=== PATIENT | male | born 1975 | race Caucasian/White ===

== ENCOUNTER 2024-04-22 16:21 | Emergency (ER) | payer BC, SELFPAY ==
[2024-04-22 16:33] VITALS: BP 130/90; PULSE 93; TEMP 36.6; O2SAT 97; BMI 29.4
--- NOTE | 2024-04-22 17:15 | ED_ITS ---
HPI HPI - Back Pain/Injury General Chief Complaint: Back Pain/Injury Stated Complaint: BACK PAIN Time Seen by Provider: 04/22/24 16:45 Source: patient Mode of arrival: walk-in Limitations: no limitations History of Present Illness HPI Narrative: The patient is coming to the ER with a left-sided back pain that he mentioned that not radiating down his legs or arms. 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 The patient denies any fever chills cough, the patient pain comes mostly when laying on the left side and not associated with any cough fever chills or any other concerns Related Data Home Medications ?Medication ?Instructions ?Recorded ?Confirmed armodafinil 200 mg tablet 200 mg PO DAILY 04/22/24 04/22/24 empagliflozin 25 mg tablet 25 mg PO DAILY 04/22/24 04/22/24 (Jardiance) losartan 50 mg tablet 50 mg PO DAILY 04/22/24 04/22/24 rosuvastatin 10 mg tablet 10 mg PO DAILY 04/22/24 04/22/24 semaglutide 2 mg/dose (8 mg/3 mL) 2 mg subcut QWEEK 04/22/24 04/22/24 subcutaneous pen injector (Ozempic) Previous Rx's ?Medication ?Instructions ?Recorded orphenadrine citrate 100 mg 100 mg PO BID PRN muscle spasm #10 04/22/24 tablet,extended release tabs prednisone 20 mg tablet 40 mg (2 x 20 mg) PO DAILY 5 days 04/22/24 #10 tabs Allergies Allergy/AdvReac Type Severity Reaction Status Date / Time No Known Drug Allergies Allergy Verified 04/22/24 16:37 Opioid HPI Opioid Management Most Recent Opioid Data: Last Pain Scale 6 04/22/24 17:10 Review of Systems ROS Status of ROS 10 or more systems reviewed and unremark able except as noted in h istory and below Exam Narrative Exam Narrative: Nurses notes and vital signs reviewed and patient is not hypoxic. General: Well-appearing and in no apparent distress. Skin: Warm, dry, no pallor noted. No rash. Head: Normocephalic, atraumatic. Neck: Supple, non-tender. Eye: Pupils are equal, round and EOMI. No scleral icterus. Ears, Nose, Mouth, and Throat: TM are clear, no nasal mucosal hypertrophy. Oral mucosa is moist, no posterior oropharynx erythema, uvula is mid-line Cardiovascular: Regular Rate and Rhythm without murmur, gallop or rub. Respiratory: No accessory muscle use or respiratory distress. Lungs are clear to auscultation, no wheezing, rales or rhonchi Chest Wall: no tenderness Back: No midline thoracic or lumbar vertebral tenderness. No CVA tenderness, patient have tenderness upon palpation of the left thoracic area at the paraspinal level mostly at the lower T10-11 and 12. No rash no signs of trauma and the pain is induced with palpation Musculoskeletal: normal ROM, no calf or popliteal tenderness, no lower extremity edema/swelling GI: Abdomen is soft, non-distended. Normal bowel sounds. No masses appreciated. No tenderness to palpation. No rebound, guarding, or rigidity noted. Neurological: A&O x4. No cranial nerve dysfunction observed. No truncal bro primo. Moves all extremities. Sensation intact. Psychiatric: Cooperative and interactive. Normal mood and affect. Constitutional Vital Signs, click to edit/add: Last Vital Signs Temp 97.8 F 04/22/24 16:33 Pulse 93 H 04/22/24 16:33 Resp 18 04/22/24 16:33 BP 130/90 04/22/24 16:33 Pulse Ox 97 04/22/24 16:33 O2 Del Method Room Air 04/22/24 16:33 Course Vital Signs Vital signs: Vital Signs Temperature 97.8 F 04/22/24 16:33 Pulse Rate 93 H 04/22/24 16:33 Respiratory Rate 18 04/22/24 16:33 Blood Pressure 130/90 04/22/24 16:33 Pulse Oximetry 97 04/22/24 16:33 Oxygen Delivery Method Room Air 04/22/24 16:33 Temperature 97.8 F 04/22/24 16:33 Pulse Rate 93 H 04/22/24 16:33 Respiratory Rate 18 04/22/24 16:33 Blood Pressure 130/90 04/22/24 16:33 Pulse Oximetry 97 04/22/24 16:33 Oxygen Delivery Method Room Air 04/22/24 16:33 MDM - Back Pain/Injury MDM Narrative Medical decision making narrative: The patient presentation is mostly secondary to muscular pain The patient pain is induced with palpation Right now the patient is not taking anything [id number] and he was treated with 5 days of prednisone as well as Tylenol and Norflex He also provided with Toradol in the ER The patient to avoid any heavy lifting for at least few days until he gets better The patient is to follow up with primary care physician in next 2-3 days or to return to the emergency department should any of the signs or symptoms worsen or new symptoms develop. The patient agrees with the following Diagnosis and Treatment plan and the patient will be discharged home. Discharge Plan Discharge Stand Alone Forms: Portal Instructions Chief Complaint: Back Pain/Injury Clinical Impression: Thoracic back pain Qualifiers: Chronicity: acute Back pain laterality: left Qualified Code(s): M54.6 - Pain in thoracic spine Patient Disposition: Home, Self-Care Time of Disposition Decision: 17:13 Condition: Good Prescriptions / Home Meds: New prednisone 20 mg tablet 40 mg PO DAILY 5 Days Qty: 10 0RF orphenadrine citrate 100 mg tablet extended release 100 mg PO BID PRN (Reason: muscle spasm) Qty: 10 0RF No Action Ozempic 2 mg/dose (8 mg/3 mL) pen injector 2 mg subcut QWEEK Jardiance 25 mg tablet 25 mg PO DAILY losartan 50 mg tablet 50 mg PO DAILY armodafinil 200 mg tablet 200 mg PO DAILY rosuvastatin 10 mg tablet 10 mg PO DAILY Print Language: Nepali Instructions: Thoracic Pain (ED), Back Pain (ED) Referrals: Erick Costello DO [Primary Care Provider] - 1 week Discharge Date/Time: 04/22/24 17:15
--- NOTE | 2024-04-22 17:48 | PC.NURSE ---
Pt medicated with toradol but unable to sign off in DEC. Pt given DC paperwork and released
== END 2024-04-22 17:15 | disposition home or self-care (01) ==
PROVIDERS: Emergency Provider Emergency Medicine; PCP Family Medicine
DX: M54.6 Pain in thoracic spine (principal)
CPT/HCPCS: 99284

== ENCOUNTER 2024-06-20 10:33 | Emergency (ER) | payer BC, SELFPAY ==
[2024-06-20 10:37] VITALS: BP 140/103; PULSE 92; TEMP 36.5; O2SAT 98; BMI 29.4
--- NOTE | 2024-06-20 10:53 | CT_ITS ---
The [address] [address] Patient Name: LUIS A HI MRN: [id number] date: 1975 Sex: M Assigned Patient Location: ER Current Patient Location: Accession/Order Number: [id number] Exam Date: 06/20/2024 11:00 Report Date: 06/20/2024 11:59 At the request of: BRIGIDA JIANG Procedure: CT abdomen pelvis wo con EXAM: CT abdomen pelvis wo con HISTORY: Right flank pain, rule out stone COMPARISON: CT from 05/07/2020. TECHNIQUE: CT abdomen pelvis wo con FINDINGS: LOWER CHEST: LUNG BASES / PLEURA: Normal. DISTAL ESOPHAGUS: Normal. HEART / VESSELS: No significant abnormality. ABDOMEN and PELVIS: LIVER: Normal given limitations of noncontrast CT. BILIARY TRACT: Normal. GALLBLADDER: No abnormality. PANCREAS: Normal. SPLEEN: Normal. ADRENALS: Normal. KIDNEYS: Bilateral simple renal cysts. There is also a minimally complex left upper pole cyst with a thin calcified septation, similar to the prior exam. Multiple small nonobstructing right renal stones. Additionally, there is a 1.1 cm stone in the right renal pelvis which causes mild hydronephrosis (image 53 of series 3). No hydroureter. LYMPH NODES: None enlarged. STOMACH / SMALL BOWEL: No abnormality. COLON / APPENDIX: No abnormality. PERITONEUM / MESENTERY: Normal. No free fluid or air. RETROPERITONEUM: Normal. VESSELS: No significant abnormality. URINARY BLADDER: Normal. REPRODUCTIVE ORGANS: No abnormality. BODY WALL: Small fat-containing left inguinal hernia. MUSCULOSKELETAL: No acute osseous abnormality. Mild degenerative changes of both SI joints and the lumbar spine. CT/CT abdomen pelvis wo con IMPRESSION: 1. Renal stone in the right renal pelvis measuring 1.1 cm with resulting in mild hydronephrosis. Multiple small nonobstructing left renal stones. 2. Multiple low-attenuation using renal lesions bilaterally, consistent with renal cysts. A left upper pole cyst is minimally complex but is stable from 2019. Electronically authenticated by: MAHI YOUNGER Date: 06/20/2024 11:59
--- NOTE | 2024-06-20 10:54 | ED_ITS ---
HPI HPI - General Adult General Chief complaint: Abdominal Pain Stated complaint: FLANK PAIN Time Seen by Provider: 06/20/24 10:50 Source: patient Mode of arrival: walk-in Limitations: no limitations History of Present Illness HPI narrative: 48-year-old male presents for right flank pain. He is worried about a kidney stone. He has had this intermittently for months and years ago he had to have lithotripsy for kidney stones. He has had no gross hematuria or injury and has no pain on the left side. The pain is intermittent and mild to moderate. Related Data Home Medications ?Medication ?Instructions ?Recorded ?Confirmed armodafinil 200 mg tablet 200 mg PO DAILY 04/22/24 04/22/24 empagliflozin 25 mg tablet 25 mg PO DAILY 04/22/24 04/22/24 (Jardiance) losartan 50 mg tablet 50 mg PO DAILY 04/22/24 04/22/24 rosuvastatin 10 mg tablet 10 mg PO DAILY 04/22/24 04/22/24 semaglutide 2 mg/dose (8 mg/3 mL) 2 mg subcut QWEEK 04/22/24 04/22/24 subcutaneous pen injector (Ozempic) Previous Rx's ?Medication ?Instructions ?Recorded orphenadrine citrate 100 mg 100 mg PO BID PRN muscle spasm #10 04/22/24 tablet,extended release tabs prednisone 20 mg tablet 40 mg (2 x 20 mg) PO DAILY 5 days 04/22/24 #10 tabs hydrocodone 5 mg-acetaminophen 325 1 tab PO Q6H PRN pain 5 days #20 06/20/24 mg tablet tabs Allergies Allergy/AdvReac Type Severity Reaction Status Date / Time No Known Drug Allergies Allergy Verified 04/22/24 16:37 Opioid HPI Opioid Management Most Recent Opioid Data: Last Pain Scale 6 04/22/24 17:10 Review of Systems ROS Narrative A ten point review of systems is negative except as noted above. PFSH PFSH Social History Little interest or pleasure in doing things: not at all Feeling down, depressed, or hopeless: not at all Exam Narrative Exam Narrative: Nurses note and vital signs reviewed and patient is not hypoxic. General: The patient appears well and in no apparent distress. Patient is resting comfortably on cart. Skin: Warm, dry, no pallor noted. There is no rash noted. Head: Normocephalic, atraumatic Eye: Normal conjunctiva, no drainage Ears, Nose, Mouth, and Throat: oral mucosa is moist. Nares patent. Cardiovascular: Regular Rate and Rhythm Respiratory: Patient is in no distress, no accessory muscle use, lungs are clear to auscultation, no wheezing, rales or rhonchi Back: non-tender, no CVA tenderness bilaterally to percussion. GI: Soft and nontender Musculoskeletal: The patient has no evidence of calf tenderness, no pitting edema, symmetrical pulses noted bilaterally Neurological: Awake and alert Psychiatric: Cooperative Constitutional Vital Signs, click to edit/add: Last Vital Signs Temp 97.7 F 06/20/24 10:37 Pulse 92 H 06/20/24 10:37 Resp 18 06/20/24 10:37 BP 134/82 06/20/24 11:31 Pulse Ox 98 06/20/24 10:37 Course Vital Signs Vital signs: Vital Signs Temperature 97.7 F 06/20/24 10:37 Pulse Rate 92 H 06/20/24 10:37 Respiratory Rate 18 06/20/24 10:37 Blood Pressure 140/103 H 06/20/24 10:37 Pulse Oximetry 98 06/20/24 10:37 Temperature 97.7 F 06/20/24 10:37 Pulse Rate 92 H 06/20/24 10:37 Respiratory Rate 18 06/20/24 10:37 Blood Pressure 134/82 06/20/24 11:31 Pulse Oximetry 98 06/20/24 10:37 Medical Decision Making MDM Narrative Medical decision making narrative: 11 mm stone noted at the right renal pelvis. He is referred to urology and was provided pain medication. Treatment diagnosis and follow-up were discussed with the patient. Differential Diagnosis Differential Diagnosis: Kidney stone, UTI Lab Data Lab results reviewed: Yes I reviewed the patient's lab results Labs: Lab Results 06/20/24 Range/Units 10:39 Urine Color Lt. yellow (YELLOW) Urine Clarity Clear (CLEAR) Urine pH 7.0 (5.0-9.0) Ur Specific [place] 1.015 (1.005-1.025) Urine Protein Negative (NEG/TRACE) mg/dL Urine Glucose (UA) 100 A (NEGATIVE) mg/dL Urine Ketones Negative (NEGATIVE) mg/dL Urine Occult Blood Small A (NEGATIVE) Urine Nitrite Negative (NEGATIVE) Urine Bilirubin Negative (NEGATIVE) Urine Urobilinogen 0.2 (0.2-1.0) EU/dL Ur Leukocyte Esterase Negative (NEGATIVE) Urine RBC 2-5 A (0-2) #/HPF Urine WBC None seen (NONE SEEN) #/HPF Ur Squamous Epith Cells Few A (NONE/RARE) #/LPF Urine Bacteria None seen (NONE SEEN) #/HPF Urine Mucus Trace A (NONE SEEN) Imaging Data CT scan - abdomen: Radiologist's impression: ITS Impressions Abdomen/Pelvis CT 06/20/24 10:53 IMPRESSION: 1. Renal stone in the right renal pelvis measuring 1.1 cm with resulting in mild hydronephrosis. Multiple small nonobstructing left renal stones. 2. Multiple low-attenuation using renal lesions bilaterally, consistent with renal cysts. A left upper pole cyst is minimally complex but is stable from 2019. Electronically authenticated by: MAHI YOUNGER Date: 06/20/2024 11:59 Discharge Plan Discharge Chief Complaint: Abdominal Pain Clinical Impression: Kidney stone Patient Disposition: Home, Self-Care Time of Disposition Decision: 12:07 Condition: Good Mode of Transportation: Private Vehicle Prescriptions / Home Meds: New hydrocodone-acetaminophen 5-325 mg tablet 1 tab PO Q6H PRN (Reason: pain) 5 Days Qty: 20 0RF No Action Ozempic 2 mg/dose (8 mg/3 mL) pen injector 2 mg subcut QWEEK Jardiance 25 mg tablet 25 mg PO DAILY losartan 50 mg tablet 50 mg PO DAILY armodafinil 200 mg tablet 200 mg PO DAILY rosuvastatin 10 mg tablet 10 mg PO DAILY prednisone 20 mg tablet 40 mg PO DAILY 5 Days Qty: 10 0RF orphenadrine citrate 100 mg tablet extended release 100 mg PO BID PRN (Reason: muscle spasm) Qty: 10 0RF Print Language: Australian Instructions: Kidney Stones (ED) Referrals: Erick Costello DO [Primary Care Provider] - 1 week Jonathon Diaz MD [Physician] - 1 week
[2024-06-20 11:18] LABS: Bilirubin Urine NEGATIVE (NEGATIVE); Blood Urine SMALL (NEGATIVE); Clarity Urine CLEAR (CLEAR); Color Urine LT. YELLOW (YELLOW); Glucose Urine UA 100 mg/dL (NEGATIVE); Ketones Urine NEGATIVE (NEGATIVE); Leukocyte Esterase Urine NEGATIVE (NEGATIVE); Nitrite Urine NEGATIVE (NEGATIVE); Protein Urine NEGATIVE (NEG/TRACE); Specific Gravity Urine 1.015 (1.005-1.025); Urobilinogen Urine 0.2 EU/dL (0.2-1.0)
[2024-06-20 11:26] LABS: Bacteria Urine NONE SEEN #/HPF (NONE SEEN); Mucus Urine TRACE (NONE SEEN); WBC Urine NONE SEEN #/HPF (NONE SEEN)
[2024-06-20 11:27] LABS: Squamous Epithelial Cell Urine FEW #/LPF (NONE/RARE)
[2024-06-20 11:31] VITALS: BP 134/82
== END 2024-06-20 12:36 | disposition home or self-care (01) ==
PROVIDERS: Emergency Provider Emergency Medicine; PCP Family Medicine
DX: N20.0 Calculus of kidney (principal); Z87.442 Personal history of urinary calculi
CPT/HCPCS: 74176; 81001; 99284

== ENCOUNTER 2024-06-25 07:44 | Outpatient (OUT) | payer BC, SELFPAY ==
--- NOTE | 2024-06-25 | XR_ITS ---
The [address] [address] Patient Name: LUIS A HI MRN: [id number] date: 1975 Sex: M Assigned Patient Location: [facility] Current Patient Location: Accession/Order Number: [id number] Exam Date: 06/25/2024 07:50 Report Date: 06/26/2024 05:39 At the request of: THANH BECERAR Procedure: XR abdomen 1V EXAMINATION: XR abdomen 1V HISTORY: Kidney stones; post stent placement COMPARISON: CT abdomen pelvis 06/20/2024 FINDINGS: KIDNEY/URETER - RIGHT: Right ureteral stents. No visible renal or ureteral calcifications. KIDNEY/URETER - LEFT: No visible renal or ureteral calcifications. PELVIS: Stable pelvic calcifications compatible with phleboliths. BOWEL: No abnormal dilation or deviation. BONES: No acute abnormality. OTHER: Negative. No abnormal gaseous collections. XR/XR abdomen 1V IMPRESSION: 1. Right ureteral stent appearing to be in good position. 2. No appreciable urinary tract calculi. Electronically authenticated by: СЕРГЕЙ CHAVARRIA Date: 06/26/2024 05:39
--- OUTSIDE RECORDS SUMMARY | 2024-06-25 07:50 | XMS_ITS | CCD ---
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 Name Role Phone PAY, DR BURTON Attending Unavailable PAY, DR BURTON Consulting Unavailable PAY, DR BURTON Admitting Unavailable KUNS, DR SUAREZ Primary Care Unavailable JOSÉ ANTONIO HOANG Consulting Unavailable KUNS, DR SUAREZ Admitting Unavailable KUNS, DR SUAREZ Attending Unavailable KUNS, DR SUAREZ Consulting Unavailable KUNS, DR SUAREZ Primary Care Unavailable KUNS, DR SUAREZ Admitting Unavailable KUNS, DR SUAREZ Attending Unavailable KUNS, DR SUAREZ Consulting Unavailable KUNS, DR SUAREZ Primary Care Unavailable Erick Doll Unavailable Trang, DO Suarez Primary Care Provider [phone] Trang, DO Suarez Attending Provider [phone] Trang, DO Suarez Primary Care Provider [phone] Trang, DO Suarez Attending Provider [phone] Gisell Norman Unavailable Trang, DO Suarez Primary Care Provider [phone] Trang, DO Suarez Attending Provider Trang, DO Suarez Primary Care Provider [phone] MD Jonathon Diaz Attending Provider [phone] ERICK DOLL Primary Care Physician Jonathon DIAZ Attending Unavailable Jonathon DIAZ Attending Unavailable Jonathon Diaz Attending Unavailable Erick Doll Primary Care Unavailable Jonathon Diaz Admitting Unavailable Jonathon Diaz Admitting Unavailable Jonathon Diaz Attending Unavailable Erick Doll Primary Care Unavailable Allergies Allergy Classification Reported Allergen(s) Allergy Type Date of Onset Reaction(s) Facility (1 source) No Known Medication Allergies; Translations: [No Known Medication Allergies] Propensity to adverse reactions (disorder) [facility] Repository Medications Current Medications Medication Drug Class(es) Dates Sig (Normalized) Sig (Original) 3 ML semaglutide 2.68 MG/ML Pen Injector [Ozempic] (9 sources) Start: 08-27-2023 Ozempic (2 MG/DOSE) 8 MG/3ML as directed Subcutaneous for 90 days Aug, Active Start: 06-01-2023 inject 2 mg by subcu taneous injection every week Ozempic (2 MG/DOSE) 8 MG/3ML 2 mg Subcutaneous once a week May, Active Start: 06-01-2023 inject 1 mg by subcu taneous injection every week Ozempic (2 MG/DOSE) 8 MG/3ML as directed Subcutaneous once a week May, Active azithromycin 250 mg oral tablet (4 sources) Macrolide Antimicrobial Start: 09-28-2023 Zithromax Z-Gonsalo 250 MG as directed Orally Sep, Active cephalexin 500 mg oral capsule (7 sources) Cephalosporin Antibacterial Start: 06-23-2024 take 500 mg by mouth twice daily Cephalexin Active 500 MG PO Twice daily 14 June 23, 2024 12:00am Start: 09-21-2017 End: 12-10-2023 take 1 capsule by mouth every twelve hours Cephalexin (Keflex) 500 mg capsule Discontinued 500 MG PO Every 12 hours September 21, 2017 1:00am December 10, 2023 9:30am CPAP (2 sources) Start: 12-10-2023 CPAP Active .Route December 10, 2023 1:00am Use at for [facility] CPAP Mask and supplies (20 sources) Start: 05-05-2018 CPAP Mask and supplies as directed Apr, Active empagliflozin 25 mg oral tablet (20 sources) Sodium-Glucose Cotransporter 2 Inhibitor Start: 12-10-2023 End: 04-17-2024 take 1 tablet by mouth once daily in the morning Jardiance 25 mg oral tablet 25 mg = 1 tab(s), Oral, qAM Start Date: 06/22/24 Status: Ordered Start: 07-12-2020 JARDIANCE 25 m g daily orally Once a day Jul, Active Glucometer (2 sources) Start: 12-10-2023 Glucometer Act john .Route December 10, 2023 1:00am Check blood sugar one time per day for E11.9 Glucometer n/a (20 sources) Start: 07-12-2020 Glucometer n/a as directed as directed as directed AND SUPPLIES Jul, Active losartan potassium 50 mg oral tablet (20 sources) Angiotensin 2 Receptor Alicia Start: 12-10-2023 take 1 tablet by mouth once daily Losartan Active 50 MG PO Daily December 10, 2023 1:00am FreeTextSi tablet Orally Once a day; Note: Source Status: Taking; Provider: Trang Lee Start: 05-05-2018 take 1 tablet by crissy th every twenty-four hours Losartan Potassium 50 MG 1 tablet Orally Once a day Apr, Active methylPREDNISolone 4 mg oral tablet (20 sources) Corticosteroid Start: 06-02-2023 methylPREDNISo lone 4 MG as directed Orally for daily dose take half with breakfast, half with dinner May, Active Start: 12-28-2019 SOLU-MEDROL 41 - 125 mg Dec, 125 mg Start: 02-27-2017 SOLU-MEDROL 41 - 125 mg February, 125 mg ozempic (2 mg/dose) 8 mg/3ml solution pen-injector (4 sources) Start: 08-27-2023 Ozempic (2 MG/ DOSE) 8 MG/3ML as directed Subcutaneous for 90 days Aug, Active rosuvastatin calcium 10 mg oral tablet (20 sources) HMG-CoA Reductase Inhibitor Start: 12-10-2023 take 1 tablet by mouth once daily Rosuvastatin Active 10 MG PO Daily December 10, 2023 1:00am FreeTextSi tablet Orally Once a day; Note: Source Status: Taking; Provider: Trang Lee Start: 05-05-2018 take 1 tablet by crissy th every twenty-four hours Crestor 10 MG 1 tablet Orally Once a day Apr, Active Ozempic (6 sources) Start: 06-22-2024 inject 2 mg by subcutaneous injection every week Ozempic 2 mg, SubCutaneous, qWeek Start Date: 06/22/24 Status: Ordered Start: 12-29-2022 Ozempic (0.25 or 0.5 MG/DOSE) 2 MG/1.5ML as directed Subcutaneous Once a week for 28 days Dec, Active Semaglutide (Ozempic) 2 mg/dose (8 mg/3 mL) pen injector (4 sources) Start: 01-11-2024 inject 2 mg by subcutaneous injection every week Semaglutide (Ozempic) 2 mg/dose (8 mg/3 mL) pen injector Active 2 MG SUBCUT every week January 11, 2024 8:23am Start: 01-08-2024 End: 01-11-2024 inject 2 mg by subcutaneous injection every week Semaglutide (Ozempic) 2 mg/dose (8 mg/3 mL) pen injector Discontinued 2 MG SUBCUT every week January 08, 2024 12:00am January 11, 2024 8:23am solifenacin succinate 10 mg oral tablet (1 source) Cholinergic Muscarinic Antagonist Start: 06-23-2024 take 1 tablet by mouth once daily Solifenacin (Vesicare) 10 mg tablet Active 10 MG PO Daily June 23, 2024 12:00am tobramycin 3 mg/ml ophthalmic solution (2 sources) Aminoglycoside Antibacterial Start: 10-07-2023 take 2-3 drop(s) into the eye(s) every six hours Tobramycin 0.3 % 2-3 drops to the affected eye Ophthalmic every 6 hours for 7 days Sep, Active triamcinolone acetonide 1 mg/ml topical cream (20 sources) Corticosteroid Start: 05-28-2023 Triamcinolone Acetonide 0.1 % 1 application to affected area Externally Three times a day May, Active Start: 12-08-2019 KENALOG - 10 m g Nov, 1 cc Start: 02-07-2017 KENALOG - 10 m g Jan, 40 mg vortioxetine 20 mg oral tablet (5 sources) Start: 06-28-2019 take 1 tablet by crissy every twenty-four hours Trintellix 20 MG 1 tablet Orally Once a day for 90 day(s) Jun, Active Completed/Discontinued Medications Medication Drug Class(es) Dates Sig (Normalized) Sig (Original) acetaminophen 325 mg / HYDROcodone bitartrate 5 mg oral tablet (12 sources) Opioid Agonist Start: 09-21-2017 End: 12-10-2023 take 1 tablet by mouth every six hours Hydrocodone-Acetami nophen Discontinued 1 TAB PO Q6H September 21, 2017 December 10, 2023 9:30am Start: 09-21-2017 End: 12-10-2023 take 1 tablet by mouth every four to six hours Hydrocodone-Acetaminophen Discontinued 1 TAB PO EVERY 4-6 HOURS September 21, 2017 1:00am December 10, 2023 9:30am armodafinil 200 mg oral tablet (20 sources) Start: 01-11-2024 End: 04-12-2024 take 1 tablet by mouth once daily in the morning Armodafinil (Nuvigil) 200 mg tablet Discontinued 200 MG PO Every morning March 04, 2024 12:53pm April 12, 2024 9:29am Start: 12-10-2023 End: 01-11-2024 take 1 tablet by mouth once daily Armodafinil Discontinued 150 MG PO Daily December 10, 2023 9:35am January 11, 2024 8:21am FreeTextSi tablet Orally Once a day; Note: Source Status: Refill; Refills: 0; Qty: 30 Tablet; Provider: Trang Lee Start: 08-27-2023 take 1 tablet by crissy th every twenty-four hours Armodafinil 150 MG 1 tablet Orally Once a day for 30 days Sep, Active Start: 06-17-2023 take 1 tablet by crissy th every twenty-four hours Armodafinil 150 MG 1 tablet Orally Once a day for 30 days Jun, Active dicyclomine hydrochloride 10 mg oral capsule (20 sources) Anticholinergic Start: 12-10-2023 End: 01-11-2024 take 1 tablet by mouth twice daily as needed Dicyclomine Discontinued 10 MG PO Twice daily December 10, 2023 1:00am January 11, 2024 7:50am FreeTextSi tablet Orally twice a day as needed; Note: Source Status: Taking; Refills: 1; Provider: Trang Lee Start: 12-29-2022 take 1 tablet by crissy th twice daily as needed Dicyclomine HCl 10 MG 1 tablet Orally twice a day as needed for 30 days Dec, Active 0.5 ml dulaglutide 3 mg/ml auto-injector (9 sources) GLP-1 Receptor Agonist Start: 12-10-2023 End: 01-11-2024 Dulaglutide (Trulicity) 1.5 mg/0.5 mL pen injector Discontinued 1.5 MG SUBCUT every week December 10, 2023 1:00am January 11, 2024 7:51am FreeTextSig: as directed Subcutaneous once a week; Note: Source Status: Taking4 pens; Refills: 2; Provider: Trang Lee Start: 08-31-2023 Trulicity 1.5 MG/0.5ML as directed Subcutaneous once a week 4 pens Aug, Active Start: 08-04-2023 inject 1.5 mg by sub cutaneous injection every week Trulicity 1.5 MG/0.5ML 1.5 mg Subcutaneous weekly for 30 days Jul, Active Ketorolac (20 sources) Nonsteroidal Anti-inflammatory Drug, Cyclooxygenase Inhibitor Start: 07-01-2016 Toradol per 15 mg Jun, 2.0 cc metFORMIN hydrochloride 500 mg oral tablet (20 sources) Biguanide Start: 12-10-2023 End: 01-11-2024 take 1 tablet by mouth twice daily Metformin Discontinued 500 MG PO Twice daily December 10, 2023 1:00am January 11, 2024 8:16am FreeTextSi tablet with a meal Orally twice a day; Note: Source Status: Taking; Provider: Trang Lee Start: 05-04-2019 take 1 tablet by crissy th every twelve hours metFORMIN HCl 500 MG 1 tablet with a meal Orally twice a day Apr, Active Problems Active Problems Problem Classification Problem Date Documented Date Episodic/Chronic Abdominal pain (20 sources) Lower abdominal pain; Translations: [Lower abdominal pain, unspecified] Episodic Administrative/socia l admission (5 sources) Dietary management surveillance; Translations: [Dietary counseling and surveillance] Episodic Allergic reactions (17 sources) Contact dermatitis due to poison nellie; Translations: [Allergic contact dermatitis due to plants, except food] Episodic Anxiety disorders (20 sources) Mixed anxiety and depressive disorder; Translations: [Other specified anxiety disorders] Chronic Calculus of urinary tract (20 sources) Personal history of urinary calculi; Translations: [Kidney stone] Onset: 03-19-2022 Episodic Cardiac dysrhythmias (4 sources) Palpitations; Translations: [PALPITATIONS] Onset: 04-01-2022 Episodic Diabetes mellitus without complication (20 sources) Type 2 diabetes mellitus without complications; Translations: [Diabetes mellitus] Onset: 04-03-2022 Resolved: 06-10-2022 Chronic Diabetes mellitus without complication (5 sources) Hyperglycemia; Translations: [Hyperglycemia, unspecified] Episodic Diseases of white blood cells (20 sources) Leukocytosis; Translations: [Elevated white blood cell count, unspecified] Chronic Disorders of lipid metabolism (20 sources) Hyperlipidemia, unspecified; Translations: [Pure hypercholesterolemia, unspecified] Onset: 03-19-2022 Resolved: 06-10-2022 Chronic E Codes: Natural/environment (13 sources) Injury caused by animal; Translations: [Bitten or stung by nonvenomous insect and other nonvenomous arthropods, initial encounter] Episodic Esophageal disorders (20 sources) Gastroesophageal reflux disease; Translations: [Gastro-esophageal reflux disease without esophagitis] 01-08-2024 Chronic Essential hypertension (20 sources) Essential (primary) hypertension; Translations: [Hypertensive disorder] Onset: 04-03-2022 Chronic Genitourinary symptoms and ill-defined conditions (6 sources) Hematuria, unspecified; Translations: [Blood in urine] Episodic Headache; including migraine (5 sources) Headache; Translations: [Headache] Episodic Malaise and fatigue (20 sources) Fatigue; Translations: [Other fatigue] Episodic Nonspecific chest pain (5 sources) Chest pain, unspecified; Translations: [CHEST PAIN UNSPECIFIED] Onset: 03-17-2022 Episodic Other aftercare (1 source) 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; Translations: [SODA MAKER USE ORAL HYPOGLYCEMIC DX] Onset: 03-19-2022 Episodic Other aftercare (1 source) 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; Translations: [OTH SODA MAKER CURRENT DRUG THERAPY] Onset: 03-19-2022 Episodic Other and unspecified benign neoplasm (20 sources) Tubular adenoma of colon; Translations: [Benign neoplasm of colon, unspecified] Episodic Other connective tissue disease (5 sources) Disorder of musculoskeletal system; Translations: [Other symptoms and signs involving the musculoskeletal system] Episodic Other connective tissue disease (2 sources) Lateral epicondylitis; Translations: [Lateral epicondylitis, unspecified elbow] 05-17-2024 Episodic Other connective tissue disease (2 sources) Lateral epicondylitis, unspecified elbow; Translations: [Lateral epicondylitis] 05-17-2024 Episodic Other lower respiratory disease (1 source) Shortness of breath; Translations: [SHORTNESS OF BREATH] Onset: 04-03-2022 Episodic Other lower respiratory disease (20 sources) Solitary nodule of lung; Translations: [Solitary pulmonary nodule] Episodic Other lower respiratory disease (5 sources) Cough; Translations: [Cough] Episodic Other nervous system disorders (10 sources) Reduced concentration; Translations: [Attention and concentration deficit] Chronic Other nervous system disorders (4 sources) Attention and concentration deficit; Translations: [Attention or concentration deficit] Chronic Other nervous system disorders (2 sources) Circadian rhythm sleep disorder of shift work type; Translations: [Circadian rhythm sleep disorder, shift work type] 05-17-2024 Chronic Other nervous system disorders (2 sources) Disturbance of attention; Translations: [Attention and concentration deficit] 12-10-2023 Chronic Other nervous system disorders (2 sources) Circadian rhythm sleep disorder, shift work type; Translations: [Circadian rhythm sleep disorder, shift work type] 05-17-2024 Chronic Other nervous system disorders (5 sources) Paresthesia of hand ; Translations: [Paresthesia of skin] Episodic Other nervous system disorders (5 sources) Skin sensation disturbance; Translations: [Paresthesia of skin] Episodic Other non-traumatic joint disorders (2 sources) Pain in elbow; Translations: [Pain in right elbow] 01-11-2024 Episodic Other nutritional; endocrine; and metabolic disorders (20 sources) Obese class I; Translations: [Body mass index (BMI) 33.0-33.9, adult] Chronic Other nutritional; endocrine; and metabolic disorders (20 sources) Gilbert's syndrome; Translations: [Gilbert syndrome] 01-08-2024 Chronic Other nutritional; endocrine; and metabolic disorders (1 source) Gilbert syndrome Onset: 06-10-2022 Resolved: 06-10-2022 Chronic Other nutritional; endocrine; and metabolic disorders (20 sources) Body mass index 30+ - obesity; Translations: [Body mass index (BMI) 34.0-34.9, adult] Chronic Other nutritional; endocrine; and metabolic disorders (20 sources) Obesity; Translations: [Obesity, unspecified] Chronic Other nutritional; endocrine; and metabolic disorders (1 source) Obesity, unspecified Chronic Other nutritional; endocrine; and metabolic disorders (1 source) Body mass index (BMI) 34.0-34.9, adult Chronic Other nutritional; endocrine; and metabolic disorders (2 sources) Body mass index (BMI) 31.0-31.9, adult; Translations: [BMI 31.0-31.9,adult] Chronic Other screening for suspected conditions (not mental disorders or infectious disease) (20 sources) Patient encounter status; Translations: [Encounter for screening for malignant neoplasm of prostate] Episodic Other upper respiratory infections (5 sources) Upper respiratory infection; Translations: [Acute upper respiratory infection, unspecified] Episodic Residual codes; unclassified (2 sources) Sleep apnea, unspecified; Translations: [SLEEP APNEA UNSPECIFIED] Onset: 03-19-2022 Resolved: 06-10-2022 Chronic Residual codes; unclassified (20 sources) Sleep apnea; Translations: [Sleep apnea, unspecified] Chronic Residual codes; unclassified (20 sources) Obstructive sleep apnea syndrome; Translations: [Obstructive sleep apnea (adult) (pediatric)] 01-08-2024 Chronic Residual codes; unclassified (1 source) Obstructive sleep apnea (adult) (pediatric) Chronic Residual codes; unclassified (1 source) Personal history of other specified conditions; Translations: [PERSONAL HISTORY OTH SPEC CONDITION] Onset: 03-19-2022 Episodic Residual codes; unclassified (20 sources) Reduced libido; Translations: [Decreased libido] Episodic Residual codes; unclassified (1 source) Decreased libido Episodic Residual codes; unclassified (2 sources) Past history of procedure; Translations: [Other specified postprocedural states] 01-08-2024 Episodic Residual codes; unclassified (2 sources) History of colonoscopy; Translations: [Other specified postprocedural states] 01-08-2024 Episodic Screening and history of mental health and substance abuse codes (3 sources) Personal history of nicotine dependence; Translations: [H/O: Disorder] Onset: 03-19-2022 Episodic Skin and subcutaneous tissue infections (20 sources) Pilonidal cyst without abscess; Translations: [Pilonidal cyst] Episodic Sprains and strains (5 sources) Neck sprain; Translations: [Strain of muscle, fascia and tendon at neck level, initial encounter] Episodic Superficial injury; contusion (13 sources) Tick bite; Translations: [Insect bite (nonvenomous), left foot, initial encounter] Episodic Unclassified (3 sources) CONTACT W/AND (SUSP) EXPOS COVID-19; Translations: [CONTACT W/AND (SUSP) EXPOS COVID-19] Onset: 10-24-2021 Past or Other Problems Problem Classification Problem Date Documented Da te Episodic/Chronic Unclassified (1 source) CONTACT W/AND (SUSP) EXPOS COVID-19; Translations: [CONTACT W/AND (SUSP) EXPOS COVID-19] Onset: 10-22-2021 Results Test Name Value Interpretation Reference Range Facility Capillary blood glucose gonzalo urement by glucometer (mass/volume)Ordered By: Jonathon Diaz on 06-23-2024 Glucose [Mass/Vol] 85 mg/dL Normal [facility] Comment on above: Random Glucose Refer ence Range is dependent on time and content of last meal. Glucose of more than 200 mg/dL in a nonstressed, ambulatory subject supports the diagnosis of Diabetes Mellitus. Result Comment: [place] Glucose Reference Range is dependent on time and content of last meal. Glucose of more than 200 mg/dL in a nonstressed, ambulatory subject supports the diagnosis of Diabetes Mellitus. Performed By: #### G LULS #### Point of Care testing , Glucose Poct Glucometerson 0 06-23-2024 Commemt1 Glu2: Cleaned Meter Normal [facility] Comment on above: Result Comment: PERF ORMED BY: [address] [id number] PATHOLOGIST TOUR OPERATOR DENVER LAYTON M.D. Performed By: #### G LULS #### Point of Care testing , No Panel InformationOrdered By: Jonathon Diaz on 06-23-2024 Bedside Glucose Comment Glu2: cleaned meter [facility] XR KUBon 06-23-2024 XR KUB [facility] [address] [address] XRay Report Signed Patient: Luis A Hi MR#: [id number] : 1975 Acct:[id number] Age/Sex: 48 / M ADM Date: 06/23/24 Loc: [place] Room: Type: [facility] Attending Dr: Jonathon Diaz MD Copies to: Jonathon Diaz MD Ordering Provider: Jonathon Diaz MD Date of Service: 06/23/24 XR/XR KUB: Ureteral Stone, Kidney stone KUB: CLINICAL INFORMATION: Preop right cystoscopy with possible stent. Right-sided abdominal pain and discomfort. COMPARISON: None FINDINGS: Stool overlying the right renal shadow limits evaluation. Right renal calculus measuring 9 mm. No suspicious left renal calculus. No bowel obstruction or free air. Platelets are seen within the pelvis. XR/XR KUB IMPRESSION: RIGHT NEPHROLITHIASIS. Impression dictated by: Hari Sinclair Jr., D.OSarina06/23/2024 12:52 PM Dictation Location: [place] [address] Transcribed By: [facility] 06/23/24 1252 Dictated By: Hari Sinclair Jr, DO 06/23/24 1250 Signed By: 06/23/24 1252 Normal [facility] Activated partial thrombopla stin time (aPTT) in platelet poor plasma by coagulation aOrdered By: Jonathon Diaz on 06-22-2024 aPTT Coag (PPP) [Time] 31.2 s 25.1-36.5 [facility] Comment on above: A hematocrit value g reater than 55% may lead to inaccurate results in coagulation testing. Patients having hematocrit values >55% require a special collection tube for coagulation studies. Please contact the laboratory at [phone] for redraw instructions. Automated basophil %Ordered By: Jonathon Diaz on 06-22-2024 Basophils/100 WBC (Bld) 0.7 % Normal . [facility] Comment on above: Order Comment: NONFA STING. JKW Performed By: #### P TT, PT, CBC, BMP #### [address] Automated basophil countOrde red By: Jonathon Diaz on 06-22-2024 Basophils (Bld) [#/Vol] 0.1 10*3/uL Normal 0.0-0.2 [facility] Comment on above: Order Comment: NONFA STING. JKW Result Comment: PERF ORMED BY: [place] [address] PATHOLOGIST TOUR OPERATOR DENVER LAYTON M.D. Performed By: #### P TT, PT, CBC, BMP #### [address] Automated blood monocyte cou ntOrdered By: Jonathon Diaz on 06-22-2024 Monocytes (Bld) [#/Vol] 0.8 10*3/uL Normal 0.0-0.8 [facility] Comment on above: Order Comment: NONFA STING. JKW Performed By: #### P TT, PT, CBC, BMP #### [address] Automated eosinophil %Ordere d By: Jonathon Diaz on 06-22-2024 Eosinophils/100 WBC (Bld) 2.9 % Normal . [facility] Comment on above: Order Comment: NONFA STING. JKW Performed By: #### P TT, PT, CBC, BMP #### [address] Automated eosinophil countOr dered By: Jonathon Diaz on 06-22-2024 Eosinophils (Bld) [#/Vol] 0.3 10*3/uL Normal 0.0-0.45 [facility] Comment on above: Order Comment: NONFA STING. JKW Performed By: #### P TT, PT, CBC, BMP #### [address] Automated monocyte %Ordered By: Jonathon Diaz on 06-22-2024 Monocytes/100 WBC (Bld) 7.4 % Normal . [facility] Comment on above: Order Comment: NONFA STING. JKW Performed By: #### P TT, PT, CBC, BMP #### [address] Automated neutrophil %Ordere d By: Jonathon Diaz on 06-22-2024 Neutrophils/100 WBC (Bld) 65.6 % Normal . [facility] Comment on above: Order Comment: NONFA STING. JKW Performed By: #### P TT, PT, CBC, BMP #### [facility] [address] Basic Metabolic Panelon 06-12 GFR/1.73 sq M.predicted MDRD (S/P/Bld) [Vol rate/Area] mL/min/{1.73_m2} Normal [facility] Comment on above: Order Comment: NONFA STING. JKW Performed By: #### P TT, PT, CBC, BMP #### [facility] [address] [place] [address] [place] Calcium [Mass/volume] in Ser um or PlasmaOrdered By: Jonathon Diaz on 06-22-2024 Calcium [Mass/Vol] 9.1 mg/dL Normal 8.6-10.[address] [facility] Comment on above: Order Comment: NONFA STING. JKW Result Comment: PERF ORMED BY: [place] [address] PATHOLOGIST TOUR OPERATOR DENVER LAYTON M.D. Performed By: #### P TT, PT, CBC, BMP #### [place] [address] [place] Carbon dioxide, total [Moles /volume] in Serum or PlasmaOrdered By: Jonathon Diaz on 06-22-2024 CO2 [Moles/Vol] 29.7 mmol/L Normal 21.0-31.0 [facility] Comment on above: Order Comment: NONFA STING. JKW Performed By: #### P TT, PT, CBC, BMP #### [facility] [address] [place] [address] [place] Chloride [Moles/volume] in S tete or PlasmaOrdered By: Jonathon Diaz on 06-22-2024 Chloride [Moles/Vol] 104 mmol/L Normal 98-107 [facility] Comment on above: Order Comment: NONFA STING. JKW Performed By: #### P TT, PT, CBC, BMP #### [facility] [address] [place] [address] [place] Complete Blood Count Auto Di ffon 06-22-2024 Mean Corpuscular HGB Conc 34.7 g/dL Normal 32.5-35.6 [facility] Comment on above: Order Comment: NONFA STING. JKW Performed By: #### P TT, PT, CBC, BMP #### [facility] [address] NRBC% 0.1 /100{WBC} Normal 0-0.5 [facility] Comment on above: Order Comment: NONFA STING. JKW Performed By: #### P TT, PT, CBC, BMP #### [facility] [address] Creatinine [Mass/volume] in Serum or PlasmaOrdered By: Jonathon Diaz on 06-22-2024 Creatinine [Mass/Vol] 0.74 mg/dL Normal 0.70-1.30 [facility] Comment on above: Order Comment: NONFA STING. JKW Performed By: #### P TT, PT, CBC, BMP #### [address] ECG 12 lead ECGon 06-22-2024 ECG 12 lead ECG [facility] [place] [address] [place] [address] Electrocardiograph Report Signed Patient: Luis A Hi MR#: [id number] : 1975 Acct:[id number] Age/Sex: 48 / M ADM Date: 06/22/24 Loc: [place] Room: Type: [facility] Attending Dr: Jonathon Diaz MD Ordering Provider: Jonathon Diaz MD Date of Service: 06/22/24/ ECG/ECG 12 lead ECG: see order Copies to: Test Reason : Blood Pressure : */* mmHG Vent. Rate : 100 BPM Atrial Rate : 100 BPM P-R Int : 158 ms QRS Dur : 86 ms QT Int : 350 ms P-R-T Axes : 64 65 40 degrees QTcB Int : 451 ms Normal sinus rhythm Normal ECG Confirmed by Nicol Hughes ([id number]) on 06/23/2024 12:23:38 AM Referred By: Electronically Signed By: Nicol Hughes Transcribed By: MUS Signed By Nicol Hughes MD 4 0023 Normal [facility] Erythrocyte distribution wid th [Ratio] by Automated countOrdered By: Jonathon Diaz on 06-22-2024 Erythrocyte distribution width (RBC) [Ratio] 13.2 % Normal 12.0-14.8 [facility] Comment on above: Order Comment: NONFA STING. JKW Performed By: #### P TT, PT, CBC, BMP #### [facility] [address] Erythrocytes [#/volume] in B lood by Automated countOrdered By: Jonathon Diaz on 06-22-2024 RBC (Bld) [#/Vol] 4.87 10*6/uL Normal 3.90-5.60 [facility] Comment on above: Order Comment: NONFA STING. JKW Performed By: #### P TT, PT, CBC, BMP #### [facility] [address] [place] [address] [place] Glucose [Mass/volume] in Ser um or PlasmaOrdered By: Jonathon Diaz on 06-22-2024 Glucose [Mass/Vol] 81 mg/dL Normal 70-[address] [facility] Comment on above: ADA recommended refe rence rangeRandom Glucose Reference Range is dependent on time and content of last meal. Glucose of more than 200 mg/dL in a nonstressed, ambulatory subject supports the diagnosis of Diabetes Mellitus. Order Comment: NONFA STING. JKW Result Comment: [place] om Glucose Reference Range is dependent on time and content of last meal. Glucose of more than 200 mg/dL in a nonstressed, ambulatory subject supports the diagnosis of Diabetes Mellitus. ADA recommended reference range Performed By: #### P TT, PT, CBC, BMP #### [facility] [address] [place] [id number] [place] Hematocrit [Volume Fraction] of Blood by Automated countOrdered By: Jonathon Diza on 06-22-2024 Hematocrit (Bld) [Volume fraction] 43.5 % Normal 38.8-50.0 [facility] Comment on above: Order Comment: NONFA STING. JKW Performed By: #### P TT, PT, CBC, BMP #### [facility] [address] Hemoglobin [Mass/volume] in BloodOrdered By: Jonathon Diaz on 06-22-2024 Hemoglobin (Bld) [Mass/Vol] 15.1 g/dL Normal 13.0-17.0 [facility] Comment on above: Order Comment: NONFA STING. JKW Performed By: #### P TT, PT, CBC, BMP #### [facility] [address] INR in Platelet poor plasma by Coagulation assayOrdered By: Jonathon Diaz on 06-22-2024 INR Coag (PPP) [Relative time] 1.0 {INR} Normal [facility] Comment on above: INR Therapeutic Rang e A) Pre- and Peroperative OAT started two weeks before surgery. NOT HIP SURGERY: 1.5 - 2.5 HIP SURGERY: 2 - 3B) Primary and secondary prevention of venous THROMBOSIS: 2 - 3C) Active venous thrombosis, pulmonary embolismand prevention of recurrent venous thrombosis: 2 - 3D) Prevention of arterial thromboembolismincluding patients with mechanical heart valves: 3 - 4.5 Order Comment: NONFA STING. JKW Result Comment: INR Therapeutic Range A) Pre- and Peroperative OAT started two weeks before surgery. NOT HIP SURGERY: 1.5 - 2.5 HIP SURGERY: 2 - 3 B) Primary and secondary prevention of venous THROMBOSIS: 2 - 3 C) Active venous thrombosis, pulmonary embolism and prevention of recurrent venous thrombosis: 2 - 3 D) Prevention of arterial thromboembolism including patients with mechanical heart valves: 3 - 4.5 Performed By: #### P TT, PT, CBC, BMP #### [facility] [address] [place] [address] Leukocytes [#/volume] correc junaid for nucleated erythrocytes in Blood by Automated counOrdered By: Jonathon Diaz on 06-22-2024 WBC corrected for nucl RBC Auto (Bld) [#/Vol] 11.4 10*3/uL High 4.1-10.5 [facility] Leukocytes [#/volume] in Blo od by Automated countOrdered By: Jonathon Diaz on 06-22-2024 WBC (Bld) [#/Vol] 11.4 10*3/uL High 4.1-10.5 [facility] Comment on above: Order Comment: NONFA STING. JKW Performed By: #### P TT, PT, CBC, BMP #### [address] Lymphocytes [#/volume] in Bl ood by Automated countOrdered By: Jonathon Diaz on 06-22-2024 Lymphocytes (Bld) [#/Vol] 2.7 10*3/uL Normal 1.00-4.8 [facility] Comment on above: Order Comment: NONFA STING. JKW Performed By: #### P TT, PT, CBC, BMP #### [address] Lymphocytes/100 leukocytes i n Blood by Automated countOrdered By: Jonathon Diaz on 06-22-2024 Lymphocytes/100 WBC (Bld) 23.4 % Normal . [facility] Comment on above: Order Comment: NONFA STING. JKW Performed By: #### P TT, PT, CBC, BMP #### [address] MCH [Entitic mass] by Automa junaid countOrdered By: Jonathon Diaz on 06-22-2024 MCH (RBC) [Entitic mass] 31.0 pg Normal 27.5-35.2 [facility] Comment on above: Order Comment: NONFA STING. JKW Performed By: #### P TT, PT, CBC, BMP #### [facility] [address] [place] [address] MCHC Auto (RBC) [Mass/Vol]Or dered By: Jonathon Diaz on 06-22-2024 MCHC (RBC) [Mass/Vol] 34.7 g/dL 32.5-35.6 [facility] MCV [Entitic volume] by Auto mated countOrdered By: Jonathon Diaz on 06-22-2024 MCV (RBC) [Entitic vol] 89.3 fL Normal 83.5-101 [facility] Comment on above: Order Comment: NONFA STING. JKW Performed By: #### P TT, PT, CBC, BMP #### [address] [place] [address] [place] Neutrophils [#/volume] in Bl ood by Automated countOrdered By: Jonathon Diaz on 06-22-2024 Neutrophils (Bld) [#/Vol] 7.5 10*3/uL Normal 1.8-7.7 [facility] Comment on above: Order Comment: NONFA STING. JKW Performed By: #### P TT, PT, CBC, BMP #### [facility] [address] [place] [address] No Panel InformationOrdered By: Jonathon Diaz on 06-22-2024 Estimated GFR (CKD-EPI) > 60.0 mL/Min [facility] Creatinine Clearance (Chem N/A [facility] Nucleated erythrocytes [Pres ence] in Blood by Automated countOrdered By: Jonathon Diaz on 06-22-2024 Nucleated RBC Auto Ql (Bld) 0.1 /100{WBC} 0-0.5 [facility] Partial Thromboplastin Timeo n 06-22-2024 aPTT Coag (Bld) [Time] 31.2 s Normal 25.1-36.5 [facility] Comment on above: Order Comment: NONFA STING. JKW Result Comment: A he matocrit value greater than 55% may lead to inaccurate results in coagulation testing. Patients having hematocrit values >55% require a special collection tube for coagulation studies. Please contact the laboratory at [phone] for redraw instructions. PERFORMED BY: [place] [address] PATHOLOGIST TOUR OPERATOR DENVER LAYTON M.D. Performed By: #### P TT, PT, CBC, BMP #### [address] Platelet mean volume [Entiti c volume] in Blood by Automated countOrdered By: Jonathon Diaz on 06-22-2024 Platelet mean volume (Bld) [Entitic vol] 7.7 fL Normal 6.6-10.1 [facility] Comment on above: Order Comment: NONFA STING. JKW Performed By: #### P TT, PT, CBC, BMP #### [address] [place] [address] [place] Platelets [#/volume] in Bloo d by Automated countOrdered By: Jonathon Diaz on 06-22-2024 Platelets (Bld) [#/Vol] 224 10*3/uL Normal 150-450 [facility] Comment on above: Order Comment: NONFA STING. JKW Performed By: #### P TT, PT, CBC, BMP #### [facility] [address] Potassium [Moles/volume] in Serum or PlasmaOrdered By: Jonathon Diaz on 06-22-2024 Potassium [Moles/Vol] 3.6 mmol/L Normal 3.5-5.1 [facility] Comment on above: Order Comment: NONFA STING. JKW Performed By: #### P TT, PT, CBC, BMP #### [address] Prothrombin time (PT)Ordered By: Jonathon Diaz on 06-22-2024 PT Coag (PPP) [Time] 11.6 s Normal 9.0-12.9 [facility] Comment on above: A hematocrit value g reater than 55% may lead to inaccurate results in coagulation testing. Patients having hematocrit values >55% require a special collection tube for coagulation studies. Please contact the laboratory at [phone] for redraw instructions. Order Comment: NONFA STING. JKW Result Comment: A he matocrit value greater than 55% may lead to inaccurate results in coagulation testing. Patients having hematocrit values >55% require a special collection tube for coagulation studies. Please contact the laboratory at [phone] for redraw instructions. Performed By: #### P TT, PT, CBC, BMP #### [facility] [address] Serum or plasma anion gap de terminationOrdered By: Jonathon Diaz on 06-22-2024 Anion gap [Moles/Vol] 11.9 mmol/L Normal 6.0-15.0 [facility] Comment on above: Order Comment: NONFA STING. JKW Performed By: #### P TT, PT, CBC, BMP #### [facility] [address] Sodium [Moles/volume] in Ser um or PlasmaOrdered By: Jonathon Diaz on 06-22-2024 Sodium [Moles/Vol] 142 mmol/L Normal 136-[address] [facility] Comment on above: Order Comment: NONFA STING. JKW Performed By: #### P TT, PT, CBC, BMP #### [facility] [address] [place] [id number] [facility] Urea nitrogen [Mass/volume] in Serum or PlasmaOrdered By: Jonathon Diaz on 06-22-2024 Urea nitrogen [Mass/Vol] 14 mg/dL Normal 7-25 [facility] Comment on above: Order Comment: NONFA STING. JKW Performed By: #### P TT, PT, CBC, BMP #### [facility] [address] Urology Office/Clinic Noteon 06-22-2024 Urology Office/Clinic Note Urology Office/Clinic Note Chief Complaint New Pt. Hospital follow up HPI Staff New Pt. Pt was seen [facility] on 06/20/[address] SCAN 06/20/24 Lithotripsy 2017-DLS Dysuria: yes some burning, denies pain Incomplete bladder emptying: denies Hematuria: denies visible blood, UA shows SMALL Frequency: yes due to medication Urgency: sometimes Nocturia: 1x a night Stream: denies hesitancy, denies weak stream Leaking: denies Post void dripping: denies Wearing pads/ Depends: denies Urge incontinence: denies Stress incontinence: denies Incontinence without Sensory Awareness: denies Abdominal pain: yes right sided discomfort Flank pain: yes right sided discomfort Sexual complaints: denies History of Present Illness Tests reviewed: reviewed UA, ER records, CT I have reviewed the previous health record information and history for this patient from [facility]. I have reviewed and verified the staff HPI to be accurate for this encounter. Review of Systems PHQ Score Initial Depression Screen Score: 0 SCORE ROS - Provider Constitutional: denies weight loss, denies hot flashes. Eyes: denies eye problems. Gastrointestinal: denies nausea, denies vomiting. Cardiovascular: denies chest pain or angina. Integumentary: no dryness Musculoskeletal: denies musculoskeletal symptoms. ENMT: denies otolaryngeal symptoms. Respiratory: no shortness of breath. Heme/Lymph: denies easy bleeding tendency, denies easy bruising tendency. Psychiatric: no confusion, no anxiety. Genitourinary: See HPI. Physical Exam Vitals & Measurements HR: 92(Peripheral) RR: 16 BP: 126/84 HT: 70 in HT: 178 cm WT: 96.7 kg WT: 212.74 lb BMI: 30.52 General Appearance: alert, no distress, well nourished, well developed male. Assessment/Plan Luis A is a 48 yo male new pt following up to [facility] ER visit on 06/20/24 due to abdominal pain. Hx of lithotripsy by Dr. Zhang 2017. Type II diabetic. No BTs. 1. Right kidney stone (N20.0: Calculus of kidney) CT AP wo con 06/20/24 [facility] - Renal stone in the R renal pelvis measuring 1.1 cm resulting in mild hydro. Multiple small L renal stones. Multiple renal lesions bilaterally, consistent with renal cysts. LUP cyst is minimally complex but is stable from 2020. UA shows small blood wo signs of infection. Has had discomfort over the past few days. Mild sxs started a few mos ago. Reviewed imaging with pt. Explained risk of sepsis given mildly obstructing stone and hx of diabetes. Could place stent today however this would mean pt would require staged procedures. Given that he is not currently sick from stone, it is reasonable to stent and do lithotripsy tomorrow. Pt thinks stone has been present for years, would have intermittent sxs, that gradually increased in frequency. Based on position of stone, laser litho recommended over ESWL since the fragments would clog the ureter requiring URS regardless. Pt is on Ozempic, will need to be off for 1 wk prior to surgery for anesthesia. -Will schedule R URS, R Laser Litho, stent placement. The procedural risks, benefits, details, and treatment alternatives have been discussed with the patient. These include bleeding, infection, inability to break or retrieve all of the stone, injury to the ureter (the tube which connects the kidney to the bladder), injury to the kidney scarring of the ureter, and need for repeat procedures, among others. Full informed consent has been obtained. Will order General anesthesia. -Address L sided stones after above. 2. Former smoker (Z87.891: Personal history of nicotine dependence) Quit 2006. Cigarettes, 1 PPD. Follow-up With When Contact Information Jonathon DIAZ MD, [facility] [address], [place] [address]- Additional Instructions: schedule R URS, R Laser Litho, stent placement Patient Education ESWL for Kidney Stones, Care After ESWL for Kidney Stones I, Darcy Monet, personally scribed for Dr. Diaz on 06/22/2024 11:55:07. Documentation recorded by the scribe, Darcy Monte, accurately reflects the services(s) I performed and decisions made by me. Authenticated by Dr. Diaz on 06/22/2024 12:07:16. 11:55:07. Problem List/Past Medical History Ongoing Former smoker High cholesterol Hypertension Right kidney stone Type 2 diabetes mellitus Historical No qualifying data Procedure/Surgical History Colonoscopy. Medications Jardiance 25 mg oral tablet, 25 mg= 1 tab(s), Oral, qAM losartan 50 mg Tab, 50 mg= 1 tab(s), Oral, Daily Ozempic, 2 mg, SubCutaneous, qWeek rosuvastatin 10 mg Tab, 10 mg= 1 tab(s), Oral, Daily Allergies No Known Medication Allergies Social History Tobacco Former smoker, quit more than 30 days ago Tobacco Use:. Never Smokeless Tobacco Use:. Cigarettes, 06/22/2024 Family History Diabetes: Grandparent. Heart disease: Grandparent. Hyperlipidemia: Father. Hypertension: Father. Lung canc (more content not included)... Normal [facility] Comment on above: Result Comment: Elec tronically Signed By: Jonathon DIAZ MD\.br\Date and Time Signed: 06/22/24 12:07 EDT\.br\Electronically Co-Signed By: Darcy Monet\.br\Date and Time Co-Signed: 06/22/24 11:55 EDT\.br\Electronically Co-Signed By: Darcy Monet\.br\Date and Time Co-Signed: 06/22/24 12:06 EDT Laboratory - Chemistry and C hemistry - challengeon 06-20-2024 Bilirubin Ql (U) Negative NEGATIVE [facility] Glucose (U) [Mass/Vol] 100 mg/dL [facility] Ketones Ql (U) Negative NEGATIVE [facility] pH (U) 7.0 [pH] 5.0-9.0 [facility] Specific gravity (U) [Rel density] 1.015 1.005-1.02 5 [facility] Urobilinogen Qn (U) 0.2 {Jeannie'U}/dL 0.2-1.0 [facility] Laboratory - Specimen inform ationon 06-20-2024 Appearance (U) CLEAR CLEAR [facility] Color (U) LT. YELLOW YELLOW [facility] Laboratory - Urinalysison Leukocyte esterase Test strip Ql (U) Negative NEGATIVE [facility] Mucus Ql (Urine sed) TRACE Abnormal NONE SEEN [facility] Nitrite Ql (U) Negative NEGATIVE [facility] Protein Ql (U) Negative NEG/TRACE [facility] No Panel Informationon 06-20 Urine Bacteria NONE SEEN #/HPF NONE SEEN [facility] Urine Occult Blood SMALL Abnormal NEGATIVE [facility] Urine RBC 2-5 #/HPF Abnormal 0-2 [facility] Urine Squamous Epithelial Cells FEW #/LPF Abnormal NONE/RARE [facility] Urine WBC NONE SEEN #/HPF NONE SEEN [facility] HbA1c HPLC (Bld) [Mass fract ion]on 05-17-2024 HbA1c (Bld) [Mass fraction] 5.6 % [facility] Laboratory - Chemistry and C hemistry - challengeon 05-17-2024 Bilirubin Ql (U) Negative [facility] Ketones Ql (U) Negative [facility] pH (U) 6 [pH] [facility] Specific gravity (U) [Rel density] 1.020 [facility] Urobilinogen (U) [Mass/Vol] 1.0 mg/dL [facility] - Specimen inform ationon 05-17-2024 Appearance (U) clear [facility] Color (U) yellow [facility] - Urinalysison Leukocyte esterase Test strip Ql (U) Negative [facility] Nitrite Ql (U) Negative [facility] Protein Ql (U) trace [facility] No Panel Informationon 05-17 Urine Glucose (UA) large [facility] Urine Occult Blood moderate [facility] Alanine aminotransferase [En zymatic activity/volume] in Serum or PlasmaOrdered By: Erick Doll on 06-01-2023 ALT [Catalytic activity/Vol] 26 U/L 7-52 [facility] Albumin [Mass/volume] in Ser um or Plasma by Bromocresol green (BCG) dye binding methoOrdered By: Erick Doll on 06-01-2023 Albumin BCG dye [Mass/Vol] 4.6 g/dL 3.5-5.7 [facility] Alkaline phosphatase [Enzyma tic activity/volume] in Serum or PlasmaOrdered By: Erick Doll on 06-01-2023 ALP [Catalytic activity/Vol] 63 U/L 34-104 [facility] Aspartate aminotransferase [ Enzymatic activity/volume] in Serum or PlasmaOrdered By: Erick Doll on 06-01-2023 AST [Catalytic activity/Vol] 23 U/L 13-39 [facility] Basophils Auto (Bld) [#/Vol] Ordered By: Erick Doll on 06-01-2023 Basophils (Bld) [#/Vol] 0.1 10*3/uL 0.0-0.2 [facility] Basophils/100 WBC Auto (Bld) Ordered By: Erick Doll on 06-01-2023 Basophils/100 WBC (Bld) 1.0 % . [facility] Bilirubin.total [Mass/volume ] in Serum or PlasmaOrdered By: Erick Doll on 06-01-2023 Bilirubin [Mass/Vol] 1.0 mg/dL 0.3-1.0 [facility] Calcium [Mass/volume] in Ser um or PlasmaOrdered By: Erick Doll on 06-01-2023 Calcium [Mass/Vol] 9.3 mg/dL 8.6-10.[address] [facility] Carbon dioxide, total [Moles /volume] in Serum or PlasmaOrdered By: Erick Doll on 06-01-2023 CO2 [Moles/Vol] 30.7 mmol/L 21.0-31.0 [facility] Chloride [Moles/volume] in S tete or PlasmaOrdered By: Erick Doll on 06-01-2023 Chloride [Moles/Vol] 103 mmol/L 98-107 [facility] Cholesterol [Mass/volume] in Serum or PlasmaOrdered By: Erick Doll on 06-01-2023 Cholesterol [Mass/Vol] 164 mg/dL 140-200 [facility] Comment on above: Chol less than 200 m g/dl low riskChol 201-239 mg/dl borderline riskChol 240 mg/dl and greater high risk Cholesterol in LDL Calc [Mas s/Vol]Ordered By: Erick Doll on 06-01-2023 Cholesterol in LDL [Mass/Vol] 84 mg/dL 0-100 [facility] Comment on above: LDL ATP III CLASSIFI CATIONLDL less than 100 mg/dL OptimalLDL 100-129 mg/dL Near or above optimalLDL 130-159 mg/dL Borderline highLDL 160-189 mg/dL HighLDL greater than 189 mg/dL Very high Cholesterol in VLDL Calc [Ma ss/Vol]Ordered By: Erick Doll on 06-01-2023 Cholesterol in VLDL [Mass/Vol] 34 mg/dL [facility] Creatinine [Mass/volume] in Serum or PlasmaOrdered By: Erick Doll on 06-01-2023 Creatinine [Mass/Vol] 0.71 mg/dL 0.70-1.30 [facility] Eosinophils Auto (Bld) [#/Vo l]Ordered By: Erick Doll on 06-01-2023 Eosinophils (Bld) [#/Vol] 0.5 10*3/uL 0.0-0.45 [facility] Eosinophils/100 WBC Auto (Bl d)Ordered By: Erick Doll on 06-01-2023 Eosinophils/100 WBC (Bld) 4.1 % . [facility] Erythrocyte distribution wid th Auto (RBC) [Ratio]Ordered By: Erick Doll on 06-01-2023 Erythrocyte distribution width (RBC) [Ratio] 13.9 % 12.0-14.8 [facility] Globulin Calc (S) [Mass/Vol] Ordered By: Erick Doll on 06-01-2023 Globulin (S) [Mass/Vol] 2.8 g/dL [facility] Glucose [Mass/volume] in Ser um or PlasmaOrdered By: Erick Doll on 06-01-2023 Glucose [Mass/Vol] 103 mg/dL 70-[address] [facility] Comment on above: ADA recommended refe rence rangeRandom Glucose Reference Range is dependent on time and content of last meal. Glucose of more than 200 mg/dL in a nonstressed, ambulatory subject supports the diagnosis of Diabetes Mellitus. Glucose mean value [Mass/vol ume] in Blood Estimated from glycated hemoglobinOrdered By: Erick Doll on 06-01-2023 Average glucose Estimated from glycated hemoglobin (Bld) [Mass/Vol] 120 mg/dL [facility] Hematocrit Auto (Bld) [Volum e fraction]Ordered By: Erick Doll on 06-01-2023 Hematocrit (Bld) [Volume fraction] 45.3 % 38.8-50.0 [facility] Hemoglobin A1c percentageOrd ered By: Erick Doll on 06-01-2023 HbA1c (Bld) [Mass fraction] 5.8 % 4.3-5.6 [facility] Comment on above: Increased risk for d iabetes: 5.7 - 6.4diabetes: >6.4glycemic control for adults with diabetes: <7.0 Hemoglobin [Mass/volume] in BloodOrdered By: Erick Doll on 06-01-2023 Hemoglobin (Bld) [Mass/Vol] 15.4 g/dL 13.0-17.0 [facility] Leukocytes [#/volume] correc junaid for nucleated erythrocytes in Blood by Automated counOrdered By: Erick Doll on 06-01-2023 WBC corrected for nucl RBC Auto (Bld) [#/Vol] 11.1 10*3/uL 4.1-10.5 [facility] Lymphocytes Auto (Bld) [#/Vo l]Ordered By: Erick Doll on 06-01-2023 Lymphocytes (Bld) [#/Vol] 2.9 10*3/uL 1.00-4.8 [facility] Lymphocytes/100 WBC Auto (Bl d)Ordered By: Erick Doll on 06-01-2023 Lymphocytes/100 WBC (Bld) 26.4 % . [facility] MCH Auto (RBC) [Entitic mass ]Ordered By: Erick Doll on 06-01-2023 MCH (RBC) [Entitic mass] 30.6 pg 27.5-35.2 [facility] MCHC Auto (RBC) [Mass/Vol]Or dered By: Erick Doll on 06-01-2023 MCHC (RBC) [Mass/Vol] 34.0 g/dL 32.5-35.6 [facility] MCV Auto (RBC) [Entitic vol] Ordered By: Erick Doll on 06-01-2023 MCV (RBC) [Entitic vol] 89.9 fL 83.5-101 [facility] Monocytes Auto (Bld) [#/Vol] Ordered By: Erick Doll on 06-01-2023 Monocytes (Bld) [#/Vol] 0.6 10*3/uL 0.0-0.8 [facility] Monocytes/100 WBC Auto (Bld) Ordered By: Erick Doll on 06-01-2023 Monocytes/100 WBC (Bld) 5.7 % . [facility] Neutrophils Auto (Bld) [#/Vo l]Ordered By: Erick Doll on 06-01-2023 Neutrophils (Bld) [#/Vol] 7.0 10*3/uL 1.8-7.7 [facility] Neutrophils/100 WBC Auto (Bl d)Ordered By: Erick Doll on 06-01-2023 Neutrophils/100 WBC (Bld) 62.8 % . [facility] No Panel InformationOrdered By: Erick Doll on 06-01-2023 Estimated GFR (CKD-EPI) > 60.0 mL/Min [facility] Creatinine Clearance (Chem N/A [facility] Nucleated erythrocytes [Pres ence] in Blood by Automated countOrdered By: Erick Doll on 06-01-2023 Nucleated RBC Auto Ql (Bld) 0.0 /100{WBC} 0-0.5 [facility] Platelet mean volume Auto (B ld) [Entitic vol]Ordered By: Erick Doll on 06-01-2023 Platelet mean volume (Bld) [Entitic vol] 8.3 fL 6.6-10.1 [facility] Platelets Auto (Bld) [#/Vol] Ordered By: Erick Doll on 06-01-2023 Platelets (Bld) [#/Vol] 232 10*3/uL 150-450 [facility] Potassium [Moles/volume] in Serum or PlasmaOrdered By: Erick Doll on 06-01-2023 Potassium [Moles/Vol] 4.0 mmol/L 3.5-5.1 [facility] Protein [Mass/volume] in Ser um or PlasmaOrdered By: Erick Doll on 06-01-2023 Protein [Mass/Vol] 7.4 g/dL 6.4-8.[address] [facility] RBC Auto (Bld) [#/Vol]Ordere d By: Erick Doll on 06-01-2023 RBC (Bld) [#/Vol] 5.04 10*6/uL 3.90-5.60 [facility] Serum or plasma albumin/glob ulin mass ratioOrdered By: Erick Doll on 06-01-2023 Albumin/Globulin [Mass ratio] 1.6 {ratio} [facility] Serum or plasma anion gap de terminationOrdered By: Erick Doll on 06-01-2023 Anion gap [Moles/Vol] 10.3 mmol/L 6.0-15.0 [facility] Serum or plasma high density lipoprotein (HDL) cholesterol measurementOrdered By: Erick Doll on 06-01-2023 Cholesterol in HDL [Mass/Vol] 46 mg/dL 23-92 [facility] Comment on above: HDL CHOL ATP-III CLA SSIFICATION Cardiovascular RiskHDL > or equal to 60 mg/dL LOWHDL < 40 mg/dL HIGH Serum or plasma total choles terol/high density lipoprotein (HDL) cholesterol mass ratOrdered By: Erick Doll on 06-01-2023 Cholesterol.total/Chol esterol in HDL [Mass ratio] 3.6 {ratio} <5.0 [facility] Sodium [Moles/volume] in Ser um or PlasmaOrdered By: Erick Doll on 06-01-2023 Sodium [Moles/Vol] 140 mmol/L 136-[address] [facility] Triglyceride [Mass/volume] i n Serum or PlasmaOrdered By: Erick Doll on 06-01-2023 Triglyceride [Mass/Vol] 170 mg/dL 0-149 [facility] Comment on above: TRIG ATP III CLASSIF ICATIONTRIG less than 150 mg/dL NormalTRIG 150-199 mg/dL Borderline highTRIG 200-500 mg/dL High TRIG greater than 500 mg/dL Very highStandard traceable to the Center for Disease Conrtrol and Prevention (CDC) test method. Urea nitrogen [Mass/volume] in Serum or PlasmaOrdered By: Erick Doll on 06-01-2023 Urea nitrogen [Mass/Vol] 13 mg/dL 7-25 [facility] WBC Auto (Bld) [#/Vol]Ordere d By: Erick Doll on 06-01-2023 WBC (Bld) [#/Vol] 11.1 10*3/uL 4.1-10.5 [facility] Alanine aminotransferase [En zymatic activity/volume] in Serum or PlasmaOrdered By: Erick Doll on 01-01-2023 ALT [Catalytic activity/Vol] 53 U/L High 7-52 U/L [facility] Albumin [Mass/volume] in Ser um or Plasma by Bromocresol green (BCG) dye binding methoOrdered By: Erick Doll on 01-01-2023 Albumin BCG dye [Mass/Vol] 4.7 g/dL 3.5-5.7 [facility] Alkaline phosphatase [Enzyma tic activity/volume] in Serum or PlasmaOrdered By: Erick Doll on 01-01-2023 ALP [Catalytic activity/Vol] 80 U/L Normal 34-104 U/L [facility] Aspartate aminotransferase [ Enzymatic activity/volume] in Serum or PlasmaOrdered By: Erick Doll on 01-01-2023 AST [Catalytic activity/Vol] 47 U/L High 13-39 U/L [facility] Basophils Auto (Bld) [#/Vol] Ordered By: Erick Doll on 01-01-2023 Basophils (Bld) [#/Vol] 0.1 10*3/uL 0.0-0.2 [facility] Basophils/100 WBC Auto (Bld) Ordered By: Erick Doll on 01-01-2023 Basophils/100 WBC (Bld) 0.7 % . [facility] Bilirubin.total [Mass/volume ] in Serum or PlasmaOrdered By: Erick Doll on 01-01-2023 Bilirubin [Mass/Vol] 0.9 mg/dL 0.3-1.0 [facility] Calcium [Mass/volume] in Ser um or PlasmaOrdered By: Erikc Doll on 01-01-2023 Calcium [Mass/Vol] 9.4 mg/dL 8.6-10.[address] [facility] Carbon dioxide, total [Moles /volume] in Serum or PlasmaOrdered By: Erick Doll on 01-01-2023 CO2 [Moles/Vol] 28.5 mmol/L 21.0-31.0 [facility] Chloride [Moles/volume] in S tete or PlasmaOrdered By: Erick Doll on 01-01-2023 Chloride [Moles/Vol] 102 mmol/L Normal 98-107 mmol/L [facility] Cholesterol [Mass/volume] in Serum or PlasmaOrdered By: Erick Doll on 01-01-2023 Cholesterol [Mass/Vol] 217 mg/dL High 140-2 00 mg/dL [facility] Comment on above: Chol less than 200 m g/dl low riskChol 201-239 mg/dl borderline riskChol 240 mg/dl and greater high risk Cholesterol in LDL Calc [Mas s/Vol]Ordered By: Erick Doll on 01-01-2023 Cholesterol in LDL [Mass/Vol] 51 mg/dL 0-100 [facility] Comment on above: LDL ATP III CLASSIFI CATIONLDL less than 100 mg/dL OptimalLDL 100-129 mg/dL Near or above optimalLDL 130-159 mg/dL Borderline highLDL 160-189 mg/dL HighLDL greater than 189 mg/dL Very high Cholesterol in LDL [Mass/vol ume] in Serum or PlasmaOrdered By: Erick Doll on 01-01-2023 Cholesterol in LDL [Mass/Vol] 92 mg/dL 0-100 [facility] Comment on above: LDL ATP III CLASSIFI CATIONLDL less than 100 mg/dL OptimalLDL 100-129 mg/dL Near or above optimalLDL 130-159 mg/dL Borderline highLDL 160-189 mg/dL HighLDL greater than 189 mg/dL Very high Cholesterol in VLDL Calc [Ma ss/Vol]Ordered By: Erick Doll on 01-01-2023 Cholesterol in VLDL [Mass/Vol] 130 mg/dL [facility] Complete Blood Count Auto Di ffon 01-01-2023 Basophils (Bld) [#/Vol] 0.177013097 10*3/uL Normal 0.0-0.2 10*3/uL [facility] Other Basophils/100 WBC (Bld) 0.700 % . % [facility] Other Eosinophils (Bld) [#/Vol] 0.531242350 10*3/uL Normal 0.0-0.45 10*3/uL [facility] Other Eosinophils/100 WBC (Bld) 2.800 % . % [facility] Other Erythrocyte distribution width (RBC) [Ratio] 13.300 % Normal 12.0-14.8 % [facility] Other Hematocrit (Bld) [Volume fraction] 45.200 % Normal 38.8-50.0 % [facility] Other Hemoglobin (Bld) [Mass/Vol] 15.900001 g/dL Normal 13.0-17.0 g/dL [facility] Other Lymphocytes (Bld) [#/Vol] 2.241102018 10*3/uL Normal 1.00-4.8 10*3/uL [facility] Other Lymphocytes/100 WBC (Bld) 25.800 % . % [facility] Other MCH (RBC) [Entitic mass] 30.3000 pg Normal 27.5-35.2 pg [facility] Other MCV (RBC) [Entitic vol] 89.0000 fL Normal 83.5-101 fL [facility] Other Monocytes (Bld) [#/Vol] 0.874308991 10*3/uL Normal 0.0-0.8 10*3/uL [facility] Other Monocytes/100 WBC (Bld) 6.000 % . % [facility] Other Neutrophils (Bld) [#/Vol] 7.162148074 10*3/uL Normal 1.8-7.7 10*3/uL [facility] Other Neutrophils/100 WBC (Bld) 64.700 % . % [facility] Other Platelet mean volume (Bld) [Entitic vol] 8.3000 fL Normal 6.6-10.1 fL [facility] Other WBC (Bld) [#/Vol] 10.612710018 10*3/uL High 4. 1-10.5 10*3/uL [facility] Other Complete Blood Count Auto Diff 10.8 10*3/uL High 4.1-10.5 10*3/uL [facility] Other Complete Blood Count Auto Diff 34.0 g/dL Normal 32.5-35.6 g/dL [facility] Other Complete Blood Count Auto Diff 0.1 /100{WBC} Normal 0-0.5 /100{WBC} [facility] Other Comprehensive Metabolic Pane lorelei 01-01-2023 Albumin [Mass/Vol] 4.928285 g/dL Normal 3.5-5.7 g/dL [facility] Other Bilirubin [Mass/Vol] 0.0302244 mg/dL Normal 0.3- 1.0 mg/dL [facility] Other Calcium [Mass/Vol] 9.7627913 mg/dL Normal 8.6-10 .3 mg/dL [facility] Other CO2 [Moles/Vol] 28.74024558 mmol/L Normal 21.0-3 1.0 mmol/L [facility] Other Creatinine [Mass/Vol] 0.60873124 mg/dL Normal 0. 70-1.30 mg/dL [facility] Other Potassium [Moles/Vol] 3.72609940 mmol/L Normal 3 .5-5.1 mmol/L [facility] Other Protein [Mass/Vol] 7.922153 g/dL Normal 6.4-8.9 g/dL [facility] Other Comprehensive Metabolic Panel 2.9 g/dL [facility] Other Comprehensive Metabolic Pane lOrdered By: Erick Doll on 01-01-2023 GFR/1.73 sq M.predicted MDRD (S/P/Bld) [Vol rate/Area] mL/min/{1.73_m2} [facility] Creatinine [Mass/volume] in Serum or PlasmaOrdered By: Erick Doll on 01-01-2023 Creatinine [Mass/Vol] 0.77 mg/dL 0.70-1.30 [facility] Eosinophils Auto (Bld) [#/Vo l]Ordered By: Erick Dlol on 01-01-2023 Eosinophils (Bld) [#/Vol] 0.3 10*3/uL 0.0-0.45 [facility] Eosinophils/100 WBC Auto (Bl d)Ordered By: Erick Doll on 01-01-2023 Eosinophils/100 WBC (Bld) 2.8 % . [facility] Erythrocyte distribution wid th Auto (RBC) [Ratio]Ordered By: Erick Doll on 01-01-2023 Erythrocyte distribution width (RBC) [Ratio] 13.3 % 12.0-14.8 [facility] Erythrocytes [#/volume] in B lood by Automated countOrdered By: Erick Doll on 01-01-2023 RBC (Bld) [#/Vol] 5.08 10*6/uL Normal 3.90-5.60 [facility] Globulin Calc (S) [Mass/Vol] Ordered By: Erick Doll on 01-01-2023 Globulin (S) [Mass/Vol] 2.9 g/dL [facility] Glucose [Mass/volume] in Ser um or PlasmaOrdered By: Erick Doll on 01-01-2023 Glucose [Mass/Vol] 154 mg/dL High 74-109 mg/dL [facility] Comment on above: ADA recommended refe rence rangeRandom Glucose Reference Range is dependent on time and content of last meal. Glucose of more than 200 mg/dL in a nonstressed, ambulatory subject supports the diagnosis of Diabetes Mellitus. Hematocrit Auto (Bld) [Volum e fraction]Ordered By: Erick Doll on 01-01-2023 Hematocrit (Bld) [Volume fraction] 45.2 % 38.8-50.0 [facility] Hemoglobin [Mass/volume] in BloodOrdered By: Erick Doll on 01-01-2023 Hemoglobin (Bld) [Mass/Vol] 15.4 g/dL 13.0-17.0 [facility] LDL Cholesterol Measuredon 0 01-01-2023 LDL Cholesterol Measured 92 mg/dL Normal 0-100 mg/dL [facility] Other Leukocytes [#/volume] correc junaid for nucleated erythrocytes in Blood by Automated counOrdered By: Erick Doll on 01-01-2023 WBC corrected for nucl RBC Auto (Bld) [#/Vol] 10.8 10*3/uL 4.1-10.5 [facility] Lipid Panelon 01-01-2023 Cholesterol in LDL Elph Qn 51 mg/dL Normal 0-100 mg/dL [facility] Other Lipid Panel 654 mg/dL High 0-149 mg/dL [facility] Other Lipid Panel 130 mg/dL [facility] Other Lymphocytes Auto (Bld) [#/Vo l]Ordered By: Erick Doll on 01-01-2023 Lymphocytes (Bld) [#/Vol] 2.8 10*3/uL 1.00-4.8 [facility] Lymphocytes/100 WBC Auto (Bl d)Ordered By: Erick Doll on 01-01-2023 Lymphocytes/100 WBC (Bld) 25.8 % . [facility] MCH Auto (RBC) [Entitic mass ]Ordered By: Erick Doll on 01-01-2023 MCH (RBC) [Entitic mass] 30.3 pg 27.5-35.2 [facility] MCHC Auto (RBC) [Mass/Vol]Or dered By: Erick Doll on 01-01-2023 MCHC (RBC) [Mass/Vol] 34.0 g/dL 32.5-35.6 [facility] MCV Auto (RBC) [Entitic vol] Ordered By: Erick Doll on 01-01-2023 MCV (RBC) [Entitic vol] 89.0 fL 83.5-101 [facility] Monocytes Auto (Bld) [#/Vol] Ordered By: Erick Doll on 01-01-2023 Monocytes (Bld) [#/Vol] 0.6 10*3/uL 0.0-0.8 [facility] Monocytes/100 WBC Auto (Bld) Ordered By: Erick Doll on 01-01-2023 Monocytes/100 WBC (Bld) 6.0 % . [facility] Neutrophils Auto (Bld) [#/Vo l]Ordered By: Erick Doll on 01-01-2023 Neutrophils (Bld) [#/Vol] 7.0 10*3/uL 1.8-7.7 [facility] Neutrophils/100 WBC Auto (Bl d)Ordered By: Erick Doll on 01-01-2023 Neutrophils/100 WBC (Bld) 64.7 % . [facility] No Panel InformationOrdered By: Erick Doll on 01-01-2023 Pharmacy Creatinine Clearance (Chem N/A [facility] Nucleated erythrocytes [Pres ence] in Blood by Automated countOrdered By: Erick Doll on 01-01-2023 Nucleated RBC Auto Ql (Bld) 0.1 /100{WBC} 0-0.5 [facility] Platelet mean volume Auto (B ld) [Entitic vol]Ordered By: Erick Doll on 01-01-2023 Platelet mean volume (Bld) [Entitic vol] 8.3 fL 6.6-10.1 [facility] Platelets [#/volume] in Bloo d by Automated countOrdered By: Erick Doll on 01-01-2023 Platelets (Bld) [#/Vol] 225 10*3/uL Normal 150-450 10*3/uL [facility] Potassium [Moles/volume] in Serum or PlasmaOrdered By: Erick Doll on 01-01-2023 Potassium [Moles/Vol] 3.8 mmol/L 3.5-5.1 [facility] Protein [Mass/volume] in Ser um or PlasmaOrdered By: Erick Doll on 01-01-2023 Protein [Mass/Vol] 7.6 g/dL 6.4-8.[address] [facility] Serum or plasma albumin/glob ulin mass ratioOrdered By: Erick Doll on 01-01-2023 Albumin/Globulin [Mass ratio] 1.6 {ratio} [facility] Serum or plasma anion gap de terminationOrdered By: Erick Doll on 01-01-2023 Anion gap [Moles/Vol] 11.3 mmol/L 6.0-15.0 [facility] Serum or plasma high density lipoprotein (HDL) cholesterol measurementOrdered By: Erick Doll on 01-01-2023 Cholesterol in HDL [Mass/Vol] 35 mg/dL Normal 29-71 mg/dL [facility] Comment on above: HDL CHOL ATP-III CLA SSIFICATION Cardiovascular RiskHDL > or equal to 60 mg/dL LOWHDL < 40 mg/dL HIGH Serum or plasma total choles terol/high density lipoprotein (HDL) cholesterol mass ratOrdered By: Erick Doll on 01-01-2023 Cholesterol.total/Chol esterol in HDL [Mass ratio] 6.2 {ratio} <5.0 [facility] Sodium [Moles/volume] in Ser um or PlasmaOrdered By: Erick Doll on 01-01-2023 Sodium [Moles/Vol] 138 mmol/L Normal 136-145 mmol/L [facility] Thyroid Stimulating Hormoneo n 01-01-2023 TSH Qn 1.36312405955 m[IU]/L Normal 0.45-5 .33 u[iU]/mL [facility] Other Thyrotropin [Units/volume] i n Serum or PlasmaOrdered By: Erick Doll on 01-01-2023 TSH Qn 1.05 m[IU]/L 0.45-5.33 [facility] Triglyceride [Mass/volume] i n Serum or PlasmaOrdered By: Erick Doll on 01-01-2023 Triglyceride [Mass/Vol] 654 mg/dL 0-149 [facility] Comment on above: If the triglyceride result is greater than 400, LDLC and related calculations cannot be calculated and resulted.TRIG ATP III CLASSIFICATIONTRIG less than 150 mg/dL NormalTRIG 150-199 mg/dL Borderline highTRIG 200-500 mg/dL High TRIG greater than 500 mg/dL Very highStandard traceable to the Center for Disease Conrtrol and Prevention (CDC) test method. Urea nitrogen [Mass/volume] in Serum or PlasmaOrdered By: Erick Doll on 01-01-2023 Urea nitrogen [Mass/Vol] 10 mg/dL Normal 7-25 mg/dL [facility] WBC Auto (Bld) [#/Vol]Ordere d By: Erick Doll on 01-01-2023 WBC (Bld) [#/Vol] 10.8 10*3/uL 4.1-10.5 [facility] A1C HEMOGLOBINon 12-29-2022 HbA1c (Bld) [Mass fraction] 7.3 % [facility] Other HbA1c (Bld) [Mass fraction]o n 12-29-2022 A1C HEMOGLOBIN [employer] Other Microalbumin Analyzeron 12-11 Albumin DL <= 20 mg/L (U) [Mass/Vol] mg/dL [facility] Other Albumin Test strip detection limit <= 20 mg/L (U) [Mass/Vol] 30 [facility] Other Creatinine (U) [Mass/Vol] 100 mg/dL [facility] Other Urine 10 SGon 12-29-2022 Albumin DL <= 20 mg/L (U) [Mass/Vol] Negative [facility] Other pH (U) 7.0 [pH] [facility] Other Urine 10 SG 500 [facility] Other Urine 10 SG Negative [facility] Other Urine 10 SG 1.020 [facility] Other Urine 10 SG trace [facility] Other Urine 10 SG 1.0 [facility] Other Albumin [Mass/volume] in Ser um or PlasmaOrdered By: Erick Doll on 06-06-2022 Albumin [Mass/Vol] 4.1 g/dL 3.2-5.[address] [facility] Basophils Auto (Bld) [#/Vol] Ordered By: Erick Doll on 06-06-2022 Basophils (Bld) [#/Vol] 0.1 10*3/uL 0.0-0.2 [facility] Basophils/100 WBC Auto (Bld) Ordered By: Erick Doll on 06-06-2022 Basophils/100 WBC (Bld) 1.0 % . [facility] Blood hemoglobin measurement (mass/volume)Ordered By: Erick Doll on 06-06-2022 Hemoglobin (Bld) [Mass/Vol] 15.9 g/dL 13.0-17.0 [facility] Blood leukocytes automated c ount (number/volume)Ordered By: Erick Doll on 06-06-2022 WBC (Bld) [#/Vol] 9.8 10*3/uL 4.5-11.[address] [facility] Cholesterol [Mass/volume] in Serum or PlasmaOrdered By: Erick Doll on 06-06-2022 Cholesterol [Mass/Vol] 165 mg/dL 140-200 [facility] Comment on above: Chol less than 200 m g/dl low risk Chol 201-239 mg/dl borderline risk Chol 240 mg/dl and greater high risk Cholesterol in LDL Calc [Mas s/Vol]Ordered By: Erick Doll on 06-06-2022 Cholesterol in LDL [Mass/Vol] 95 mg/dL 0-100 [facility] Comment on above: LDL ATP III CLASSIFI CATION LDL less than 100 mg/dL Optimal LDL 100-129 mg/dL Near or above optimal LDL 130-159 mg/dL Borderline high LDL 160-189 mg/dL High LDL greater than 189 mg/dL Very high Cholesterol in VLDL Calc [Ma ss/Vol]Ordered By: Erick Doll on 06-06-2022 Cholesterol in VLDL [Mass/Vol] 32 mg/dL [facility] Creatinine and Glomerular fi ltration rate.predicted panel (S/P/Bld)Ordered By: Erick Doll on 06-06-2022 Creatinine [Mass/Vol] 0.73 mg/dL 0.64-1.27 [facility] Eosinophils Auto (Bld) [#/Vo l]Ordered By: Erick Doll on 06-06-2022 Eosinophils (Bld) [#/Vol] 0.4 10*3/uL 0.0-0.45 [facility] Eosinophils/100 WBC Auto (Bl d)Ordered By: Erick Doll on 06-06-2022 Eosinophils/100 WBC (Bld) 3.9 % . [facility] Erythrocyte distribution wid th Auto (RBC) [Ratio]Ordered By: Erick Doll on 06-06-2022 Erythrocyte distribution width (RBC) [Ratio] 13.5 % 12.0-14.8 [facility] Estimated glomerular filtrat ion rate (GFR) non- AmericanOrdered By: Erick Doll on 06-06-2022 GFR/1.73 sq M.predicted among non-blacks MDRD (S/P/Bld) [Vol rate/Area] > 60 mL/Min [facility] Globulin Calc (S) [Mass/Vol] Ordered By: Erick Doll on 06-06-2022 Globulin (S) [Mass/Vol] 2.8 g/dL [facility] Glucose mean value [Mass/vol ume] in Blood Estimated from glycated hemoglobinOrdered By: Erick Doll on 06-06-2022 Average glucose Estimated from glycated hemoglobin (Bld) [Mass/Vol] 180 mg/dL [facility] Hematocrit Auto (Bld) [Volum e fraction]Ordered By: Erick Doll on 06-06-2022 Hematocrit (Bld) [Volume fraction] 46.3 % 38.8-50.0 [facility] Hemoglobin A1c percentageOrd ered By: Erick Doll on 06-06-2022 HbA1c (Bld) [Mass fraction] 7.9 % 4.3-5.6 [facility] Comment on above: Increased risk for d iabetes: 5.7 - 6.4 diabetes: >6.4 glycemic control for adults with diabetes: <7.0 Laboratory - Hematology and Cell countsOrdered By: Erick Doll on 06-06-2022 Nucleated RBC/100 WBC (Bld) [Ratio] 0.1 % 0-0.5 [facility] Lymphocytes Auto (Bld) [#/Vo l]Ordered By: Erick Doll on 06-06-2022 Lymphocytes (Bld) [#/Vol] 2.8 10*3/uL 1.00-4.8 [facility] Lymphocytes/100 WBC Auto (Bl d)Ordered By: Erick Doll on 06-06-2022 Lymphocytes/100 WBC (Bld) 28.4 % . [facility] MCH Auto (RBC) [Entitic mass ]Ordered By: Erick Doll on 06-06-2022 MCH (RBC) [Entitic mass] 30.9 pg 27.5-35.2 [facility] MCHC Auto (RBC) [Mass/Vol]Or dered By: Erick Doll on 06-06-2022 MCHC (RBC) [Mass/Vol] 34.4 g/dL 32.5-35.6 [facility] MCV Auto (RBC) [Entitic vol] Ordered By: Erick Doll on 06-06-2022 MCV (RBC) [Entitic vol] 89.9 fL 83.5-101 [facility] Monocytes Auto (Bld) [#/Vol] Ordered By: Erick Doll on 06-06-2022 Monocytes (Bld) [#/Vol] 0.5 10*3/uL 0.0-0.8 [facility] Monocytes/100 WBC Auto (Bld) Ordered By: Erick Doll on 06-06-2022 Monocytes/100 WBC (Bld) 5.4 % . [facility] Neutrophils Auto (Bld) [#/Vo l]Ordered By: Erick Doll on 06-06-2022 Neutrophils (Bld) [#/Vol] 6.0 10*3/uL 1.8-7.7 [facility] Neutrophils/100 WBC Auto (Bl d)Ordered By: Erick Doll on 06-06-2022 Neutrophils/100 WBC (Bld) 61.3 % . [facility] No Panel InformationOrdered By: Erick Doll on 06-06-2022 Estimated GFR () > 60 mL/Min [facility] Comment on above: GFR estimated refere nce range: According to KDOQI guidelines, <60 ml/min/1.73m2 is sufficient to diagnose a patient with chronic kidney disease. Pharmacy Creatinine Clearance (Chem N/A [facility] Prostate Specific Antigen Screen 0.520 ng/mL 0.000-4.00 0 [facility] Platelet mean volume Auto (B ld) [Entitic vol]Ordered By: Erick Doll on 06-06-2022 Platelet mean volume (Bld) [Entitic vol] 8.4 fL 6.6-10.1 [facility] Platelets Auto (Bld) [#/Vol] Ordered By: Erick Doll on 06-06-2022 Platelets (Bld) [#/Vol] 245 10*3/uL 150-450 [facility] Protein [Mass/volume] in Ser um or PlasmaOrdered By: Erick Doll on 06-06-2022 Protein [Mass/Vol] 6.9 g/dL 6.1-7.[address] [facility] RBC Auto (Bld) [#/Vol]Ordere d By: Erick Doll on 06-06-2022 RBC (Bld) [#/Vol] 5.16 10*6/uL 3.90-5.60 [facility] Serum or plasma alanine villanueva otransferase measurement without P-5'-P (enzymatic activiOrdered By: Erick Doll on 06-06-2022 ALT No additional P-5'-P [Catalytic activity/Vol] 60 U/L 10-60 [facility] Serum or plasma albumin/glob ulin mass ratioOrdered By: Erick Doll on 06-06-2022 Albumin/Globulin [Mass ratio] 1.5 {ratio} [facility] Serum or plasma alkaline afsaneh sphatase measurement (enzymatic activity/volume)Ordered By: Erick Doll on 06-06-2022 ALP [Catalytic activity/Vol] 89 U/L 32-92 [facility] Serum or plasma aspartate am inotransferase measurement (enzymatic activity/volume)Ordered By: Erick Doll on 06-06-2022 AST [Catalytic activity/Vol] 43 U/L 10-42 [facility] Serum or plasma calcium gonzalo urement (mass/volume)Ordered By: Erick Doll on 06-06-2022 Calcium [Mass/Vol] 9.3 mg/dL 8.2-10.[address] [facility] Serum or plasma chloride remi surement (moles/volume)Ordered By: Erick Doll on 06-06-2022 Chloride [Moles/Vol] 103 mmol/L 95-114 [facility] Serum or plasma glucose gonzalo urement (mass/volume)Ordered By: Erick Doll on 06-06-2022 Glucose [Mass/Vol] 137 mg/dL 70-[address] [facility] Comment on above: ADA recommended refe rence range Random Glucose Reference Range is dependent on time and content of last meal. Glucose of more than 200 mg/dL in a nonstressed, ambulatory subject supports the diagnosis of Diabetes Mellitus. Serum or plasma high density lipoprotein (HDL) cholesterol measurementOrdered By: Erick Doll on 06-06-2022 Cholesterol in HDL [Mass/Vol] 37 mg/dL 29-71 [facility] Comment on above: HDL CHOL ATP-III CLA SSIFICATION Cardiovascular Risk HDL > or equal to 60 mg/dL LOW HDL < 40 mg/dL HIGH Serum or plasma potassium me asurement (moles/volume)Ordered By: Erick Doll on 06-06-2022 Potassium [Moles/Vol] 3.9 mmol/L 3.5-5.1 [facility] Serum or plasma sodium measu rement (moles/volume)Ordered By: Erick Doll on 06-06-2022 Sodium [Moles/Vol] 138 mmol/L 136-[address] [facility] Serum or plasma total biliru bin measurement (mass/volume)Ordered By: Erick Doll on 06-06-2022 Bilirubin [Mass/Vol] 1.4 mg/dL 0.3-1.2 [facility] Comment on above: Samples from patient s who have taken Naproxen have shown spurious elevation in Total Bilirubin levels. A metabolite of Naproxen, O-desmethylnaproxen, has been shown to interfere with the Dao-Bertha method for measuring Total Bilirubin. Serum or plasma total carbon dioxide measurement (moles/volume)Ordered By: Erick Doll on 06-06-2022 CO2 [Moles/Vol] 27.5 mmol/L 22.0-30.0 [facility] Serum or plasma total choles terol/high density lipoprotein (HDL) cholesterol mass ratOrdered By: Erick Doll on 06-06-2022 Cholesterol.total/Chol esterol in HDL [Mass ratio] 4.5 {ratio} <5.0 [facility] Serum or plasma urea nitroge n measurement (mass/volume)Ordered By: Erick Doll on 06-06-2022 Urea nitrogen [Mass/Vol] 14 mg/dL 9-23 [facility] TSH DL <= 0.005 mIU/L QnOrde red By: Erick Doll on 06-06-2022 TSH Qn 0.93 m[IU]/L 0.45-5.33 [facility] Triglyceride [Mass/volume] i n Serum or PlasmaOrdered By: Erick Doll on 06-06-2022 Triglyceride [Mass/Vol] 164 mg/dL 35-149 [facility] Comment on above: TRIG ATP III CLASSIF ICATION TRIG less than 150 mg/dL Normal TRIG 150-199 mg/dL Borderline high TRIG 200-500 mg/dL High TRIG greater than 500 mg/dL Very high Standard traceable to the Center for Disease Conrtrol and Prevention (CDC) test method. CARDIAC STRESS TESTon 2021 CARDIAC STRESS TEST [facility] [place], [place] NAME: LUIS A HI DATE OF : MEDICAL REC#: [id number] CONCESSIONS MANAGER: 160Maximiliano CUMMINS [facility] ADMIT DATE: 04/01/2022 07:53:00 [employer] TILE [employer]KER DATE: 04/01/2022 23:20 DICTATING PHYSICIAN: JORDAN LUNA DICTATION DATE: 04/01/2022 10:44 CARDIAC STRESS TEST Requesting Physician: Procedure Date:04/01/2022 TREADMILL STRESS TEST INDICATIONS: Palpitations. METHODS: The patient was brought to the Stress Lab in a resting and fasting state. He was connected to the appropriate hemodynamic and electrocardiographic monitoring. He underwent a Morgan protocol for treadmill exercise. The test was completed due to achievement of target heart rate. There were no complications. He was discharged in a stable state. FINDINGS: HEMODYNAMICS: Resting heart rate was 86 beats per minute, increasing to a maximum of 155 beats per minute, which is 88% of maximum predicted heart rate. The patient exercised for 9 minutes and 3 seconds, reaching stage 4 of the Morgan protocol and achieving 10.4 METS. Resting blood pressure was 144/102 with a peak blood pressure of 184/112. ELECTROCARDIOGRAPHY: Rest EKG: Sinus rhythm, premature ventricular contractions. No significant ST- T wave changes. During exercise and recovery, upsloping non-specific ST depressions are seen. No ischemic changes noted. Infrequent premature ventricular contractions. IMPRESSIONS: 1. No ischemic EKG changes seen on treadmill exercise stress test. 2. Appropriate heart rate response to exercise; resting hypertension with an appropriate blood pressure response to exercise. 3. Morgan treadmill score is +9.3. Estimated 1 year mortality is 0.3 to 0.9%. Risk category: Low risk. Angiography is usually not indicated. Electronically Authenticated and Edited by: Jordan Luna MD on 04/29/2022 01:15 PM EDT IFC Signed and Approved by: DR JORDAN LUNA 04/29/2022 13:15:00 Normal [facility] ECHOCARDIO M/2D COMPLETEon 0 04-01-2022 ECHOCARDIO M/2D COMPLETE Patient: LUIS A HI Exam Date: 04/01/2022 : 1975 Gender:M Ordering : DR ERICK DOLL Admission #: [id number] Family : Order #: [id number] CLICK HERE TO VIEW EXAM ECHOCARDIOGRAM REPORT PROCEDURE: CARDIO PULMONARY ECHOCARDIO M/2D COMP INDICATIONS: Palpitations, Shortness of breath COMPARISON: None. DESCRIPTION: COMPLETE ECHOCARDIOGRAM Real-time transthoracic echocardiography with 2D, M-mode, spectral and color flow Doppler performed. QUALITY: Technical quality was good. LEFT VENTRICLE: Normal chamber size. Normal left ventricular wall thickness. Global left ventricular systolic function is normal. LV EF: Visual estimation of left ventricular ejection fraction is 60% DIASTOLIC: Normal diastolic function. ATRIAL SEPTUM: LEFT ATRIUM: Normal chamber size. RIGHT ATRIUM: Normal chamber size. RIGHT VENTRICLE: Normal chamber size. Normal right ventricular systolic function. TRICUSPID VALVE: Normal mobility and thickness. No stenosis with trivial regurgitation. No evidence of pulmonary hypertension. RVSP 26 mmHg. MITRAL VALVE: Normal mobility and thickness. No mitral valve prolapse. No evidence of mitral valve stenosis. Mild mitral annular calcification. Trivial mitral regurgitation. AORTIC VALVE: Normal trileaflet appearance. Normal leaflet mobility. No evidence of aortic valve stenosis. No aortic regurgitation. AORTIC ROOT: Normal diameter and appearance. PULMONIC VALVE: Normal thickness and mobility. No stenosis. Trivial regurgitation. PERICARDIUM: No evidence of pericardial effusion. IVC: Not well visualized. PLEURA: CONCLUSION: 1. Normal ventricular systolic function. LVEF is 60%. 2. Normal diastolic function. 3. No significant valvular dysfunction. 4. Normal right-sided pressures. Adult Echocardiography Procedure Report Left Ventricle LVEDD (3.7 - 5.6 cm): 4.46 cm LVESD (2.2 - 4.0 cm): 2.93 cm LVIVS thickness (0.6 - 1.2 cm): 9.58 mm LVPW thickness (0.5 - 1.0 cm): 9.54 mm e': 14.40 cm/s E - e': 6 LVOT Area (cm2): 3.46 cm2 LVOT Diameter 2.10 cm Left Ventricular Ejection Fraction: 60 % Left Atrium LA Volume Index (2D A2C): 22.10 ml/m2 Left Atrium Systolic Dimension: 3.50 cm Left Atrium Systolic Area(A2C): 17.50 cm2 Left Atrium Systolic Area(A4C): 19.80 cm2 Left Atrium Systolic Volume(A2C): 64238 mm3 Left Atrium Systolic Volume(A4C): 73389 mm3 Mitral Valve MV E to A Ratio: 1.30 Deceleration Mineral: 5030 mm/s2 Mitral Valve A-Wave Peak Velocity: 64.20 cm/s Mitral Valve E-Wave Peak Velocity: 86.40 cm/s Right Ventricle RV Internal Diastolic Dimension: 3.68 cm Aorta AO Root Diam: 3.10 cm Aortic Valve AoV Area (Peak Jose Ramon): 2.49 cm2 Aortic Valve Cusp Separation: 2.10 cm Peak Velocity(Antegrade Flow): 137.00 cm/s Peak Gradient(Antegrade Flow): 8 mm[Hg] Tricuspid Valve Pulmonic Valve Peak Velocity: 129.00 cm/s Peak Gradient: 7 mm[Hg] Right Atrium Dictated by: Gregory Logan M.D. on 04/02/2022 at 19:14 Approved by: Gregory Logan M.D. on 04/02/2022 at 19:16 Normal [facility] CARDIAC CORETTA ADMITon 022 CK [Catalytic activity/Vol] 155 U/L Normal 39-308 [facility] Comment on above: Performed By: #### C MADM, CMP, LIPA #### [facility] [address] [address] [address] Champ Jaramillo CK.MB [Mass/Vol] 1.45 ng/mL Normal <=3.60 [facility] Comment on above: Performed By: #### C MADM, CMP, LIPA #### [facility] [address] [address] [address] Champ Jaramillo HSTROP 3.7 pg/mL Critically low 4.0-76.1 The [facility] Comment on above: Result Comment: CUT- OFF POINTS HAVE BEEN ESTABLISHED BASED ON THE FOURTH UNIVERSAL DEFINITIONS OF MYOCARDIAL INFARCTION. THE UPPER REFERENCE LIMIT (URL) OF TROPONIN, DEFINED THE 99TH PERCENTILE OF cTnI DISTRIBUTION IN A REFERENCE POPULATION, HAS BEEN CONFIRMED THE DECISION THRESHOLD FOR CT DIAGNOSIS. Performed By: #### C MADM, CMP, LIPA #### [facility] [address] [address] [address] Champ Jaramillo ABRAM 38 ng/mL Normal 16-96 [facility] Comment on above: Performed By: #### C MADM, CMP, LIPA #### [facility] [address] [address] [address] Champ Jaramillo CBC AUTO DIFFon 03-17-2022 BASO # 0.1 103/ul Normal 0.0-0.1 [facility] Comment on above: Performed By: #### C BC #### [facility] [address] [address] [address] Champ Jaramillo Basophils/100 WBC (Bld) 0.6 % Normal 0.2-2.0 [facility] Comment on above: Performed By: #### C BC #### [facility] [address] [place] [address] Dr. Champ Jaramillo EO # 0.3 103/ul Normal 0.0-0.7 [facility] Comment on above: Performed By: #### C BC #### [facility] [address] [place] [address] Dr. Champ Jaramillo Eosinophils/100 WBC (Bld) 2.7 % Normal 0.9-7.0 [facility] Comment on above: Performed By: #### C BC #### [facility] [address] [place] [address] Dr. Champ Jaramillo Erythrocyte distribution width (RBC) [Ratio] 13.1 % Normal 11.0-15.0 [facility] Comment on above: Performed By: #### C BC #### [facility] [address] [place] [address] Dr. Champ Jaramillo Hematocrit (Bld) [Volume fraction] 44.1 % Normal 42.0-54.0 [facility] Comment on above: Performed By: #### C BC #### [facility] [address] [place] [address] Dr. Champ Jaramillo Hemoglobin (Bld) [Mass/Vol] 14.9 g/dL Normal 14.0-18.0 [facility] Comment on above: Performed By: #### C BC #### [facility] [address] [place] [address] Dr. Champ Jaramillo IG # 0.04 10e3/ul Critically high 0.00-0.03 [facility] Comment on above: Performed By: #### C BC #### [facility] [address] [place] [address] Dr. Champ Jaramillo IG % 0.4 % Normal 0.0-0.5 [facility] Comment on above: Performed By: #### C BC #### [facility] [address] [place] [address] Dr. Champ Jaramillo LYMPH # 2.6 103/ul Normal 1.2-3.8 [facility] Comment on above: Performed By: #### C BC #### [facility] [address] [place] [address] Dr. Champ Jaramillo Lymphocytes/100 WBC (Bld) 24.6 % Normal 20.5-60.0 [facility] Comment on above: Performed By: #### C BC #### [facility] [address] [place] [address] Dr. Champ Jaramillo MANUAL DIFF REQ NO Normal [facility] Comment on above: Performed By: #### C BC #### [facility] [address] [place] [address] Dr. Champ Jaramillo MCH (RBC) [Entitic mass] 30.2 pg Normal 25.9-34.0 [facility] Comment on above: Performed By: #### C BC #### [facility] [address] [place] [address] Dr. Champ Jaramillo MCHC (RBC) [Mass/Vol] 33.8 g/dL Normal 29.9-35.2 [facility] Comment on above: Performed By: #### C BC #### [facility] [address] [place] [address] Dr. Champ Jaramillo MCV (RBC) [Entitic vol] 89.5 fL Normal 80.0-94.0 [facility] Comment on above: Performed By: #### C BC #### [facility] [address] [place] [address] Dr. Champ Jaramillo MONO # 0.6 103/ul Normal 0.3-0.8 [facility] Comment on above: Performed By: #### C BC #### [facility] [address] [place] [address] Dr. Champ Jaramillo Monocytes/100 WBC (Bld) 5.4 % Normal 1.7-12.0 [facility] Comment on above: Performed By: #### C BC #### [facility] [address] [address] [address] Champ Jaramillo NEUT # 7.1 103/ul Critically high 1.4-6.5 [facility] Comment on above: Performed By: #### C BC #### [facility] [address] [address] [address] Champ Jaramillo Neutrophils/100 WBC (Bld) 66.3 % Normal 43.0-75.0 [facility] Comment on above: Performed By: #### C BC #### [facility] [address] [address] [address] Champ Jaramillo Platelet mean volume (Bld) [Entitic vol] 10.0 fL Normal 9.5-13.5 [facility] Comment on above: Performed By: #### C BC #### [facility] [address] [address] [address] Champ Jaramillo PLT 208 103/ul Normal 150-450 [facility] Comment on above: Performed By: #### C BC #### [facility] [address] [address] [address] Champ Jaramillo RBC 4.93 106/ul Normal 4.70-6.10 [facility] Comment on above: Performed By: #### C BC #### [facility] [address] [address] [address] Champ Jaramillo WBC 10.6 103/ul Normal 4.0-11.0 [facility] Comment on above: Performed By: #### C BC #### [facility] [address] [address] [address] Champ Jaramillo D-DIMERon 03-17-2022 D-DIMER 0.26 mg/L FEU Normal <=0.59 [facility] Comment on above: Performed By: #### D DIM ####[facility] [id number] [address]Dr[address] Champ Jaramillo D-DIMER COMMENTS SEE BELOW Normal [facility] Comment on above: Result Comment: Incr eases in D-Dimer concentration observed with thromboembolic events can be variable due to localization, size, and age of the thrombus. Therefore, a thromboembolic event cannot be diagnosed with certainty on the basis of the reference range. D-Dimers may also be elevated for a variety of disorders including: advanced age, , coronary disease, cancer, liver disease, infection, inflammation, hematoma, DIC, trauma, post-surgery, diabetes, thrombolytic or anticoagulant therapy, stress, and generalized hospitalization. Performed By: #### D DIM ####[facility] [address] [address]Dr. Champ Jaramillo ER URINE PROFILEon 2 Bilirubin Ql (U) Negative Normal NEGATIVE [facility] Comment on above: Performed By: #### U MICRO, ERUR #### [facility] [address] [place] [address] Dr. Champ Jaramillo Clarity (U) CLEAR Normal CLEAR [facility] Comment on above: Performed By: #### U MICRO, ERUR #### [facility] [address] [place] [address] Dr. Champ Jaramillo Color (U) LT. YELLOW Normal YELLOW [facility] Comment on above: Performed By: #### U MICRO, ERUR #### [facility] [address] [place] [address] Dr. Champ Jaramillo ERUAHD A micrscopic examina tion will be performed if indicated. Normal [facility] Comment on above: Performed By: #### U MICRO, ERUR #### [facility] [address] [place] [address] Dr. Champ Jaramillo Glucose Ql (U) Negative Normal NEGATIVE [facility] Comment on above: Performed By: #### U MICRO, ERUR #### [facility] [address] [address] [address] Champ Jaramillo Hemoglobin Ql (U) TRACE-INTACT Abnormal NEGATIVE [facility] Comment on above: Performed By: #### U MICRO, ERUR #### [facility] [address] [place] [address] Dr. Champ Jaramillo Ketones Ql (U) Negative Normal NEGATIVE [facility] Comment on above: Performed By: #### U MICRO, ERUR #### [facility] [address] [place] [address] Dr. Champ Jaramillo LEUKOCYTES Negative Normal NEGATIVE [facility] Comment on above: Performed By: #### U MICRO, ERUR #### [facility] [address] [place] [address] Dr. Champ Jaramillo Nitrite Ql (U) Negative Normal NEGATIVE [facility] Comment on above: Performed By: #### U MICRO, ERUR #### [facility] [address] [place] [address] Dr. Champ Jaramillo pH (U) 7.0 [pH] Normal 5-9 [facility] Comment on above: Performed By: #### U MICRO, ERUR #### [facility] [address] [place] [address] Dr. Champ Jaramillo SPEC GRAVITY 1.010 Normal 1.005-<=1. 025 [facility] Comment on above: Performed By: #### U MICRO, ERUR #### [facility] [address] [place] [address] Dr. Champ Jaramillo UA PROTEIN Negative Normal NEGATIVE/ TRACE [facility] Comment on above: Performed By: #### U MICRO, ERUR #### [facility] [address] [place] [address] Dr. Champ Jaramillo UR MICRO IND INDICATED Normal [facility] Comment on above: Performed By: #### U MICRO, ERUR #### [facility] [address] [place] [address] Dr. Champ Jaramillo Urobilinogen Qn (U) 0.2 {Jeannie'U}/dL Normal 0.2 - 1. 0 [facility] Comment on above: Performed By: #### U MICRO, ERUR #### [facility] [address] [place] [address] Dr. Champ Jaramillo LIPASEon 03-17-2022 Lipase [Catalytic activity/Vol] 62.0 U/L Critically low 73.0-393.0 [facility] Comment on above: Performed By: #### C MADM, CMP, LIPA #### [facility] [address] [address] [address] Champ Jaramillo PROF 14(COMP METB)on 022 Albumin [Mass/Vol] 4.0 g/dL Normal 3.4-5.0 [facility] Comment on above: Performed By: #### C MADM, CMP, LIPA #### [facility] [address] [address] [address] Champ Jaramillo Albumin/Globulin [Mass ratio] 1.1 {ratio} Normal [facility] Comment on above: Performed By: #### C MADM, CMP, LIPA #### [facility] [address] [place] [address] Dr. Champ Jaramillo ALP [Catalytic activity/Vol] 100 U/L Normal 46-116 [facility] Comment on above: Performed By: #### C MADM, CMP, LIPA #### [facility] [address] [place] [address] Dr. Champ Jaramillo ALT [Catalytic activity/Vol] 60 U/L Normal 16-63 [facility] Comment on above: Performed By: #### C MADM, CMP, LIPA #### [facility] [address] [place] [address] Dr. Champ Jaramillo Anion gap [Moles/Vol] 13.0 mmol/L Normal [facility] Comment on above: Performed By: #### C MADM, CMP, LIPA #### [facility] [address] [place] [address] Dr. Champ Jaramillo AST [Catalytic activity/Vol] 26 U/L Normal 15-37 [facility] Comment on above: Performed By: #### C MADM, CMP, LIPA #### [facility] [address] [place] [address] Dr. Champ Jaramillo Bilirubin [Mass/Vol] 0.6 mg/dL Normal 0.2-1.0 [facility] Comment on above: Performed By: #### C MADM, CMP, LIPA #### [facility] [address] [place] [address] Dr. Champ Jaramillo Calcium [Mass/Vol] 9.0 mg/dL Normal 8.5-10.1 [facility] Comment on above: Performed By: #### C MADM, CMP, LIPA #### [facility] [address] [address] [address] Champ Jaramillo Chloride [Moles/Vol] 100 mmol/L Normal 98-107 [facility] Comment on above: Performed By: #### C MADM, CMP, LIPA #### [facility] [address] [address] [address] Champ Jaramillo CO2 [Moles/Vol] 26.7 mmol/L Normal 21.0-32.0 [facility] Comment on above: Performed By: #### C MADM, CMP, LIPA #### [facility] [address] [place] [address] Dr. Champ Jaramillo Creatinine [Mass/Vol] 0.91 mg/dL Normal 0.70-1.30 [facility] Comment on above: Performed By: #### C MADM, CMP, LIPA #### [facility] [address] [address] [address] Champ Jaramillo EGFR-AF TAJIK >60 Normal >=60 [facility] Comment on above: Performed By: #### C MADM, CMP, LIPA #### [facility] [address] [place] [address] Dr. Champ Jaramillo EGFR-NON AF TAJIK >60 Normal >=60 [facility] Comment on above: Performed By: #### C MADM, CMP, LIPA #### [facility] [address] [address] [address] Champ Jaramillo Globulin (S) [Mass/Vol] 3.7 g/dL Normal [facility] Comment on above: Performed By: #### C MADM, CMP, LIPA #### [facility] [address] [address] [address] Champ Jaramillo Glucose [Mass/Vol] 219 mg/dL Critically high 74-106 T [facility] Comment on above: Performed By: #### C MADM, CMP, LIPA #### [facility] [address] [place] [address] Dr. Champ Jaramillo Potassium [Moles/Vol] 3.7 mmol/L Normal 3.5-5.1 [facility] Comment on above: Performed By: #### C MADM, CMP, LIPA #### [facility] [address] [place] [address] Dr. Champ Jaramillo Protein [Mass/Vol] 7.7 g/dL Normal 6.4-8.2 [facility] Comment on above: Performed By: #### C MADM, CMP, LIPA #### [facility] [address] [place] [address] Dr. Champ Jaramillo Sodium [Moles/Vol] 136 mmol/L Normal 136-145 [facility] Comment on above: Performed By: #### C MADM, CMP, LIPA #### [facility] [address] [place] [address] Dr. Champ Jaramillo Urea nitrogen [Mass/Vol] 9.0 mg/dL Normal 7.0-18.0 [facility] Comment on above: Performed By: #### C MADM, CMP, LIPA #### [facility] [address] [place] [address] Dr. Champ Jaramillo Urea nitrogen/Creatinine [Mass ratio] 9.9 mg/mg Normal [facility] Comment on above: Performed By: #### C MADM, CMP, LIPA #### [facility] [address] [place] [address] Dr. Champ Jaramillo URINE MICROSCOPIC ONLYon BACTERIA NONE SEEN Normal NONE SEEN [facility] Comment on above: Performed By: #### U MICRO, ERUR #### [facility] [address] [place] [address] Dr. Champ Jaramillo Bacteria identified Cx Nom (U) NOT INDICATED Normal [facility] Comment on above: Performed By: #### U MICRO, ERUR #### [facility] [address] [place] [address] Dr. Champ Jaramillo CAST NONE SEEN Normal NONE SEEN [facility] Comment on above: Performed By: #### U MICRO, ERUR #### [facility] [address] [address] [address] Champ Jaramillo Crystals LM Nom (Urine sed) NONE SEEN Normal NONE SEEN [facility] Comment on above: Performed By: #### U MICRO, ERUR #### [facility] [address] [place] [address] Dr. Champ Jaramillo Epithelial cells LM Ql (Urine sed) FEW Abnormal NONE SEEN /RARE [facility] Comment on above: Performed By: #### U MICRO, ERUR #### [facility] [address] [place] [address] Dr. Champ Jaramillo MUCOUS NONE SEEN Normal NONE SEEN [facility] Comment on above: Performed By: #### U MICRO, ERUR #### [facility] [address] [place] [address] Dr. Champ Jaramillo RBC 2-5 Abnormal 0-2 [facility] Comment on above: Performed By: #### U MICRO, ERUR #### [facility] [address] [place] [address] Dr. Champ Jaramillo WBC NONE SEEN Normal NONE SEEN [facility] Comment on above: Performed By: #### U MICRO, ERUR #### [facility] [address] [place] [address] Dr. Champ Jaramillo XR CHEST 2 Von 03-17-2022 XR CHEST 2 V EXAM: XR CHEST 2 V EXAM: XR CHEST 2 V INDICATION: 46 years old Male SHORTNESS OF BREATH COMPARISON: None. FINDINGS: The cardiac silhouette is normal. There is no pulmonary edema. The lungs are clear. There is no pneumonia. There is no pneumothorax. There is no abnormal foreign body. IMPRESSION: There is no acute abnormality. Electronically authenticated by: JOSÉ ANTONIO HOANG Date: 2022-03-17 12:31 Normal [facility] Covid-19 PCR (CVDTBH)on 10-12 SARS-CoV-2 (COVID-19) RNA RAMONITA+probe Ql (Unsp spec) Not detected Normal NOT DETECTED [facility] Comment on above: Result Comment: This test is not yet approved or cleared by the [place] FDA. When there are no FDA-approved or cleared tests available, and other criteria are met, FDA can make tests available under an emergency access mechanism called an Emergency Use Authorization (EUA). The EUA for this test is supported by the [employer] of Health and Human Service's (HHS's) declaration that circumstances exist to justify the emergency use of in vitro diagnostics for the detection and/or diagnosis of the virus that causes COVID-19. This EUA will remain in effect (meaning this test can be used) for the duration of the COVID-19 declaration justifying emergency of IVDs, unless it is terminated or revoked by FDA (after which the test may no longer be used). When diagnostic testing is negative, the possibility of a false negative should be considered in the context of a patient's recent exposures and the presence of clinical signs and symptoms consistent with SARS-CoV-2. Performed By: #### C [facility] #### [facility] [address] [place] [address] Dr. Champ Jaramillo Vital Signs Date Time Vital Sign Value Performing Clinician Facility 06-23-2024 16:15-0400 Diastolic blood pressure 107 mm[Hg] DO Erick Doll Work Phone: [facility] 06-23-2024 16:15-0400 Heart rate 92 /min DO Erick [employer] Work Phone: [facility] 06-23-2024 16:15-0400 Respiratory rate 20 /min DO Erick Doll Work Phone: [facility] 06-23-2024 16:15-0400 SaO2% (BldA) [Mass fraction] 99 % DO Erick Doll Work Phone: [facility] 06-23-2024 16:15-0400 Systolic blood pressure 155 mm[Hg] DO Erick [employer] Work Phone: [facility] 06-23-2024 15:19-0400 Body temperature 97.4 [degF] DO Erick [employer] Work Phone: [facility] 06-23-2024 14:54-0400 Inhaled oxygen flow rate 8 L/min DO Erick Doll Work Phone: [facility] 06-23-2024 12:20-0400 Body height 177.8 cm DO Erick [employer] Work Phone: [facility] 06-23-2024 12:20-0400 Body weight 92.98 kg DO Erick Doll Work Phone: [facility] 06-22-2024 11:12-0400 Blood Pressure Location Jonathondashawn DIAZ [facility] 06-22-2024 11:12-0400 Diastolic blood pressure 84 mm[Hg] Jonathon DIAZ [facility] 06-22-2024 11:12-0400 Heart rate 92 /min Jonathon DIAZ [facility] 06-22-2024 11:12-0400 Respiratory rate 16 /min Jonathondashawn DIAZ [facility] 06-22-2024 11:12-0400 Systolic blood pressure 126 mm[Hg] Jonathon DIAZ [facility] 05-17-2024 16:19-0400 Body height 177.8 cm DO Erick Doll Work Phone: [facility] 05-17-2024 16:19-0400 Body mass index (BMI) [Ratio] 30.7 kg/m2 DO Erick Trevizos Work Phone: [facility] 05-17-2024 16:19-0400 Body weight 97.06 kg DO Erickmaris Trevzios Work Phone: [facility] 05-17-2024 16:19-0400 Diastolic blood pressure 70 mm[Hg] DO Erick [employer]vizos Work Phone: [facility] 05-17-2024 16:19-0400 Heart rate 94 /min DO Erick [employer] Work Phone: [facility] 05-17-2024 16:19-0400 Respiratory rate 16 /min DO Erick Santhosh[employer] Work Phone: [facility] 05-17-2024 16:19-0400 SaO2% (BldA) [Mass fraction] 96 % DO Erickmaris Trevizos Work Phone: [facility] 05-17-2024 16:19-0400 Systolic blood pressure 112 mm[Hg] DO Erick Kuns Work Phone: [facility] 04-17-2024 09:15-0400 Body height 177.8 cm DO Erickmaris Trevizos Work Phone: [facility] 04-17-2024 09:15-0400 Body mass index (BMI) [Ratio] 30.3 kg/m2 DO Erick Trevizos Work Phone: [facility] 04-17-2024 09:15-0400 Body temperature 98.3 [degF] DO Erick Trevizos Work Phone: [facility] 04-17-2024 09:15-0400 Body weight 95.82 kg DO Erick Trevizos Work Phone: [facility] 04-17-2024 09:15-0400 Diastolic blood pressure 78 mm[Hg] DO Erick Santhoshs Work Phone: [facility] 04-17-2024 09:15-0400 Heart rate 91 /min DO Erick Kuns Work Phone: [facility] 04-17-2024 09:15-0400 Respiratory rate 16 /min DO Erick Kuns Work Phone: [facility] 04-17-2024 09:15-0400 SaO2% (BldA) [Mass fraction] 98 % DO Erick Santhoshs Work Phone: [facility] 04-17-2024 09:15-0400 Systolic blood pressure 126 mm[Hg] DO Erick Doll Work Phone: [facility] 06-04-2023 12:15-0400 Body height 177.8 cm Erick Santhoshvangie Other [employer] Other 06-04-2023 12:15-0400 Body mass index (BMI) [Ratio] 31.16 kg/m2 Erick Trang Other [employer] Other 06-04-2023 12:15-0400 Body weight 98.52 kg Erick Trang Other [employer] Other 06-04-2023 12:15-0400 Diastolic blood pressure 72 mm[Hg] Erick Doll Other [employer] Other 06-04-2023 12:15-0400 Respiratory rate 16 /min Erick Trang Other [employer] Other 06-04-2023 12:15-0400 SaO2% (BldA) [Mass fraction] 95 % Erickmaris Doll Other [employer] Other 06-04-2023 12:15-0400 Systolic blood pressure 118 mm[Hg] Erick Doll Other [employer] Other 12-29-2022 15:00-0400 Body height 177.8 cm Erick Doll Other [employer] Other 12-29-2022 15:00-0400 Body mass index (BMI) [Ratio] 34.15 kg/m2 Erick Doll Other [employer] Other 12-29-2022 15:00-0400 Body weight 107.96 kg Erick Trang Other [employer] Other 12-29-2022 15:00-0400 Diastolic blood pressure 84 mm[Hg] Erick Doll Other [employer] Other 12-29-2022 15:00-0400 Respiratory rate 16 /min Erick Doll Other [employer] Other 12-29-2022 15:00-0400 SaO2% (BldA) [Mass fraction] 97 % Erick Doll Other [employer] Other 12-29-2022 15:00-0400 Systolic blood pressure 134 mm[Hg] Erick Doll Other [employer] Other 06-10-2022 17:00-0400 Body height 177.8 cm Erick Doll Other [employer] Other 06-10-2022 17:00-0400 Body mass index (BMI) [Ratio] 33.83 kg/m2 Erick Doll Other [employer] Other 06-10-2022 17:00-0400 Body weight 106.96 kg Erick Doll Other [employer] Other 06-10-2022 17:00-0400 Diastolic blood pressure 83 mm[Hg] Erick Doll Other [employer] Other 06-10-2022 17:00-0400 Respiratory rate 16 /min Erick Doll Other [employer] Other 06-10-2022 17:00-0400 SaO2% (BldA) [Mass fraction] 95 % Erick Doll Other [employer] Other 06-10-2022 17:00-0400 Systolic blood pressure 126 mm[Hg] Erick Doll Other [facility] [employer] Other Encounters Encounter Date Encounter Type Care Provider Facility Start: 06-23-2024 End: 06-23-2024 Admission to same day surgery center DO Erick Trang Work Phone: [facility] [place] Start: 06-23-2024 End: 06-23-2024 ambulatory DO Erickmaris Trevizovangie Work Phone: [facility] Work Phone: Start: 06-22-2024 End: 06-22-2024 Patient encounter procedure DO Erick Doll Work Phone: [facility] [place] Work Phone: Start: 06-22-2024 End: 06-23-2024 ambulatory DO Erick Doll Work Phone: [facility] Work Phone: Start: 06-22-2024 End: 06-22-2024 Patient encounter procedure Jonathon DIAZ [facility] Start: 06-22-2024 End: 06-22-2024 ambulatory Jonathon DIAZ Facility: [facility] Start: 06-20-2024 Non-patient / Non-visit DO Jose A Doll Work Phone: [facility] [employer] Work Phone: Start: 05-17-2024 End: 05-17-2024 Patient encounter procedure DO Erick Trang Work Phone: [facility] [place] Work Phone: Start: 04-17-2024 End: 04-17-2024 Patient encounter procedure DO Erick Doll Work Phone: [facility] Work Phone: Start: 10-08-2023 End: 10-08-2023 ambulatory Erick Doll Other [employer] Other Start: 10-08-2023 Telephone encounter Erick Doll [facility] [place] Start: 10-07-2023 End: 10-07-2023 ambulatory Erick Doll Other [employer] Other Start: 10-07-2023 Telephone encounter Erick Doll [facility] [place] Start: 09-30-2023 End: 09-30-2023 ambulatory Erick Doll Other [employer] Other Start: 09-30-2023 Telephone encounter Erick Doll [facility] [place] Start: 09-28-2023 End: 09-28-2023 ambulatory Erick Doll Other [employer] Other Start: 09-28-2023 Telephone encounter Erick Doll [facility] [place] Start: 08-31-2023 End: 08-31-2023 ambulatory Erick Doll Other [employer] Other Start: 08-31-2023 Telephone encounter Erick Doll [facility] [place] Start: 08-19-2023 End: 08-19-2023 ambulatory Erick Doll Other [employer] Other Start: 08-19-2023 Telephone encounter Erick Doll [facility] [place] Start: 08-03-2023 End: 08-03-2023 ambulatory Erick Santhoshvangie Other [employer] Other Start: 08-03-2023 Telephone encounter Erick Trang [facility] [place] Start: 07-29-2023 End: 07-29-2023 ambulatory Erick Santhoshvangie Other [employer] Other Start: 07-29-2023 Telephone encounter Erick Santhoshvangie [facility] [place] Start: 06-26-2023 End: 06-26-2023 ambulatory Erick Santhoshvangie Other [employer] Other Start: 06-26-2023 Telephone encounter Erick Trang [facility] [place] Start: 06-09-2023 End: 06-09-2023 ambulatory Erick Trevizovangie Other [employer] Other Start: 06-09-2023 Telephone encounter Erickmaris Doll [facility] [place] Start: 06-04-2023 Office outpatient vi sit 25 minutes Erick Doll [facility] [place] Start: 06-04-2023 Telephone encounter Erick Doll [facility] [place] Start: 06-04-2023 End: 06-04-2023 ambulatory DO Erick Doll Work Phone: [employer] Other Start: 06-04-2023 End: 06-04-2023 Patient encounter procedure DO Erickmaris Doll Work Phone: [facility] [place] Work Phone: Start: 06-02-2023 End: 06-02-2023 ambulatory Gisell Norman Other [employer] Other Start: 06-02-2023 Telephone encounter Gisell Norman [facility] [address] Start: 06-01-2023 Telephone encounter Erick Doll [facility] [place] Start: 06-01-2023 End: 06-01-2023 ambulatory DO Erick Doll Work Phone: [employer] Other Start: 06-01-2023 End: 06-01-2023 Patient encounter procedure DO Erick Doll Work Phone: [facility] [place] Work Phone: Start: 05-29-2023 End: 05-29-2023 ambulatory Erick Santhoshvangie Other [employer] Other Start: 05-29-2023 Telephone encounter Erick Doll [facility] Start: 01-26-2023 End: 01-26-2023 ambulatory Erick Trevizovangie Other [employer] Other Start: 01-26-2023 Telephone encounter Erick Trang [facility] Start: 01-08-2023 End: 01-08-2023 ambulatory Erick Santhoshvangie Other [employer] Other Start: 01-08-2023 Telephone encounter Erick Santhoshvangie [facility] [place] Start: 01-05-2023 End: 01-05-2023 ambulatory Erick Santhoshvangie Other [employer] Other Start: 01-05-2023 Telephone encounter Erick Santhoshvangie [facility] [place] Start: 01-01-2023 End: 01-01-2023 ambulatory DO Erick Doll Work Phone: [facility] Work Phone: Start: 01-01-2023 End: 01-01-2023 Patient encounter procedure DO Erick Doll Work Phone: [facility] [place] Work Phone: Start: 12-29-2022 End: 12-29-2022 ambulatory Erickmaris Trevizovangie Other [employer] Other Start: 12-29-2022 Office outpatient vi sit 25 minutes Erick Doll [facility] [place] Start: 12-29-2022 Telephone encounter Erick Doll [facility] [place] Start: 2022 End: 2022 ambulatory Erick Doll Other [employer] Other Start: 2022 Telephone encounter Erick Doll [facility] [place] Start: 06-11-2022 End: 06-11-2022 ambulatory Erick Doll Other [employer] Other Start: 06-11-2022 Telephone encounter Erick Doll [facility] [place] Start: 06-10-2022 End: 06-10-2022 ambulatory Erick Doll Other [employer] Other Start: 06-10-2022 Office outpatient vi sit 25 minutes Erick Doll [facility] [place] Start: 06-06-2022 End: 06-06-2022 Patient encounter procedure DO Erick Doll Work Phone: [facility] [place] Start: 05-19-2022 End: 05-19-2022 ambulatory Erick Doll Other [employer] Other Start: 05-19-2022 Telephone encounter Erick Doll [facility] [place] Start: 04-29-2022 End: 04-29-2022 ambulatory Erick Doll Other [employer] Other Start: 04-29-2022 Telephone encounter Erick Doll [facility] [place] Start: 04-01-2022 End: 04-02-[address] ERICK DOLL Facility:[facility] Start: 03-17-2022 End: 03-17-[address] JOSEPHINE PAY Facility:[facility] Start: 10-22-2021 End: 10-22-[address] ERICK DOLL Facility:[facility] Procedures Date Procedure Procedure Detail Performing Clinician Start: 06-23-2024 Cystoscopy DO Erick jackson Work Phone: Start: 06-23-2024 Diagnostic radiograp hy of abdomen DO Erick Doll Work Phone: Colonoscopy Jonathon DIAZ Plan of Treatment Date Care Activity Detail Author Start: 06-23-2024 [facility] Start: 06-23-2024 Diagnostic radiograp hy of abdomen [facility] Patient Education Know your Meds [facility] Work Phone: Patient referral [facility] Work Phone: Testosterone Free [Mass/volume] in Serum or Plasma [facility] Testosterone Free [Mass/volume] in Serum or Plasma [facility] Immunizations Immunization Date Immunization Notes Care Provider Fa cility 06-19-2021 COVID-19 Vaccine Pfizer - Documentation Purposes Only Erick Doll Other [facility] 08-11-2018 influenza, injectable, quadrivalent, preservative free DO Erick Doll Work Phone: [facility] 08-11-2018 influenza, injectable, quadrivalent, contains preservative Erick Doll Other [employer] Other NEGATED: Highlighted row has not occurred!12-28-2019 influenza, seasonal, injectable Patient Objection Erick Doll Other [facility] Payers Date Payer Category Payer Self-pay [id number] 2024 Unknown [id number] 1975 Unknown [id number] 1977 Unknown [id number] 1977 Unknown [id number] 1977 Unknown [id number] [id number] 1959 Unknown [id number] Unknown MMO [id number] Unknown [id number] [id number] Unknown [id number] Social History Date Type Detail Facility Unknown if ever smoked [facility] Work Phone: [facility] Assigned At [facility] Start: 1975 Sex Assigned At Male F [facility] Start: 04-17-2024 [facility] Start: 06-22-2024 Tobacco smoking status Ex-smoker (fi nding) [facility] Tobacco smoking status Never [facility] Start: 06-23-2024 [facility] tobacco smoker [facility] Medical Equipment Procedure Code Equipment Code Equipment Origin al Text Equipment Identifier Dates Start: 07-12-2020 [employer] Start: 12-10-2023 Test strips Start: 12-10-2023 [employer] Start: 12-10-2023 Test strips Start: 12-10-2023 Goals Date Patient Goal Desired Activity /State Functional Status Date Assessment Result Facility 06-22-2024 Functional Status N/A [facility] Clinical Notes 07-12-2014 to 06-22-2024 Note Date & Type Note Facility 06-22-2024 Hospital Discharg e instructions Patient Education 06/22/2024 11:54:51 ESWL for Kidney Stones, Care After ESWL for Kidney Stones, Care After The following information offers guidance on how to care for yourself after your procedure. Your health care provider may also give you more specific instructions. If you have problems or questions, contact your health care provider. What can I expect after the procedure? After the procedure, it is common to have: Some blood in your urine. This should only last for a few days. Soreness in your back, sides, or upper abdomen for a few days. Blotches or bruises on the area where the shock wave entered the skin. Pain, discomfort, or nausea when pieces (fragments) of the kidney stone move through the tube that carries urine from the kidney to the bladder (ureter). Fragments may pass soon after the procedure. They may also take up to 4 8 weeks to pass. ?If you have severe pain or nausea, contact your health care provider. This may be caused by a large stone that was not broken up enough. This may mean that you need more treatment. Some pain or discomfort during urination. Some pain or discomfort in the lower abdomen or at the base of the penis. Follow these instructions at home: Medicines Take luxs-dmu-tpnhjiu and prescription medicines only as told by your health care provider. If you were prescribed antibiotics, take them as told by your health care provider. Do not stop using the antibiotic even if you start to feel better. Ask your health care provider if the medicine prescribed to you: ?Requires you to avoid driving or using machinery. ?Can cause constipation. You may need to take these actions to prevent or treat constipation: ?Take hbwq-bbs-bflvmgj or prescription medicines. ?Eat foods that are high in fiber, such as beans, whole grains, and fresh fruits and vegetables. ?Limit foods that are high in fat and processed sugars, such as fried or sweet foods. Eating and drinking Follow instructions from your health care provider about what you may eat and drink. You may be told to: ?Reduce how much salt (sodium) you eat or drink. Check ingredients and nutrition facts on packaged foods and drinks to see how much sodium they contain. ?Reduce how much meat you eat. Drink enough fluid to keep your urine pale yellow. This can help you pass any pieces of the stone that are left. It can also prevent new stones from forming. Eat plenty of fresh fruits and vegetables. Eat the recommended amount of calcium for your age and gender. Ask your health care provider how much calcium you should have. Activity Get plenty of rest as told by your health care provider. Avoid sitting for a long time without moving. Get up to take short walks every 1 2 hours. This is important to improve blood flow and breathing. Ask for help if you feel weak or unsteady. Your health care provider may tell you to lie in a certain position (postural drainage) and tap firmly (percuss) over your kidney area to help stone fragments pass. Follow instructions as told by your health care provider. Return to your normal activities as told by your health care provider. Ask your health care provider what activities are safe for you. Most people can resume normal activities 1 2 days after the procedure. General instructions If told, strain all urine through the strainer that was provided by your health care provider. ?Keep all fragments for your health care provider to see. Any stones that are found may be sent to a medical lab for examination. The stone may be as small as a grain of salt. Keep all follow-up visits. This is important if you had a stent placed because it may need to stay in place for a few weeks. Ask your health care provider when the stent will be removed. Contact a health care provider if: You have a fever or chills. You have severe nausea that leads to persistent vomiting. You have any of these urinary symptoms: ?Increased blood or blood clots in the urine. ?Urine that smells bad or unusual. ?A strong urge to urinate after emptying your bladder. ?Pain or burning with urination that does not go away. ?A continued need to urinate more often than usual. You have a stent, and it comes out. Get help right away if: You have severe pain in your back, sides, or upper abdomen. You faint. You have any of these urinary symptoms: ?Severe pain while urinating. ?More blood in your urine, or blood in your urine when you did not have any before. ?Blood clots in your urine larger than 1 inch (2.5 cm) in size. ?You pass only a small amount of urine when you urinate or are unable to pass any urine. This information is not intended to replace advice given to you by your health care provider. Make sure you discuss any questions you have with your health care provider. Document Revised: 01/29/2023 Document Reviewed: 01/29/2023 20:20 Mobile Patient Education 2023 [employer]. 06/22/2024 11:54:50 ESWL for Kidney Stones ESWL for Kidney Stones Extracorporeal shock wave lithotripsy (ESWL) is a treatment that can help break up kidney stones that are too large to pass on their own. This is a nonsurgical procedure that breaks up a kidney stone with shock waves. These shock waves pass through your body and focus on the kidney stone. They cause the kidney stone to break into smaller pieces (fragments) while it is still in the urinary tract. The fragments of stone can pass more easily out of your body in the urine. Tell a health care provider about: Any allergies you have. All medicines you are taking, including vitamins, herbs, eye drops, creams, and pdqi-xbl-bnajzlu medicines. Any problems you or family members have had with anesthetic medicines. Any bleeding problems you have. Any surgeries you have had. Any medical conditions you have. Whether you are or may be . What are the risks? Your health care provider will talk with you about risks. These may include: Infection. Bleeding from the kidney. Bruising of the kidney or skin. Scarring of the kidney. This can lead to: ?Increased blood pressure. ?Poor kidney function. ?Return (recurrence) of kidney stones. Damage to other structures or organs. This may include the liver, colon, spleen, or pancreas. Blockage (obstruction) of the tube that carries urine from the kidney to the bladder (ureter). Failure of the kidney stone to break into fragments. What happens before the procedure? When to stop eating and drinking Follow instructions from your health care provider about what you may eat and drink. These may include: 8 hours before your procedure ?Stop eating most foods. Do not eat meat, fried foods, or fatty foods. ?Eat only light foods, such as toast or crackers. ?All liquids are okay except energy drinks and alcohol. 6 hours before your procedure ?Stop eating. ?Drink only clear liquids, such as water, clear fruit juice, black coffee, plain tea, and sports drinks. ?Do not drink energy drinks or alcohol. 2 hours before your procedure ?Stop drinking all liquids. ?You may be allowed to take medicines with small sips of water. If you do not follow your health care provider's instructions, your procedure may be delayed or canceled. Medicines Ask your health care provider about: Changing or stopping your regular medicines. These include any diabetes medicines or blood thinners you take. Taking medicines such as aspirin and ibuprofen. These medicines can thin your blood. Do not take them unless your health care provider tells you to. Taking wcrh-zjk-gdqbkkm medicines, vitamins, herbs, and supplements. Tests You may have tests, such as: Blood tests. Urine tests. Imaging tests. This may include a CT scan. Surgery safety Ask your health care provider: How your surgery site will be marked. What steps will be taken to help prevent infection. These steps may include: ?Washing skin with a soap that kills germs. ?Receiving antibiotics. General instructions If you will be going home right after the procedure, plan to have a responsible adult: ?Take you home from the hospital or clinic. You will not be allowed to drive. ?Care for you for the time you are told. What happens during the procedure? An IV will be inserted into one of your veins. You may be given: ?A sedative. This helps you relax. ?Anesthesia. This will: ?Numb certain areas of your body. ?Make you fall asleep for surgery. A water-filled cushion may be placed behind your kidney or on your abdomen. In some cases, you may be placed in a tub of lukewarm water. Your body will be positioned in a way that makes it easier to target the kidney stone. An X-ray or ultrasound exam will be done to locate your stone. Shock waves will be aimed at the stone. If you are awake, you may feel a tapping sensation as the shock waves pass through your body. A small mesh tube (stent) may be placed in your ureter. This will help keep urine flowing from the kidney if the fragments of the stone have been blocking the ureter. The stent will be removed at a later time by your health care provider. The procedure may vary among health care providers and hospitals. What happens after the procedure? Your blood pressure, heart rate, breathing rate, and blood oxygen level will be monitored until you leave the hospital or clinic. You may have an X-ray after the procedure to see how many of the kidney stones were broken up. This will also show how much of the stone has passed. If there are still large fragments after treatment, you may need to have a second procedure at a later time. This information is not intended to replace advice given to you by your health care provider. Make sure you discuss any questions you have with your health care provider. Document Revised: 01/29/2023 Document Reviewed: 01/29/2023 20:20 Mobile Patient Education 2023 [employer]. Follow Up Care 06/22/2024 09:07:45 With:HERNAN FARR, Jonathon Loza, URL Address: [facility] [address] , [place] [address]- When: Unknown [facility] 06-22-2024 Note Patient Education Nephrology ESWL for Kidney Stones, Care After The following information offers guidance on how to care for yourself after your procedure. Your health care provider may also give you more specific instructions. If you have problems or questions, contact your health care provider. What can I expect after the procedure? After the procedure, it is common to have: ? Some blood in your urine. This should only last for a few days. ? Soreness in your back, sides, or upper abdomen for a few days. ? Blotches or bruises on the area where the shock wave entered the skin. ? Pain, discomfort, or nausea when pieces (fragments) of the kidney stone move through the tube that carries urine from the kidney to the bladder (ureter). Fragments may pass soon after the procedure. They may also take up to 4?8 weeks to pass. ? If you have severe pain or nausea, contact your health care provider. This may be caused by a large stone that was not broken up enough. This may mean that you need more treatment. ? Some pain or discomfort during urination. ? Some pain or discomfort in the lower abdomen or at the base of the penis. Follow these instructions at home: Medicines ? Take izlj-zgj-ibvmmpi and prescription medicines only as told by your health care provider. ? If you were prescribed antibiotics, take them as told by your health care provider. Do not stop using the antibiotic even if you start to feel better. ? Ask your health care provider if the medicine prescribed to you: ? Requires you to avoid driving or using machinery. ? Can cause constipation. You may need to take these actions to prevent or treat constipation: ? Take [id number] or prescription medicines. ? Eat foods that are high in fiber, such as beans, whole grains, and fresh fruits and vegetables. ? Limit foods that are high in fat and processed sugars, such as fried or sweet foods. Eating and drinking ? Follow instructions from your health care provider about what you may eat and drink. You may be told to: ? Reduce how much salt (sodium) you eat or drink. Check ingredients and nutrition facts on packaged foods and drinks to see how much sodium they contain. ? Reduce how much meat you eat. ? Drink enough fluid to keep your urine pale yellow. This can help you pass any pieces of the stone that are left. It can also prevent new stones from forming. ? Eat plenty of fresh fruits and vegetables. ? Eat the recommended amount of calcium for your age and gender. Ask your health care provider how much calcium you should have. Activity ? Get plenty of rest as told by your health care provider. ? Avoid sitting for a long time without moving. Get up to take short walks every 1?2 hours. This is important to improve blood flow and breathing. Ask for help if you feel weak or unsteady. ? Your health care provider may tell you to lie in a certain position (postural drainage) and tap firmly (percuss) over your kidney area to help stone fragments pass. Follow instructions as told by your health care provider. ? Return to your normal activities as told by your health care provider. Ask your health care provider what activities are safe for you. Most people can resume normal activities 1?2 days after the procedure. General instructions ? If told, strain all urine through the strainer that was provided by your health care provider. ? Keep all fragments for your health care provider to see. Any stones that are found may be sent to a medical lab for examination. The stone may be as small as a grain of salt. ? Keep all follow-up visits. This is important if you had a stent placed because it may need to stay in place for a few weeks. Ask your health care provider when the stent will be removed. Contact a health care provider if: ? You have a fever or chills. ? You have severe nausea that leads to persistent vomiting. ? You have any of these urinary symptoms: ? Increased blood or blood clots in the urine. ? Urine that smells bad or unusual. ? A strong urge to urinate after emptying your bladder. ? Pain or burning with urination that does not go away. ? A continued need to urinate more often than usual. ? You have a stent, and it comes out. Get help right away if: ? You have severe pain in your back, sides, or upper abdomen. ? You faint. ? You have any of these urinary symptoms: ? Severe pain while urinating. ? More blood in your urine, or blood in your urine when you did not have any before. ? Blood clots in your urine larger than 1 inch (2.5 cm) in size. ? You pass only a small amount of urine when you urinate or are unable to pass any urine. This information is not intended to replace advice given to you by your health care provider. Make sure you discuss any questions you have with your health care provider. Document Revised: 01/29/2023 Document Reviewed: 01/29/2023 Aditya Crook (more content not included)... [facility] 10-08-2023 Evaluation note Encounter Date Diagnosis Assessment Notes Sep, Lack of concentration (ICD-10 - R41.840) [employer] Other 11-08-2023 Evaluation note* Encounter Date Diagnosis Assessment Notes Treatment Notes Treatment Clinical Notes Aug, Diabetes mellitus (ICD-10 - E11.9) Aug, Hypertension (ICD-10 - I10) Aug, Hyperlipidemia (ICD-10 - E78.5) [employer] Other 10-23-2023 Evaluation note* Encounter Date Diagnosis Assessment Notes Treatment Notes Treatment Clinical Notes Jul, Diabetes mellitus (ICD-10 - E11.9) [employer] Other 10-18-2023 Evaluation note* Encounter Date Diagnosis Assessment Notes Treatment Notes Treatment Clinical Notes Jul, Diabetes mellitus (ICD-10 - E11.9) [employer] Other 09-15-2023 Evaluation note* Encounter Date Diagnosis Assessment Notes Treatment Notes Treatment Clinical Notes Jun, Diabetes mellitus (ICD-10 - E11.9) [employer] Other 08-29-2023 Evaluation note* Encounter Date Diagnosis Assessment Notes Treatment Notes Treatment Clinical Notes May, Lack of concentratio n (ICD-10 - R41.840) [employer] Other 08-24-2023 Evaluation note* Encounter Date Diagnosis Assessment Notes Treatment Notes Treatment Clinical Notes May, Insect bite (nonvenomous), left foot, initial encounter (ICD-10 - S90.862A) The above lab ordered to rule out lyme disease. I advised if this is positive, the lyme disease can be treated. He is to continue using the triamcinilone cream for this. May, Bitten or stung by nonvenomous insect and other nonvenomous arthropods, initial encounter (ICD-10 - W57.XXXA) May, Poison nellie dermatitis (ICD-10 - L23.7) Pt is to continue with the above medications and monitor for s/s of infection. May, Diabetes mellitus (ICD-10 - E11.9) Review of pt's labs reveal improved A1C. I advised he does appear to be doing well, and he should continue with the above medications. Encouraged to watch diet and increase exercise regimen; we will continue to monitor. May, Hyperlipidemia (ICD-10 - E78.5) Review of blood work which revealed no signs of anemia, leukemia, or infection. Liver, kidney, and thyroid function is normal, as well as electrolytes and blood sugar. His lipids have improved, and his triglycerides are doing significantly better. Pt is to continue with the above medication and continue watching their diet and increase their exercise regimen. May, Leukocytosis, unspecified type (ICD-10 - D72.829) Review of laboratory results and I advised this is very likely due to his active rashes. We will continue to monitor. May, Fatigue, unspecified type (ICD-10 - R53.83) May, BMI 31.0-31.9,adult (ICD-10 - Z68.31) Pt's BMI has improved from before he was on the Ozempic, when it was over 34. Encouraged to watch diet and increase exercise regimen; we will continue to monitor. [employer] Other 08-21-2023 Evaluation note* Encounter Date Diagnosis Assessment Notes Treatment Notes Treatment Clinical Notes May, Diabetes mellitus (ICD-10 - E11.9) [employer] Other 03-27-2023 Evaluation note* Encounter Date Diagnosis Assessment Notes Treatment Notes Treatment Clinical Notes Dec, History of kidney stones (ICD-10 - Z87.442) Dec, Lower abdominal pain (ICD-10 - R10.30) Dec, Right flank pain (ICD-10 - R10.9) Dec, Hematuria (ICD-10 - R31.9) [employer] Other 03-20-2023 Evaluation note* Encounter Date Diagnosis Assessment Notes Treatment Notes Treatment Clinical Notes Dec, Diabetes mellitus (ICD-10 - E11.9) Pt's A1C was collected in house and this improved result was reviwed with the pt. I also reviewed his microalbumin collected today. I am in agreement that pt would benefit from treatment with Ozempic. We did have a lengthy discussion regarding the risks, benefits, and instructions for this medication. This was provided today, as well as refills of this existing medications. Encouraged to watch diet and increase exercise regimen; we will continue to monitor. Dec, Lower abdominal pain (ICD-10 - R10.30) The above lab performed in house and the result was reviewed with him. CT ordered today to further investigate this. I did also provide the above medication. We will continue to monitor. Dec, Right flank pain (ICD-10 - R10.9) CT ordered today to further investigate this. We will continue to monitor. Dec, History of kidney stones (ICD-10 - Z87.442) Pt has had two lithrotripsies with Dr. Diaz and Dr. Zhang. He expresses his displeasure with [facility], therefore I did recommend a referral to Dr. Ashton instead, or ordering an abdominal CT. CT was ordered, and we will discuss a referral at a later date. Dec, Hyperlipidemia (ICD-10 - E78.5) The above blood work ordered today. Encouraged to watch diet and increase exercise regimen; we will continue to monitor. Dec, Hypertension (ICD-10 - I10) Dec, Fatigue, unspecified type (ICD-10 - R53.83) Dec, Low libido (ICD-10 - R68.82) The above labs ordered today, and we will continue to monitor. Dec, Obesity, unspecified (ICD-10 - E66.9) I did advise Ozempic will likely help him lose weight. Encouraged to watch diet and increase exercise regimen; we will continue to monitor. Dec, Body mass index [BMI] 34.0-34.9, adult (ICD-10 - Z68.34) Dec, Hematuria (ICD-10 - R31.9) This was noted on pt's UA today. I advised this is likely due to a kidney stone. CT ordered today to further investigate this. We will continue to monitor. Dec, CURTIS (obstructive sleep apnea) (ICD-10 - G47.33) Patient uses Cpap nightly and benefits from the use of this. [employer] Other 12-16-2022 Evaluation note* Encounter Date Diagnosis Assessment Notes Treatment Notes Treatment Clinical Notes Sep, Anxiety with depression (ICD-10 - F41.8) Sep, Diabetes mellitus (ICD-10 - E11.9) [employer] Other 08-30-2022 Evaluation note* Encounter Date Diagnosis Assessment Notes Treatment Notes Treatment Clinical Notes May, Diabetes mellitus (ICD-10 - E11.9) Reviewed blood work results with the patient. Fasting glucose was 219 and the A1C was 7.9. An increase from last check at 7.3. The patient does admit he does not take the metformin twice a day. Strongly encouraged the patient to start taking metformin twice a day and monitor diet. We will recheck in 6 months. May, Hyperlipidemia (ICD-10 - E78.5) Cholesterol levels have increased from last check. Advised the patient to monitor diet and increase exercise. May, Sleep apnea (ICD-10 - G47.30) The patient continues to benefit from using the cpap at bedtime. I did sign an order for the patient to get a new cpap machine as his did stop working recently. 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 [employer] Other 08-08-2022 Evaluation note* Encounter Date Diagnosis Assessment Notes Treatment Notes Treatment Clinical Notes May, Diabetes mellitus (ICD-10 - E11.9) May, Hyperlipidemia (ICD-10 - E78.5) May, Hypertension (ICD-10 - I10) [employer] Other 07-19-2022 Evaluation note* Encounter Date Diagnosis Assessment Notes Treatment Notes Treatment Clinical Notes Apr, Anxiety with depression (ICD-10 - F41.8) Apr, Hyperlipidemia (ICD-10 - E78.5) Apr, Diabetes mellitus (ICD-10 - E11.9) Apr, Screening for prostate cancer (ICD-10 - Z12.5) [facility] Other 10-01-2014 History general Narrative - Reported* Type Description Date Medical History sleep apnea Medical History CT abdomen 07/2014 Medical History EGD, Colonoscopy 01/[address] Avila Medical History kidney stones Medical History 04/28/18 PSA (0.8) Medical History DM Medical History [place] [facility] [place] 05/03/19 PSA ( 0.6) Medical History Anxiety and Depression Medical History 06/06/2022 PSA (0.520) Surgical History cystoscopy 09/2014 Surgical History cyst on left kidney 08/2014 Surgical History colonoscopy/EGD 01/2015 Surgical History pilonidal cyst Surgical History lithotripsy Hospitalization History See Above Hospitalization History Heart Issues/Luis e Effects of [facility] 03/2019 [employer] Other Evaluation + Plan note No data available for this section [facility] Evaluation noteNo [employer] Other Evaluation noteNo assessment information available [facility] Work Phone: Evaluation note* Diagnosis Onset Date Resolution Status Poison nellie dermatitis acute Concentration deficit acute Diabetes mellitus acute Hematuria acute Lateral epicondylitis of elbow acute Shift work sleep disorder [facility] Work Phone: Hospital Discharge instructions Additional Instructions DISCHARGE INSTRUCTIONS FOR CYSTOSCOPY WHAT YOU SHOULD KNOW AFTER YOUR CYSTO The following instructions must be followed very closely: -If you need pain pills, start before pain becomes intense. Antibiotics and pain pills are frequently less upsetting to your stomach if you take them with food such as crackers or bread. -If you are having excessive or persistent pain, swelling, bleeding, nausea, vomiting, or any other problems, you should first call your surgeon for advice. If you are unable to contact your surgeon, seek help from a hospital emergency room. If you were given drugs to make you drowsy and/or pain medication, follow these instructions: -You should spend the remainder of the day and evening resting. -You should not attempt to walk, including going to the bathroom, without assistance. You maybe lightheaded from the medications that you received. -Eat light today to avoid nausea. You should be able to return to your normal diet 24-36 hours after surgery. -For the next 24 hours you should not consume alcohol, attempt to drive, use any power tools, sign important documents or make important personal or business decisions. After that, do so if you feel perfectly normal and alert. -Follow carefully any verbal or written instructions your surgeon may have given you. ADDITIONAL INSTRUCTIONS -Drink a lot of water. -Take medication as prescribed. FOLLOW UP -Please call the office to arrange a follow up appointment.[facility] Work Phone: Progress note No data available for this section [facility] Summary Purpose Family History No Family History Records Found Relationship Condition Age at Onset Recorded Date/T [place] brother Diabetes mellitus Unknown father Hypertension Unknown Advance Directives No Advanced Directives Records Found Advance Directive Response Recorded Date/ Time Advance Directives No August 20, 2017 9:58am Advance Directive Response Recorded Date/ Time Advance Directives No November 02, 2023 12:21pm Chief Complaint and Reason for Visit Chief Complaint e78.5 Chief Complaint e78.5 r68.82 Chief Complaint R68.82 E78.5 D72.829 E11.9 E80.4 Chief Complaint Rash on wrist 3 month follow up A1c N20.0 Reason for Visit Poison nellie dermatiti s Concentration deficit Diabetes mellitus Hematuria Lateral epicondylitis of elbow Shift work sleep disorder Chief Complaint Rash on wrist 3 month follow up A1c N20.0 Right Kidney Stone Reason for Visit Poison nellie dermatiti s Concentration deficit Diabetes mellitus Hematuria Lateral epicondylitis of elbow Shift work sleep disorder Additional Source Comments (unrecognized sect ion and content) No Status Records FoundNo Status Records FoundNo Status Records Found INFORMATION SOURCE (unrecogn ized section and content) DATE CREATED AUTHOR 05/02/2022 [facility] DATE CREATED AUTHOR AUTHOR'S ORGANIZ ATION 06/24/2024 [facility] DATE CREATED AUTHOR AUTHOR'S ORGANIZ ATION 06/24/2024 [facility] REASON FOR VISIT (unrecogniz ed section and content) Clinicalmed check-document s leep apnea - rx in upcoming folderRefillsClinicalrefills6 month follow up DMOzempic PACT deniedClinicalClinicalNo InformationRefillsNo Informationclinicaltick biteClinicalRefillsrefillRefillsRefillClinical Acute MedicineclinicalRefillsClinicalrefill Care Teams (unrecognized sec tion and content) Team Status: Active Member Role Status Dates Erick Doll DO Primary Care Provider Active Team Status: Inactive Member Role Status Kleber Doll DO Primary Care Provider, Attending Provi shira Active Team Status: Inactive Member Role Status Dates Erick Doll DO Primary Care Provider Active Sta rt: April 17, 2024 End: April 17, 2024 Stacia DELACRUZ APRN Attending Provider Active Start: April 17, 2024 End: April 17, 2024 Team Status: Inactive Member Role Status Kleber Doll DO Primary Care Provide r, Attending Provider Active Start: May 17, 2024 End: May 17, 2024 Team Status: Active Member Role Status Kleber Doll DO Primary Care Provider Active Sta rt: June 20, 2024 Josephine Freitas DO Attending Provider Active S tart: June 20, 2024 Team Status: Inactive Member Role Status Dates Erick Dlol DO Primary Care Provider Active Sta rt: June 22, 2024 End: June 22, 2024 Jonathon Diaz MD Attending Provider Active St art: June 22, 2024 End: June 22, 2024 Team Status: Inactive Member Role Status Dates Erick Doll DO Primary Care Provider Active Sta rt: April 17, 2024 End: April 17, 2024 Stacia Campbell APRN Attending Provider Active S tart: April 17, 2024 End: April 17, 2024 Team Status: Inactive Member Role Status Dates Erick Doll DO Primary Care Provider Active Sta rt: June 23, 2024 End: June 23, 2024 Jonathon Diaz MD Attending Provider Active St art: June 23, 2024 End: June 23, 2024 Goals (unrecognized section and content) Goals may be documented in a n alternate section FOR RECORDS PERTAINING TO PATIENTS WHO ARE OR HAVE BEEN ENROLLED IN A CHEMICAL DEPENDENCY/SUBSTANCEABUSE PROGRAM, SOME INFORMATION MAY BE OMITTED. This clinical summary was aggregated from multiple sources. Caution should be exercised in using it in the provision of clinical care. This summary normalizes information from multiple sources, and as a consequence, information in this document may materially change the coding, format and clinical context of patient data. In addition, data may be omitted in some cases. CLINICAL DECISIONS SHOULD BE BASED ON THE PRIMARY CLINICAL RECORDS. [facility] provides no warranty or guarantee of the accuracy or completeness of information in this document.
== END 2024-06-25 07:45 | disposition home or self-care (01) ==
LOC: RAD 07:45
PROVIDERS: PCP Family Medicine; Visit Provider Urology
DX: N20.0 Calculus of kidney (principal)
CPT/HCPCS: 74018

== ENCOUNTER 2025-09-07 01:15 | Emergency (ER) | payer BC, SELFPAY ==
--- OUTSIDE RECORDS SUMMARY | 2025-08-24 00:05 | XMS_ITS | Continuity of Care Document ---
Author Organization [facility] Address [address] [place] [address] Phone Care Team Providers Care [employer] Name Role Phone Erick Costello DO Primary Care Provider Miguel Bose MD Attending Provider [phone] Care Teams Patient Care Team Team Status: Active Member Role/Relationship Status Dates Erick Costello DO Primary Care Provider Active Visit Care Team Team Status: Inactive Member Role/Relationship Status Dates Erick Costello DO Primary Care Provider Active Sta rt: August 23, 2025 End: August 23, 2025Dasheldon Bose MDAttending ProviderActiveStart: August 23, 2025 End: August 23, 2025 Chief Complaint and Reason for Visit Chief Complaint Admit Date G47.30 E66.9 G47.33 August 23, 2025 8:24am Reason for Visit Admit Date BMI 31.0-31.9,adult August 23, 2025 8:24am Intolerance to BiPAP/CPAP August 23, 2025 8:24am CURTIS (obstructive sleep apnea) August 122024 8:24am Shift work sleep disorder August 23, 2025 8:24am Allergies, Adverse Reactions, Alerts Allergen Type Severity Reaction Last Updated Verified Status No Known Allergies Allergy Unknown November 11, 2024 10:33amYesActive Social History Smoking Status Status Start Date End Date Date of Observa tion Never smoked tobacco (finding) November 11, 2024 10:35am Observation Status Observation Response Date of Response Legal Sex Male (finding) Sex Assigned At BirthMaleDecember 1974 Family History Relationship Condition Age at Onset Recorded Date/T aparna brother Diabetes mellitus Unknown fatherHypertensionUnknown Problems Active Problems Problem Diagnosis/Recorded Date Onset Date Stat us [place] syndrome January 08, 2024 12:27pm Unknown Active CURTIS (obstructive sleep apnea) January 08, 2024 12:27pm Unknown Active Screening for prostate cancer January 08, 2024 12:27pm Unknown Active Lateral epicondylitis of elbow May 17, 2024 3:55pm Unknown Active Muscle strain June 28, 2025 10:31am Unknown Active Hematuria May 17, 2024 3:56pm Unknown Acti ve Diabetes mellitus January 08, 2024 12:27pm Unknown Active Shift work sleep disorder May 17, 2024 3:56pm Unkn own Active Poison nellie dermatitis April 17, 2024 9:59am Unknown Active Diarrhea September 12, 2024 12:24pm Unknown A ctive Intolerance to BiPAP/CPAP June 28, 2025 11:09am Unknown Active Hyperlipidemia January 08, 2024 12:27pm Unknown A ctive Kidney stones January 08, 2024 12:27pm Unknown Ac tive Change in bowel movement September 19, 2024 10:51am Un known Active BMI 31.0-31.9,adult August 23, 2025 9:34am Unknown Active H/O esophagogastroduodenoscopy January 08, 2024 12:28p m Unknown Active History of colonoscopy with polypectomy January 08, 2024 12:27pm Unknown Active Anxiety and depression January 08, 2024 12:27pm Unknow n Active Right elbow pain January 11, 2024 7:24am Unknown A ctive Blood in stool September 12, 2024 12:24pm Unknown Active Pain with bowel movements September 19, 2024 10:51am U nknown Active History of colon polyps October 13, 2024 11:22am Unkn own Active GERD (gastroesophageal reflux disease) January 07 12:27pm Unknown Active Abdominal pain September 12, 2024 12:24pm Unknown Active Hypertension January 08, 2024 12:27pm Unknown Act john Rectal pain October 13, 2024 11:17am Unknown Ac tive Abdominal muscle strain June 28, 2025 10:31am U nknown Active Concentration deficit December 10, 2023 8:36am Unkno wn Active Medications Medication Status Dose Units Route Directions Qty Days Refills S tart Date Stop Date End Date Reason(s) Instructions Adherence Armodafinil (Nuvigil) 200 mg tablet Discontinued 200 MG PO Every morning 30 30 0 March 04, 2024 11:53am April 12, 2024 8:29amAttention or concentration deficit Attention and concentration deficitArmodafinil (Nuvigil) 200 mg tablet Nvviqfvifzwx607ZEAOOuepo ubyyrfg04180Csxp 2023 8:29amSeptember 2023 3:52pmAttention or concentration deficit Attention and concentration deficitLosartan 50 mg ayjmaiIpinfcujqndz52OGZKVkpvl 900September 05, 2024 3:16pmJanuary 2024 10:01amRosuvastatin 10 mg tablet Bqglxcimatbs11QHZAFfrth933Nuvodiyh 25th, 2024 3:16pmJanuary 2024 10:01am Empagliflozin (Jardiance) 25 mg ystznaAiecuk89KLNMGmkqy445Zggkxnsh 2023 10:03amDiabetes mellitus Type 2 diabetes mellitus without complicationsComplies with drug therapy Rosuvastatin 10 mg rqhahdWawncnqiydfx43HKMOUakbe682Iapqofu 2024 10:00am August 03, 2025 2:59pmLosartan 50 mg qmabfaVtiduxkpclcj35EJKLQajaj388Pmmfpyp 2024 10:00amOctober 2024 2:59pmTadalafil (Cialis) 5 mg tablet Bopkzdzjvtjz4WRCVXheri239Lrlenyl 2024 10:01amJanuary 2024 2:32pm Semaglutide (Ozempic) 2 mg/dose (8 mg/3 mL) pen bydqybvpIoumdmehgwud2PFKHTFQI every ulta61Maino 2024 2:39pmSeptember 2024 11:43amTadalafil (Cialis) 5 mg dbxvufCccqer2MQBEUrmzn as needed for sexual dogdkuon985Ivbay 3rd, 2025 2:39pmComplies with drug therapySemaglutide (Ozempic) 2 mg/dose (8 mg/3 mL) pen pmxsremlRwoapu2ECPVKXPMgpamj dwqq68Zooeizqzc2024 11:43amComplies with drug therapyLosartan 50 mg echozrWcfthk98GPSCFttbv344Tclzehv 2024 2:59pm Complies with drug therapyRosuvastatin 10 mg diwoquLosvjg75JIWUUewug376Ucrgwiq 2024 2:59pmComplies with drug therapyTadalafil (Cialis) 5 mg tablet Gcewoqrrxmpf3HBLDDzsyv as needed for sexual activityJan2024 12:00am January 12, 2025 2:40pmHydrocodone-Acetaminophen 5-325 mg LhqlxsDgjkwlwjmocq9VFM POEVERY 4-6 HOURS as needed for PainDecember 2016 12:00amFebruary 2023 8:30amHydrocodone-Acetaminophen 5-325 mg ezjjlcZruqoadsapcp7KVSDTC5V as needed for egxh667Zmxieaqa 2016February 2023 8:30amCephalexin (Keflex) 500 mg txwkakdYdvdnuyghcba221MXVCAywll 12 glrxr451Udhhboki 2016 12:00amFebruary 2023 8:30amCephalexin 500 mg xhtwdzyYtqlcqyompbf017RPJM Twice jpoeb6974NurzfhksrJune 22, 2024 11:00pmDecember 2023 10:10amSolifenacin (Vesicare) 10 mg vbxtkaIpgvxskuftcj19FFBXSrtve107Hqviqnnus 11th, 2024 11:00pm September 19, 2024 10:11amArmodafinil 150 mg mikhibBpjhhewevkal839PIUOQvlje December 10, 2023 12:00amFebruary 2023 8:37amFreeTextSi tablet Orally Once a day; Note: Source Status: Refill; Refills: 0; Qty: 30 Tablet; Pr ovider: Trang Suarez PDulaglutide (Trulicity) 1.5 mg/0.5 mL pen injector Discontinued1.5MGSUBCUTevery weekFebruary 2023 12:00amApril 2023 6:51amFreeTextSig: as directed Subcutaneous once a week; Note: Source Status: Taking4 pens; Refills: 2; Provider: Trang Suarez PDicyclomine 10 mg capsule Ydlrlwsuhixs30DZUWAfadd dailyFebruary 2023 12:00amApril 2023 6:50am FreeTextSi tablet Orally twice a day as needed; Note: Source Status: Taking; Refills: 1; Provider: Trang Suarez PEmpagliflozin (Jardiance) 25 mg tablet Hkwnrhmhtvzb19JNQOUelrfjyf 2023 12:00amJuly 2023 8:18amFreeTextSig: daily orally Once a day; Note: Source Status: Taking; Provider: Trang Lee GlucometerActive.RouteFebruary 2023 12:00amCheck blood sugar one time per day for E11.9Complies with drug therapyTest stripsActive.RouteFebruary 2023 12:00amCheck blood sugar one time per day for DM E11.9Complies with drug therapyLancetsActive.RouteFebruary 2023 12:00amCheck blood sugar one time per day for E11.9Complies with drug therapyMetformin 500 mg tabletDiscontinued 500MGPOTwice dailyFebruary 2023 12:00amApril 2023 7:16amFreeTextSi tablet with a meal Orally twice a day; Note: Source Status: Taking; Provider: Trang Suarez PRosuvastatin 10 mg ycqxakMmsjgrastmea01ZQXKOokduXfgghysq 2023 12:00amNovember 2023 3:16pmFreeTextSi tablet Orally Once a day; Note: Source Status: Taking; Provider: Trang Suarez PLosartan 50 mg djvuabGkwqzcvpnoag72 MGPODailyFebruary 2023 12:00amNovember 2023 3:16pmFreeTextSi tablet Orally Once a day; Note: Source Status: Taking; Provider: Trang Lee CPAPActive.RouteFebruary 2023 12:00amUse at for OSAComplies with drug therapyArmodafinil 150 mg blmwheIxjcuhbiupib465TDSTMemsu28366Xtsjxqih 2023 8:35amApril 2023 7:21amAttention or concentration deficit Attention and concentration deficitFreeTextSi tablet Orally Once a day; Note: Source Status: Refill; Refills: 0; Qty: 30 Tablet; Provider: Trang Lee Empagliflozin (Jardiance) 25 mg ihveoiNnhonpyszsyb90UQQKRmwagDnjd 2023 8:17amDecember 2023 10:03amArmodafinil (Nuvigil) 200 mg tabletDiscontinued 200MGPOEvery kdaucsk35254Uezivlfly 17th, 2024 3:52pmDecember 2023 10:10am Attention or concentration deficit Attention and concentration deficitHydrocortisone (Proctosol Hc) 2.5 % cream with perineal ybueauelqwUetuyvohkpbe3IWRVDWGG9 to 2 times per day as needed for loej800Byuaxawx 9th, 2024 12:00amJanuary 2024 11:03amDoxycycline Hyclate 100 mg oqjcuomLfvunhoppbyq184MAMRFqpjx gxssm56352Kthzobzn 9th, 2024 12:00am October 13, 2024 11:03amDiclofenac Potassium 50 mg odoeyyJciddvmvbwoe54OUJF Twice fuabc43117Uxrcboiba 16th, 2025 11:00pmOctober 2024 8:15amTizanidine 2 mg hkcyuzvClghhvmfcwjt5RKUNYllid 8 hours as needed for muscle spasm, ljhp07437 June 27, 2025 11:00pmOctober 2024 8:16amTake 1 tablet as needed up to 3 times daily.Semaglutide (Ozempic) 2 mg/dose (8 mg/3 mL) pen injector Jjavbbnalati7GMUHDHSKcwvjp weekMarch 2023 11:00pmApril 2023 7:23am Armodafinil (Nuvigil) 200 mg ptqsaoAkrfuubrpchw069SIOOOznpq lajozxl89811Zgtew 2023 11:00pmMay 2023 11:54amAttention or concentration deficit Attention and concentration deficitSemaglutide (Ozempic) 2 mg/dose (8 mg/3 mL) pen jbuzbnldNbhahlscfkil4NLBBTFQZnmuwc logu10Sfxjx2023 7:23amOctober 2023 12:23pmTadalafil (Cialis) 5 mg kysjmvPhwiqsfwfisv2WTHJXmxmw660Ioffeac 2023 11:00pmJanuary 2024 10:01amSemaglutide (Ozempic) 2 mg/dose (8 mg/3 mL) pen qhvjtcclNreanxlpptnn2TTPJIDYSojagm aanv90Rbrjdqt2023 12:23pmApril 2024 2:39pmAzithromycin (Zithromax Z-Gonsalo) 250 mg piezmvUxailxuqismw8FJ .GGEGPBL35Epegnfw 2024 11:00pmNovember 2024 8:30amFor 250 mg dose pack: take 500 mg today (day 1), then 250 mg for 4 days (days 2-5) POPrednisone 20 mg zqfryrGumnrvjwsecd61PDNTTisse217Acqathl 2024 11:00pmNovember 2024 8:31am Immunizations Immunization Event Date Not Given Reason Dose Number Carton Catcher Lot Number Reason(s) Given Vaccine Information Statement (VIS) Detail Administration Location COVID-19 mRNA, Comirnaty ([employer]) June 19, 2021 COVID-19 mRNA, Comirnaty ([employer])July 10, [id number] Influenza (mdv)August 11, [id number] [facility] 2017 Trivalent Influenza VaccineMar 2019Patient Refused Medical Equipment Device Date Implanted Device Details Polymeric ureteral stent June 23, 2024 UD I: [id number] Issuing Agency: [facility] Device Id: [id number] Expiration Date: 2028-05-22 Lot Number: [id number] Vital Signs Vital Reading Result Reference Range Collection Date/Time Height 70 [in_i] August 23, 2025 8:61tvPizalp920.69 kgAugust 23, 2025 8:31amHeart Rate92 /jii28-598TkqmzijzAugust 23, 2025 8:31amOxygen saturation by Pulse % 95-100August 23, 2025 8:31amBP Gulumigt255 mm[Hg]100-140August 23, 2025 8:31amBP Wcebfeiqj48 mm[Hg]60-100August 23, 2025 8:31amBMI (Body Mass Index) 31.8 kg/w9XqntjccaAugust 23, 2025 8:31am Advance Directives Advance Directive Response Recorded Date/ Time Advance Directives No November 02, 2023 11:21am Insurance Providers Guarantor Donnie Smith Address [address] [facility] [address] Info.Home Phone: Payer Group Member ID Coverage Type Subscriber Relationship to Subscriber Effective Date Expiration Date [facility] Id: [id number] L Hinojosa Id: [id number] [address] [place] [address] Home Phone: Email: [email or web address] Encounters Encounter Location(s) Arrival/Admit Date Discharge/Departure Date Discharge/Departure Disposition Provider(s) Departed Physician/ Provider Office Visit -[facility] August 23, 2025 8:24am August 23, 2025 9:16am Discharged to home care or self care (routine discharge) Miguel Bose MD Recent Diagnosis Onset Date Admit Date BMI 31.0-31.9,adult Unknown August 8:24am Intolerance to BiPAP/CPAP Unknown er 2024 8:24am CURTIS (obstructive sleep apnea) Unknown No vember 2024 8:24am Shift work sleep disorder Unknown 2024 8:24am Assessments Diagnosis Onset Date Resolution Status Admit Date BMI 31.0-31.9,adult acuteAugust 23, 2025 8:24amIntolerance to BiPAP/CPAPacuteAugust 23, 2025 8:24amOSA (obstructive sleep apnea)acuteAugust 23, 2025 8:24amShift work sleep disorderacuteNovember 2024 8:24am Plan of Treatment Author Miguel Bose [facility] HospitalAuthoredNovember 2024 1:31pmHkeagan has previously documented obstructive sleep apnea, but was unfortunately unable to tolerate treatment consistently since that initial diagnosis. His first sleep study in 2006 showed an apnea hypopnea index of 24, and he was later evaluated in 2010 and started on fixed pressure BiPAP. Repeat testing in 2013 switched him to fixed pressure CPAP. Since then he has had substantial leak and mask intolerance, with suboptimal CPAP usage. We extensively discussed how his ongoing tolerance symptoms (very dry mouth, frequent leak, dental issues from dry mouth, overall dislike of mask and headgear) can be addressed successfully enough that PAP toleration may be possible. He does want to try this approach first. We will switch him to auto adapting CPAP (not sure why he was left on fixed pressure, his machine is auto capable) which should both improve toleration and likely end up and reduced average pressures). I extensively discussed mask selection, and since he often has mouth leak is pretty clearly need to switch to some form of fullface mask. I advised modified fullface mask to minimize leakage and maximize toleration (F40 or Sanjiv for example). He will keep working on improved usage, and I anticipate return in 6 to 8 weeks I am hopeful that his CPAP toleration may improve with the adjustments outlined above. Should this be unsuccessful he could be a candidate for Inspire Therapy and he did have questions about this treatment. I discussed Inspire Therapy in detail. We reviewed the criteria used for determining Inspire Therapy eligibility, and we explored the advantages and disadvantages of the approach. I extensively explained the roadmap for implementation, and discussed the possibility of suboptimal treatment response including possibly needing to return to CPAP He has suboptimal sleep hygiene practices, a common issue with shiftwork sleep disorder. We reviewed strategies for reducing the impact of this problem and explained why it is much harder to sleep in the daytime even if darkening shades are used. I suggested trying to shift his nonwork day pattern so it overlaps better with his normal workday sleep cycle; for example instead of going to bed with the rest of the family he could try staying up until 2 AM with a plan of sleeping until 10 AM. This would not reduce the circadian rhythm stress that he is now having to deal with. The patient is encouraged to continue efforts at progressive weight loss. Reduced body weight is broadly beneficial for general health, but has particularly important effects on obstructive sleep apnea severity. In some patients, weight loss can potentially resolve sleep apnea completely. Weight reduction strategies emphasizing balancing caloric intake and activity were discussed. Future Tests Future scheduled test information is unavailable Pending Tests Test Name Ordered Date Scheduled Date Hemoglobin A1c August 23, 2025 7:30am Estimated Average GlucoseAugust 23, 2025 7:30amTestosterone (ng/dl)August 23, 2025 7:30amFree TestosteroneAugust 23, 2025 7:30am Future Visits Future appointment information is unavailable Future Procedures Procedure Name Ordered Date Scheduled Date A1C with Estimated Average Glu August 07 8:53am August 23, 2025 7:30am Testosterone Free and Total August 07, 2025 8 :53am August 23, 2025 7:30am Future Medications Future medication information is unavailable Patient Instructions Patient instructions are unavailable
--- OUTSIDE RECORDS SUMMARY | 2025-09-01 03:25 | XMS_ITS | Continuity of Care Document ---
Author Organization [facility] Address [address] [place] [address] Phone Care Team Providers Care [employer] Name Role Phone Erick Costello DO Primary Care Provider Guy Smith DO Attending Provider Erick Costello DO Attending Provider [phone] Erick Costello DO Other Provider Gregory Cano MD Attending Provider Miguel Bose MD Attending Provider Care Teams Patient Care Team Team Status: Active Member Role/Relationship Status Dates Erick Costello DO Primary Care Provider Active Visit Care Team Team Status: Inactive Member Role/Relationship Status Dates Erick Costello DO Primary Care Provider Active Sta rt: June 28, 2025 End: June 28, 2025Paul Baker ProviderActiveStart: June 28, 2025 End: June 28, 2025 Visit Care Team Team Status: Inactive Member Role/Relationship Status Dates Erick Costello DO Primary Care Provider Active Sta rt: August 03, 2025 End: August 03, 2025Kyle G Denihan , DOAttending ProviderActiveStart: August 03, 2025 End: August 03, 2025 Visit Care Team Team Status: Inactive Member Role/Relationship Status Dates Erick Costello DO Primary Care Provider Active Sta rt: August 07, 2025 End: August 07carol Costello DOAttending ProviderActiveStart: August 07, 2025 End: August 07, 2025 Visit Care Team Team Status: Active Member Role/Relationship Status Dates Erick Costello DO Primary Care Provider Active Sta rt: August 07, 2025 Erick Costello DOOther ProviderActiveStart: August 07, 2025 Gregory Cano MDAttending ProviderActiveStart: August 07, 2025 Visit Care Team Team Status: Inactive Member Role/Relationship Status Dates Erick Costello DO Primary Care Provider Active Sta rt: August 23, 2025 End: August 23carol Costello DOAttending ProviderActiveStart: August 23, 2025 End: August 23, 2025 Visit Care Team Team Status: Inactive Member Role/Relationship Status Dates Erick Costello DO Primary Care Provider Active Sta rt: August 23, 2025 End: August 23, 2025Miguel Bose MDAttending ProviderActiveStart: August 23, 2025 End: August 23, 2025 Patient Care Team Team Status: Inactive Member Role/Relationship Status Dates Erick Costello DO Primary Care Provider Active Sta rt: September 01, 2025 End: September 01carol Costello DOAttending ProviderActiveStart: September 01, 2025 End: September 01, 2025 Chief Complaint and Reason for Visit Chief Complaint Admit Date Muscle pain June 28, 2025 10:48am E78.5 August 03, 2025 7 :33am Wellness August 07, 2025 8 :17am Z00.00 E11.9 Z12.5 R68.82 R53.83 Novembe r 2024 7:29am G47.30 E66.9 G47.33 August 23, 2025 8:24am 3-4 week f/u September 01, 2025 7:25am Reason for Visit Admit Date Abdominal muscle strain June 28, 2025 10:48am Intolerance to BiPAP/CPAP June 10:48am CURTIS (obstructive sleep apnea) June 28, 2025 10:48am Hyperlipidemia August 07, 2025 8 :17am Sinus congestion August 07, 2025 8 :17am Wellness examination August 07, 2025 8:17am Low libido August 07, 2025 8 :17am BMI 31.0-31.9,adult August 23, 2025 8:24am Intolerance to BiPAP/CPAP August 23, 2025 8:24am CURTIS (obstructive sleep apnea) August 122024 8:24am Shift work sleep disorder August 23, 2025 8:24am Diabetes mellitus September 01, 2025 7:25am Hyperlipidemia September 01, 2025 7:25am Hypertension September 01, 2025 7:25am Hypotestosteronism September 01, 2025 7:25am Nasal obstruction September 01, 2025 7:25am Screening for prostate cancer August 132024 7:25am Reason for Referral Type Reason(s) Provider Provider Contact Information P rovider Address Start Date Nasal obstruction Obstructive sleep apnea syndrome Recurrent sphqzdfciY33.89 - Other specified disorders of nose and nasal sinuses,G47.33 - Obstructive sleep apnea (adult) (pediatric),J32.9 - Chronic sinusitis, unspecifiedHILARY H SEVERINO SAMANO ORDER- MULTIPLE OFFICES [facility] 2024 Allergies, Adverse Reactions, Alerts Allergen Type Severity Reaction Last Updated Verified Status No Known Allergies Allergy Unknown September 01, 2025 7:46amYesActive Social History Smoking Status Status Start Date End Date Date of Observa tion Never smoked tobacco (finding) November 11, 2024 10:35am Observation Status Observation Response Date of Response Legal Sex Male (finding) Sex Assigned At BirthMaleDecember 1974 Family History Relationship Condition Age at Onset Recorded Date/T aparna brother Diabetes mellitus Unknown fatherHypertensionUnknown Problems Active Problems Problem Diagnosis/Recorded Date Onset Date Stat us [place] syndrome January 08, 2024 12:27pm Unknown Active [...] May 17, 2024 3:56pm Unkn own Active Hypotestosteronism September 01, 2025 7:57am Unknown Active Poison nellie dermatitis April 17, 2024 9:59am Unknown Active Diarrhea September 12, 2024 12:24pm Unknown A ctive Intolerance to BiPAP/CPAP June 28, 2025 11:09am Unknown Active Hyperlipidemia January 08, 2024 12:27pm Unknown A ctive Kidney stones January 08, 2024 12:27pm Unknown Ac tive Nasal obstruction September 01, 2025 7:57am Unknown Active Change in bowel movement September 19, 2024 [...] and concentration deficitArmodafinil (Nuvigil) 200 mg tablet Lyeatunfznqg778NGWETajav hzyowyd00252Bgfw 2023 8:29amSeptember 2023 3:52pmAttention or concentration deficit Attention and concentration deficitLosartan 50 mg gwftklAbprvmidqwwx11TPKUAgxkh 900November 2023 3:16pmJanuary 2024 10:01amRosuvastatin 10 mg tablet Euhtwggqmpdn70AHZLPgmyr291Szwsdnqv 2023 3:16pmJanuary 2024 10:01am Empagliflozin (Jardiance) 25 mg ynjjczSnsowc63QVBQBbcrz978Xdalkpri 2023 10:03amDiabetes mellitus Type 2 diabetes mellitus without complicationsComplies with drug therapy Rosuvastatin 10 mg fdqmynPiwnzjjvfzpf97OWUFFnkpf334Qhivhdj 2024 10:00am August 03, 2025 2:59pmLosartan 50 mg uilxapVikdtswidnrf14HLDFRoggw255Xjgaici 2024 10:00amOctober 2024 2:59pmTadalafil (Cialis) 5 mg tablet Ebdpibteqbnf1IGSDNfqnk785Zrukskx 2024 10:01amJanuary 2024 2:32pm Semaglutide (Ozempic) 2 mg/dose (8 mg/3 mL) pen xngtegvxSxvahheptcag7RKURSKPT every zhjk42SizznJanuary 12, 2025 2:39pmSeptember 2024 11:43amTadalafil (Cialis) 5 mg yamoedMhplvutrpdof9JNFDNdypy as needed for sexual zroucjhn403Gsrne 3rd, 2025 2:39pmNovember 2024 8:21amSemaglutide (Ozempic) 2 mg/dose (8 mg/3 mL) pen rqgfeykzSssmml0KROJYKTDutwlr omka58Xglleaqwc2024 11:43amComplies with drug therapyLosartan 50 mg riismgRezfqb34YHFTEynxa062Lwlmkhd 2024 2:59pm Complies with drug therapyRosuvastatin 10 mg qftydvFlmcat11DTJZQzksi036Pxmpcfz 2024 2:59pmComplies with drug therapyTadalafil (Cialis) 5 mg tablet Jolrlnyeizqx6HADAWqlob as needed for sexual activityJanuary 2024 12:00am January 12, 2025 2:40pmHydrocodone-Acetaminophen 5-325 mg BnuzreLhgijmwqbkcl4LZS POEVERY 4-6 HOURS as needed for PainDecember 2016 12:00amFebruary 2023 8:30amHydrocodone-Acetaminophen 5-325 mg uwcyuyPtupmegvoxki6FDBNYH5K as needed for gawk350Yofbpuxt 2016February 2023 8:30amCephalexin (Keflex) 500 mg cecoonjNctkdccoddjp499CSEAZzvif 12 nuwem030Dhijzgbq 2016 12:00amFebruary 2023 8:30amCephalexin 500 mg wkqpgweOvezoylrrkuy256KIZL Twice qfanp8561Adsugrvwi 11th, 2024 11:00pmDecember 2023 10:10amSolifenacin (Vesicare) 10 mg ttfpysIcikagopobvr08RSLZCktun004Rgnjowtxy 11th, 2024 11:00pm September 19, 2024 10:11amArmodafinil 150 mg jbnryvXudkucifvspl953BODMPwwkh December 10, 2023 12:00amFebruary 2023 8:37amFreeTextSi tablet Orally Once a day; Note: Source Status: Refill; Refills: 0; Qty: 30 Tablet; Pr ovider: Trang Suarez PDulaglutide (Trulicity) 1.5 mg/0.5 mL pen injector Discontinued1.5MGSUBCUTevery weekFebruary 2023 12:00amApril 2023 6:51amFreeTextSig: as directed Subcutaneous once a week; Note: Source Status: Taking4 pens; Refills: 2; Provider: Trang Suarez PDicyclomine 10 mg capsule Nfjsqfjcfpue64YEWOEeghz dailyFebruary 2023 12:00amApril 2023 6:50am FreeTextSi tablet Orally twice a day as needed; Note: Source Status: Taking; Refills: 1; Provider: Trang Suarez PEmpagliflozin (Jardiance) 25 mg tablet Mhmofsczjuuq26GPDIRdussqbr 2023 12:00amJuly 2023 8:18amFreeTextSig: daily orally Once a day; Note: Source Status: Taking; Provider: Trang Lee GlucometerActive.Routebruary 2023 12:00amCheck blood sugar one time per day for E11.9Complies with drug therapyTest stripsActive.Routebruary 2023 12:00amCheck blood sugar one time per day for DM E11.9Complies with drug therapyLancetsActive.Routebruary 2023 12:00amCheck blood sugar one time per day for E11.9Complies with drug therapyMetformin 500 mg tabletDiscontinued 500MGPOTwice dailybruary 2023 12:00amApril 2023 7:16amFreeTextSi tablet with a meal Orally twice a day; Note: Source Status: Taking; Provider: Trang Suarez PRosuvastatin 10 mg vwatzaYhsusalrpomv73KHLQZrjytKuurbppn 2023 12:00amNovember 2023 3:16pmFreeTextSi tablet Orally Once a day; Note: Source Status: Taking; Provider: Trang Suarez PLosartan 50 mg foujysBwqgsvbjcllp72 MGPODailybruary 2023 12:00amNovember 2023 3:16pmFreeTextSi tablet Orally Once a day; Note: Source Status: Taking; Provider: Trang Lee CPAPActive.[facility] Mexicobruary 2023 12:00amUse at for OSAComplies with drug therapyArmodafinil 150 mg rhvtqiBljyjavdfcww368GLFBDbifm54658Uotisfmh 2023 8:35amApril 2023 7:21amAttention or concentration deficit Attention and concentration deficitFreeTextSi tablet Orally Once a day; Note: Source Status: Refill; Refills: 0; Qty: 30 Tablet; Provider: Trang Lee Empagliflozin (Jardiance) 25 mg mmfffkQenqvcgavuto75CVFUGedgaHynq 2023 8:17amDecember 2023 10:03amArmodafinil (Nuvigil) 200 mg tabletDiscontinued 200MGPOEvery sxtjmyn80709Zuiglcehn 17th, 2024 3:52pmDecember 2023 10:10am Attention or concentration deficit Attention and concentration deficitHydrocortisone (Proctosol Hc) 2.5 % cream with perineal voehewsxhuFtwraiayhfom2PDAKVOIA4 to 2 times per day as needed for saoc317Olqfvzit 9th, 2024 12:00amJan2024 11:03amDoxycycline Hyclate 100 mg liojvohIbclkjgbumgu550BGCCFcvum byage01898Gfsttaqn2023 12:00am October 13, 2024 11:03amDiclofenac Potassium 50 mg dkjlmwJsodabuuphpi57OCXH Twice uuvgt88493Hwzbadliu 16th, 2025 11:00pmOctober 2024 8:15amTizanidine 2 mg zqntcfaBwxhxczgmhiz6SDTOYngvi 8 hours as needed for muscle spasm, xsbb31112 June 27, 2025 11:00pmOctober 2024 8:16amTake 1 tablet as needed up to 3 times daily.Semaglutide (Ozempic) 2 mg/dose (8 mg/3 mL) pen injector Fdzelybbfgrv4HDCTRZNIqmhzw weekDecch 2023 11:00pmApril 2023 7:23am Armodafinil (Nuvigil) 200 mg cfmcelWdrmazcldjfi989ZVJBRcbet diwfxlz04440Asxis 2023 11:00pmMay 2023 11:54amAttention or concentration deficit Attention and concentration deficitSemaglutide (Ozempic) 2 mg/dose (8 mg/3 mL) pen gmbdgqxuGwyavapznltr9UQCJNZZGigpmt hgku83Qqmmm2023 7:23amOctober 2023 12:23pmTadalafil (Cialis) 5 mg cqnsbtJccsbvptkaxx3VUOXBxwqb393Ciacsql 13th, 2024 11:00pmJanuary 2024 10:01amSemaglutide (Ozempic) 2 mg/dose (8 mg/3 mL) pen lqoisuijRdztirgtkapp6HIXMEZYJipjdr 2023 12:23pmApril 2024 2:39pmAzithromycin (Zithromax Z-Gonsalo) 250 mg lmwmkaGrwvhhnjopko1KM .RFPPQCJ06Ngfcjlh 26th, 2025 11:00pmNov2024 8:30amFor 250 mg dose pack: take 500 mg today (day 1), then 250 mg for 4 days (days 2-5) POPrednisone 20 mg zkiznlRemcyvwjnkxg69ACCJWukso442Klileqz 26th, 2025 11:00pmAugust 23, 2025 8:31amTestosterone Cypionate 200 mg/mL ddkDprhip956ELTOAjxo a atsv7244 September 01, 2025 12:00amTestosterone deficiency Endocrine disorder, unspecifiedComplies with drug therapyNeedle (Disp) 22 G (Monoject Hypodermic Mena) 22 gauge x 1 1/2 needleActive0.Vxlqq899Ezftqkcy2024 12:00amAs directedSyringe (Disposable) (Bd Syringe) 1 mL syringe Active0.Denit226Xuansqiv2024 12:00amAs directedTadalafil (Cialis) 5 mg uivbpyGbdqtf9UKRVUjbxf as needed for sexual xxgxpsis975Pytdsnou2024 8:21amComplies with drug therapy Immunizations Immunization Event Date Not Given Reason Dose Number Research Administrator Lot Number Reason(s) Given Vaccine Information Statement (VIS) Detail Administration Location COVID-19 mRNA, Comirnaty ([employer]) June 19, 2021 COVID-19 mRNA, Comirnaty ([employer])July 10, [id number] Influenza (mdv)August 11, [id number] InfluenzaOcte[facility] 2017 Trivalent Influenza VaccineMarch 2019Patient Refused Medical Equipment Device Date Implanted Device Details Polymeric ureteral stent June 23, 2024 UD I: [id number] Relevant Diagnostic Tests and/or Laboratory Data Laboratory Results Test Collection Date/Time Result Date/Time Result Interpretation Reference Range Result Comment Performing Site Urine Glucose (UA) August 07, 2025 8:28am August 07, 2025 8:30am 500mg Urine BilirubinOctober 2024 8:28amOctober 2024 8:30amnegativeUrine KetonesOct2024 8:28amOctober 2024 8:30amnegativeUrine Specific GravityOctober 2024 8:28amOctober 2024 8:30am1.015Urine Occult Blood August 07, 2025 8:28amOct2024 8:30amsmallUrine pHOct2024 8:28amOctober 2024 8:30am6.0Urine ProteinOctober 2024 8:28am August 07, 2025 8:90iu62yxVewlp UrobilinogenOctober 2024 8:28amOctober 2024 8:30am0.2Urine NitriteOctober 2024 8:28amOctober 2024 8:30amNegativeUrine Leukocyte EsteraseOctober 2024 8:28amOctober 2024 8:30amnegativeCorrected White Blood CountNovember 2024 7:30amNovember 2024 2:29pm13.4 10*3/uLAbove high normal4.1-10.5[facility] [id number] [address] [facility] [address]Yibtlpeobay WBC CountNovember 2024 7:30amNovember 2024 2:29pm13.4 10*3/uLAbove high normal4.1-10.5F[facility] [id number] [address] [facility] [address]Lzh Blood CountNovember 2024 7:30amNovember 2024 2:29pm5.17 10*6/uL3.90-5.60[facility] [id number] [address] [facility] 79228HheferluwqOmzmhrtw 2024 7:30amNovember 2024 2:29pm 15.6 g/dL13.0-17.0[facility] [id number] [address] [facility] [address]MwqcertsycEiwzkckv 2024 7:30amNove2024 2:29pm 45.9 %38.8-50.0[facility] [id number] [address] [facility] 50245Muzc Corpuscular VolumeNovember 2024 7:302024 2:29pm88.7 fL83.5-101[facility] [id number] [address] [facility] 50395Kqbx Corpuscular HemoglobinNovember 2024 7:30ove2024 2:29pm30.2 pg27.5-35.2FDo[facility] [id number] [address] [facility] 18105Orus Corpuscular Hemoglobin ConcentNovember 2024 7:30am August 23, 2025 2:29pm34.1 g/dL32.5-35.6F[facility] [id number] [address] [facility] [address]707Lmm Cell Distribution WidthNov2024 7:2024 2:29pm13.3 %12.0-14.8[facility] [id number] [address] [facility] 29[address]Ovwomkzr CountNovember 2024 7:302024 2:92um734 10*3/oP940-807CypxrosmtMarietta Memorial Hospital [facility]tr [id number] [address] [facility] 07494Lued Platelet VolumeNovember 2024 7:2024 2:29pm8.4 fL6.6-10.1F[facility] [id number] [address] [facility] [address]484Xlmagesapee (%) (Auto)August 23, 2025 7:ove2024 2:29pm62.6 %.[facility] [id number] [address] [facility] 50796Yvjponprkpn (%) (Auto)August 23, 2025 7:ove2024 2:29pm26.1 %.[facility] [id number] [address] [facility] [address]15[address]Dydhhhpnf (%) (Auto)August 23, 2025 7:30amNove2024 2:29pm6.5 %.[facility] [id number] [address] [facility] 27471Suunhiaitvo (%) (Auto)August 23, 2025 7:30amNove2024 2:29pm4.1 %.[facility] [id number] [address] [facility] [address]150Dziekapfy (%) (Auto)August 23, 2025 7:30amNove2024 2:29pm0.7 %.[facility] [id number] [address] [facility] 07885Gigybrkvl RBC Relative Count (auto)August 23, 2025 7:30am August 23, 2025 2:29pm0.3 /100{WBC}0-0.5F[facility] [id number] [address] [place] [id number] # (Auto)August 23, 2025 7:30amNove2024 2:29pm8.4 10*3/uLAbove high normal1.8-7.7F[facility] [id number] [address] [facility] 13642Rgornlbycev # (Auto)August 23, 2025 7:30amNove2024 2:29pm3.5 10*3/uL1.00-4.8[facility] [id number] [address] [facility] 87862Tmdntexjk # (Auto)August 23, 2025 7:30amNove2024 2:29pm0.9 10*3/uLAbove high normal0.0-0.8[facility] [id number] [address] [place] [id number] # (Auto)August 23, 2025 7:30amNovemb2024 2:29pm0.6 10*3/uLAbove high normal0.0-0.45[facility] [id number] [address] [place] [id number] # (Auto)August 23, 2025 7:30amN2024 2:29pm0.1 10*3/uL0.0-0.2F[facility] [id number] [address] [place] [id number] LevelNov2024 7:30amNove2024 2:40pm83 mg/zT32-992UGL recommended reference rangeRandom Glucose Reference Range is dependent on time and content of last meal. Glucose of more than 200 mg/dL in a nonstressed, ambulatory subject supports the diagnosisof Diabetes Mellitus.[facility] [id number] [address] [facility] [address]Etzku Urea NitrogenAugust 23, 2025 7:30amN2024 2:40pm15 mg/dL7-25[facility] [id number] [address] [facility] [address]TljxkpidstSjxuohjw 12th, 2025 7:302024 2:40pm 0.74 mg/dL0.70-1.30[facility] [id number] [address] [facility] 17070Ljzvfhkmu GFR (CKD-EPI)August 23, 2025 7:302024 2:40pm> 60.0 mL/MinMarietta Memorial Hospital Ctr [id number] [address] [place] [id number] LevelNov2024 7:302024 2:99ab987 mmol/V535-123VhiteqhgrMarietta Memorial Hospital Ctr [id number] [address] [place] [address]Potassium LevelNov2024 7:30amN2024 2:40pm3.8 mmol/L3.5-5.1F[facility] [id number] [address] [place] [address]Chloride LevelNov2024 7:30amNove2024 2:10mp464 mmol/M35-970AjoerqnbsMarietta Memorial Hospital Ctr [id number] [address] [place] [address]Carbon Dioxide LevelNov2024 7:302024 2:40pm29.2 mmol/L21.0-31.0[facility] [id number] [address] [facility] [address]Swhom GapNovember 2024 7:30amNove2024 2:40pm 10.6 mEq/L6.0-15.0[facility] [id number] [address] [facility] [address]Cyvgwcq LevelNov2024 7:30amNove2024 2:40pm9.4 mg/dL8.6-10.3[facility] [id number] [address] [facility] 12279Ekvpt ProteinNovember 2024 7:30amNove2024 2:40pm7.0 g/dL6.4-8.9[facility] [id number] [address] [facility] [address]TinyinpMhxzmhqg 12th, 2025 7:30amNove2024 2:40pm4.9 g/dL3.5-5.7F[facility] [id number] [address] [facility] [address]OzpqjamgRdqrodpy 12th, 2025 7:30amNove2024 2:40pm2.1 g/dLMarietta Memorial Hospital [facility]tr [id number] [address] [facility] 54655Gnyzivo/Globulin RatioN2024 7:30amNove2024 2:40pm2.3F[facility] [id number] [address] [facility] [address]Bjzhc BilirubinNovember 2024 7:30amNove2024 2:40pm1.7 mg/dLAbove high normal0.3-1.0Samples from patients who have taken Naproxen have shown spurious elevation in Total Bilirubin levels. A metabolite of Naproxen, O-desmethylnaproxen, has been shown to interfere with the Dao-Bertha method for measuring Total Bilirubin.[facility] [id number] [address] [facility] [address]164Klvtdjkaw Amino Transf (AST/SGOT)August 23, 2025 7:30am August 23, 2025 2:40pm28 U/S16-37QjuvnmbytMarietta Memorial Hospital Ctr [id number] [address] [facility] [address]Rygheid Aminotransferase (ALT/SGPT)August 23, 2025 7:30am August 23, 2025 2:40pm38 U/L7-52[facility] [id number] [address] [facility] [address]157Jvwjainf PhosphataseNovember 2024 7:30amNovember 2024 2:40pm56 U/T67-635FjzbtlztcMarietta Memorial Hospital Ctr [id number] [address] [facility] [address]Ecdslqipcwj LevelOctober 2024 6:55amOctober 2024 2:48vw776 mg/eF959-756Xkzy less than 200 mg/dl low riskChol 201-239 mg/dl borderline riskChol 240 mg/dl and greater high riskMarietta Memorial Hospital Ctr [id number] [address] [facility] [address]LMG CholesterolOctober 2024 6:55amOctober 2024 2:01pm42 mg/iR64-57KGO CHOL ATP-III CLASSIFICATION Cardiovascular RiskHDL > or equal to 60 mg/dL LOWHDL < 40 mg/dL HIGHMarietta Memorial Hospital Ctr [id number] [address] [facility] [address]Xemytshktrfup LevelOctober 2024 6:55amOctober 2024 2:14yx181 mg/dLAbove high normal0-149TRIG ATP III CLASSIFICATIONTRIG less than 150 mg/dL NormalTRIG 150-199 mg/dL Borderline highTRIG 200-500 mg/dL High TRIG greater than 500 mg/dL Very highStandard traceable to the Center for Disease Co nrtrol and Prevention (CDC) test method.[facility] [id number] [address] [facility] 58489WFQ Cholesterol, CalculatedOctober 2024 6:55amOctober 2024 2:01pm77 mg/dL0-100LDL ATP III CLASSIFICATIONLDL less than 100 mg/dL OptimalLDL 100-129 mg/dL Near or above qhjffhjDCL293-414 mg/dL Borderline highLDL 160-189 mg/dL HighLDL greater than 189 mg/dL Very highMarietta Memorial Hospital Ctr [id number] [address] [facility] 10296OTZO CholesterolOctober 2024 6:55amOctober 2024 2:01pm30 mg/dLMarietta Memorial Hospital [facility]tr [id number] [address] [facility] 37067Lmyolnittsh/HDL RatioOctober 2024 6:55amOctober 2024 2:01pm3.6<5.0[facility] [id number] [address] [facility] 15293Voixrelg Specific Antigen ScreenNov2024 7:30am August 23, 2025 2:42pm1.190 ng/mL0.000-4.000Serial tumor marker results determined by assays using different manufacturers or methods may not be comparable.[facility] teacher advisor and method:[employer] DXI, CHEMILUMINESCENT IMMUNOASSAY.[facility] [id number] [address] [facility] [address]Fumijhy Stimulating Hormone 3rd GenNov2024 7:30am August 23, 2025 2:57pm1.96 u[iU]/mL0.45-5.33[facility] [id number] [address] [facility] [address]Ddchedxp Creatinine Clearance (ChemNovember 2024 7:30am August 23, 2025 2:40pmN/AFDoctors Hospital [facility] [id number] [address] [facility] [address]Zectdpaemx Y4oXuuedznx2024 7:30amNove2024 9:23am5.9 %Above high normal4.3-5.6Increased risk for diabetes: 5.7 - 6.4diabetes: >6.4glycemic control for adults with diabetes: <7.0[facility] [id number] [address] [facility] [address]Vawdaludm Average GlucoseNov2024 7:30amNove2024 9:16pd483 mg/dLMarietta Memorial Hospital Ctr [id number] [address] [facility] [address]Hyacprnhrkhj (ng/dl)August 23, 2025 7:30amNovember 2024 4:56ja464 ng/dLBelow low cysfxh697-676Ncmxw male reference interval is based on a population ofhealthy nonobese males (BMI <30) between 19 and 39 yearsold. marck Martinez.al. JCEM 2017,102;4052-5807. PMID:07198402.[facility] TestosteroneNov2024 7:30amNovember 2024 4:07am4.5 pg/mLBelow low normal6.8-21.5Performed at: - [facility] [address] [id number] Director: Marlon Hardin PhD, Phone: [phone] at: - [facility] [address] [id number] Director: Luis Covarrubias MD, Phone: [phone] Vital Signs Vital Reading Result Reference Range Collection Date/Time Height 70 [in_i] June 28, 2025 10:98weYwbbfw74.42 kgSeptember 2024 10:04amHeart Rate 89 /vaz44-750Axwwyedtt 17th, 2025 10:04amRespiratory rate18 /pgw84-59Knjjqxfyx 2024 10:04amOxygen saturation by Pulse iapkurqn55 %95-100September 2024 10:04amBP Swhgamwd602 mm[Hg]100-140Sept2024 10:04amBP Diastolic 70 mm[Hg]60-100September 2024 10:04amBMI (Body Mass Index)31.1 kg/m2 June 28, 2025 10:01edYbtspe45 [in_i]August 07, 2025 8:79gjYxuifu966.96 kgOctober 2024 8:05amHeart Rate96 /koy20-919Ookussf 2024 8:05am Respiratory rate18 /zkh34-37Vvjfgni 2024 8:05amOxygen saturation by Pulse nsqapivo71 %95-100October 2024 8:05amBP Jjhlixzt053 mm[Hg]100-140October 2024 8:05amBP Aadbwbioz81 mm[Hg]60-100October 2024 8:05amBMI (Body Mass Index)32.5 kg/t8Rmopgee 2024 8:70wyTokjlh98 [in_i]August 23, 2025 8:20tqFprqjb356.69 kgNov2024 8:31amHeart Rate92 /cqf94-650GyepwqmpAugust 23, 2025 8:31amOxygen saturation by Pulse ngbvyscf60 %95-100August 23, 2025 8:31amBP Pkteqote081 mm[Hg]100-140August 23, 2025 8:31amBP Nxzceisuc43 mm[Hg]60-100Nov2024 8:31amBMI (Body Mass Index)31.8 kg/b7EaxxgvpcAugust 23, 2025 8:76ykQxzftu63 [in_i]September 01, 2025 7:64vzKsbbfp845.60 kg September 01, 2025 7:46amHeart Rate94 /hsa39-131TzbcwhsySeptember 01, 2025 7:46am Respiratory rate16 /gtf55-15JjramffcSeptember 01, 2025 7:46amOxygen saturation by Pulse %95-100September 01, 2025 7:46amBP Hestxefs956 mm[Hg]100-140 September 01, 2025 7:46amBP Uepbevlwj42 mm[Hg]60-100Nov2024 7:46am BMI (Body Mass Index)32.1 kg/o8Kdbiznjy2024 7:46am Advance Directives Advance Directive Response Recorded Date/ Time Advance Directives No November 02, 2023 11:21am Insurance Providers Guarantor Donnie Smith [address] [facility] [address]Htsrris Info.Home Phone: Payer Group Member ID Coverage Type Subscriber Relationship to Subscriber Effective Date Expiration Date [facility] [place] Id: [id number] L Hinojosa Id: [id number] [address] [place] [address] Home Phone: Email: [email or web address] Encounter Location(s) Arrival/Admit Date Discharge/Departure Date Discharge/Departure Disposition Provider(s) Departed Physician/ Provider Office Visit -[facility] June 28, 2025 10:48am June 28, 2025 11:54am Discharged to home care or self care (routine discharge) Guy Smith DO Departed Clinical -[facility] August 03, 2025 7:33am August 03, 2025 7:34am Discharged to home care or self care (routine discharge) Guy Smith DO Departed Physician/ Provider Office Visit -[facility] August 07, 2025 8:17am August 07, 2025 10:06am Discharged to home care or self care (routine discharge) Rosa Rose DO Non-patient / Non-visit -[facility] O ctober 2024 9:08am [facility] Can[facility] , [facility] 2024 7:29amNoveer 2024 7:30amDischarged to home care or self care (routine discharge)Rosa Rose DODeparted Physician/Provider [facility] 8:24amNovember 2024 9:16amDischarged to home care or self care (routine discharge)Miguel Bose , [facility] 8:24amDischarged to home care or self care (routine discharge)Rosa Rose DO Recent Diagnosis Onset Date Admit Date Abdominal muscle strain Unknown e r 2024 10:48am Intolerance to BiPAP/CPAP Unknown 2024 10:48am CURTIS (obstructive sleep apnea) Unknown ptember 2024 10:48am Hyperlipidemia Unknown August 07 8:17am Sinus congestion Unknown August 07, 2 025 8:17am Wellness examination Unknown July 8:17am Low libido Unknown August 07 8:17am BMI 31.0-31.9,adult Unknown August 8:24am Intolerance to BiPAP/CPAP Unknown Novemb er 2024 8:24am CURTIS (obstructive sleep apnea) Unknown No vember 2024 8:24am Shift work sleep disorder Unknown Novemb er 2024 8:24am Diabetes mellitus Unknown September 01, 2025 7:25am Hyperlipidemia Unknown September 01, 025 7:25am Hypertension Unknown September 01, 025 7:25am Hypotestosteronism Unknown August 7:25am Nasal obstruction Unknown September 01, 2025 7:25am Screening for prostate cancer Unknown No 2024 7:25am Assessments Author Griselda Figueredo [facility] HospitalAuthoredOctober 2024 8:08amThe above note written by Griselda HENAO acting as human recorder, note dictated by Dr. Erick Costello. Plan of Treatment Author Guy Smith [facility] HospitalAutredSeptember 2024 12:30pmPatient's history and physical exam are consistent with a left abdominal muscle strain. He is not showing any signs of an acute surgical abdomen or bleeding. Given the lack of direct trauma to the area, imaging was deferred at this time. He has been using IcyHot patches which provide him relief and he can continue with this. Also recommended anti-inflammatory and we will utilize diclofenac for this. He was instructed not to take any other NSAID along with this, but may take Tylenol. We also discussed potentially using a muscle relaxer on an as needed basis and patient would like to pursue this. We discussed the risks, benefits, alternatives and common side effects of the medication and patient is agreeable to proceed with it. Will utilize low-dose tizanidine as needed in conjunction with diclofenac, Tylenol, IcyHot patches and rest. He has a physical job, but took off work today and plans to take off tomorrow and will not work again until Thursday which I feel is reasonable. He is to call with any questions or concerns. Patient states an understanding and is agreeable with this plan of care. Patient with previously diagnosed CURTIS many years ago and has been using CPAP for it. However, he has become intolerant to his CPAP machine for multiple reasons and is inquiring about other options. He no longer follows with a sleep medicine doctor. I recommended a referral to our sleep medicine team to discuss other options and consideration of the Inspire device. Patient is agreeable with this plan of care and referral has been placed. He is to call with any questions or concerns. See above plan. Author Griselda Figueredo [facility] HospitalAuthoredOctober 2024 9:01amPersonalized health advice was given to the beneficiary to health education of preventative counseling services or programs aimed at reducing identified risk factors and improving self-management or community-based lifestyle interventions to reduce health risks and promote self-management and wellness, including physical activity and nutrition. A written plan for screenings was discussed, flu vaccination, routine lab studies, eye exams, as well as risk factors for other medical problems. Blood work results reviewed with the patient. Total cholesterol is WNL at 150. LDL is also WNL at 77. HDL is good at 42. I advised the patient to continue with his medication regimen as prescribed. We will add a testosterone level on to the patients blood work. I did provide the patient with samples of a neti pot to flush out his sinuses. Demonstrated how to use the neti pot. I also provided him with a prescription for a zpak #1/1 along with a 5 days course of prednisone 20mg to start taking once daily. I would like to see the patient back in 2-3 weeks to follow up and review all his blood work results. If this doesn't resolve, we will discuss a possible referral to ENT or a sinus CT. EKG noted normal sinus rhythm rate 94. Normal EKG. Author Miguel Bose [facility] HospitalAuthoredNovember 2024 1:31pmHe has previously documented obstructive sleep apnea, but [...] balancing caloric intake and activity were discussed. Author Brissa Nunez [facility] HospitalAuthoredNov2024 8:03amBlood pressure is good in office today. He is tolerating the medication well without any adverse side effects. Denies any chest pain or palpitations. I do recommend he continue with the current medication plan of care. Practice heart healthy dietary modification. Montor BP at home when able to do so and report abnormal findings. Current lab results do reveal stable lipid panel. He is taking Future Tests Future scheduled test information is unavailable Pending Tests Pending diagnostic test information is unavailable Future Visits Future appointment information is unavailable Future Procedures Procedure Name Ordered Date Scheduled Date Testosterone Free and Total September 01, 2025 8:17am 3 Months Future Medications Future medication information is unavailable Patient Instructions Patient instructions are unavailable Hospital Discharge Instructions Ambulatory Orders* Referral to ENT Time Frame: 09/01/25, Location: None Selected
[2025-09-07 01:18] VITALS: BP 154/74; PULSE 87; TEMP 36.6; O2SAT 97; BMI 30.1
--- NOTE | 2025-09-07 01:35 | ED.GENADUL1 ---
HPI HPI - General Adult General Chief complaint: Urogenital-Male Stated complaint: POSS KIDNEY STONE Time Seen by Provider: 09/07/25 01:16 Source: patient Mode of arrival: walk-in Limitations: no limitations History of Present Illness HPI narrative: Patient is a 49-year-old male, history significant for ehe-rlhaicc-jgrxgmwca type 2 diabetes, hypertension, and recurrent nephrolithiasis, presenting to the emergency department with a 1 hour history of left-sided flank pain. Patient states he woke up out of his sleep with acute onset of left-sided flank pain. He states this pain is similar to his past episodes of kidney stones. He states his last kidney stone was 1 year ago which he spontaneously passed. He denies any nausea or vomiting. No chest pain or shortness breath. No fevers or chills. No dysuria or gross hematuria. Related Data Home Medications ?Medication ?Instructions ?Recorded ?Confirmed armodafinil 200 mg tablet 200 mg PO DAILY 04/22/24 04/22/24 empagliflozin 25 mg tablet 25 mg PO DAILY 04/22/24 04/22/24 (Jardiance) losartan 50 mg tablet 50 mg PO DAILY 04/22/24 04/22/24 rosuvastatin 10 mg tablet 10 mg PO DAILY 04/22/24 04/22/24 semaglutide 2 mg/dose (8 mg/3 mL) 2 mg subcut QWEEK 04/22/24 04/22/24 subcutaneous pen injector (Ozempic) Previous Rx's ?Medication ?Instructions ?Recorded orphenadrine citrate 100 mg 100 mg PO BID PRN muscle spasm #10 04/22/24 tablet,extended release tabs prednisone 20 mg tablet 40 mg (2 x 20 mg) PO DAILY 5 days 04/22/24 #10 tabs acetaminophen 300 mg-codeine 30 mg 1 tab PO Q6H PRN pain 5 days #20 06/20/24 tablet tabs tamsulosin 0.4 mg capsule (Flomax) 0.4 mg PO DAILY #7 caps 06/20/24 cephalexin 500 mg capsule 500 mg PO BID 7 days #14 caps 09/07/25 oxycodone-acetaminophen 5 mg-325 1 tab PO Q8H PRN pain 4 days #10 09/07/25 mg tablet tabs tamsulosin 0.4 mg capsule 0.4 mg PO .qhs #14 caps 09/07/25 Allergies Allergy/AdvReac Type Severity Reaction Status Date / Time No Known Drug Allergies Allergy Verified 09/07/25 01:22 Opioid HPI Opioid Management Most Recent Opioid Data: Last Pain Scale 10 Today, 01:46 Review of Systems ROS Status of ROS 10 or more systems reviewed and unremarkable except as noted in history and below PFSH PFSH Social History Little interest or pleasure in doing things: not at all Feeling down, depressed, or hopeless: not at all Exam Narrative Exam Narrative: CONSTITUTIONAL: No acute distress, answering questions and following commands appropriately SKIN: Was warm and dry. EYES: Sclerae white. EARS, NOSE, THROAT: Moist oral mucosa. RESPIRATORY: Clear to auscultation bilaterally, no wheezes, crackles, or stridor, no use of accessory muscles CARDIOVASCULAR: Normal rate and regular rhythm. There is no S3, S4, murmur, rub. GASTROINTESTINAL: Abdomen is soft, nontender, nondistended. MUSCULOSKELETAL: No peripheral edema. NEUROLOGIC: Patient is awake and alert. Facies were symmetrical. Constitutional Vital Signs, click to edit/add: Last Vital Signs Temp 97.9 F 09/07/25 01:18 Pulse 87 09/07/25 01:18 Resp 18 09/07/25 01:18 BP 154/74 H 09/07/25 01:18 Pulse Ox 97 09/07/25 01:18 O2 Del Method Room Air 09/07/25 01:18 Course Vital Signs Vital signs: Vital Signs Temperature 97.9 F 09/07/25 01:18 Pulse Rate 87 09/07/25 01:18 Respiratory Rate 18 09/07/25 01:18 Blood Pressure 154/74 H 09/07/25 01:18 Pulse Oximetry 97 09/07/25 01:18 Oxygen Delivery Method Room Air 09/07/25 01:18 Temperature 97.9 F 09/07/25 01:18 Pulse Rate 87 09/07/25 01:18 Respiratory Rate 18 09/07/25 01:18 Blood Pressure 154/74 H 09/07/25 01:18 Pulse Oximetry 97 09/07/25 01:18 Oxygen Delivery Method Room Air 09/07/25 01:18 Medical Decision Making [facility] Narrative Medical decision making narrative: Patient is a 49-year-old male, history significant for recurrent nephrolithiasis, hypertension, and ori-ofbbyvr-woqfrgxlu type 2 diabetes, presenting to the emergency department for evaluation of left-sided flank pain beginning 1 hour ago. Vital signs arrival are significant for mild hypertension, otherwise within normal limits. He is afebrile and hemodynamically stable. Examination as noted above. Differential diagnosis includes nephrolithiasis, UTI, or other intra-abdominal pathologies. IV was established and laboratory studies were obtained. CT abdomen/pelvis was ordered. He was given IV Zofran, 1L bolus NS, and IV ketorolac for pain. Laboratory studies were significant for mild leukocytosis, likely reactive secondary to acute pain. No evidence of acute renal injury. No electrolyte or metabolic derangement. No anemia or thrombocytopenia. Urinalysis was suggestive of a mild urinary tract infection with trace bacteria, 5-10 WBCs, and positive nitrites. CT abdomen/pelvis independently reviewed and interpreted by myself and radiology demonstrated left-sided 4 mm stone in the proximal ureter with mild hydronephrosis. On reevaluation, the patient states he feels significantly improved, rates his pain a 0/10. He states he feels comfortable being discharged home. Given that his pain is under control and he is tolerating p.o., I do believe he stable for discharge. He was given a dose of Keflex and Flomax while here in the ED. He was given a prescription for Flomax, Keflex 500 mg twice daily x 7 days, and [place] for pain. He was instructed to follow-up with his urologist for further care. Return precautions were given including any new or concerning symptoms. Patient understands and agrees with the plan. FINAL IMPRESSION: #Acute left-sided ureterolithiasis DISPOSITION: Discharged home CONDITION: Good Medical Records Medical records reviewed: Yes I reviewed the patient's medical records Lab Data Lab results reviewed: Yes I reviewed the patient's lab results Labs: Lab Results 09/07/25 09/07/25 Range/Units 01:25 01:40 WBC 12.0 H (4.0-11.0) 10^3/uL RBC 5.23 (4.70-6.10) 10^6/uL Hgb 16.3 (14.0-18.0) g/dL Hct 45.6 (42.0-54.0) % MCV 87.2 (80.0-94.0) fL MCH 31.2 (25.9-34.0) pg MCHC 35.7 H (29.9-35.2) g/dL RDW 12.4 (11.0-15.0) % Plt Count 232 (150-450) 10^3/uL MPV 9.2 L (9.5-13.5) fL Neut % (Auto) 58.5 (43.0-75.0) % Lymph % (Auto) 27.7 (20.5-60.0) % [place] % (Auto) 7.9 (1.7-12.0) % Eos % (Auto) 4.6 (0.9-7.0) % Baso % (Auto) 0.8 (0.2-2.0) % Neut # (Auto) 7.0 H (1.4-6.5) 10^3/uL Lymph # (Auto) 3.3 (1.2-3.8) 10^3/uL [place] # (Auto) 1.0 H (0.3-0.8) 10^3/uL Eos # (Auto) 0.6 (0.0-0.7) 10^3/uL Baso # (Auto) 0.1 (0.0-0.1) 10^3/uL Abs Immat Gran (auto) 0.06 H (0.00-0.03) 10^3/uL Imm/Tot Granulo (auto) 0.5 (0.0-0.5) % Sodium 136 (136-145) mmol/L Potassium 3.5 (3.5-5.1) mmol/L Chloride 99 (98-107) mmol/L Carbon Dioxide 31.6 (21.0-32.0) mmol/L Anion Gap 8.9 BUN 13.0 (7.0-18.0) mg/dL Creatinine 0.85 (0.70-1.30) mg/dL Est GFR ( Amer) >60 (>=60 mL/min/1.73m^2) Est GFR (Non-Af Amer) >60 (>=60 mL/min/1.73m^2) BUN/Creatinine Ratio 15.3 Glucose 111 H (74-106) mg/dL Calcium 9.4 (8.5-10.1) mg/dL Urine Color Yellow (YELLOW) Urine Clarity Clear (CLEAR) Urine pH 6.0 (5.0-9.0) Ur Specific [place] 1.025 (1.005-1.025) Urine Protein Trace (NEG/TRACE) mg/dL Urine Glucose (UA) 500 A (NEGATIVE) mg/dL Urine Ketones Trace A (NEGATIVE) mg/dL Urine Occult Blood Large A (NEGATIVE) Urine Nitrite Positive A (NEGATIVE) Urine Bilirubin Negative (NEGATIVE) Urine Urobilinogen 0.2 (0.2-1.0) EU/dL Ur Leukocyte Esterase Negative (NEGATIVE) Urine RBC 10-20 A (0-2) #/HPF Urine WBC 5-10 A (NONE SEEN) #/HPF Ur Squamous Epith Cells Rare (NONE/RARE) #/LPF Urine Crystals None seen (None Seen) #/HPF Urine Bacteria Trace A (NONE SEEN) #/HPF Urine Casts None seen (NONE SEEN) #/LPF Urine Mucus Large A (NONE SEEN) Ur Culture Indicated? Yes-[facility] Imaging Data CT scan - abdomen: Attestation: I personally reviewed and interpreted this imaging study as follows: Discharge Plan Discharge Chief Complaint: Urogenital-Male Clinical Impression: Kidney stone Patient Disposition: Home, Self-Care Time of Disposition Decision: 02:26 Condition: Good Mode of Transportation: Private Vehicle Prescriptions / Home Meds: New oxycodone-acetaminophen 5-325 mg tablet 1 tab PO Q8H PRN (Reason: pain) 4 Days Qty: 10 0RF tamsulosin 0.4 mg capsule 0.4 mg PO .qhs Qty: 14 0RF Rx Instructions: take until stone passes. cephalexin 500 mg capsule 500 mg PO BID 7 Days Qty: 14 0RF No Action Ozempic 2 mg/dose (8 mg/3 mL) pen injector 2 mg subcut QWEEK Jardiance 25 mg tablet 25 mg PO DAILY losartan 50 mg tablet 50 mg PO DAILY armodafinil 200 mg tablet 200 mg PO DAILY rosuvastatin 10 mg tablet 10 mg PO DAILY prednisone 20 mg tablet 40 mg PO DAILY 5 Days Qty: 10 0RF orphenadrine citrate 100 mg tablet extended release 100 mg PO BID PRN (Reason: muscle spasm) Qty: 10 0RF acetaminophen-codeine 300-30 mg tablet 1 tab PO Q6H PRN (Reason: pain) 5 Days Qty: 20 0RF tamsulosin [Flomax] 0.4 mg capsule 0.4 mg PO DAILY Qty: 7 0RF Print Language: Kiswahili Instructions: Kidney Stones (ED) Referrals: Erick Costello DO [Primary Care Provider] - 1 week
[2025-09-07 01:40] LABS: Hematocrit 45.6 % (42.0-54.0); Hemoglobin 16.3 g/dL (14.0-18.0); Immature Granulocytes Abs Auto 0.06 10^3/uL (0.00-0.03); Immature Granulocytes Pct Auto 0.5 % (0.0-0.5); Lymphocytes Absolute Auto 3.3 10^3/uL (1.2-3.8); Mean Corpuscular HGB Conc 35.7 g/dL (29.9-35.2); Mean Corpuscular Hemoglobin 31.2 pg (25.9-34.0); Mean Corpuscular Volume 87.2 fL (80.0-94.0); Platelet Count 232 10^3/uL (150-450); Red Blood Count 5.23 10^6/uL (4.70-6.10); White Blood Count 12.0 10^3/uL (4.0-11.0)
--- NOTE | 2025-09-07 01:48 | PC.NURSE ---
Left flank pain with history of kidney stones multiple times in the past with the most recent being just over one year ago. He states he has had to have lithotripsy and stents placed in the past due to having large stones. He denies any urinary symptoms prior to the pain starting or at this time The pain came on suddenly He mentions that Toradol does help his pain
[2025-09-07 01:50] LABS: Glucose Urine UA 500 mg/dL (NEGATIVE)
[2025-09-07] MEDS: KETOROLAC TROMETHAMINE 30 MG/ML VIAL IVP (01:55)
[2025-09-07] MEDS: 0.9 % SODIUM CHLORIDE 1,000 ML 1000 ML IV (01:55)
[2025-09-07 01:56] LABS: Anion Gap 8.9; Blood Urea Nitrogen 13.0 mg/dL (7.0-18.0); Calcium 9.4 mg/dL (8.5-10.1); Carbon Dioxide 31.6 mmol/L (21.0-32.0); Chloride 99 mmol/L (98-107); Estimated GFR (African America >60 (>=60 mL/min/1.73m^2); Estimated GFR (Non-African Ame >60 (>=60 mL/min/1.73m^2); Glucose 111 mg/dL (74-106); Potassium 3.5 mmol/L (3.5-5.1); Sodium 136 mmol/L (136-145)
[2025-09-07 01:57] LABS: Cast Seen? NONE SEEN #/LPF (NONE SEEN); Crystals Seen? None Seen #/HPF (None Seen); Urine Culture Indicated YES-FRMC
--- OUTSIDE RECORDS SUMMARY | 2025-09-07 02:09 | XMS_ITS | Clinical Summary ---
Author Organization [facility] Address [address] [place] [address] Care Team Providers Care Licensed Surveyor Name Role Phone Unavailable Primary Care Provider Unavailabl e Social History Tobacco UseTypesPacks/DayYears UsedDateSmoking Tobacco: Never AssessedUT Safety & EnvironmentAnswerDate RecordedFear of Current or Ex-PartnerNot on file 12/03/2023Emotionally AbusedNot on file12/03/2023hysically AbusedNot on file 12/03/2023Sexually AbusedNot on file12/03/2023hysically or Sexually AbusedNot on file12/03/2023Sex and Gender InformationValueDate RecordedSex Assigned at BirthNot on fileLegal PgcVbgo9205/01/2022 9:01 AM EDTGender IdentityNot on file Sexual OrientationNot on file Plan of Treatment Not on file
--- OUTSIDE RECORDS SUMMARY | 2025-09-07 02:10 | XMS_ITS | CCD ---
Author Organization [facility] Care Team Providers Care Window Glazier Name Role Phone PAY, DR BURTON Attending Unavailable PAY, DR BURTON Consulting Unavailable PAY, DR BURTON Admitting Unavailable KUNS, DR SUAREZ Primary Care Unavailable HOANG, JOSÉ ANTONIO Consulting Unavailable KUNS, DR SUAREZ Admitting Unavailable KUNS, DR SUAREZ Attending Unavailable KUNS, DR SUAREZ Consulting Unavailable KUNS, DR SUAREZ Primary Care Unavailable KUNS, DR SUAREZ Admitting Unavailable KUNS, DR SUAREZ Attending Unavailable KUNS, DR SUAREZ Consulting Unavailable KUNS, DR SUAREZ Primary Care Unavailable Erick Doll Unavailable Lavon, DO Erick Primary Care Provider [phone] Darryns, DO Erick Attending Provider Lavon, DO Suarez Primary Care Provider [phone] Lavon, DO Erick Attending Provider Gisell Norman Unavailable Darryns, DO Erick Primary Care Provider Darryns, DO Erick Attending Provider Lavon, DO Suarez Primary Care Provider MD Jonathon Becerra Attending Provider [phone] ERICK DOLL Primary Care Physician Jonathon BECERRA Attending Unavailable Jonathon BECERRA Attending Unavailable Jonathon BECERRA Referring Unavailable Jonathon BECERRA Attending Unavailable Jonathon BECERRA Attending Unavailable Erick Doll DO Primary Care Provider Eliana Vides DO Attending Provider Erick Doll DO Primary Care Provider Guy Smith DO Attending Provider Erick Doll DO Attending Provider Erick Doll Attending Unavailable Erick Doll Admitting Unavailable Lavon, Erick Primary Care Unavailable Darryns, Erick Primary Care Unavailable Guy Smith Admitting Unavailable Guy Smith Attending Unavailable Erick Doll Attending Unavailable Kuns, Erick Admitting Unavailable Kuns, Erick Primary Care Unavailable Kuns, Erick Primary Care Unavailable Ly, Eliana L Admitting Unavailable Ly, Eliana L Attending Unavailable Erick Doll DO Primary Care Provider [phone] Guy Smith DO Attending Provider Erick Doll DO Attending Provider Erick Doll DO Other Provider Jerome FARR, Gregory Jett Attending Provider Miguel Bose MD Attending Provider [phone] Allergies Allergy ClassificationReported Allergen(s)Allergy TypeDate of OnsetReaction(s) Facility (1 source)No Known Medication Allergies; Translations: [No Known Medication Allergies]Propensity to adverse reactions (disorder)[facility] Medications Current Medications MedicationDrug Class(es)DatesSig (Normalized)Sig (Original)3 ML semaglutide 2.68 MG/ML Pen Injector [Ozempic] (9 sources)Start: 50-58-2250Qedcswe (2 MG/DOSE) 8 MG/3ML as directed Subcutaneous for 90 days Aug, ActiveStart: 39-56-4132sbmyca 2 mg by subcutaneous injection every weekOzempic (2 MG/DOSE) 8 MG/3ML 2 mg Subcutaneous once a week May, ActiveStart: 42-02-6428gfucvu 1 mg by subcutaneous injection every weekOzempic (2 MG/DOSE) 8 MG/3ML as directed Subcutaneous once a week May, ActiveCPAP (8 sources)Start: 23-66-6048CIMC Active .Route December 10, 2023 12:00am Use at for CURTIS Complies with drug therapyStart: 77-36-9178Xnlyw: 97-23-3168HQKH Active .Route December 10, 2023 1:00am Use at HS for CURTIS Complies with drug therapyStart: 16-91-0963HIIJ Active .Route December 10, 2023 12:00am Use at HS for OSAStart: 20-52-3060HAMX Active .Route December 10, 2023 1:00am Use at HS for OSACPAP Mask and supplies (20 sources)Start: 91-39-6941OCYG Mask and supplies as directed Apr, ActiveGlucometer (8 sources)Start: 74-42-9769Aslkxkbifo Active .Route December 10, 2023 12:00am Check blood sugar one time per day for E11.9 Complies with drug therapyStart: 29-88-1400Kklcy: 70-25-5852Wbqmhpkksx Active .Route December 10, 2023 1:00am Check blood sugar one time per day for E11.9 Complies with drug therapyStart: 73-43-4792Fzyjrypjaa Active .Route December 10, 2023 12:00am Check blood sugar one time per day for E11.9Start: 21-74-6019Dtugvcgrht Active .Route December 10, 2023 1:00am Check blood sugar one time per day for E11.9Glucometer n/a (20 sources)Start: 00-44-2055Eeootmyytj n/a as directed as directed as directed AND SUPPLIES Jul, ActivemethylPREDNISolone 4 mg oral tablet (20 sources)CorticosteroidStart: 93-07-3167glyqdyHWEDXGGhsexr 4 MG as directed Orally for daily dose take half with breakfast, half with dinner May, ActiveStart: 61-84-6033UASE-MEDROL 41 - 125 mg Dec, 125 mgStart: 36-39-9295EPVM-MEDROL 41 - 125 mg February, 125 mgozempic (2 mg/dose) 8 mg/3ml solution pen-injector (4 sources)Start: 83-58-3715Uamajhq (2 MG/DOSE) 8 MG/3ML as directed Subcutaneous for 90 days Aug, ActiveOzempic (9 sources)Start: 30-09-3505jzsufn 2 mg by subcutaneous injection every week Ozempic 2 mg, SubCutaneous, qWeek Start Date: 06/22/24 Status: OrderedStart: 84-65-5146Hhcsjjq (0.25 or 0.5 MG/DOSE) 2 MG/1.5ML as directed Subcutaneous Once a week for 28 days Dec, ActiveSemaglutide (20 sources)Start: 29-76-7435qhsvon 2 mg by subcutaneous injection every week Semaglutide (Ozempic) 2 mg/dose (8 mg/3 mL) pen injector Active 2 MG SUBCUT every week 9 July 10, 2025 11:43am Complies with drug therapyStart: 45-41-9654rupkov 2 mg by subcutaneous injection every weekStart: 01-12-2025 End: 16-28-4909rwawhw 2 mg by subcutaneous injection every weekSemaglutide (Ozempic) 2 mg/dose (8 mg/3 mL) pen injector Discontinued 2 MG SUBCUT every week 9 January 12, 2025 2:39pm July 10, 2025 11:43amStart: 01-12-2025 End: 39-25-3391ypoieo 2 mg by subcutaneous injection every weekSemaglutide (Ozempic) 2 mg/dose (8 mg/3 mL) pen injector Discontinued 2 MG SUBCUT every week 9 January 12, 2025 3:39pm July 10, 2025 12:43pmStart: 50-76-6924xhixti 2 mg by subcutaneous injection every weekSemaglutide (Ozempic) 2 mg/dose (8 mg/3 mL) pen injector Active 2 MG SUBCUT every week January 3:39pm Complies with drug therapyStart: 07-25-2024 End: 03-14-3230fduraa 2 mg by subcutaneous injection every weekSemaglutide (Ozempic) 2 mg/dose (8 mg/3 mL) pen injector Discontinued 2 MG SUBCUT every week 9 July 25, 2024 12:23pm January 12, 2025 2:39pmStart: 07-25-2024 End: 94-40-7025mzdgpt 2 mg by subcutaneous injection every weekSemaglutide (Ozempic) 2 mg/dose (8 mg/3 mL) pen injector Discontinued 2 MG SUBCUT every week 9 July 25, 2024 1:23pm January 12, 2025 3:39pmStart: 07-25-2024 End: 13-53-8921wjzuoy 2 mg by subcutaneous injection every weekSemaglutide (Ozempic) 2 mg/dose (8 mg/3 mL) pen injector Discontinued 2 MG SUBCUT every week July 25, 2024 1:23pm January 12, 2025 3:39pmStart: 01-11-2024 End: 73-18-2571idmxha 2 mg by subcutaneous injection every weekSemaglutide (Ozempic) 2 mg/dose (8 mg/3 mL) pen injector Discontinued 2 MG SUBCUT every week 9 January 11, 2024 7:23am July 25, 2024 12:23pmStart: 01-11-2024 End: 32-03-5980snzgni 2 mg by subcutaneous injection every weekSemaglutide (Ozempic) 2 mg/dose (8 mg/3 mL) pen injector Discontinued 2 MG SUBCUT every week 9 January 11, 2024 8:23am July 25, 2024 1:23pmStart: 01-11-2024 End: 64-93-4483cwchtj 2 mg by subcutaneous injection every weekSemaglutide (Ozempic) 2 mg/dose (8 mg/3 mL) pen injector Discontinued 2 MG SUBCUT every week January 11, 2024 8:23am July 25, 2024 1:23pmStart: 01-08-2024 End: 58-10-3975wxkfvp 2 mg by subcutaneous injection every weekSemaglutide (Ozempic) 2 mg/dose (8 mg/3 mL) pen injector Discontinued 2 MG SUBCUT every week January 07, 2024 11:00pm January 11, 2024 7:23amStart: 01-08-2024 End: 62-45-2950kzrsno 2 mg by subcutaneous injection every weekSemaglutide (Ozempic) 2 mg/dose (8 mg/3 mL) pen injector Discontinued 2 MG SUBCUT every week January 08, 2024 12:00am January 11, 2024 8:23amSemaglutide (Ozempic) 2 mg/dose (8 mg/3 mL) pen injector (7 sources)Start: 69-99-5885cndbyq 2 mg by subcutaneous injection every week Semaglutide (Ozempic) 2 mg/dose (8 mg/3 mL) pen injector Active 2 MG SUBCUT every week July 25, 2024 12:23pmStart: 01-11-2024 End: 83-94-9236iffumi 2 mg by subcutaneous injection every weekSemaglutide (Ozempic) 2 mg/dose (8 mg/3 mL) pen injector Discontinued 2 MG SUBCUT every week January 11, 2024 7:23am July 25, 2024 12:23pmStart: 75-10-2087qnfskz 2 mg by subcutaneous injection every weekSemaglutide (Ozempic) 2 mg/dose (8 mg/3 mL) pen injector Active 2 MG SUBCUT every week January 8:23amStart: 01-08-2024 End: 33-95-8545euvvhu 2 mg by subcutaneous injection every weekSemaglutide (Ozempic) 2 mg/dose (8 mg/3 mL) pen injector Discontinued 2 MG SUBCUT every week January 07, 2024 11:00pm January 11, 2024 7:23amStart: 01-08-2024 End: 98-13-1576vlfjwp 2 mg by subcutaneous injection every weekSemaglutide (Ozempic) 2 mg/dose (8 mg/3 mL) pen injector Discontinued 2 MG SUBCUT every week January 08, 2024 12:00am January 11, 2024 8:23amtobramycin 3 mg/ml ophthalmic solution (2 sources)Aminoglycoside AntibacterialStart: 07-15-8895uoeb 2-3 drop(s) into the eye(s) every six hoursTobramycin 0.3 % 2-3 drops to the affected eye Ophthalmic every 6 hours for 7 days Sep, Activetriamcinolone acetonide 1 mg/ml topical cream (20 sources)CorticosteroidStart: 58-77-2325Xedrtvqejkqns Acetonide 0.1 % 1 application to affected area Externally Three times a day May, Active Start: 81-65-5199EOCORFL - 10 mg Nov, 1 ccStart: 82-20-1672XWWGIZM - 10 mg Jan, 40 mgvortioxetine 20 mg oral tablet (5 sources)Start: 50-22-2063nhtd 1 tablet by mouth every twenty-four hours Trintellix 20 MG 1 tablet Orally Once a day for 90 day(s) Jun, Active Completed/Discontinued Medications MedicationDrug Class(es)DatesSig (Normalized)Sig (Original)acetaminophen 325 mg / HYDROcodone bitartrate 5 mg oral tablet (20 sources)Opioid AgonistStart: 09-21-2017 End: 95-00-3446jony 1 tablet by mouth every six hours as needed for pain Hydrocodone-Acetaminophen 5-325 mg tablet Discontinued 1 TAB PO Q6H as needed for pain 20 0 September 21, 2017 December 10, 2023 8:30amStart: 09-21-2017 End: 06-19-7422nxpy 1 tablet by mouth every four to six hours as needed for pain Hydrocodone-Acetaminophen 5-325 mg Tablet Discontinued 1 TAB PO EVERY 4-6 HOURS as needed for Pain September 21, 2017 12:00am December 10, 2023 8:30am armodafinil 200 mg oral tablet (20 sources)Start: 01-11-2024 End: 00-24-8751piat 1 tablet by mouth once daily in the morningArmodafinil (Nuvigil) 200 mg tablet Discontinued 200 MG PO Every morning 30 30 0 June 28, 2024 3:52pm September 19, 2024 10:10am Attention or concentration deficit Attention and concentration deficitStart: 12-10-2023 End: 74-81-8197cbay 1 tablet by mouth once dailyArmodafinil 150 mg tablet Discontinued 150 MG PO Daily 30 30 December 10, 2023 8:35am January 11, 2024 7:21am Attention or concentration deficit Attention and concentration deficit FreeTextSi tablet Orally Once a day; Note: Source Status: Refill; Refills: 0; Qty: 30 Tablet; Provider: Lavon Suarez PStart: 79-57-4214kplt 1 tablet by mouth every twenty-four hoursArmodafinil 150 MG 1 tablet Orally Once a day for 30 days Sep, ActiveStart: 07-16-8171upvq 1 tablet by mouth every twenty- four hoursArmodafinil 150 MG 1 tablet Orally Once a day for 30 days Jun, Activeazithromycin 250 mg oral tablet (7 sources)Macrolide AntimicrobialStart: 08-07-2025 End: 63-53-3724Xgppoqfbivvv (Zithromax Z-Gonsalo) 250 mg tablet Discontinued 0 PO .COMPLEX 6 1 August 06, 2025 11:00pm August 23, 2025 8:30am For 250 mg dose pack: take 500 mg today (day 1), then 250 mg for 4 days (days 2-5) POStart: 60-42-4046Fzuqjzwyg Z-Gonsalo 250 MG as directed Orally Sep, Active cephalexin 500 mg oral capsule (19 sources)Cephalosporin AntibacterialStart: 06-23-2024 End: 77-05-6675xfku 1 capsule by mouth twice dailyCephalexin 500 mg capsule Discontinued 500 MG PO Twice daily 14 7 0 June 22, 2024 11:00pm September 19, 2024 10:10amStart: 09-21-2017 End: 15-84-9021zwbb 1 capsule by mouth every twelve hoursCephalexin (Keflex) 500 mg capsule Discontinued 500 MG PO Every 12 hours 10 0 September 21, 2017 12 :00am December 10, 2023 8:30amdiclofenac potassium 50 mg oral tablet (4 sources)Nonsteroidal Anti-inflammatory DrugStart: 06-28-2025 End: 69-14-0726mwmp 1 tablet by mouth twice dailyDiclofenac Potassium 50 mg tablet Discontinued 50 MG PO Twice daily 30 15 1 June 27, 2025 11:00pm August 07, 2025 8:15amdicyclomine hydrochloride 10 mg oral capsule (20 sources)AnticholinergicStart: 12-10-2023 End: 01-22-3409rwuq 1 tablet by mouth twice daily as neededDicyclomine 10 mg capsule Discontinued 10 MG PO Twice daily December 10, 2023 12:00am January 11, 2024 6:50am FreeTextSi tablet Orally twice a day as needed; Note: Source Status: Taking; Refills: 1; Provider: Lavon Suarez PStart: 97-65-3142tkac 1 tablet by mouth twice daily as neededDicyclomine HCl 10 MG 1 tablet Orally twice a day as needed for 30 days Dec, Activedoxycycline hyclate 100 mg oral capsule (6 sources)Tetracycline-class DrugStart: 09-19-2024 End: 56-76-1871uzkm 1 capsule by mouth twice dailyDoxycycline Hyclate 100 mg capsule Discontinued 100 MG PO Twice daily September 19, 2024 12:00am October 13, 2024 11:03am0.5 ml dulaglutide 3 mg/ml auto-injector (15 sources)GLP-1 Receptor AgonistStart: 12-10-2023 End: 76-29-5895Hbrhkqutnpr (Trulicity) 1.5 mg/0.5 mL pen injector Discontinued 1.5 MG SUBCUT every week December 10, 2023 12:00am January 11, 2024 6:51am FreeTextSig: as directed Subcutaneous once a week; Note: Source Status: Taking4 pens; Refills: 2; Provider: Lavon Suarez PStart: 89-65-2373Cszdfoxeo 1.5 MG/0.5ML as directed Subcutaneous once a week 4 pens Aug, ActiveStart: 08-04-2023 inject 1.5 mg by subcutaneous injection every weekTrulicity 1.5 MG/0.5ML 1.5 mg Subcutaneous weekly for 30 days Jul, Activeempagliflozin 25 mg oral tablet (20 sources)Sodium-Glucose Cotransporter 2 InhibitorStart: 12-10-2023 End: 03-77-4519hvdi 1 tablet by mouth once dailyEmpagliflozin (Jardiance) 25 mg tablet Discontinued 25 MG PO Daily April 17, 2024 8:17am October 06, 2024 10:03amStart: 71-52-2697UBAGFFLNR 25 mg daily orally Once a day Jul, Activehydrocortisone 25 mg/ml topical cream (6 sources)CorticosteroidStart: 09-19-2024 End: 10-15-4757Iwfhqobbnxhbzf (Proctosol Hc) 2.5 % cream with perineal applicator Discontinued 1 APPLIC NC 1 to 2 times per day as needed for pain 10 11September 19, 2024 12:00am October 13, 2024 11:03amKetorolac (20 sources)Nonsteroidal Anti-inflammatory Drug, Cyclooxygenase InhibitorStart: 89-59-1238Ebdvuwn per 15 mg 20 Jun, 2016 2.0 cclosartan potassium 50 mg oral tablet (20 sources)Angiotensin 2 Receptor BlockerStart: 12-10-2023 End: 47-29-4687kwwm 1 tablet by mouth once dailyLosartan 50 mg tablet Discontinued 50 MG PO Daily 90 0 October 25, 2024 10:00am August 03, 2025 2:59pmStart: 46-94-4784pbxx 1 tablet by mouth every twenty-four hoursLosartan Potassium 50 MG 1 tablet Orally Once a day Apr, ActivemetFORMIN hydrochloride 500 mg oral tablet (20 sources)BiguanideStart: 12-10-2023 End: 83-51-6206fict 1 tablet by mouth twice dailyMetformin 500 mg tablet Discontinued 500 MG PO Twice daily December 10, 2023 12:00am January 11, 2024 7:16am FreeTextSi tablet with a meal Orally twice a day; Note: Source Status: Taking; Provider: Lavon Suarez PStart: 91-32-3729riqz 1 tablet by mouth every twelve hoursmetFORMIN HCl 500 MG 1 tablet with a meal Orally twice a day Apr, ActivepredniSONE 20 mg oral tablet (3 sources)Start: 08-07-2025 End: 25-06-1539yqhq 1 tablet by mouth once dailyPrednisone 20 mg tablet Discontinued 20 MG PO Daily 5 5 0 August 06, 2025 11:00pm August 8:31amrosuvastatin calcium 10 mg oral tablet (20 sources)HMG-CoA Reductase InhibitorStart: 12-10-2023 End: 27-24-3090vqno 1 tablet by mouth once dailyRosuvastatin 10 mg tablet Discontinued 10 MG PO Daily 90 0 October 25, 2024 10:00am July 2:59pmStart: 70-97-4650oxjq 1 tablet by mouth every twenty-four hoursCrestor 10 MG 1 tablet Orally Once a day Apr, Activesolifenacin succinate 10 mg oral tablet (7 sources)Cholinergic Muscarinic AntagonistStart: 06-23-2024 End: 55-29-5778ikxw 1 tablet by mouth once dailySolifenacin (Vesicare) 10 mg tablet Discontinued 10 MG PO Daily 14 0 June 22, 2024 11:00pm September 19, 2024 10:11amtadalafil 5 mg oral tablet (20 sources)Phosphodiesterase 5 InhibitorStart: 07-25-2024 End: 74-13-7159hncq 1 tablet by mouth once daily as neededTadalafil (Cialis) 5 mg tablet Discontinued 5 MG PO Daily as needed for sexual activity November 07, 2024 12:00am January 12, 2025 2:40pmtiZANidine 2 mg oral capsule (4 sources)Central alpha-2 Adrenergic AgonistStart: 06-28-2025 End: 89-54-2037njet 1 tablet by mouth three times daily as neededTizanidine 2 mg capsule Discontinued 2 MG PO Every 8 hours as needed for muscle spasm, pain 30 10 0Sept2024 11:00pm August 07, 2025 8:16am Take 1 tablet as needed up to 3 times daily. Problems Active Problems Problem ClassificationProblemDateDocumented DateEpisodic/ChronicAbdominal pain (20 sources)Lower abdominal pain; Translations: [Lower abdominal pain, unspecified]EpisodicAdministrative/social admission (5 sources)Dietary management surveillance; Translations: [Dietary counseling and surveillance]EpisodicAllergic reactions (20 sources)Contact dermatitis due to poison nellie; Translations: [Allergic contact dermatitis due to plants, except food]EpisodicAnal and rectal conditions (7 sources)Rectal pain; Translations: [Other specified diseases of anus and rectum]31-32-5379DknvohmzLqxfjzg disorders (20 sources)Mixed anxiety and depressive disorder; Translations: [Other specified anxiety disorders]ChronicCalculus of urinary tract (20 sources)Personal history of urinary calculi; Translations: [Kidney stone] Onset: 52-67-5456DiuqqkzmHhjkpjk dysrhythmias (4 sources)Palpitations; Translations: [PALPITATIONS]Onset: 37-38-8194Akxghxnh Complications of surgical procedures or medical care (8 sources)Complication of ventilation ravzify40-91-9752RmzzxrwnTtxwhjuc mellitus without complication (20 sources)Type 2 diabetes mellitus without complications; Translations: [Diabetes mellitus]Onset: 04-03-2022 Resolved: 20-43-1936YknwunyWbliodyw mellitus without complication (5 sources)Hyperglycemia; Translations: [Hyperglycemia, unspecified]Episodic Diseases of white blood cells (20 sources)Leukocytosis; Translations: [Elevated white blood cell count, unspecified]ChronicDisorders of lipid metabolism (20 sources)Hyperlipidemia, unspecified; Translations: [Pure hypercholesterolemia, unspecified]Onset: 03-19-2022 Resolved: 72-33-2317RapbkjqR Codes: Natural/environment (13 sources)Injury caused by animal; Translations: [Bitten or stung by nonvenomous insect and other nonvenomousarthropods, initial encounter]Episodic Esophageal disorders (20 sources)Gastroesophageal reflux disease; Translations: [Gastro-esophageal reflux disease without esophagitis]10-46-2585AshdylaFdhqeftwp hypertension (20 sources)Essential (primary) hypertension; Translations: [Hypertensive disorder]Onset: 20-48-8396CnckzxlDqimpomxtqvzv symptoms and ill-defined conditions (12 sources)Hematuria, unspecified; Translations: [Blood in urine]Episodic Headache; including migraine (5 sources)Headache; Translations: [Headache]EpisodicMalaise and fatigue (20 sources)Fatigue; Translations: [Other fatigue]Onset: 26-21-2784Owjaaxgs Nonspecific chest pain (5 sources)Chest pain, unspecified; Translations: [CHEST PAIN UNSPECIFIED]Onset: 98-43-8930TkrhebgbWxjop aftercare (1 source)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; Translations: [[facility]PC USE ORAL HYPOGLYCEMIC DX]Onset: 10-55-4636XhobusixTxcsp aftercare (1 source)Other halfway (current) drug therapy; Translations: [OTH FPC CURRENT DRUG THERAPY]Onset: 03-85-9631JosszmhvOmxbo and unspecified benign neoplasm (20 sources)Tubular adenoma of colon; Translations: [Benign neoplasm of colon, unspecified]EpisodicOther and unspecified benign neoplasm (7 sources)History of polyp of colon; Translations: [History of colonic polyps] 85-22-9063LzaegymoPhgam connective tissue disease (5 sources)Disorder of musculoskeletal system; Translations: [Other symptoms and signs involving the musculoskeletal system]EpisodicOther connective tissue disease (8 sources)Lateral epicondylitis; Translations: [Lateral epicondylitis, unspecified elbow]82-78-6418RmyniswuDbawz connective tissue disease (2 sources)Lateral epicondylitis, unspecified elbow; Translations: [Lateral epicondylitis]53-21-6481PosrresxFunlg diseases of kidney and ureters (1 source)Acquired renal cyst without neoplastic change; Translations: [Cyst of kidney, acquired]Onset: 01-54-1404AfiknqpmAnxhf diseases of kidney and ureters (2 sources)Cyst of fjueep53-24-2631VrbpvcguNuklc gastrointestinal disorders (6 sources)Diarrhea; Translations: [Diarrhea, unspecified]30-56-1993Lbcafrvs Other gastrointestinal disorders (6 sources)Altered bowel function; Translations: [Other specified symptoms and signs involving the digestive system and abdomen]32-36-2949NciqjveoUhbxw gastrointestinal disorders (6 sources)Pain associated with defecation; Translations: [Other specified symptoms and signs involving the digestive system and abdomen]27-94-8146Uzhveojc Other gastrointestinal disorders (2 sources)Other specified symptoms and signs involving the digestive system and abdomen; Translations: [Othersymptoms involving digestive system]09-19-2024 EpisodicOther injuries and conditions due to external causes (1 source)Foreign body in bladder; Translations: [Foreign body in bladder, initial encounter]Onset: 59-40-5588PamdckrgYokfo injuries and conditions due to external causes (5 sources)Muscle strain; Translations: [Other injury of unspecified body region, initial encounter]15-09-3455WahlocbdVlbqe lower respiratory disease (1 source)Shortness of breath; Translations: [SHORTNESS OF BREATH]Onset: 06-19-3843WkcewgjjSbamj lower respiratory disease (20 sources)Solitary nodule of lung; Translations: [Solitary pulmonary nodule] EpisodicOther lower respiratory disease (5 sources)Cough; Translations: [Cough]EpisodicOther nervous system disorders (10 sources)Reduced concentration; Translations: [Attention and concentration deficit]ChronicOther nervous system disorders (4 sources)Attention and concentration deficit; Translations: [Attention or concentration deficit]ChronicOther nervous system disorders (8 sources)Circadian rhythm sleep disorder of shift work type; Translations: [Circadian rhythm sleep disorder,shift work type]53-13-4330AbqkdmcHrywu nervous system disorders (8 sources)Disturbance of attention; Translations: [Attention and concentration deficit]30-57-2965LrttypfCklym nervous system disorders (2 sources)Circadian rhythm sleep disorder, shift work type; Translations: [Circadian rhythm sleep disorder, shift work type]34-19-7367FroewebVrgds nervous system disorders (5 sources)Paresthesia of hand ; Translations: [Paresthesia of skin]Episodic Other nervous system disorders (5 sources)Skin sensation disturbance; Translations: [Paresthesia of skin] EpisodicOther non-traumatic joint disorders (8 sources)Pain in elbow; Translations: [Pain in right elbow]88-74-0389Zowmvsut Other nutritional; endocrine; and metabolic disorders (20 sources)Obese class I; Translations: [Body mass index (BMI) 33.0-33.9, adult]ChronicOther nutritional; endocrine; and metabolic disorders (20 sources)Gilbert's syndrome; Translations: [Gilbert syndrome]01-08-2024 ChronicOther nutritional; endocrine; and metabolic disorders (1 source)Gilbert syndromeOnset: 06-10-2022 Resolved: 01-73-6531HsuugjzYxtpy nutritional; endocrine; and metabolic disorders (20 sources)Body mass index 30+ - obesity; Translations: [Body mass index (BMI) 34.0-34.9, adult]ChronicOther nutritional; endocrine; and metabolic disorders (20 sources)Obesity; Translations: [Obesity, unspecified]ChronicOther nutritional; endocrine; and metabolic disorders (1 source)Obesity, unspecifiedChronicOther nutritional; endocrine; and metabolic disorders (1 source)Body mass index (BMI) 34.0-34.9, adultChronicOther nutritional; endocrine; and metabolic disorders (2 sources)Body mass index (BMI) 31.0-31.9, adult; Translations: [BMI 31.0-31.9,adult]ChronicOther screening for suspected conditions (not mental disorders or infectious disease) (20 sources)Patient encounter status; Translations: [Encounter for screening for malignant neoplasm of prostate]Onset: 24-22-2468GunypstvUgwed upper respiratory disease (3 sources)Congestion of nasal sinus; Translations: [Nasal congestion]08-07-2025 EpisodicOther upper respiratory infections (5 sources)Upper respiratory infection; Translations: [Acute upper respiratory infection, unspecified]EpisodicResidual codes; unclassified (2 sources)Sleep apnea, unspecified; Translations: [SLEEP APNEA UNSPECIFIED] Onset: 03-19-2022 Resolved: 17-38-1947OxdswtdEgrpzbxg codes; unclassified (20 sources)Sleep apnea; Translations: [Sleep apnea, unspecified]ChronicResidual codes; unclassified (20 sources)Obstructive sleep apnea syndrome; Translations: [Obstructive sleep apnea (adult) (pediatric)]46-88-8470FurwgfwLqhyfojv codes; unclassified (1 source)Obstructive sleep apnea (adult) (pediatric)ChronicResidual codes; unclassified (1 source)Personal history of other specified conditions; Translations: [PERSONAL HISTORY OTH SPEC CONDITION]Onset: 00-02-9792ZmqqgtzvJdjrtxtg codes; unclassified (20 sources)Reduced libido; Translations: [Decreased libido]53-26-1415Yrgadhgb Residual codes; unclassified (2 sources)Decreased libido; Translations: [Decreased libido]Onset: 08-23-2025 EpisodicResidual codes; unclassified (8 sources)Past history of procedure; Translations: [Other specified postprocedural states]47-73-4251QtdtrkgnPnlnafab codes; unclassified (8 sources)History of colonoscopy; Translations: [Other specified postprocedural states]18-28-3937OldhwhitCgryichuc and history of mental health and substance abuse codes (6 sources)Personal history of nicotine dependence; Translations: [H/O: Disorder]Onset: 58-23-8515IrkcalpjCyce and subcutaneous tissue infections (20 sources)Pilonidal cyst without abscess; Translations: [Pilonidal cyst] EpisodicSprains and strains (15 sources)Neck sprain; Translations: [Strain of muscle, fascia and tendon at neck level, initial encounter]29-50-7316KcmvyjfxQnylwigvjhp injury; contusion (13 sources)Tick bite; Translations: [Insect bite (nonvenomous), left foot, initial encounter]EpisodicUnclassified (3 sources)CONTACT W/AND (SUSP) EXPOS COVID-19; Translations: [CONTACT W/AND (SUSP) EXPOS COVID-19]Onset: 10-24-2021 Past or Other Problems Problem ClassificationProblemDateDocumented DateEpisodic/ChronicGastrointestinal hemorrhage (9 sources)Hematochezia; Translations: [Melena]Onset: EpisodicUnclassified (1 source)CONTACT W/AND (SUSP) EXPOS COVID-19; Translations: [CONTACT W/AND (SUSP) EXPOS COVID-19]Onset: 10-22-2021 Results Test NameValueInterpretationReference XwovoFaedzhhbE4Y with Estimated Average Gluon 11-89-3423Tkuqzjk [Mass/Vol]123 mg/dLNormalThe [facility] Comment on above:Result Comment: PERFORMED BY: [place] [address] PATHOLOGIST INTEGRATED CIRCUIT DESIGN ENGINEER HOLLY BOWENS M.D.Performed By: #### CMP, PSAS, CBC, TSH3, A1C WTH eA #### [place] [address] ZHZEfM0a (Bld) [Mass fraction]5.9 %High4.3-5.6The [facility] Physician GroupComment on above:Result Comment: Increased risk for diabetes: 5.7 - 6.4 diabetes: >6.4 glycemic control for adults with diabetes: <7.0Performed By: #### CMP, PSAS, CBC, TSH3, A1C WTH eA #### [facility] [address] [place] [address] USAComplete Blood Count Auto Diffon 81-78-8362Wblfgpjpv (Bld) [#/Vol]0.1 10*3/uLNormal0.0-0.2The [facility] Physician GroupComment on above: Result Comment: PERFORMED BY: [address] [address] PATHOLOGIST INTEGRATED CIRCUIT DESIGN ENGINEER HOLLY BOWENS M.D.Performed By: #### CMP, PSAS, CBC, TSH3, A1C WTH eA #### [place] [address] USABasophils/100 WBC (Bld)0.7 %Normal.The [facility] Physician GroupComment on above:Performed By: #### CMP, PSAS, CBC, TSH3, A1C WTH eA #### [address] [address] USAEosinophils (Bld) [#/Vol]0.6 10*3/uLHigh0.0-0.45The [facility] Physician GroupComment on above:Performed By: #### CMP, PSAS, CBC, TSH3, A1C WTH eA #### [place] [address] USAEosinophils/100 WBC (Bld)4.1 %Normal.The [facility] Physician GroupComment on above:Performed By: #### CMP, PSAS, CBC, TSH3, A1C WTH eA #### [place] [address] USAErythrocyte distribution width (RBC) [Ratio]13.3 %Normal 12.0-14.8The [facility] Physician GroupComment on above:Performed By: #### CMP, PSAS, CBC, TSH3, A1C WTH eA #### [place] [address] USAHematocrit (Bld) [Volume fraction]45.9 %Eqyvpq47.8-50.0The [facility] Physician GroupComment on above:Performed By: #### CMP, PSAS, CBC, TSH3, A1C WTH eA #### [place] [address] USAHemoglobin (Bld) [Mass/Vol]15.6 g/nIGcvbpp28.0-17.0The [facility] Physician GroupComment on above:Performed By: #### CMP, PSAS, CBC, TSH3, A1C WTH eA #### [place] [address] USALymphocytes (Bld) [#/Vol]3.5 10*3/uLNormal1.00-4.8The [facility] Physician GroupComment on above:Performed By: #### CMP, PSAS, CBC, TSH3, A1C WTH eA #### [place] [address] USALymphocytes/100 WBC (Bld)26.1 %Normal.The [facility] Physician GroupComment on above:Performed By: #### CMP, PSAS, CBC, TSH3, A1C WTH eA #### [facility] [address]H (RBC) [Entitic mass]30.2 bpLxnrqs50.5-35.2The [facility] Physician GroupComment on above:Performed By: #### CMP, PSAS, CBC, TSH3, A1C WTH eA #### [address]V (RBC) [Entitic vol]88.7 nHOslpki36.5-101The [facility] Physician GroupComment on above:Performed By: #### CMP, PSAS, CBC, TSH3, A1C WTH eA #### [place] [address] USAMean Corpuscular HGB Conc34.1 g/iFSepzvs56.5-35.6The [facility] Physician GroupComment on above:Performed By: #### CMP, PSAS, CBC, TSH3, A1C WTH eA #### [place] [address] USAMonocytes (Bld) [#/Vol]0.9 10*3/uLHigh0.0-0.8The [facility] Physician GroupComment on above:Performed By: #### CMP, PSAS, CBC, TSH3, A1C WTH eA #### [place] [address] USAMonocytes/100 WBC (Bld)6.5 %Normal.The [facility] Physician GroupComment on above:Performed By: #### CMP, PSAS, CBC, TSH3, A1C WTH eA #### [place] [address] USANeutrophils (Bld) [#/Vol]8.4 10*3/uLHigh1.8-7.7The [facility] Physician GroupComment on above:Performed By: #### CMP, PSAS, CBC, TSH3, A1C WTH eA #### [place] [address] USANeutrophils/100 WBC (Bld)62.6 %Normal.The [facility] Physician GroupComment on above:Performed By: #### CMP, PSAS, CBC, TSH3, A1C WTH eA #### [place] [address] USANRBC%0.3 /100{WBC}Normal0-0.5The [facility] Comment on above:Performed By: #### CMP, PSAS, CBC, TSH3, A1C WTH eA #### [place] [address] USAPlatelet mean volume (Bld) [Entitic vol]8.4 fLNormal 6.6-10.1The [facility] Physician GroupComment on above:Performed By: #### CMP, PSAS, CBC, TSH3, A1C WTH eA #### [place] [address] USAPlatelets (Bld) [#/Vol]208 10*3/yNHqrfcz460-407Qoh [facility] Physician GroupComment on above:Performed By: #### CMP, PSAS, CBC, TSH3, A1C WTH eA #### [place] [address] USARBC (Bld) [#/Vol]5.17 10*6/uLNormal3.90-5.60The [facility] Physician GroupComment on above:Performed By: #### CMP, PSAS, CBC, TSH3, A1C WTH eA #### [place] [address] USAWBC (Bld) [#/Vol]13.4 10*3/uLHigh4.1-10.5The [facility] Physician GroupComment on above:Performed By: #### CMP, PSAS, CBC, TSH3, A1C WTH eA #### [place] [address] USAWhite Blood Count13.4 [CFU]/mLHigh4.1-10.5The [facility] Physician GroupComment on above:Performed By: #### CMP, PSAS, CBC, TSH3, A1C WTH eA #### [place] [address] USAComprehensive Metabolic Panelon 11-84-3507Grhwjzo [Mass/Vol]4.9 g/dLNormal3.5-5.7The [facility] Physician GroupComment on above: Performed By: #### CMP, PSAS, CBC, TSH3, A1C WTH eA #### [facility] [address] [place] [address] USAAlbumin/Globulin [Mass ratio]2.3 {ratio}NormalThe [facility] Physician GroupComment on above:Performed By: #### CMP, PSAS, CBC, TSH3, A1C WTH eA #### [facility] [address] [place] [address] USAALP [Catalytic activity/Vol]56 U/JJzbnsm63-660Gfn [facility] Physician GroupComment on above:Performed By: #### CMP, PSAS, CBC, TSH3, A1C WTH eA #### [place] [address] USAALT [Catalytic activity/Vol]38 U/LNormal7-52The [facility] Physician GroupComment on above:Performed By: #### CMP, PSAS, CBC, TSH3, A1C WTH eA #### [place] [id number] USAAnion gap [Moles/Vol]10.6 mmol/LNormal6.0-15.0The [facility] Physician GroupComment on above:Performed By: #### CMP, PSAS, CBC, TSH3, A1C WTH eA #### [place] [address] USAAST [Catalytic activity/Vol]28 U/CLcysso68-30Fwl [facility] Physician GroupComment on above:Performed By: #### CMP, PSAS, CBC, TSH3, A1C WTH eA #### [place] [id number] USABilirubin [Mass/Vol]1.7 mg/dLHigh0.3-1.0The [facility] Physician GroupComment on above:Result Comment: Samples from patients who have taken Naproxen have shown spurious elevation in Total Bilirubin levels. A metabolite of Naproxen, O-desmethylnaproxen, has been shown to interfere with the Jendrassik-Grof method for measuring Total Bilirubin.Performed By: #### CMP, PSAS, CBC, TSH3, A1C WTH eA #### [place] [address] USACalcium [Mass/Vol]9.4 mg/dLNormal8.6-10.3The [facility] Physician GroupComment on above:Performed By: #### CMP, PSAS, CBC, TSH3, A1C WTH eA #### [place] [address] USAChloride [Moles/Vol]104 mmol/UUkxsku18-076Qtr [facility] Physician GroupComment on above:Performed By: #### CMP, PSAS, CBC, TSH3, A1C WTH eA #### [place] [address] USACO2 [Moles/Vol]29.2 mmol/MFxgdgg13.0-31.0The [facility] Physician GroupComment on above:Performed By: #### CMP, PSAS, CBC, TSH3, A1C WTH eA #### [place] [address] USACreatinine [Mass/Vol]0.74 mg/dLNormal0.70-1.30The [facility] Physician GroupComment on above:Performed By: #### CMP, PSAS, CBC, TSH3, A1C WTH eA #### [place] [address] USAGFR/1.73 sq M.predicted MDRD (S/P/Bld) [Vol rate/Area] mL/min/{1.73_m2}NormalThe [facility] Physician GroupComment on above:Performed By: #### CMP, PSAS, CBC, TSH3, A1C WTH eA #### [place] [address] USAGlobulin (S) [Mass/Vol]2.1 g/dLNormalThe [facility] Physician GroupComment on above:Performed By: #### CMP, PSAS, CBC, TSH3, A1C WTH eA #### [address] [place] [address] USAGlucose [Mass/Vol]83 mg/lZJaaujh21-667Lqu [facility] Physician GroupComment on above:Result Comment: Random Glucose Reference Range is dependent on time and content of last meal. Glucose of more than 200 mg/dL in a nonstressed, ambulatory subject supports the diagnosis of Diabetes Mellitus. ADA recommended reference rangePerformed By: #### CMP, PSAS, CBC, TSH3, A1C WTH eA #### [place] [address] USAPotassium [Moles/Vol]3.8 mmol/LNormal3.5-5.1The [facility] Physician GroupComment on above:Performed By: #### CMP, PSAS, CBC, TSH3, A1C WTH eA #### [place] [address] USAProtein [Mass/Vol]7.0 g/dLNormal6.4-8.9The [facility] Physician GroupComment on above:Performed By: #### CMP, PSAS, CBC, TSH3, A1C WTH eA #### [place] [address] USASodium [Moles/Vol]140 mmol/DVtdikq350-870Toq [facility] Physician GroupComment on above:Performed By: #### CMP, PSAS, CBC, TSH3, A1C WTH eA #### [place] [address] USAUrea nitrogen [Mass/Vol]15 mg/dLNormal7-25The [facility] Physician GroupComment on above:Performed By: #### CMP, PSAS, CBC, TSH3, A1C WTH eA #### [place] [address] USAPSA Screen (Yearly Only)on 74-77-6326HRC Screen (Yearly Only)1.190 ng/mLNormal0.000-4.000The [facility] Physician GroupComment on above: Order Comment: Is patient <50 yrs? Medicare does not pay <50.: Y What is the date of the last PSA Screen?: [id number] Is Medicare the insurance?: N Did you verify eligibility (Dx Time) check TestViewGp: YES TO ALLResult Comment: Serial tumor marker results determined by assays using different manufacturers or methods may not be comparable. [facility] operational intelligence analyst and method: [employer] DXI, CHEMILUMINESCENT IMMUNOASSAY. PERFORMED BY: [place] [id number] PATHOLOGIST INTEGRATED CIRCUIT DESIGN ENGINEER HOLLY BOWENS M.D.Performed By: #### CMP, PSAS, CBC, TSH3, A1C WTH eA #### [address] [address] USAThyroid Stimulating Hormoneon 81-24-2245OEO Qn1.96 m[IU]/L Normal0.45-5.33The [facility] Physician GroupComment on above:Result Comment: PERFORMED BY: [place] [id number] PATHOLOGIST INTEGRATED CIRCUIT DESIGN ENGINEER HOLLY BOWENS M.D.Performed By: #### CMP, PSAS, CBC, TSH3, A1C WT eA #### [address] [address] USAFPG ECG *PCP OFFICE ONLY*on 35-77-9830WGE ECG *PCP OFFICE ONLY*[facility] [place] [address] [place], [place] [id number] Electrocardiograph Report Signed Patient: Luis A Hi MR#: [id number] : 1975 Acct:[id number] Age/Sex: 49 / M ADM Date: 08/07/25 Loc: EKGCAST Room: Type: [facility] Attending Dr: Erick Doll DO Ordering Provider: Erick Doll DO Date of Service: 08/07/25 ECG/FPG ECG *PCP OFFICE ONLY*: Z00.00 - Encounter for general adult medical examination ... Copies to: Test Reason : Blood Pressure : */* mmHG Vent. Rate : 94 BPM Atrial Rate : 94 BPM P-R Int : 162 ms QRS Dur : 74 ms QT Int : 348 ms P-R-T Axes : 60 55 54 degrees QTcB Int : 435 ms Normal sinus rhythm Normal ECG When compared with ECG of 22-Jun-2024 13:33, No significant change was found Confirmed by Gregory Cano ([id number]) on 08/09/2025 3:47:24 PM Referred By: Electronically Signed By: Gregory Cano Transcribed By: MUS Signed By Gregory Cano MD 08/09/25 1547[facility] GroupLaboratory - Chemistry and Chemistry - challengeOrdered By: Erick Doll on 76-90-1123Fuznjkvjo Ql (U) NegativeSelect Medical Trihealth Rehabilitation HospitalKetones Ql (U)NegativeSelect Medical Trihealth Rehabilitation HospitalpH (U)6.0 [pH][facility] Hospitals Health Systempecific gravity (U) [Rel density]1.015[facility] Rehabilitation HospitalUrobilinogen (U) [Mass/Vol]0.2 mg/dLSelect Medical Trihealth Rehabilitation HospitalLaboratory - Urinalysis Ordered By: Erick Doll on 12-67-3536Sflwiogvd esterase Test strip Ql (U)Negative [facility] HospitalNitrite Ql (U)NegativeSelect Medical Trihealth Rehabilitation HospitalProtein Ql (U)30mgSelect Medical Trihealth Rehabilitation HospitalNo Panel InformationOrdered By: Erick Doll on 42-37-2263Shsho Glucose (UA)500mgSelect Medical Trihealth Rehabilitation HospitalUrine Occult BloodsmallSelect Medical [facility] Hospital Cholesterol [Mass/volume] in Serum or PlasmaOrdered By: Guy Smith on 45-83-0397Ehvfocqsjzu [Mass/Vol]150 mg/tCUameor835-239MizmxbfgrSelect Medical Trihealth Rehabilitation HospitalComment on above:Chol less than 200 mg/dl low riskChol 201-239 mg/dl borderline riskChol 240 mg/dl and greater high riskResult Comment: Chol less than 200 mg/dl low risk Chol 201-239 mg/dl borderline risk Chol 240 mg/dl and greater high riskPerformed By: #### LIPID #### [place] [address] USACholesterol in HDL [Mass/volume] in Serum or PlasmaOrdered By: Guy Smith on 87-63-7570Eoyrazhogqs in HDL [Mass/Vol]42 mg/sDUjllqy72-75 [facility] Rehabilitation HospitalComment on above:HDL CHOL ATP-III CLASSIFICATION Cardiovascular RiskHDL > or equal to 60 mg/dL LOWHDL < 40 mg/dL HIGHResult Comment: HDL CHOL ATP-III CLASSIFICATION Cardiovascular Risk HDL > or equal to 60 mg/dL LOW HDL < 40 mg/dL HIGHPerformed By: #### LIPID #### [facility] [address] [place] [address] USACholesterol in LDL Calc [Mass/Vol]Ordered By: Guy Smith on 48-74-1204Bflgfkmscle in LDL [Mass/Vol]77 mg/dL0-100[facility] Rehabilitation HospitalComment on above:LDL ATP III CLASSIFICATIONLDL less than 100 mg/dL OptimalLDL 100-129 mg/dL Near or above xeiztmvZZZ985-016 mg/dL Borderline highLDL 160-189 mg/dL HighLDL greater than 189 mg/dL Very highCholesterol in VLDL Calc [Mass/Vol]Ordered By: Guy Smith on 19-36-8842Ozhdaiqyrqf in VLDL [Mass/Vol]30 mg/dLSelect Medical Trihealth Rehabilitation HospitalLipid Panelon 73-89-5984TWU Cholesterol,Lqjgpslech52 mg/dLNormal0-100The [facility] Physician GroupComment on above:Result Comment: LDL ATP III CLASSIFICATION LDL less than 100 mg/dL Optimal LDL 100-129 mg/dL Near or above optimal LDL 130-159 mg/dL Borderline high LDL 160-189 mg/dL High LDL greater than 189 mg/dL Very highPerformed By: #### LIPID #### [facility] [address] [place] [address] USATriglyceride w/Gezvpo974 mg/dLHigh0-149The [facility] Physician GroupComment on above:Result Comment: TRIG ATP III CLASSIFICATION TRIG less than 150 mg/dL Normal TRIG 150-199 mg/dL Borderline high TRIG 200-500 mg/dL High TRIG greater than 500 mg/dL Very high Standard traceable to the Center for Disease Conrtrol and Prevention (CDC) test method.Performed By: #### LIPID #### [facility] [address] [place] [address] USAVLDL PHMQMJAGYLL85 mg/dLNormalThe [facility] Physician GroupComment on above:Performed By: #### LIPID #### [facility] [address] [place] [id number] USASerum or plasma total cholesterol/high density lipoprotein (HDL) cholesterol mass ratOrdered By: Guy Smith on 08-03-2025 Cholesterol.total/Cholesterol in HDL [Mass ratio]3.6 {ratio}Normal<5.0Select [facility] Tri[facility] Rehabilitation HospitalComment on above:Result Comment: PERFORMED BY: [facility] [address] [place] [address] PATHOLOGIST INTEGRATED CIRCUIT DESIGN ENGINEER HOLLY BOWENS M.D.Performed By: #### LIPID #### [facility] [address] [place] [address] USATriglyceride [Mass/volume] in Serum or PlasmaOrdered By: Guy Smith on 83-10-7385Fejwikzpfcli [Mass/Vol]154 mg/dLHigh0-149[facility] Rehabilitation HospitalComment on above:TRIG ATP III CLASSIFICATIONTRIG less than 150 mg/dL NormalTRIG 150-199 mg/dL Borderline highTRIG 200-500 mg/dL High TRIG greater than 500 mg/dL Very highStandard traceable to the Center for Disease Conrtrol and Prevention (CDC) test method.Glucose Glucometer ([facility]) [Mass/Vol]Ordered By: Eliana Vides on 45-98-6672Xypbeuz [Mass/Vol]Capillary blood glucose measurement by glucometer (mass/volume)[facility] Rehabilitation HospitalComment on above:Random Glucose Reference Range is dependent on time and content of last meal. Glucose of more than 200 mg/dL in a nonstressed, ambulatory subject supports the diagnosis of Diabetes Mellitus.Glucose Poct Glucometerson 13-34-1130Pppbflw [Mass/Vol]94 mg/dLNoFormerly [facility] Physician GroupComment on above:Result Comment: Random Glucose Reference Range is dependent on time and content of last meal. Glucose of more than 200 mg/dL in a nonstressed, ambulatory subject supports the diagnosis of Diabetes Mellitus. PERFORMED BY: [facility] [address] [place] [address] PATHOLOGIST INTEGRATED CIRCUIT DESIGN ENGINEER MNÓICA HORNER M.D.Performed By: #### GLULS #### Point of Care testing ,[facility] 11-11-2024L Specimen: [id number] Received: 11/11/24 Status: SANJUANITA Carreon Num: [id number] Spec Type: Surgical Subm Dr: Eliana Vides DO Tissues: A Colon Biopsy (SIGMOID COLON POLYP) Procedures: HE/2, Gross/Micro L4 Age/ Patient Sex Location Account Attending Physician Luis A Hi/Teo [id number] Eliana Vides DO SPEC NUM: [id number] RECD: 11/11/24 STATUS: SANJUANITA CARREON NUM: [id number] BEBE: 11/11/[address]: Eliana Vides DO ENTERED: 11/11/24-13[address] [facility] DR: SPEC TYPE: Surgical DEPT: S ORDERED: HE/2, Gross/Micro L4 ORDERED: HE2, Gross/Micro L4 Pathological Diagnosis Colon, sigmoid, polypectomy: - Hyperplastic polyp with lymphoid aggregates. Clinical Information History of polyps Gross Description Received in formalin labeled with the patient's name, date of and sigmoid colon is a 0.3 x 0.2 x 0.2 cm chappell mucosal polypoid tissue fragment. The specimen is submitted entirely in A1. TW Microscopic Description Microscopic examination is performed. CPT Codes 30603 Specimen: [id number] Received: 11/11/24 Status: SANJUANITA Carreon Num: [id number] Spec Type: Surgical Subm Dr: Eliana Vides DO Tissues: A Colon Biopsy (SIGMOID COLON POLYP) Procedures: WENDY/2, Gross/Micro L4 Patient: SarahLuis A Kailey [id number] (Continued) Signed (signature on file) Berto Marmolejo MD 11/14/24 1115Normal [facility] Physician GroupAmbulatory Visit Summaryon 19-65-6759Tqjhbanwam Visit SummaryAmbulatory Visit Summary LUIS A HI :1975 Visit Date:06/28/2024 Ambulatory Visit Instructions Your Diagnosis Foreign body in bladder Right kidney stone Renal cyst Your Care Team Attending Physician - HERNAN FARR, Jonathon Loza Primary Care Physician - ERICK DOLL DO This Is Your Medications List Contact prescribing physician if questions or concerns empagliflozin (Jardiance 25 mg oral tablet) losartan (losartan 50 mg Tab) rosuvastatin (rosuvastatin 10 mg Tab) semaglutide (Ozempic) Procedures Performed Cystoscopic removal of ureteric stent (06/28/2024), Lithotripsy using laser (06/23/2024), Lithotripsy (09/21/2017), Lithotripsy (09/28/2014), Therapeutic aspiration of renal cyst (08/17/2014), Colonoscopy. Discharge Vitals Heart Rate (Peripheral) 94 Respiratory Rate 18 Blood Pressure 129/91 Height 178 cm Height 70 in Weight 96.7 kg Weight 212.74 lb BMI 30.52 What to do next Scheduled Follow-Up Appointments Thursday 2:30 PM EST With: Jonathon BECERRA MD Where: [facility] [address] [facility] [place] [address]- You Need to Schedule the Following Appointments Follow Up with Jonathon BECERRA MD, URL When: Where: [facility] [address], [place] [address]- Medications What How Much When Instructions Unchanged empagliflozin (Jardiance 25 mg oral tablet) 1 Tablets By Mouth Once a day (in the morning) Contact prescribing physician if questions or concerns Unchanged losartan (losartan 50 mg Tab) 1 Tablets By Mouth Every day Contact prescribing physician if questions or concerns Unchanged rosuvastatin (rosuvastatin 10 mg Tab) 1 Tablets By Mouth Every day Contact prescribing physician if questions or concerns Unchanged semaglutide (Ozempic) 2 Milligram Subcutaneous Every week Contact prescribing physician if questions or concerns Medications and Immunizations Administered Given lidocaine Top 2% Gel w/Appl 11 mL, 11 mL, Topical. For: Foreign body in bladder, Right kidney stone, Renal cyst Allergies No Known Medication Allergies Problems Ongoing - Any problem that you are currently receiving treatment for. Former smoker High cholesterol Hypertension Renal cyst Right kidney stone Type 2 diabetes mellitus Patient Survey You may receive a survey via text or e-mail asking about your office visit. Please share your experience with us by completing your survey. We appreciate your feedback and thank you for choosing us for your care. Education Materials 24-Hour Urine Collection Why am I having this test? A 24-hour urine specimen is a lab test that requires you to collect all of your urine for an entireday. This is sometimes called a timed urine test. It can provide more information than a single urine sample. There are many reasons to have this test. Your health care provider may order the test to check foror monitor the following conditions: ? High blood pressure. ? Kidney disease. ? Kidney stones. ? Urinary tract infections. ? . ? Diabetes. How do I prepare for this test? ? You may be asked to follow a special diet during or before the collection period. Follow any instructions from your health care provider. If no special instructions are given, you may eat and drink normally. ? Take gmhl-tqw-ghdqojk and prescription medicines only as told by your health care provider. ? Let your health care provider know about any medicines that you are taking, including jgds-iya-zfvmmac medicines, vitamins, herbs, and supplements. ? Choose a collection day when you can be at home or when you have a place to store the urine. All urine must be collected during the testing period. How do I do a 24-hour urine collection? ? When you get up in the morning, urinate in the toilet and flush. Write down the time. This will be your start time on the day of collection and your end time on the next morning. ? From the start time on, all of your urine should be kept in the collection jug that you received from the lab. ? If the jug that is given to you already has liquid in it, that is okay. Do not throw out the liquidor rinse out the jug. ? Urinate into a specimen container, such as a urinal or segura that sits over the toilet. Pour the urine from the container into the collection jug. Be careful not to spill any of the urine. Use the equipment provided by the lab. ? Do not let any toilet paper or stool (feces) get into the jug. This will contaminate the sample. ? Stop collecting your urine 24 hours after you started. Collect the last specimen as close as possible to the end of the 24-hour period. ? Keep the jug cool in an ice chest or keep it in the refrigerator during collection. ? When the 24-hour collection is complete, take the jug to the lab as soon as possible. K (more content not included)...[facility] Urology Office/Clinic Noteon 13-18-1333Lzpxpaz Office/Clinic NoteUrology Office/Clinic Note Chief Complaint Patient is here for Cysto, right stent removal HPI Staff Patient is here for Cysto, right stent removal. ABX taken. History of Present Illness Tests reviewed: reviewed op note, KUB I have reviewed the previous health record information and history for this patient from Dr. Becerra. I have reviewed and verified the staff [...] HPI. Physical Exam Vitals & Measurements HR: 94(Peripheral) RR: 18 BP: 129/91 HT: 70 in HT: 178 cm WT: 96.7 kg WT: 212.74 lb BMI: 30.52 General Appearance: alert, no distress, well nourished, well developed male. Genitourinary: normal scrotum, normal testes, normal urethra, normal epididymis, normal vas deferens/spermatic cord. Flank Pain: none. Bladder: nonpalpable. Procedure Operative Information Anesthesia Type: Local Procedure: Local Cystoscopy with Stent Removal Complications: None Surgical risks, benefits, details of the procedure have been explained to the patient. Full informed consent has been obtained. Intraoperative Information Prepped: Patient is placed in supine position. The patient was prepped with the Betadine solution. Anesthesia: 2% Xylocaine Jelly per urethra. Procedure: Cystoscopy and right stent removal. The flexible Cystoscope was passed in retrograde fashion into the bladder without difficulty. The bladder was viewed in entirety and found to be withouttumors or stones. Mild inflammation was seen surrounding the orifice with the stent seen protrudingfrom it. The stent was then grasped and removed in its entirety. Specimens Removed: None Postoperative Information The patient tolerated the procedure well and was subsequently discharged home. Assessment/Plan 1. Foreign body in bladder (T19.1XXA: Foreign body in bladder, initial encounter) S/p cysto, R urs, R pyelo, laser litho of large R renal stone, basket extraction, R stent yzwwjyhxf50/12/24. Pt had IO cysto, R stent removal today wo complications. 2. Right kidney stone (N20.0: Calculus of kidney) CT AP wo con 06/20/24 [facility] - Renal stone in the R renal pelvis measuring 1.1 cm resulting in mild hydro. Multiple small L renal stones. KUB 06/23/24 [facility] - Stool overlying R renal shadow limits eval. R renal stone 9 mm. No L renal calculi. S/p cysto, R urs, R pyelo, laser litho of large R renal stone, basket extraction, R stent jlpifprvd25/12/24. KUB 06/25/24 [facility] - R ureteral stent. No urinary tract calculi. Discussed metabolic workup including 24 hour urine and blood work for stone prevention. Follow up 3 mos with met workup or sooner if needed. Pt understands and agrees with plan. 3. Renal cyst (N28.1: Cyst of kidney, acquired) CT AP wo con 06/20/24 [facility] -Multiple renal lesions bilaterally, consistent with renal cysts. LUP cyst is minimally complex but is stable from 2020. Follow-up With When Contact Information Jonathon BECERRA MD, [facility] [address], [place] [address]- Additional Instructions: 3 mos with met workup Patient Education 24-Hour Urine Collection I, Darcy Monet, personally scribed for Dr. Becerra on 06/28/2024 14:48:14. . Documentation recorded by the scribe, Darcy Monet, accurately reflects the services(s) I performed and decisions made by me. Authenticated by Dr. Becerra on 06/28/2024 14:49:18. Problem List/Past Medical History Ongoing Former smoker High cholesterol Hypertension Renal cyst Right kidney stone Type 2 diabetes mellitus Historical No qualifying data Procedure/Surgical History Cystoscopic removal of ureteric stent (06/28/2024), Lithotripsy using laser (06/23/2024), Colonoscopy. Medications Jardiance 25 mg oral tablet, 25 mg= 1 tab(s), Oral, qAM losartan 50 mg Tab, 50 mg= 1 tab(s), Oral, Daily Ozempic, 2 mg, SubCutaneous, qWeek rosuvastatin 10 mg Tab, 10 mg= 1 tab(s), Oral, Daily Allergies No Known Medication Allergies Social History Substance Abuse - Denies Substance Abuse, 06/28/2024 Tobacco - Denies Tobacco Use, 06/28/2024 Former smoker, quit more than 30 days ago Tobacco Use:. Never Smokeless Tobacco Use:. Cigarettes, 06/28/2024 Family History Diabetes: Grandparent. Heart disease: Grandparent. Hyperlipidemia: Father. Hypertension: Father. Lung cancer: Grandparent. Stroke: Grandparent.[facility] CenterComment on above:Result Comment: Electronically Signed By: Jonathon BECERRA MD\.br\Date and Time Signed: 06/28/24 14:49 EDT\.br\Electronically Co-Signed By: Darcy Monet\.br\Date and Time Co-Signed: 06/28/24 14:48 EDTGlucose Glucometer (BldC) [Mass/Vol]Ordered By: Jonathon Becerra on 12-37-9611Wvgsrpe [Mass/Vol]85 mg/dL [facility] HospitalComment on above:Random Glucose Reference Range is dependent on time and content of last meal. Glucose of more than 200 mg/dL in a nonstressed, ambulatory subject supports the diagnosis of Diabetes Mellitus.No Panel InformationOrdered By: Jonathon Becerra on 43-79-9407Pshjibz Glucose CommentGlu2: cleaned meterSelect Medical Trihealth Rehabilitation HospitalActivated partial thromboplastin time (aPTT) in platelet poor plasma by coagulation a Ordered By: Jonathon Becerra on 95-27-0782gUXG Coag (PPP) [Time]31.2 s25.1-36.5 [facility] HospitalComment on above:A hematocrit value greater than 55% may lead to inaccurate results in coagulation testing. Patientshaving hematocrit values >55% require a special collection tube for coagulation studies. Please contact the laboratory at [phone] for redraw instructions. Basophils Auto (Bld) [#/Vol]Ordered By: Jonathon Becerra on 14-25-4824Hndywqtwa (Bld) [#/Vol]0.1 10*3/uL0.0-0.2FMagruder Memorial HospitalBasophils/100 WBC Auto (Bld)Ordered By: Jonathon Becerra on 42-27-9363Uvspkuzsb/100 WBC (Bld)0.7 %.[facility] HospitalCalcium [Mass/volume] in Serum or Plasma Ordered By: Jonathon Becerra on 18-45-6035Quwxjtk [Mass/Vol]9.1 mg/dL8.6-10.3 [facility] HospitalCarbon dioxide, total [Moles/volume] in Serum or PlasmaOrdered By: Jonatohn Becerra on 25-86-8581RG6 [Moles/Vol]29.7 mmol/L 21.0-31.0[facility] HospitalChloride [Moles/volume] in Serum or PlasmaOrdered By: Jonathon Becerra on 12-29-3500Sparlprb [Moles/Vol]104 mmol/L 98-107[facility] HospitalCreatinine [Mass/volume] in Serum or PlasmaOrdered By: Jonathon Becerra on 94-43-4681Arzspcbsfk [Mass/Vol]0.74 mg/dL 0.70-1.30[facility] HospitalEosinophils Auto (Bld) [#/Vol]Ordered By: Jonathon Becerra on 06-41-2016Rzgymsscjzl (Bld) [#/Vol]0.3 10*3/uL0.0-0.45 [facility] HospitalEosinophils/100 WBC Auto (Bld)Ordered By: Jonathon Becerra on 73-94-3715Gtbtaijntld/100 WBC (Bld)2.9 %.[facility] HospitalErythrocyte distribution width Auto (RBC) [Ratio]Ordered By: Jonathon Becerra on 52-58-9048Rurqfohyhev distribution width (RBC) [Ratio]13.2 % 12.0-14.8[facility] HospitalGlucose [Mass/volume] in Serum or PlasmaOrdered By: Jonathon Becerra on 56-21-0662Glvivlp [Mass/Vol]81 mg/iG40-217 [facility] HospitalComment on above:ADA recommended reference rangeRandom Glucose Reference Range is dependent on time and content of last meal. Glucose of more than 200 mg/dL in a nonstressed, ambulatory subject supports the diagnosisof Diabetes Mellitus.Hematocrit Auto (Bld) [Volume fraction]Ordered By: Jonathon Becerra on 79-32-4834Uckyukvchx (Bld) [Volume fraction]43.5 %38.8-50.0[facility] HospitalHemoglobin [Mass/volume] in BloodOrdered By: Jonathon Becerra on 64-54-5487Zbsamzzyuq (Bld) [Mass/Vol]15.1 g/dL13.0-17.0[facility] HospitalINR in Platelet poor plasma by Coagulation assayOrdered By: Jonathon Becerra on 55-01-4484SDW Coag (PPP) [Relative time]1.0 {INR}[facility] HospitalComment on above:INR Therapeutic Range A) Pre- and Peroperative OAT started two weeks before surgery. NOT HIP SURGERY: 1.5 - 2.5 HIP SURGERY: 2 - 3B) Primary and secondary prevention of venous THROMBOSIS: 2 - 3C) Active venous thrombosis, pulmonary embolismand prevention of recurrent venous thrombosis: 2 - 3D) Preve ntion of arterial thromboembolismincluding patients with mechanical heart valves: 3 - 4.5Leukocytes [#/volume] corrected for nucleated erythrocytes in Blood by Automated counOrdered By: Jonathon Becerra on 75-82-1536JIP corrected for nucl RBC Auto (Bld) [#/Vol]11.4 10*3/uLHigh4.1-10.5FMagruder Memorial HospitalLymphocytes Auto (Bld) [#/Vol]Ordered By: Jonathon Becerra on 06-22-2024 Lymphocytes (Bld) [#/Vol]2.7 10*3/uL1.00-4.8[facility] Lymphocytes/100 WBC Auto (Bld)Ordered By: Jonathon Becerra on 06-22-2024 Lymphocytes/100 WBC (Bld)23.4 %.[facility]H Auto (RBC) [Entitic mass]Ordered By: Jonathon Becerra on 31-01-4018RAM (RBC) [Entitic mass] 31.0 pg27.5-35.2FMagruder Memorial HospitalMCHC Auto (RBC) [Mass/Vol] Ordered By: Jonathon Becerra on 58-27-3387NGUW (RBC) [Mass/Vol]34.7 g/dL32.5-35.6 [facility] HospitalMCV Auto (RBC) [Entitic vol]Ordered By: Jonathon Becerra on 28-89-9037OFV (RBC) [Entitic vol]89.3 fL83.5-101[facility] HospitalMonocytes Auto (Bld) [#/Vol]Ordered By: Jonathon Becerra on 61-80-2299Bzmglvgeq (Bld) [#/Vol]0.8 10*3/uL0.0-0.8[facility] HospitalMonocytes/100 WBC Auto (Bld)Ordered By: Jonathon Becerra on 06-22-2024 Monocytes/100 WBC (Bld)7.4 %.[facility] HospitalNeutrophils Auto (Bld) [#/Vol]Ordered By: Jnoathon Becerra on 49-45-1927Zsikqvuelld (Bld) [#/Vol] 7.5 10*3/uL1.8-7.7FMagruder Memorial HospitalNeutrophils/100 WBC Auto (Bld)Ordered By: Jonathon Becerra on 22-06-8766Olufsbqlmhv/100 WBC (Bld)65.6 %. [facility] HospitalNo Panel InformationOrdered By: Jonathon Becerra on 46-97-2062Aucsgaygt GFR (CKD-EPI)> 60.0 mL/MinSelect Medical Trihealth Rehabilitation HospitalPharmacy Creatinine Clearance (ChemN/AFMagruder Memorial Hospital Nucleated erythrocytes [Presence] in Blood by Automated countOrdered By: Jonathon Becerra on 92-10-5881Ldwewdlei RBC Auto Ql (Bld)0.1 /100{WBC}0-0.5FMagruder Memorial HospitalPlatelet mean volume Auto (Bld) [Entitic vol]Ordered By: Jonathon Becerra on 05-31-2136Zphdpmik mean volume (Bld) [Entitic vol]7.7 fL 6.6-10.1FMagruder Memorial HospitalPlatelets Auto (Bld) [#/Vol]Ordered By: Jonathon Becerra on 51-10-2480Xydazhsqy (Bld) [#/Vol]224 10*3/kM612-233DuqfgzfruSelect Medical Trihealth Rehabilitation HospitalPotassium [Moles/volume] in Serum or PlasmaOrdered By: Jonathon Becerra on 83-08-4939Zojttlhgo [Moles/Vol]3.6 mmol/L3.5-5.1FMagruder Memorial HospitalProthrombin time (PT)Ordered By: Jonathon Becerra on 54-74-6362MU Coag (PPP) [Time]11.6 s9.0-12.9[facility] Comment on above:A hematocrit value greater than 55% may lead to inaccurate results in coagulation testing. Patientshaving hematocrit values >55% require a special collection tube for coagulation studies. Please contact the laboratory at [phone] for redraw instructions.RBC Auto (Bld) [#/Vol]Ordered By: Jonathon Becerra on 72-00-8329DMF (Bld) [#/Vol]4.87 10*6/uL3.90-5.60[facility] Health Systemerum or plasma anion gap determinationOrdered By: Jonathon Becerra on 12-38-1666Hsyma gap [Moles/Vol]11.9 mmol/L6.0-15.0[facility] Health Systemodium [Moles/volume] in Serum or PlasmaOrdered By: Jonathon Becerra on 90-85-6385Spgryv [Moles/Vol]142 mmol/B808-995UnfxfjtuuSelect Medical Trihealth Rehabilitation HospitalUrea nitrogen [Mass/volume] in Serum or PlasmaOrdered By: Jonathon Becerra on 40-24-5013Ftwz nitrogen [Mass/Vol]14 mg/dL7-25[facility] HospitalUrology Office/Clinic Noteon 33-13-9716Wkweftg Office/Clinic NoteUrology Office/Clinic Note Chief Complaint New Pt. Hospital follow up HPI Staff New Pt. Pt was seen [facility] on 06/20/[address] due to abdominal pain CT SCAN 06/20/24 Lithotripsy 2017- Dysuria: yes some burning, denies pain Incomplete [...] information and history for this patient from [facility]. I have reviewed and verified the [...] Multiple renal lesions bilaterally, consistent with renal cysts.LUP cyst is minimally complex but is stable [...] 1 PPD. Follow-up With When Contact Information HERNAN FARR, Jonathon Loza, [facility] [address], [place] [address]- Additional Instructions: schedule R URS, R Laser Litho, stent placement Patient Education ESWL for Kidney Stones, Care After ESWL for Kidney Stones IDarcy, personally scribed for Dr. Becerra on 06/22/2024 11:55:07. Documentation recorded by the scribe, Darcy Monet, accurately reflects the services(s) I performed and decisions made by me. Authenticated by Dr. Becerra on 06/22/2024 12:07:16. 11:55:07. Problem List/Past Medical [...] Hypertension: Father. Lung canc (more content not included)...[facility] CenterComment on above:Result Comment: Electronically Signed By: Jonathon BECERRA MD\.br\Date and Time Signed: 06/22/24 12:07 EDT\.br\Electronically Co-Signed By: Darcy Monet\.br\Date and Time Co-Signed: 06/22/24 11:55 EDT\.br\Electronically Co-Signed By: Darcy Monet\.br\Date and Time Co- Signed: 06/22/24 12:06 EDTWBC Auto (Bld) [#/Vol]Ordered By: Jonathon Becerra on 80-03-6708HDF (Bld) [#/Vol]11.4 10*3/uLHigh4.1-10.5FMagruder Memorial HospitalLaboratory - Chemistry and Chemistry - challengeon 95-42-9545Fbbdbrebq Ql (U)NegativeNEGATIVESelect Medical Trihealth Rehabilitation HospitalGlucose (U) [Mass/Vol]100 mg/dLAbnormalNEGATIVESelect Medical Trihealth Rehabilitation HospitalKetones Ql (U)Negative NEGATIVESelect Medical Trihealth Rehabilitation HospitalpH (U)7.0 [pH]5.0-9.0[facility] Health Systempecific gravity (U) [Rel density]1.0151.005-1.025[facility] HospitalUrobilinogen Qn (U)0.2 {Jeannie'U}/dL0.2-1.0[facility] HospitalLaboratory - Specimen informationon 29-58-8515Mxvvytrkhn (U)CLEARCLEARFMagruder Memorial HospitalColor (U)LT. YELLOWYELLOWSelect Medical Trihealth Rehabilitation HospitalLaboratory - Urinalysison 79-65-2882Xwzjucfsy esterase Test strip Ql (U)NegativeNEGSelect Medical TriHealth Rehabilitation HospitalMucus Ql (Urine sed)TRACEAbnormalNONE [facility] HospitalNitrite Ql (U) NegativeNEGSelect Medical TriHealth Rehabilitation HospitalProtein Ql (U)NegativeNEG/TRACE [facility] HospitalNo Panel Informationon 18-07-5822Vclkd Bacteria NONE SEEN #/HPFNONE [facility] HospitalUrine Occult BloodSMALL AbnormalNEGSelect Medical TriHealth Rehabilitation HospitalUrine RBC2-5 #/HPFAbnormal0-2 [facility] HospitalUrine Squamous Epithelial CellsFEW #/LPF AbnormalNONE/RARESelect Medical Trihealth Rehabilitation HospitalUrine WBCNONE SEEN #/HPFNONE [facility] HospitalHbA1c HPLC (Bld) [Mass fraction]on 57-22-2297NvO8x (Bld) [Mass fraction]5.6 %[facility] Laboratory - Chemistry and Chemistry - challengeon 17-94-4524Agwielpor Ql (U) [facility] HospitalKetones Ql (U)[facility] HospitalpH (U)6 [pH][facility] Health Systempecific gravity (U) [Rel density]1.020[facility] HospitalUrobilinogen (U) [Mass/Vol]1.0 mg/dLSelect Medical Trihealth Rehabilitation HospitalLaboratory - Specimen informationon 93-29-7523Hxvtqejwmf (U)[facility] Color (U)yellowSelect Medical Trihealth Rehabilitation HospitalLaboratory - Urinalysison 54-15-4877Kpxsandtj esterase Test strip Ql (U)NegativeSelect Medical Trihealth Rehabilitation HospitalNitrite Ql (U)NegativeSelect Medical Trihealth Rehabilitation HospitalProtein Ql (U) traceSelect Medical Trihealth Rehabilitation HospitalNo Panel Informationon 54-57-1307Gpxkh Glucose (UA)largeSelect Medical Trihealth Rehabilitation HospitalUrine Occult Bloodmoderate [facility] HospitalAlanine aminotransferase [Enzymatic activity/volume] in Serum or PlasmaOrdered By: Erick Doll on 82-68-9656YRK [Catalytic activity/Vol]26 U/L7-52[facility] HospitalAlbumin [Mass/volume] in Serum or Plasma by Bromocresol green (BCG) dye binding metho Ordered By: Erick Doll on 42-61-3712Pzbtqnr BCG dye [Mass/Vol]4.6 g/dL3.5-5.7 [facility] HospitalAlkaline phosphatase [Enzymatic activity/volume] in Serum or PlasmaOrdered By: Erick Doll on 82-40-8273YLN [Catalytic activity/Vol]63 U/U05-022NpziymbgxSelect Medical Trihealth Rehabilitation HospitalAspartate aminotransferase [Enzymatic activity/volume] in Serum or PlasmaOrdered By: Erick Doll on 98-42-6943VOV [Catalytic activity/Vol]23 U/G16-03ClstuwyxnSelect Medical Trihealth Rehabilitation HospitalBasophils Auto (Bld) [#/Vol]Ordered By: Erick Doll on 06-01-2023 Basophils (Bld) [#/Vol]0.1 10*3/uL0.0-0.2FMagruder Memorial Hospital Basophils/100 WBC Auto (Bld)Ordered By: Erick Doll on 68-20-4670Rfltjjnjo/100 WBC (Bld)1.0 %.[facility] HospitalBilirubin.total [Mass/volume] in Serum or PlasmaOrdered By: Erick Doll on 58-77-4354Irbyvgtai [Mass/Vol]1.0 mg/dL0.3-1.0[facility] HospitalCalcium [Mass/volume] in Serum or PlasmaOrdered By: Erick Doll on 11-66-9153Iuarfyg [Mass/Vol]9.3 mg/dL8.6-10.3 [facility] HospitalCarbon dioxide, total [Moles/volume] in Serum or PlasmaOrdered By: Erick Doll on 55-62-5811KA7 [Moles/Vol]30.7 mmol/L21.0-31.0 [facility] HospitalChloride [Moles/volume] in Serum or Plasma Ordered By: Erick Doll on 49-61-8717Uprlwshg [Moles/Vol]103 mmol/L98-107 [facility] HospitalCholesterol [Mass/volume] in Serum or Plasma Ordered By: Erick Doll on 77-82-3393Jdembrxfgnu [Mass/Vol]164 mg/lY167-933 [facility] HospitalComment on above:Chol less than 200 mg/dl low riskChol 201-239 mg/dl borderline riskChol 240 mg/dl and greater high risk Cholesterol in LDL Calc [Mass/Vol]Ordered By: Erick Doll on 06-01-2023 Cholesterol in LDL [Mass/Vol]84 mg/dL0-100[facility] Comment on above:LDL ATP III CLASSIFICATIONLDL less than 100 mg/dL OptimalLDL 100-129 mg/dL Near or above zawoyriRPC877-954 mg/dL Borderline highLDL 160-189 mg/dL HighLDL greater than 189 mg/dL Very highCholesterol in VLDL Calc [Mass/Vol]Ordered By: Erick Doll on 16-12-6311Uuxkioxyvid in VLDL [Mass/Vol]34 mg/dLSelect Medical Trihealth Rehabilitation HospitalCreatinine [Mass/volume] in Serum or PlasmaOrdered By: Erick Doll on 98-61-1404Jfexphtcvt [Mass/Vol]0.71 mg/dL 0.70-1.30[facility] HospitalEosinophils Auto (Bld) [#/Vol]Ordered By: Erick Doll on 25-07-7048Ojhtfrazeye (Bld) [#/Vol]0.5 10*3/uL0.0-0.45 [facility] HospitalEosinophils/100 WBC Auto (Bld)Ordered By: Erick Doll on 10-05-0818Acffdiufnol/100 WBC (Bld)4.1 %.[facility] HospitalErythrocyte distribution width Auto (RBC) [Ratio]Ordered By: Erick Doll on 32-10-9803Lmfvxpinssi distribution width (RBC) [Ratio]13.9 %12.0-14.8[facility] HospitalGlobulin Calc (S) [Mass/Vol]Ordered By: Erick Doll on 77-73-6849Uuujyjcc (S) [Mass/Vol]2.8 g/dLSelect Medical Trihealth Rehabilitation Hospital Glucose [Mass/volume] in Serum or PlasmaOrdered By: Erick Doll on 06-01-2023 Glucose [Mass/Vol]103 mg/xC45-692PifgniemqSelect Medical Trihealth Rehabilitation HospitalComment on above:ADA recommended reference rangeRandom Glucose Reference Range is dependent on time and content of last meal. Glucose of more than 200 mg/dL in a nonstressed, ambulatory subject supports the diagnosisof Diabetes Mellitus. Glucose mean value [Mass/volume] in Blood Estimated from glycated hemoglobin Ordered By: Erick Doll on 46-53-1985Exsokmz glucose Estimated from glycated hemoglobin (Bld) [Mass/Vol]120 mg/dLSelect Medical Trihealth Rehabilitation HospitalHematocrit Auto (Bld) [Volume fraction]Ordered By: Erick Doll on 34-60-8949Tiecplnmsl (Bld) [Volume fraction]45.3 %38.8-50.0[facility] HospitalHemoglobin A1c percentageOrdered By: Erick Doll on 54-67-0305QqA4n (Bld) [Mass fraction]5.8 % 4.3-5.6FMagruder Memorial HospitalComment on above:Increased risk for diabetes: 5.7 - 6.4diabetes: >6.4glycemic control for adults with diabetes: &l t;7.0Hemoglobin [Mass/volume] in BloodOrdered By: Erick Doll on 06-01-2023 Hemoglobin (Bld) [Mass/Vol]15.4 g/dL13.0-17.0[facility] Leukocytes [#/volume] corrected for nucleated erythrocytes in Blood by Automated counOrdered By: Erick Doll on 29-32-7165GVZ corrected for nucl RBC Auto (Bld) [#/Vol]11.1 10*3/uL4.1-10.5FMagruder Memorial HospitalLymphocytes Auto (Bld) [#/Vol]Ordered By: Erick Doll on 81-21-8677Mgbesfnogff (Bld) [#/Vol]2.9 10*3/uL1.00-4.8[facility] HospitalLymphocytes/100 WBC Auto (Bld) Ordered By: Erick Doll on 50-89-1951Ombambvzjyc/100 WBC (Bld)26.4 %.[facility] HospitalMCH Auto (RBC) [Entitic mass]Ordered By: Erick Doll on 05-67-5056ROC (RBC) [Entitic mass]30.6 pg27.5-35.2FMagruder Memorial HospitalMCHC Auto (RBC) [Mass/Vol]Ordered By: Erick Doll on 40-07-8271RSWQ (RBC) [Mass/Vol]34.0 g/dL32.5-35.6FMagruder Memorial HospitalMCV Auto (RBC) [Entitic vol]Ordered By: Erick Doll on 44-00-5979MGR (RBC) [Entitic vol]89.9 fL 83.5-101[facility] HospitalMonocytes Auto (Bld) [#/Vol]Ordered By: Erick Doll on 86-77-2936Zdiwzmyet (Bld) [#/Vol]0.6 10*3/uL0.0-0.8[facility] HospitalMonocytes/100 WBC Auto (Bld)Ordered By: Erick Doll on 46-54-6943Zntjudgqu/100 WBC (Bld)5.7 %.[facility] Neutrophils Auto (Bld) [#/Vol]Ordered By: Erick Doll on 79-55-1517Khywequiyta (Bld) [#/Vol]7.0 10*3/uL1.8-7.7FMagruder Memorial HospitalNeutrophils/100 WBC Auto (Bld)Ordered By: Erick Doll on 24-83-1163Djcjyhpsfhz/100 WBC (Bld)62.8 %.[facility] HospitalNo Panel InformationOrdered By: Erick Doll on 49-01-0890Psgxakoik GFR (CKD-EPI)> 60.0 mL/MinSelect Medical Trihealth Rehabilitation Hospital Pharmacy Creatinine Clearance (ChemN/[facility] So[facility] Medical CenterNucleated erythrocytes [Presence] in Blood by Automated countOrdered By: Erick Doll on 79-96-5164Eyonjrzmw RBC Auto Ql (Bld)0.0 /100{WBC}0-0.5FMagruder Memorial HospitalPlatelet mean volume Auto (Bld) [Entitic vol]Ordered By: Erick Doll on 85-48-6915Rpyerocl mean volume (Bld) [Entitic vol]8.3 fL6.6-10.1 [facility] HospitalPlatelets Auto (Bld) [#/Vol]Ordered By: Erick Doll on 98-61-0681Ulhzcvucg (Bld) [#/Vol]232 10*3/cW374-991JdtuftbtzSelect Medical Trihealth Rehabilitation HospitalPotassium [Moles/volume] in Serum or PlasmaOrdered By: Erick Doll on 17-24-8568Ilcofxbni [Moles/Vol]4.0 mmol/L3.5-5.1FMagruder Memorial HospitalProtein [Mass/volume] in Serum or PlasmaOrdered By: Erick Doll on 08-02-2395Ueffntd [Mass/Vol]7.4 g/dL6.4-8.9[facility] HospitalRBC Auto (Bld) [#/Vol]Ordered By: Erick Doll on 19-85-3513MHU (Bld) [#/Vol]5.04 10*6/uL3.90-5.60[facility] Systemerum or plasma albumin/globulin mass ratioOrdered By: Erick Doll on 23-60-4626Aubmrid/Globulin [Mass ratio]1.6 {ratio}[facility] Systemerum or plasma anion gap determinationOrdered By: Erick Doll on 48-21-0951Nqfvd gap [Moles/Vol]10.3 mmol/L6.0-15.0[facility] Systemerum or plasma high density lipoprotein (HDL) cholesterol measurementOrdered By: Erick Doll on 06-01-2023 Cholesterol in HDL [Mass/Vol]46 mg/aJ30-26MshrqcmopSelect Medical Trihealth Rehabilitation Hospital Comment on above:HDL CHOL ATP-III CLASSIFICATION Cardiovascular RiskHDL > or equal to 60 mg/dL LOWHDL < 40 mg/dL HIGHSerum or plasma total cholesterol/high density lipoprotein (HDL) cholesterol mass ratOrdered By: Erick Doll on 31-18-4696Ypfudwabrkk.total/Cholesterol in HDL [Mass ratio]3.6 {ratio}<5.0 [facility] Systemodium [Moles/volume] in Serum or PlasmaOrdered By: Erick Doll on 60-85-3129Wfgtge [Moles/Vol]140 mmol/P913-812HhikepszhSelect Medical Trihealth Rehabilitation HospitalTriglyceride [Mass/volume] in Serum or PlasmaOrdered By: Erick Doll on 13-93-1399Sulqcbyheikg [Mass/Vol]170 mg/dL0-149[facility] HospitalComment on above:TRIG ATP III CLASSIFICATIONTRIG less than 150 mg/dL NormalTRIG 150-199 mg/dL Borderline highTRIG 200-500 mg/dL High TRIG greater than 500 mg/dL Very highStandard traceable to the Center for Disease Co nrtrol and Prevention (CDC) test method.Urea nitrogen [Mass/volume] in Serum or PlasmaOrdered By: Erick Doll on 38-76-3214Geje nitrogen [Mass/Vol]13 mg/dL7-25 [facility] HospitalWBC Auto (Bld) [#/Vol]Ordered By: Erick Doll on 51-01-5439CGG (Bld) [#/Vol]11.1 10*3/uL4.1-10.5FMagruder Memorial HospitalAlanine aminotransferase [Enzymatic activity/volume] in Serum or Plasma Ordered By: Erick Doll on 66-61-0612GBB [Catalytic activity/Vol]53 U/LHigh7-52 U/[facility] HospitalAlbumin [Mass/volume] in Serum or Plasma by Bromocresol green (BCG) dye binding methoOrdered By: Erick Doll on 01-01-2023 Albumin BCG dye [Mass/Vol]4.7 g/dL3.5-5.7FMagruder Memorial Hospital Alkaline phosphatase [Enzymatic activity/volume] in Serum or PlasmaOrdered By: Erick Doll on 41-76-7724AMD [Catalytic activity/Vol]80 U/KGjvbar20-465 U/L [facility] HospitalAspartate aminotransferase [Enzymatic activity/volume] in Serum or PlasmaOrdered By: Erick Doll on 41-99-5911HIJ [Catalytic activity/Vol]47 U/CGojn26-51 U/[facility] Basophils Auto (Bld) [#/Vol]Ordered By: Erick Doll on 25-00-6120Jvhdlvxgt (Bld) [#/Vol]0.1 10*3/uL0.0-0.2FMagruder Memorial HospitalBasophils/100 WBC Auto (Bld)Ordered By: Erick Doll on 16-21-0540Dkfwlfyyq/100 WBC (Bld)0.7 %.[facility] HospitalBilirubin.total [Mass/volume] in Serum or PlasmaOrdered By: Erick Doll on 30-50-8003Wuyidxlyx [Mass/Vol]0.9 mg/dL0.3-1.0[facility] HospitalCalcium [Mass/volume] in Serum or PlasmaOrdered By: Erick Doll on 60-29-7104Oddgyhk [Mass/Vol]9.4 mg/dL8.6-10.3FMagruder Memorial HospitalCarbon dioxide, total [Moles/volume] in Serum or PlasmaOrdered By: Erick Doll on 50-52-9434HW9 [Moles/Vol]28.5 mmol/L21.0-31.0[facility] HospitalChloride [Moles/volume] in Serum or PlasmaOrdered By: Erick Doll on 57-99-5472Grxmrqly [Moles/Vol]102 mmol/UQqhlab81-392 mmol/LFMagruder Memorial HospitalCholesterol [Mass/volume] in Serum or PlasmaOrdered By: Erick Doll on 53-15-4234Pgfszqhregh [Mass/Vol]217 mg/vPMmgl115-647 mg/dLSelect Medical Trihealth Rehabilitation HospitalComment on above:Chol less than 200 mg/dl low riskChol 201-239 mg/dl borderline riskChol 240 mg/dl and greater high riskCholesterol in LDL Calc [Mass/Vol]Ordered By: Erick Doll on 59-50-9220Vjmfwicrsxc in LDL [Mass/Vol]51 mg/dL0-100[facility] HospitalComment on above:LDL ATP III CLASSIFICATIONLDL less than 100 mg/dL OptimalLDL 100-129 mg/dL Near or above trgiqbaLRM965-084 mg/dL Borderline highLDL 160-189 mg/dL HighLDL greater than 189 mg/dL Very highCholesterol in LDL [Mass/volume] in Serum or PlasmaOrdered By: Erick Doll on 97-57-0915Ywzgukmwzfa in LDL [Mass/Vol]92 mg/dL0-100[facility] HospitalComment on above:LDL ATP III CLASSIFICATIONLDL less than 100 mg/dL OptimalLDL 100-129 mg/dL Near or above ueqwvjjDJI930-087 mg/dL Borderline highLDL 160-189 mg/dL HighLDL greater than 189 mg/dL Very high Cholesterol in VLDL Calc [Mass/Vol]Ordered By: Erick Doll on 01-01-2023 Cholesterol in VLDL [Mass/Vol]130 mg/dLSelect Medical Trihealth Rehabilitation HospitalComplete Blood Count Auto Diffon 43-47-8734Kaogqpolq (Bld) [#/Vol]0.121733693 10*3/uL Normal0.0-0.2 10*3/Dr. Scribbles Other Basophils/100 WBC (Bld)0.700 %. %[email or web address] Other Eosinophils (Bld) [#/Vol]0.461453341 10*3/uLNormal0.0- 0.45 10*3/Dr. Scribbles Other Eosinophils/100 WBC (Bld)2.800 %. %[email or web address] Other Erythrocyte distribution width (RBC) [Ratio]13.300 % Rkazad45.0-14.8 %[email or web address] Other Hematocrit (Bld) [Volume fraction]45.200 %Kiwrdi15.8- 50.0 %[email or web address] Other Hemoglobin (Bld) [Mass/Vol]15.010283 g/oANpuoxs36.0- 17.0 g/[email or web address] Other Lymphocytes (Bld) [#/Vol]2.431322502 10*3/uLNormal 1.00-4.8 10*3/Dr. Scribbles Other Lymphocytes/100 WBC (Bld)25.800 %. %[email or web address] Other MCH (RBC) [Entitic mass]30.3000 bcCsgusr53.5-35.2 pg [email or web address] Other MCV (RBC) [Entitic vol]89.0000 fOQggxsk66.5-101 fL [email or web address] Other Monocytes (Bld) [#/Vol]0.735157219 10*3/uLNormal0.0- 0.8 10*3/Dr. Scribbles Other Monocytes/100 WBC (Bld)6.000 %. %[email or web address] Other Neutrophils (Bld) [#/Vol]7.248288725 10*3/uLNormal1.8- 7.7 10*3/Dr. Scribbles Other Neutrophils/100 WBC (Bld)64.700 %. %[email or web address] Other Platelet mean volume (Bld) [Entitic vol]8.3000 fL Normal6.6-10.1 [facility] CenterEffdon Other WBC (Bld) [#/Vol]10.878233133 10*3/uLHigh4.1-10.5 10*3/Dr. Scribbles Other Complete Blood Count Auto Diff10.8 10*3/uLHigh4.1-10.5 10*3/Dr. Scribbles Other Complete Blood Count Auto Diff34.0 g/xCGgocvg12.5-35.6 g/[email or web address] Other Complete Blood Count Auto Diff0.1 /100{WBC}Normal0-0.5 /100{WBC}[email or web address] Other Comprehensive Metabolic Panelon 80-33-1070Mmblnyd [Mass/Vol]4.088092 g/dLNormal3.5-5.7 g/dLHouston QFPay Other Bilirubin [Mass/Vol]0.8112411 mg/dLNormal0.3-1.0 mg/dL [email or web address] Other Calcium [Mass/Vol]9.7074218 mg/dLNormal8.6-10.3 mg/dL [email or web address] Other CO2 [Moles/Vol]28.58697720 mmol/NGgking31.0-31.0 mmol/LNTMMI ([employer] Other Creatinine [Mass/Vol]0.95595880 mg/dLNormal0.70-1.30 mg/dLPodPoster QFPay Other Potassium [Moles/Vol]3.52582800 mmol/LNormal3.5-5.1 mmol/LNTMMI ([employer] Other Protein [Mass/Vol]7.841253 g/dLNormal6.4-8.9 g/dLPodPoster QFPay Other Comprehensive Metabolic Panel2.9 g/dLEffdon Other Comprehensive Metabolic PanelOrdered By: Erick Doll on 86-31-8448PAX/1.73 sq M.predicted MDRD (S/P/Bld) [Vol rate/Area] mL/min/{1.73_m2}[facility] HospitalCreatinine [Mass/volume] in Serum or PlasmaOrdered By: Erick Doll on 14-90-6678Qzyzrrpril [Mass/Vol]0.77 mg/dL0.70-1.30[facility] HospitalEosinophils Auto (Bld) [#/Vol] Ordered By: Erick Doll on 44-21-2542Yayybjfsyru (Bld) [#/Vol]0.3 10*3/uL0.0-0.45 [facility] HospitalEosinophils/100 WBC Auto (Bld)Ordered By: Erick Doll on 14-91-6424Ebtxvmqmlyc/100 WBC (Bld)2.8 %.[facility] HospitalErythrocyte distribution width Auto (RBC) [Ratio]Ordered By: Erick Doll on 02-97-3169Oihgojscaac distribution width (RBC) [Ratio]13.3 %12.0-14.8[facility] HospitalErythrocytes [#/volume] in Blood by Automated count Ordered By: Erick Doll on 62-08-4091OOX (Bld) [#/Vol]5.08 10*6/uLNormal3.90-5.60 [facility] HospitalGlobulin Calc (S) [Mass/Vol]Ordered By: Erick Doll on 91-78-1576Wehvuopv (S) [Mass/Vol]2.9 g/dLSelect Medical Trihealth Rehabilitation HospitalGlucose [Mass/volume] in Serum or PlasmaOrdered By: Erick Doll on 30-20-7995Vkpfnzs [Mass/Vol]154 mg/jRXzts14-872 mg/dLSelect Medical Trihealth Rehabilitation HospitalComment on above:ADA recommended reference rangeRandom Glucose Reference Range is dependent on time and content of last meal. Glucose of more than 200 mg/dL in a nonstressed, ambulatory subject supports the diagnosisof Diabetes Mellitus.Hematocrit Auto (Bld) [Volume fraction]Ordered By: Erick Doll on 94-47-8244Fzzpugwgfx (Bld) [Volume fraction]45.2 %38.8-50.0[facility] HospitalHemoglobin [Mass/volume] in BloodOrdered By: Erick Doll on 83-34-8690Gyynhaioxf (Bld) [Mass/Vol]15.4 g/dL13.0-17.0[facility] HospitalLDL Cholesterol Measuredon 90-90-9005AHL Cholesterol Uqdelkeo68 mg/dLNormal0-100 mg/[email or web address] Other Leukocytes [#/volume] corrected for nucleated erythrocytes in Blood by Automated counOrdered By: Erick Doll on 27-91-3244PXY corrected for nucl RBC Auto (Bld) [#/Vol]10.8 10*3/uL4.1-10.5FMagruder Memorial HospitalLipid Panelon 77-59-7957Kvpwvbmpjzc in LDL Elph Qn51 mg/dLNormal0- 100 mg/dLNosaint alexius hospital QFPay Other Lipid Obpwx059 mg/dLHigh0-149 mg/dLNosaint alexius hospital QFPay Other Lipid Dvkck109 mg/dLNosaint alexius hospital QFPay Other Lymphocytes Auto (Bld) [#/Vol]Ordered By: Erick Doll on 98-09-2674Hlrxxhmijkg (Bld) [#/Vol]2.8 10*3/uL1.00-4.8[facility] HospitalLymphocytes/100 WBC Auto (Bld)Ordered By: Erick Doll on 01-01-2023 Lymphocytes/100 WBC (Bld)25.8 %.[facility] Auto (RBC) [Entitic mass]Ordered By: Erick Doll on 00-20-8083LFP (RBC) [Entitic mass]30.3 pg27.5-35.2FMagruder Memorial HospitalMCHC Auto (RBC) [Mass/Vol]Ordered By: Erick Doll on 11-43-7235BDWA (RBC) [Mass/Vol]34.0 g/dL32.5-35.6FMagruder Memorial HospitalMCV Auto (RBC) [Entitic vol]Ordered By: Erick Doll on 48-30-5706RHF (RBC) [Entitic vol]89.0 fL83.5-101[facility] HospitalMonocytes Auto (Bld) [#/Vol]Ordered By: Erick Doll on 99-02-2887Udokkcusz (Bld) [#/Vol]0.6 10*3/uL0.0-0.8[facility] HospitalMonocytes/100 WBC Auto (Bld)Ordered By: Erick Doll on 95-55-1185Ygtmuurku/100 WBC (Bld)6.0 %. [facility] HospitalNeutrophils Auto (Bld) [#/Vol]Ordered By: Erick Doll on 88-33-9924Ntkqnvzzmdg (Bld) [#/Vol]7.0 10*3/uL1.8-7.7FMagruder Memorial HospitalNeutrophils/100 WBC Auto (Bld)Ordered By: Erick Doll on 75-93-1664Zheibnzfrqi/100 WBC (Bld)64.7 %.[facility] HospitalNo Panel InformationOrdered By: Erick Doll on 09-14-0242Hjrgbuzp Creatinine Clearance (ChemN/[facility] CenterNucleated erythrocytes [Presence] in Blood by Automated countOrdered By: Erick Doll on 01-01-2023 Nucleated RBC Auto Ql (Bld)0.1 /100{WBC}0-0.5FMagruder Memorial Hospital Platelet mean volume Auto (Bld) [Entitic vol]Ordered By: Erick Doll on 54-92-2246Cjhxrbbo mean volume (Bld) [Entitic vol]8.3 fL6.6-10.1FMagruder Memorial HospitalPlatelets [#/volume] in Blood by Automated countOrdered By: Erick Doll on 61-50-5268Ayezmbaiu (Bld) [#/Vol]225 10*3/dMWptvjr310-343 10*3/uLSelect Medical Trihealth Rehabilitation HospitalPotassium [Moles/volume] in Serum or PlasmaOrdered By: Erick Doll on 47-00-2938Ogtlccrvs [Moles/Vol]3.8 mmol/L3.5-5.1 [facility] HospitalProtein [Mass/volume] in Serum or PlasmaOrdered By: Erick Doll on 99-35-9622Gllfsms [Mass/Vol]7.6 g/dL6.4-8.9[facility] Systemerum or plasma albumin/globulin mass ratioOrdered By: Erick Doll on 92-56-1434Kchvkew/Globulin [Mass ratio]1.6 {ratio}[facility] Systemerum or plasma anion gap determinationOrdered By: Erick Doll on 05-91-4792Thrwi gap [Moles/Vol]11.3 mmol/L6.0-15.0[facility] Systemerum or plasma high density lipoprotein (HDL) cholesterol measurement Ordered By: Erick Doll on 46-25-3544Xmxhzrajtks in HDL [Mass/Vol]35 mg/dLNormal 29-71 mg/dLSelect Medical Trihealth Rehabilitation HospitalComment on above:HDL CHOL ATP-III CLASSIFICATION Cardiovascular RiskHDL > or equal to 60 mg/dL LOWHDL < 40 mg/dL HIGHSerum or plasma total cholesterol/high density lipoprotein (HDL) cholesterol mass ratOrdered By: Erick Doll on 06-77-4330Fntkfsjwiqg.total/Cholesterol in HDL [Mass ratio]6.2 {ratio}<5.0[facility] Systemodium [Moles/volume] in Serum or PlasmaOrdered By: Erick Doll on 27-76-9644Rvumck [Moles/Vol]138 mmol/UVvuvxp299-957 mmol/LFMagruder Memorial Hospital Thyroid Stimulating Hormoneon 98-33-1850NLV Qn1.01566542289 m[IU]/LNormal0.45- 5.33 u[iU]/[facility] QFPay Other Thyrotropin [Units/volume] in Serum or PlasmaOrdered By: Erick Doll on 12-89-9142HIX Qn1.05 m[IU]/L0.45-5.33[facility] HospitalTriglyceride [Mass/volume] in Serum or PlasmaOrdered By: Erick Doll on 66-19-8516Etldyifitzhf [Mass/Vol]654 mg/dL0-149[facility] HospitalComment on above:If the triglyceride result is greater than 400, LDLC and related calculations cannot be calculated and resulted.TRIG ATP III CLASSIFICATIONTRIG less than 150 mg/dL NormalTRIG 150-199 mg/dL Borderline highTRIG 200-500 mg/dL High TRIG greater than 500 mg/dL Very highStandard traceable to the Center for Disease Conrtrol and Prevention (CDC) test method. Urea nitrogen [Mass/volume] in Serum or PlasmaOrdered By: Erick Doll on 73-06-8566Gdoh nitrogen [Mass/Vol]10 mg/dLNormal7-25 mg/dLSelect Medical Trihealth Rehabilitation HospitalWBC Auto (Bld) [#/Vol]Ordered By: Erick Doll on 60-79-2325GZM (Bld) [#/Vol]10.8 10*3/uL4.1-10.5FMagruder Memorial HospitalA1C HEMOGLOBIN on 40-41-6005GmG0l (Bld) [Mass fraction]7.3 %[email or web address] Other HbA1c (Bld) [Mass fraction]on 62-68-7990Q2Q HEMOGLOBIN [email or web address] Other Microalbumin Analyzeron 48-83-1475Qxvqgkv DL <= 20 mg/L (U) [Mass/Vol]mg/dLNosaint alexius hospital QFPay Other Albumin Test strip detection limit <= 20 mg/L (U) [Mass/Vol]30Nosaint [facility] QFPay Other Creatinine (U) [Mass/Vol]100 mg/dLNosaint alexius hospital QFPay Other urine 10 SGon 80-84-5212Cvkglaw DL <= 20 mg/L (U) [Mass/Vol]NegativeNosaint alexius hospital QFPay Other pH (U)7.0 [pH][email or web address] Other urine 10 YD869GrrgsEffdon Other urine 10 SGNegativeEffdon Other urine 10 SG1.020[employer] Other urine 10 SGtraceEffdon Other urine 10 SG1.0Effdon Other Albumin [Mass/volume] in Serum or PlasmaOrdered By: Erick Doll on 90-21-0149Jxrvrry [Mass/Vol]4.1 g/dL3.2-5.5FMagruder Memorial HospitalBasophils Auto (Bld) [#/Vol]Ordered By: Erick Doll on 06-06-2022 Basophils (Bld) [#/Vol]0.1 10*3/uL0.0-0.2FMagruder Memorial Hospital Basophils/100 WBC Auto (Bld)Ordered By: Erick Doll on 71-27-6883Xjltqmejy/100 WBC (Bld)1.0 %.[facility] HospitalBlood hemoglobin measurement (mass/volume)Ordered By: Erick Doll on 05-44-8889Utxnqiplfs (Bld) [Mass/Vol]15.9 g/dL13.0-17.0[facility] HospitalBlfederal medical center, [place] leukocytes automated count (number/volume)Ordered By: Erick Doll on 75-74-9586ONE (Bld) [#/Vol]9.8 10*3/uL 4.5-11.0[facility] HospitalCholesterol [Mass/volume] in Serum or PlasmaOrdered By: Erick Doll on 22-08-4929Yrphlwxftno [Mass/Vol]165 mg/dS753-052 [facility] HospitalComment on above:Chol less than 200 mg/dl low risk Chol 201-239 mg/dl borderline risk Chol 240 mg/dl and greater high riskCholesterol in LDL Calc [Mass/Vol]Ordered By: Erick Doll on 06-71-6007Aywathiyoaz in LDL [Mass/Vol]95 mg/dL0-100[facility] HospitalComment on above:LDL ATP III CLASSIFICATION LDL less than 100 mg/dL Optimal LDL 100-129 mg/dL Near or above optimal LDL 130-159 mg/dL Borderline high LDL 160-189 mg/dL High LDL greater than 189 mg/dL Very highCholesterol in VLDL Calc [Mass/Vol]Ordered By: Erick Doll on 76-05-6268Apdskxydilu in VLDL [Mass/Vol]32 mg/dLSelect Medical Trihealth Rehabilitation HospitalCreatinine and Glomerular filtration rate.predicted panel (S/P/Bld)Ordered By: Erick Doll on 15-24-8347Xtqvorlahm [Mass/Vol]0.73 mg/dL 0.64-1.27[facility] HospitalEosinophils Auto (Bld) [#/Vol]Ordered By: Erick Doll on 91-53-6993Ehplposwfgv (Bld) [#/Vol]0.4 10*3/uL0.0-0.45 [facility] HospitalEosinophils/100 WBC Auto (Bld)Ordered By: Erick Doll on 44-03-2883Radaugprrib/100 WBC (Bld)3.9 %.[facility] HospitalErythrocyte distribution width Auto (RBC) [Ratio]Ordered By: Erick Doll on 59-13-2921Khuqhuddczj distribution width (RBC) [Ratio]13.5 %12.0-14.8[facility] HospitalEstimated glomerular filtration rate (GFR) non- AmericanOrdered By: Erick Doll on 90-56-5216SRR/1.73 sq M.predicted among non- blacks MDRD (S/P/Bld) [Vol rate/Area]> 60 mL/MinSelect Medical Trihealth Rehabilitation HospitalGlobulin Calc (S) [Mass/Vol]Ordered By: Erick Doll on 50-06-6731Cnftcncw (S) [Mass/Vol]2.8 g/dLSelect Medical Trihealth Rehabilitation HospitalGlucose mean value [Mass/volume] in Blood Estimated from glycated hemoglobinOrdered By: Erick Doll on 68-20-9463Vrwtevq glucose Estimated from glycated hemoglobin (Bld) [Mass/Vol] 180 mg/dLSelect Medical Trihealth Rehabilitation HospitalHematocrit Auto (Bld) [Volume fraction]Ordered By: Erick Doll on 17-83-0384Tvhppbjvqb (Bld) [Volume fraction] 46.3 %38.8-50.0[facility] HospitalHemoglobin A1c percentageOrdered By: Erick Doll on 38-21-0592RwK5e (Bld) [Mass fraction]7.9 %4.3-5.6FMagruder Memorial HospitalComment on above:Increased risk for diabetes: 5.7 - 6.4 diabetes: >6.4 glycemic control for adults with diabetes: <7.0Laboratory - Hematology and Cell countsOrdered By: Erick Doll on 12-05-1910Umbgfqmjn RBC/100 WBC (Bld) [Ratio]0.1 %0-0.5FMagruder Memorial HospitalLymphocytes Auto (Bld) [#/Vol]Ordered By: Erick Doll on 34-09-6216Ulvebixgfii (Bld) [#/Vol]2.8 10*3/uL1.00-4.8 [facility] HospitalLymphocytes/100 WBC Auto (Bld)Ordered By: Erick Doll on 74-41-7297Hhrbrkngjov/100 WBC (Bld)28.4 %.[facility]H Auto (RBC) [Entitic mass]Ordered By: Erick Doll on 08-69-1393DBJ (RBC) [Entitic mass]30.9 pg27.5-35.2FMagruder Memorial HospitalMCHC Auto (RBC) [Mass/Vol]Ordered By: Erick Doll on 08-95-4747PPFT (RBC) [Mass/Vol]34.4 g/dL 32.5-35.6FMagruder Memorial HospitalMCV Auto (RBC) [Entitic vol]Ordered By: Erick Doll on 47-87-6666TES (RBC) [Entitic vol]89.9 fL83.5-101[facility] HospitalMonocytes Auto (Bld) [#/Vol]Ordered By: Erick Doll on 51-43-7769Khkhftqqi (Bld) [#/Vol]0.5 10*3/uL0.0-0.8[facility] HospitalMonocytes/100 WBC Auto (Bld)Ordered By: Erick Doll on 06-06-2022 Monocytes/100 WBC (Bld)5.4 %.[facility] HospitalNeutrophils Auto (Bld) [#/Vol]Ordered By: Erick Doll on 48-35-0697Ueibltwnwvf (Bld) [#/Vol]6.0 10*3/uL1.8-7.7FMagruder Memorial HospitalNeutrophils/100 WBC Auto (Bld) Ordered By: Erick Doll on 38-18-4784Qtuhfpfgobd/100 WBC (Bld)61.3 %.[facility] HospitalNo Panel InformationOrdered By: Erick Doll on 06-06-2022 Estimated GFR ()> 60 mL/MinSelect Medical Trihealth Rehabilitation Hospital Comment on above:GFR estimated reference range: According to KDOQI guidelines, <60 ml/min/1.73m2 is sufficient todiagnose a patient with chronic kidney disease.Pharmacy Creatinine Clearance (ChemN/[facility] Prostate Specific Antigen Screen0.520 ng/mL0.000-4.000[facility] HospitalPlatelet mean volume Auto (Bld) [Entitic vol]Ordered By: Erick Doll on 86-82-0691Kutmoqeg mean volume (Bld) [Entitic vol]8.4 fL6.6-10.1FMagruder Memorial HospitalPlatelets Auto (Bld) [#/Vol]Ordered By: Erick Doll on 07-36-6492Rvykjbvcu (Bld) [#/Vol]245 10*3/eZ162-190PzebnjfoiSelect Medical Trihealth Rehabilitation HospitalProtein [Mass/volume] in Serum or PlasmaOrdered By: Erick Doll on 61-29-3595Scdhugp [Mass/Vol]6.9 g/dL6.1-7.9[facility] HospitalRBC Auto (Bld) [#/Vol]Ordered By: Erick Doll on 20-41-0319YNR (Bld) [#/Vol]5.16 10*6/uL3.90-5.60[facility] Systemerum or plasma alanine aminotransferase measurement without P-5'-P (enzymatic activiOrdered By: Erick Doll on 25-40-7335VRD No additional P-5'-P [Catalytic activity/Vol]60 U/L10-60 [facility] Systemerum or plasma albumin/globulin mass ratio Ordered By: Erick Doll on 35-35-7100Kwqemgy/Globulin [Mass ratio]1.5 {ratio} [facility] Systemerum or plasma alkaline phosphatase measurement (enzymatic activity/volume)Ordered By: Erick Doll on 79-26-1138IGV [Catalytic activity/Vol]89 U/N93-63GshdklwqrUniversity Hospitals Health Systemerum or plasma aspartate aminotransferase measurement (enzymatic activity/volume)Ordered By: Erick Doll on 11-75-6800GQL [Catalytic activity/Vol]43 U/E33-35SyxbrgtpeUniversity Hospitals Health Systemerum or plasma calcium measurement (mass/volume)Ordered By: Erick Doll on 95-06-8319Ldtwefh [Mass/Vol]9.3 mg/dL8.2-10.2FOhioHealth Southeastern Medical Centererum or plasma chloride measurement (moles/volume) Ordered By: Erick Doll on 43-61-5204Jhacnufv [Moles/Vol]103 mmol/L95-114 [facility] Systemerum or plasma glucose measurement (mass/volume)Ordered By: Erick Doll on 87-65-7394Vsvcypx [Mass/Vol]137 mg/dL 70-100[facility] HospitalComment on above:ADA recommended reference range Random Glucose Reference Range is dependent on time and content of last meal. Glucose of more than 200 mg/dL in a nonstressed, ambulatory subject supports the diagnosis of Diabetes Mellitus.Serum or plasma high density lipoprotein (HDL) cholesterol measurementOrdered By: Erick Doll on 44-57-7675Xhtzgtdpwgi in HDL [Mass/Vol]37 mg/rD87-63QmuapkpijSelect Medical Trihealth Rehabilitation HospitalComment on above:HDL CHOL ATP-III CLASSIFICATION Cardiovascular Risk HDL > or equal to 60 mg/dL LOW HDL < 40 mg/dL HIGHSerum or plasma potassium measurement (moles/volume)Ordered By: Erick Doll on 98-56-2262Efxfqbqye [Moles/Vol]3.9 mmol/L3.5-5.1FOhioHealth Southeastern Medical Centererum or plasma sodium measurement (moles/volume)Ordered By: Erick Doll on 94-74-2898Fqsnzo [Moles/Vol]138 mmol/H071-178NawmdlfpjUniversity Hospitals Health Systemerum or plasma total bilirubin measurement (mass/volume) Ordered By: Erick Doll on 22-68-7338Vczqslkwz [Mass/Vol]1.4 mg/dL0.3-1.2 [facility] HospitalComment on above:Samples from patients who have taken Naproxen have shown spurious elevation in Total Bilirubin levels. A metabolite of Naproxen, O-desmethylnaproxen, has been shown to interfere with the Harpreet method for measuring Total Bilirubin.Serum or plasma total carbon dioxide measurement (moles/volume)Ordered By: Erick Doll on 92-16-0066RB3 [Moles/Vol]27.5 mmol/L22.0-30.0[facility] Systemerum or plasma total cholesterol/high density lipoprotein (HDL) cholesterol mass ratOrdered By: Erick Doll on 91-66-8733Jmjwqzgiolu.total/Cholesterol in HDL [Mass ratio]4.5 {ratio}<5.0[facility] Systemerum or plasma urea nitrogen measurement (mass/volume)Ordered By: Erick Doll on 17-38-2862Hsbi nitrogen [Mass/Vol]14 mg/dL9-23[facility] HospitalTS DL <= 0.005 mIU/L Qn Ordered By: Erick Doll on 73-33-2251PCN Qn0.93 m[IU]/L0.45-5.33[facility] HospitalTriglyceride [Mass/volume] in Serum or PlasmaOrdered By: Erick Doll on 51-50-3406Uurfmtralugl [Mass/Vol]164 mg/gL40-042WusisieheSelect Medical Trihealth Rehabilitation HospitalComment on above:TRIG ATP III CLASSIFICATION TRIG less than 150 mg/dL Normal TRIG 150-199 mg/dL Borderline high TRIG 200-500 mg/dL High TRIG greater than 500 mg/dL Very high Standard traceable to the Center for Disease Conrtrol and Prevention (CDC) test method.CARDIAC STRESS TESTon [id number] STRESS TESTThe [place], [place] NAME: LUIS A HI DATE OF : MEDICAL REC#: [id number] CREDIT COLLECTIONS CLERK: [id number] JALIL CUMMINS ADMIT DATE: 04/01/2022 07:53:00 ONCOLOGY COORDINATOR DATE: 04/01/2022 23:20 DICTATING PHYSICIAN: JORDAN LUNA [...] and Approved by: DR JORDAN LUNA 04/29/2022 13:15:00[facility] HospitalECHOCARDIO M/2D COMPLETEon [id number] M/2D COMPLETEPatient: LUIS A HI Exam Date: 04/01/2022 : 1975 Gender:M Ordering : DR ERICK DOLL Admission #: [id number] Family : Order #: [id number] CLICK HERE TO VIEW EXAM ECHOCARDIOGRAM REPORT [...] Area(A4C): 19.80 cm2 Left Atrium Systolic Volume(A2C): 22220 mm3 Left Atrium Systolic Volume(A4C): 02926 mm3 Mitral Valve MV E to A Ratio: 1.30 Deceleration Roberts: 5030 mm/s2 Mitral Valve A-Wave Peak Velocity: [...] by: Gregory Logan M.D. on 04/02/2022 at 19:16[facility] HospitalCARDIAC CORETTA ADMITon [id number] [Catalytic activity/Vol]155 U/LNormal 39-308The [facility] - WestComment on above:Performed By: #### CMADM, CMP, LIPA #### [facility] [address] [address] [address] Champ Mendez.MB [Mass/Vol]1.45 ng/mLNormal<=3.60The [facility] Comment on above:Performed By: #### CMADM, CMP, LIPA #### [facility] [address] [address] [address] Champ MayorgaTROP3.7 pg/mLCritically low4.0-76.1[facility] on above:Result Comment: CUT-OFF POINTS HAVE BEEN ESTABLISHED BASED ON THE FOURTH UNIVERSAL DEFINITIONS OF MYOCARDIAL INFARCTION. THE UPPER REFERENCE LIMIT (URL) OF TROPONIN, DEFINED THE 99TH PERCENTILE OF cTnI DISTRIBUTION IN A REFERENCE POPULATION, HAS BEEN CONFIRMED THE DECISION THRESHOLD FOR PA DIAGNOSIS.Performed By: #### CMADM, CMP, LIPA #### [facility] [address] [address] [address] Champ GoffO38 ng/yPZiruso19-63Xag [facility] WestComment on above: Performed By: #### CMADM, CMP, LIPA #### [facility] [address] [address] [address] Champ Santana AUTO DIFFon 02-79-2524PODM #0.1 103/ulNormal0.0-0.1The [facility] - WestComment on above:Performed By: #### CBC #### [facility] [address] [address] [address] Champ Verasophils/100 WBC (Bld)0.6 %Normal0.2-2.0[facility] [place] Comment on above:Performed By: #### CBC #### [facility] [address] [place] [address] Dr. Champ Jones #0.3 103/ulNormal0.0-0.7The [facility] - WestComment on above: Performed By: #### CBC #### [facility] [address] [place] [address] Dr. Champ Coffeyosinophils/100 WBC (Bld)2.7 %Normal0.9-7.0The [facility] Comment on above:Performed By: #### CBC #### [facility] [address] [place] [address] Dr. Champ Coffeyrythrocyte distribution width (RBC) [Ratio]13.1 %Fsgmjw94.0-15.0 The [facility] - WestComment on above:Performed By: #### CBC #### [facility] [address] [place] [address] Dr. Cahmp JaramilloHematocrit (Bld) [Volume fraction]44.1 %Ahqvqf95.0-54.0The [facility] - WestComment on above:Performed By: #### CBC #### [facility] [address] [place] [address] Dr. Champ JaramilloHemoglobin (Bld) [Mass/Vol]14.9 g/nEVgctni60.0-18.0The [facility] - WestComment on above:Performed By: #### CBC #### [facility] [address] [place] [address] Dr. Champ Hawthorne #0.04 10e3/ulCritically high0.00-0.03The [facility] Comment on above:Performed By: #### CBC #### [facility] [address] [place] [address] Dr. Champ Hawthorne %0.4 %Normal0.0-0.5The [facility] - WestComment on above: Performed By: #### CBC #### [facility] [address] [place] [address] Dr. Champ Carson #2.6 103/ulNormal1.2-3.8The [facility] - WestComment on above:Performed By: #### CBC #### [facility] [address] [place] [address] Dr. Yilan ChangLymphocytes/100 WBC (Bld)24.6 %Prqxfv90.5-60.0The [facility] - WestComment on above:Performed By: #### CBC #### [facility] [address] [place] [address] Dr. Champ Shabazz DIFF REQNONormalThe [facility] - WestComment on above: Performed By: #### CBC #### [facility] [address] [place] [address] Dr. Champ Lyles (RBC) [Entitic mass]30.2 rwPjvabj89.9-34.0The [facility] - WestComment on above:Performed By: #### CBC #### [facility] [address] [place] [address] Dr. Champ Lyles (RBC) [Mass/Vol]33.8 g/yCHxkekr86.9-35.2The [facility] - WestComment on above:Performed By: #### CBC #### [facility] [address] [place] [address] Dr. Champ Mccarthy (RBC) [Entitic vol]89.5 lSGabgbc38.0-94.0The [facility] - WestComment on above:Performed By: #### CBC #### [facility] [address] [place] [address] Dr. Champ Castellanos #0.6 103/ulNormal0.3-0.8The [facility] - WestComment on above:Performed By: #### CBC #### [facility] [address] [place] [address] Dr. Champ Michaelocytes/100 WBC (Bld)5.4 %Normal1.7-12.0[facility] [place] Comment on above:Performed By: #### CBC #### [facility] [address] [place] [address] Dr. Champ Fortune #7.1 103/ulCritically high1.4-6.5The [facility] Comment on above:Performed By: #### CBC #### [facility] [address] [place] [address] Dr. Champ Jimutrophils/100 WBC (Bld)66.3 %Agyjjt00.0-75.0The [facility] - WestComment on above:Performed By: #### CBC #### [facility] [address] [address] [address] Champ Carreralet mean volume (Bld) [Entitic vol]10.0 fLNormal9.5-13.5The [facility] - WestComment on above:Performed By: #### CBC #### [facility] [address] [address] [address] Champ JaramilolPLT208 103/zoGbujad610-193Csz [facility] WestCombeaumont hospital on above: Performed By: #### CBC #### [facility] [address] [address] [address] Champ JaramilloRBC4.93 106/ulNormal4.70-6.10The [facility] - WestComment on above:Performed By: #### CBC #### [facility] [address] [address] [address] Champ JaramilloWBC10.6 103/ulNormal4.0-11.0The [facility] - WestComment on above:Performed By: #### CBC #### [facility] [address] [address] [address] Champ StroudDIMERon 89-60-6471O-DIMER0.26 mg/L FEUNormal<=0.59[facility] on above:Performed By: #### DDIM ####[facility] [address] [address]. Champ StroudDIMER COMMENTSSEE BELOWNormalThMary Rutan HospitalCombeaumont hospital on above:Result Comment: Increases in D-Dimer concentration observed with thromboembolic events [...] stress, and generalized hospitalization. Performed By: #### DDIM ####[facility] [address] [address]. Champ Morejon URINE PROFILEon 61-92-1197Upjirlbjt Ql (U)NegativeNormalNEGATIVESelect Medical Specialty Hospital - Southeast OhioComment on above:Performed By: #### KEVIN, ERUR #### [facility] [address] [address] [address] Champ JaramilloClarity (U)CLEARNormalCLEARSelect Medical Specialty Hospital - Southeast OhioComment on above: Performed By: #### KEVIN, ERUR #### [facility] [address] [address] [address] Champ Costa (U)LT. YELLOWNormalYELLOWSelect Medical Specialty Hospital [facility] OhioCombeaumont hospital on above:Performed By: #### KEVIN, ERUR #### [facility] [address] [place] [address] Dr. Champ Marroquin micrscopic examination will be performed if indicated. NormalSelect Medical Specialty Hospital - Southeast OhioComment on above:Performed By: #### KEVIN, ERUR #### [facility] [address] [address] [address] Champ JaramilloGlucose Ql (U)NegativeNormalNEGATIVESelect Medical [facility] OhioCombeaumont hospital on above:Performed By: #### KEVIN, ERUR #### [facility] [address] [address] [address] Champ JaramilloHemoglobin Ql (U)TRACE-INTACTAbnormalNEGATIVESelect Medical Specialty Hospital - Southeast OhioComment on above:Performed By: #### KEVIN, ERUR #### [facility] [address] [address] [address] Champ JaramilloKetones Ql (U)NegativeNormalNEGATIVESelect Medical Specialty Hospital - Southeast [place]Comment on above:Performed By: #### UMCAMDENRO, ERUR #### [facility] [address] [address] [address] Champ JaramilloLEUKOCYTESNegativeNormalNEGATIVESelect Medical Specialty Hospital - Southeast OhioComment on above:Performed By: #### KEVIN, ERUR #### [facility] [address] [address] [address] Champ Flores Ql (U)NegativeNormalNEGATIVEThe [facility] - WestComment on above:Performed By: #### KEVIN, ERUR #### [facility] [address] [address] [address] Champ JaramillopH (U)7.0 [pH]Normal5-9The [facility] - WestComment on above: Performed By: #### KEVIN, ERUR #### [facility] [address] [address] [address] Champ JaramilloSPEC GRAVITY1.907Nxkoqc4.005-<=1.025The [facility] - WestComment on above:Performed By: #### KEVIN, ERUR #### [facility] [address] [place] [address] Dr. Champ JaramilloUA PROTEINNegativeNormalNEGATIVE/ TRACEThe [facility] Comment on above:Performed By: #### KEVIN ERUR #### [facility] [address] [address] [address] Champ LUX INDINDICATEDNormalThe [facility] Hospital - WestComment on above: Performed By: #### KEVIN, ERUR #### [facility] [address] [address] [address] Champ JaramilloUrobilinogen Qn (U)0.2 {Jeannie'U}/dLNormal0.2 - 1.0The [facility] - WestComment on above:Performed By: #### KEVIN, ERUR #### [facility] [address] [address] [address] Champ JaramilloLIPASEon 89-45-9804Nnmixm [Catalytic activity/Vol]62.0 U/L Critically low73.0-393.0The [facility] - WestComment on above:Performed By: #### CMADM, CMP, LIPA #### [facility] [address] [place] [address] Dr. Yilan ChangPROF 14(COMP METB)on 60-92-0561Ylapjpt [Mass/Vol]4.0 g/dLNormal 3.4-5.0The [facility] - WestComment on above:Performed By: #### CMADM, CMP, LIPA #### [facility] [address] [address] [address] Champ JaramilloAlbumin/Globulin [Mass ratio]1.1 {ratio}NormalThe [facility] Hospital - WestComment on above:Performed By: #### CMADM, CMP, LIPA #### [facility] [address] [place] [address] Dr. Champ ReyesP [Catalytic activity/Vol]100 U/THiurcc22-413Cwy [facility] - WestComment on above:Performed By: #### CMADM, CMP, LIPA #### [facility] [address] [place] [address] Dr. Champ ReyesT [Catalytic activity/Vol]60 U/DRopvzc52-68Kdb [facility] WestComment on above:Performed By: #### CMADM, CMP, LIPA #### [facility] [address] [address] [address] Champ Castle gap [Moles/Vol]13.0 mmol/LNormalThe [facility] Comment on above:Performed By: #### CMADM, CMP, LIPA #### [facility] [address] [place] [address] Dr. Champ JaramilloAST [Catalytic activity/Vol]26 U/YCpfncl08-69Psb [facility] WestComment on above:Performed By: #### CMADM, CMP, LIPA #### [facility] [address] [address] [address] Champ JaramilloBilirubin [Mass/Vol]0.6 mg/dLNormal0.2-1.0The [facility] Comment on above:Performed By: #### CMADM, CMP, LIPA #### [facility] [address] [place] [address] Dr. Champ JaramilloCalcium [Mass/Vol]9.0 mg/dLNormal8.5-10.1The [facility] Comment on above:Performed By: #### CMADM, CMP, LIPA #### [facility] [address] [address] [address] Champ JaramilloChloride [Moles/Vol]100 mmol/MEquqkp16-390PmrSelect Medical Specialty [facility] [place] Comment on above:Performed By: #### CMADM, CMP, LIPA #### [facility] [address] [address] [address] Champ JaramilloCO2 [Moles/Vol]26.7 mmol/GEwjlpv33.0-32.0The [facility] Comment on above:Performed By: #### CMADM, CMP, LIPA #### [facility] [address] [place] [address] Dr. Champ JaramilloCreatinine [Mass/Vol]0.91 mg/dLNormal0.70-1.30[facility] Southeast OhioComment on above:Performed By: #### CMADM, CMP, LIPA #### [facility] [address] [address] [address] Champ CoffeyGFR-AF EMIRATI>60Normal>=60The [facility] - WestComment on above:Performed By: #### CMADM, CMP, LIPA #### [facility] [address] [address] [address] Champ Queen-NON AF EMIRATI>60Normal>=60[facility] Southeast OhioComment on above:Performed By: #### CMADM, CMP, LIPA #### [facility] [address] [address] [address] Champ JaramilloGlobulin (S) [Mass/Vol]3.7 g/dLNormalThe [facility] WestComment on above:Performed By: #### CMADM, CMP, LIPA #### [facility] [address] [address] [address] Champ JaramilloGlucose [Mass/Vol]219 mg/dLCritically wlrk15-969Tcp [facility] WestComment on above:Performed By: #### CMADM, CMP, LIPA #### [facility] [address] [place] [address] Dr. Champ JaramilloPotassium [Moles/Vol]3.7 mmol/LNormal3.5-5.1The [facility] Comment on above:Performed By: #### CMADM, CMP, LIPA #### [facility] [address] [address] [address] Champ JaramilloProtein [Mass/Vol]7.7 g/dLNormal6.4-8.2The [facility] Comment on above:Performed By: #### CMADM, CMP, LIPA #### [facility] [address] [address] [address] Champ JaramilloSodium [Moles/Vol]136 mmol/RXdfgly256-558Muo [facility] Comment on above:Performed By: #### CMADM, CMP, LIPA #### [facility] [address] [address] [address] Champ JaramilloUrea nitrogen [Mass/Vol]9.0 mg/dLNormal7.0-18.0The [facility] - WestComment on above:Performed By: #### CMADM, CMP, LIPA #### [facility] [address] [place] [address] Dr. Champ Baum nitrogen/Creatinine [Mass ratio]9.9 mg/mgNoWright-Patterson Medical CenterComment on above:Performed By: #### CMADM, CMP, LIPA #### [facility] [address] [place] [address] Dr. Champ Faustin MICROSCOPIC ONLYon 49-04-2319CIHBONYRKERD SEENNormalNONE SEENSelect Medical Specialty Hospital - Southeast OhioComment on above:Performed By: #### GINNA BROWNR #### [facility] [address] [address] [address] Champ Rosen identified Cx Nom (U)NOT INDICATEDNoWright-Patterson Medical CenterComment on above:Performed By: #### KEVIN, ERUR #### [facility] [address] [place] [address] Dr. Champ Maxwell SEENNormalNONE SEENThe Vero HospitalComment on above:Performed By: #### SHELLIERO, ERUR #### [facility] [address] [address] [address] Champ JaramilloCrystals LM Nom (Urine sed)NONE SEENNormalNONE SEENThe [facility] - WestComment on above:Performed By: #### UMICRO, ERUR #### [facility] [address] [address] [address] Oakes ChangEpithelial cells LM Ql (Urine sed)FEWAbnormalNONE SEEN /RAREThe [facility] - WestComment on above:Performed By: #### SHELLIERO, ERUR #### [facility] [address] [address] [address] Champ MaddenUSNONE SEENNormalNONE SEENSelect Medical Specialty Hospital - [facility] OhioComment on above:Performed By: #### KEVIN, ERUR #### [facility] [address] [address] [address] Champ JaramilloWehxmHHW0-5Vrwegukm8-4Rfy [facility] - WestComment on above:Performed By: #### KEVIN, ERUR #### [facility] [address] [address] [address] Champ JaramilloWBCNONE SEENNormalNONE SEENSelect Medical Specialty [facility] OhioCombeaumont hospital on above: Performed By: #### KEVIN, ERUR #### [facility] [address] [address] [address] Champ JaramilloXR CHEST 2 Von 25-90-9583QX CHEST 2 VEXAM: XR CHEST 2 V EXAM: XR CHEST 2 V INDICATION: 46 years old Male SHORTNESS OF BREATH COMPARISON: None. FINDINGS: The cardiac silhouette is normal. There is no pulmonary edema. The lungs are clear. There is no pneumonia. There is no pneumothorax. There is no abnormal foreign body. IMPRESSION: There is no acute abnormality. Electronically authenticated by: JOSÉ ANTONIO HOANG Date: 2022-03-17 12:31NoWright-Patterson Medical CenterCovid-19 PCR (CVDTBH)on 45-66-7011IIEB-CoV-2 (COVID-19) RNA RAMONITA+probe Ql (Unsp spec)Not detectedNormalNOT DETECTEDThe [facility] Comment on above:Result Comment: This test is not yet approved or cleared by the [place] FDA. When there are no FDA-approved or cleared tests available, and other criteria are met, FDA can make tests available under an emergency access mechanism called an Emergency Use Authorization (EUA). The EUA for this test is supported by the [employer] Operator of Health and Human Service's (HHS's) declaration that circumstances exist to justify the emergency use of in vitro diagnostics for the detection and/or diagnosis of the virus that causes COVID- 19. This EUA will remain in effect (meaning [...] of clinical signs and symptoms consistent with SARS-CoV-2.Performed By: #### CVDTB #### [facility] [address] [place] [address] Dr. Champ Jaramillo Vital Signs Date TimeVital SignValuePerforming EskzgsjenAmphgynb84-88-0246 08:31-0500Body rojtan529.8 cmErick Doll DO Work Phone: [facility]11-12-2025 08:31-0500 Body mass index (BMI) [Ratio]31.8 kg/h2VarleErick Trevizovangie DO Work Phone: [facility]11-12-2025 08:31-0500 Body .69 kgErick Doll DO Work Phone: [facility]11-12-2025 08:31-0500 Diastolic blood jthxugab04 mm[Hg]Erick Doll DO Work Phone: [facility]11-12-2025 08:31-0500 Heart rate92 /minErick Trevizovangie DO Work Phone: [facility]11-12-2025 08:31-0500 SaO2% (BldA) [Mass fraction]96 %Erick Doll DO Work Phone: [phone] [place], [place] 6784911-12-2025 08:31-0500 Systolic blood lduljzho936 mm[Hg]Erick Trevizos DO Work Phone: [phone] [place], [place] 6784910-27-2025 09:05-0400 Body ytqztn497.8 cmErick Trevizos DO Work Phone: [phone] [place], [place] 6784910-27-2025 09:05-0400 Body mass index (BMI) [Ratio]32.5 kg/j7JknqxErick Trevizos DO Work Phone: [phone] [place], [place] 6784910-27-2025 09:05-0400 Body uzikxl741.96 kgErick Trevizos DO Work Phone: [phone] [place], [place] 6784910-27-2025 09:05-0400 Diastolic blood nmrwjuff71 mm[Hg]Erick Trevizos DO Work Phone: [phone])[address] [place], [place] 6784910-27-2025 09:05-0400 Heart rate96 /minErick Doll DO Work Phone: [phone])[address] [place], [place] 6784910-27-2025 09:05-0400 Respiratory rate18 /minErick Trevizos DO Work Phone: [phone] [place], [place] 6784910-27-2025 09:05-0400 SaO2% (BldA) [Mass fraction]99 %Erick Trevizos DO Work Phone: [phone] [place], [place] 6784910-27-2025 09:05-0400 Systolic blood vfyrwgiy419 mm[Hg]Erick Trevizos DO Work Phone: 1(067)[address] [place], [place] 6784909-17-2025 11:04-0400 Body .8 cmErick Trevizos DO Work Phone: [phone])[address] [place], [place] 6784909-17-2025 11:04-0400 Body mass index (BMI) [Ratio]31.1 kg/i5Qptrq Kuns DO Work Phone: [facility]09-17-2025 11:04-0400 Body .42 kgBrymaris Trevizos DO Work Phone: [phone])[address]09-17-2025 11:04-0400 Diastolic blood koobdbbr99 mm[Hg]Erick Kuns DO Work Phone: [phone]09-17-2025 11:04-0400 Heart rate89 /minBryan Kuns DO Work Phone: [phone])[address]09-17-2025 11:04-0400 Respiratory rate18 /minBryan Kuns DO Work Phone: [phone])[address]09-17-2025 11:04-0400 SaO2% (BldA) [Mass fraction]96 %Erick Darryns DO Work Phone: [phone] [place], [place] 1481909-17-2025 11:04-0400 Systolic blood anovhzya909 mm[Hg]Erick Kuns DO Work Phone: [phone] [place], [place] 5658801-31-2025 12:30-0500 Diastolic blood qqsumlad63 mm[Hg]Erick Kuns DO Work Phone: 1([phone] [place], [place] 5658801-31-2025 12:30-0500 Heart rate91 /minBryan Kuns DO Work Phone: [facility]01-31-2025 12:30-0500 Respiratory rate16 /minBryan Kuns DO Work Phone: [phone]01-31-2025 12:30-0500 SaO2% (BldA) [Mass fraction]95 %Erick Kuns DO Work Phone: [phone] [place], [place] 5658801-31-2025 12:30-0500 Systolic blood gtalhlyg926 mm[Hg]Erick Kuns DO Work Phone: [phone] [place], [place] 5658801-31-2025 10:42-0500 Body hvzlxu915.8 cmBryan Kuns DO Work Phone: [facility]01-31-2025 10:42-0500 Body .98 kgErick Trevizos DO Work Phone: [facility]01-02-2025 11:01-0500 Body atwawo392.8 cmErick Trevizos DO Work Phone: [facility]01-02-2025 11:01-0500 Body mass index (BMI) [Ratio]29.9 kg/e7RxedjErick Trevizos DO Work Phone: [address] [place], [place] 1481901-02-2025 11:01-0500 Body amuvoc36.6 kgErick Trevizos DO Work Phone: [phone]12-09-2024 10:14-0500 Body hxddla37.89 kgErick Trevizos DO Work Phone: [facility]12-09-2024 10:14-0500 Diastolic blood wuggbzbx73 mm[Hg]Erick Trevizos DO Work Phone: [facility]12-09-2024 10:14-0500 Heart rate92 /minErick Trevizos DO Work Phone: [facility]12-09-2024 10:14-0500 Respiratory rate18 /minErick Trevizos DO Work Phone: [facility]12-09-2024 10:14-0500 SaO2% (BldA) [Mass fraction]98 %Erick Trevizos DO Work Phone: [facility]12-09-2024 10:14-0500 Systolic blood icxkfhyr437 mm[Hg]Erick Darryns DO Work Phone: [facility]09-17-2024 14:40-0400 Blood Pressure LocationPatrick BECERRA [facility]09-17-2024 14:40-0400Diastolic blood mm[Hg]Jonathon BECERRA [facility]09-17-2024 14:40-0400Heart rate94 /minPatrick BECERRA [facility]09-17-2024 14:40-0400Respiratory rate18 /minPatrick BECERRA [facility]09-17-2024 14:40-0400Systolic blood iqmenqyr045 mm[Hg]Jonathon BECERRA [facility]09-12-2024 16:15-0400Diastolic blood mm[Hg]DO Erick Doll Work Phone: [facility]09-12-2024 16:15-0400 Heart rate92 /Jose Doll Work Phone: [facility]09-12-2024 16:15-0400 Respiratory rate20 /Jose Doll Work Phone: [facility]09-12-2024 16:15-0400 SaO2% (BldA) [Mass fraction]99 %DO Erick Doll Work Phone: [facility]09-12-2024 16:15-0400 Systolic blood mlapfzog283 mm[Hg]DO Erick Doll Work Phone: [facility]09-12-2024 15:19-0400 Body vyyxzaniycd00.4 [degF]DO Erick Doll Work Phone: [facility]09-12-2024 14:54-0400 Inhaled oxygen flow rate8 L/Jose Doll Work Phone: [facility]09-12-2024 12:20-0400 Body vfevpm842.8 cmDO Erick Doll Work Phone: [facility]09-12-2024 12:20-0400 Body emhzam25.98 kgDO Erick Doll Work Phone: [facility]09-11-2024 11:12-0400 Blood Pressure LocationPatrick BECERRA [facility]09-11-2024 11:12-0400Diastolic blood pmhhofry52 mm[Hg]Jonathon BECERRA [facility]09-11-2024 11:12-0400Heart rate92 /minPatrick BECERRA [facility]09-11-2024 11:12-0400Respiratory rate16 /minPatrick BECERRA [facility]09-11-2024 11:12-0400Systolic blood tadvbqrg894 mm[Hg]Jonathon BECERRA [facility]08-06-2024 16:19-0400Body hvitth333.8 cmDO Erick Doll Work Phone: [facility]08-06-2024 16:19-0400 Body mass index (BMI) [Ratio]30.7 kg/m2DO Erick Trevizovangie Work Phone: [facility]08-06-2024 16:19-0400 Body ufdyxi57.06 kgDO Erick Doll Work Phone: [facility]08-06-2024 16:19-0400 Diastolic blood toxluwch04 mm[Hg]DO Erick Doll Work Phone: [facility]08-06-2024 16:19-0400 Heart rate94 /Jose Doll Work Phone: [facility]08-06-2024 16:19-0400 Respiratory rate16 /Jose Doll Work Phone: [facility]08-06-2024 16:19-0400 SaO2% (BldA) [Mass fraction]96 %DO Erick Doll Work Phone: [facility]08-06-2024 16:19-0400 Systolic blood rcviwhuz452 mm[Hg]DO Eirck Doll Work Phone: [facility]07-07-2024 09:15-0400 Body ryicjj015.8 cmDO Erick Doll Work Phone: [facility]07-07-2024 09:15-0400 Body mass index (BMI) [Ratio]30.3 kg/m2DO Erick Doll Work Phone: [facility]07-07-2024 09:15-0400 Body zeqniywudlx50.3 [degF]DO Erick Doll Work Phone: [facility]07-07-2024 09:15-0400 Body fzaqlt36.82 kgDO Erick Doll Work Phone: [facility]07-07-2024 09:15-0400 Diastolic blood hyjrkxij11 mm[Hg]DO Erick Doll Work Phone: [facility]07-07-2024 09:15-0400 Heart rate91 /Jose Doll Work Phone: [facility]07-07-2024 09:15-0400 Respiratory rate16 /Jose Doll Work Phone: [facility]07-07-2024 09:15-0400 SaO2% (BldA) [Mass fraction]98 %DO Erick Doll Work Phone: [facility]07-07-2024 09:15-0400 Systolic blood nparbxnj224 mm[Hg]DO Erick Doll Work Phone: [facility]08-24-2023 12:15-0400 Body linkks146.8 cmErick Trevizovangie Other [employer] Other 08-24-2023 12:15-0400Body mass index (BMI) [Ratio] 31.16 kg/y8EekrzErick Doll Other [employer] Other 08-24-2023 12:15-0400Body upmggo59.52 kgErick Trevizovangie Other [employer] Other 08-24-2023 12:15-0400Diastolic blood xgypflfm16 mm[Hg] Erick Doll Other [employer] Other 08-24-2023 12:15-0400Respiratory rate16 /minErick Doll Other [employer] Other 08-24-2023 12:15-8101EpW4% (BldA) [Mass fraction]95 % Erick Doll Other [employer] Other 08-24-2023 12:15-0400Systolic blood xzsuiodb356 mm[Hg] Erick Doll Other [employer] Other 03-20-2023 15:00-0400Body anzlfw056.8 cmErick Doll Other [employer] Other 03-20-2023 15:00-0400Body mass index (BMI) [Ratio] 34.15 kg/y5Fqtbs Kuns Other [employer] Other 03-20-2023 15:00-0400Body upeuje462.96 kgErick Doll Other [employer] Other 03-20-2023 15:00-0400Diastolic blood quuowsnc62 mm[Hg] Erickmaris Trevizovangie Other [employer] Other 03-20-2023 15:00-0400Respiratory rate16 /minBrymaris Darrynvangie Other [employer] Other 03-20-2023 15:00-2759ScD1% (BldA) [Mass fraction]97 % Erick Darrynvangie Other [employer] Other 03-20-2023 15:00-0400Systolic blood gqchxaqw646 mm[Hg] Erick Doll Other [employer] Other 08-30-2022 17:00-0400Body oujdyb285.8 cmErick Doll Other [employer] Other 08-30-2022 17:00-0400Body mass index (BMI) [Ratio] 33.83 kg/n4Xcdyk Kuns Other [employer] Other 08-30-2022 17:00-0400Body fzxfpo688.96 kgJose Amaris Doll Other [employer] Other 08-30-2022 17:00-0400Diastolic blood tvusujtx35 mm[Hg] Erick Doll Other [employer] Other 08-30-2022 17:00-0400Respiratory rate16 /minErick Doll Other [employer] Other 08-30-2022 17:00-6811KjJ7% (BldA) [Mass fraction]95 % Erick Doll Other [employer] Other 08-30-2022 17:00-0400Systolic blood mm[Hg] Erick Doll Other [employer] Other Encounters Encounter DateEncounter TypeCare ProviderFacilityStart: 08-23-2025 End: 28-85-5012Nvvnmwr encounter procedureDasheldon Bose MD-[facility] Work Phone: Start: 08-23-2025 End: 50-10-1687tatmghxbthKotsu KunsFacility:[facility] Start: 96-01-3519Nhqkjgkbt for general adult medical examination without abnormal findingsErick Oliveira [facility] Physician GroupStart: 94-13-8523Pin- patient / Non-visitGeorge Johnie Cano MD-[facility] Work Phone: Start: 08-07-2025 End: 75-19-3427lxcwbcpldmMrimg Kuns DO Work Phone: -[facility] [place]Start: 08-07-2025 End: 77-37-6184Bpuzeqp encounter procedureErick Lee DO-[facility] Medicine [place] Work Phone: Start: 08-07-2025 End: 81-02-0839Scayuwf encounter statusErick Lee [facility]: 08-03-2025 End: 21-89-7605Fsocqqq encounter procedureGuy Smith DO-[facility] [place] Work Phone: Start: 08-03-2025 End: 18-82-8451cwsniaxbtwIjduh Lavon DO Work Phone: -Lab [place]Start: 06-28-2025 End: 87-05-5596vqekybpvnxJoizq Darryns DO Work Phone: [facility] Work Phone: Start: 06-28-2025 End: 14-51-7805Ikbmsbi encounter procedureGuy Smith DO-[facility] Work Phone: Start: 47-75-4020Cke-patient / Non-visitErick Doll DO Work Phone: [facility] Work Phone: Start: 11-11-2024 End: 72-10-2854Figuxjmni to same day surgery algerErick Doll DO Work Phone: [facility] Work Phone: Start: 11-11-2024 End: 24-97-2081indkmozyrpRtnjn Lavon DO Work Phone: [facility] Work Phone: Start: 11-07-2024 End: 51-07-9504dqssrcgqjrNsdrlzs R WATERSFacility:EU [place]vueStart: 11-07-2024 End: 58-54-9585Bivjhrh encounter procedurePalyndon BECERRA [facility] [place] start: 10-13-2024 End: 60-86-2721Ymbczqi encounter procedureErick Doll DO Work Phone: [facility] Work Phone: Start: 09-19-2024 End: 02-30-8482Txrxuxn encounter procedureErick Doll DO Work Phone: [facility] Work Phone: Start: 06-28-2024 End: 38-16-9140dyemxijkkyCdjpide R WATERSFacility:EU [place]Start: 06-28-2024 End: 58-10-8611Fmatjkh encounter procedureJonathon BECERRA [facility] Start: 06-23-2024 End: 33-61-0051Dngwbafgh to same day surgery centerDO Erick Doll Work Phone: [facility]: 06-23-2024 End: 58-54-0345rmzryalvjuQF Ercik Doll Work Phone: [facility] Work Phone: Start: 06-23-2024 End: 23-21-1385Xhq-SiteJonathon BECERRA [facility] Start: 06-22-2024 End: 51-67-8426xboikztpenIY Erick Doll Work Phone: [facility] Work Phone: Start: 06-22-2024 End: 84-26-8455Ftrhejz encounter procedureDO Erick Doll Work Phone: [facility] [place] Work Phone: Start: 06-22-2024 End: 70-41-5521Gebgfug encounter procedureJonathon BECERRA [facility] Start: 06-22-2024 End: 98-53-2989kllkiihcurQcnvefb R WATERSFacility:EU [place]Start: 06-20-2024 Non-patient / Non-visitDO Erick Doll Work Phone: [facility] Work Phone: Start: 05-17-2024 End: 52-92-3846Uicwqpw encounter procedureDO Erick Doll Work Phone: [facility] Family [facility] [place] Work Phone: Start: 04-17-2024 End: 46-73-9072Zkrusid encounter procedureDO Erick Doll Work Phone: [facility] Work Phone: Start: 10-08-2023 End: 24-38-1380gshfpidugnTfbwy Kuns Other [employer] Other Start: 02-59-0033Ehwuspywj encounterBryan LavonFPG [facility] [place]Start: 10-07-2023 End: 43-14-2055ggilfthbssHhbjl Darryns Other [employer] Other Start: 57-59-2831Fvngjxvyx encounterBrymaris DollFPG [facility] [place]Start: 09-30-2023 End: 21-13-1327qdhpzqyuldZalgg Kuns Other [employer] Other Start: 66-06-7050Yvrcgqojn encounterBryan LavonFP[facility] [place]Start: 09-28-2023 End: 06-12-0535ixdinvcvsoEjrzz Kuns Other [employer] Other Start: 64-02-4395Juddlyvwm encounterBryan DarrynsFPG [facility] [place]Start: 08-31-2023 End: 31-76-3272utdmegplacLsbma Kuns Other [employer] Other Start: 64-74-5178Bheqhncwb encounterBryan KunsFPG [facility] [place]Start: 08-19-2023 End: 27-17-0098hcdkvcmbkdDjnqf Kuns Other [facility] Other Start: 81-00-8958Efzjjyhhz encounterBryan KunsFPG [facility] [place]Start: 08-03-2023 End: 31-55-5440toiefqibumCdcjp Kuns Other [place] [employer] Other Start: 55-68-9909Ltacquynm encounterBryan KunsFPG [facility] [place]Start: 07-29-2023 End: 87-64-6117qzdmfdgowqOeozm Kuns Other [place] [employer] Other Start: 31-45-4025Iequmutaw encounterBryan DarrynsFPG [facility] [place]Start: 06-26-2023 End: 58-27-8464nedfseoacaVbqmo Kuns Other [employer] Other Start: 03-57-9632Eotjgdcup encounterBryan KunsFPG [facility] [place]Start: 06-09-2023 End: 56-13-7187omqpxiucnwCbdrj Kuns Other [employer] Other Start: 22-31-0557Sywvgotpl encounterBryan KunsFPG Family Medicine [place]Start: 52-16-7114Aucwqw outpatient visit 25 minutesBryan KunsFPG Family [facility] [place]Start: 53-34-1420Zawnnhbyl encounterBryan Kuns [facility] [place]Start: 06-04-2023 End: 57-25-0903qztxvspdcjVM Erickmaris Trevizos Work Phone: [employer] Other Start: 06-04-2023 End: 81-45-7109Lxyitmc encounter procedureDO Erick Doll Work Phone: [facility] [place] Work Phone: Start: 06-02-2023 End: 61-52-5870yscdoqtbriMpryv Keller Other no[employer] Other Start: 34-69-1100Kmxkhkcln encounterAmblaurie Pacheco [facility] Silviano RoadStart: 38-46-1906Gxczqgknf encounterBrymaris TrevizosWANDAG Family [facility] [place]Start: 06-01-2023 End: 33-57-2486tkdmymlwiwNM Erick Doll Work Phone: [employer] Other Start: 06-01-2023 End: 66-98-4318Tndzclf encounter procedureDO Erick Doll Work Phone: [facility] [place] Work Phone: Start: 05-29-2023 End: 49-09-3525jdgpcotklhGsais Kuns Other [employer] Softwaresaint [facility] [employer] Other Start: 24-55-1198Vjppucnso encounterBrymaris CurtisG Urgent Care ClydeStart: 01-26-2023 End: 00-25-2302gijnldowvpTpxfl Kuns Other [employer] Other Start: 80-29-2613Jgnvwried encounterBrymaris TrevizosFPG [facility] [place]Start: 01-08-2023 End: 22-27-8617agybltxdmqSczlw Kuns Other [employer] Other Start: 47-16-6991Quamwkafi encounterBryan DarrynsFPG [facility] [place]Start: 01-05-2023 End: 60-94-5246hjnnsinzisMfhyf Darryns Other [employer] Other Start: 33-03-1466Cigethfrb encounterBrymaris TrevizosFPG [facility] [place]Start: 01-01-2023 End: 49-85-1666khmzpjvyrpRF Erick Doll Work Phone: [facility] Work Phone: Start: 01-01-2023 End: 76-75-5147Kwcepsh encounter procedureDO Erick Doll Work Phone: [facility] [place] Work Phone: Start: 12-29-2022 End: 60-23-9617ywukfjdxkbCmfln Kuns Other [employer] Other Start: 71-45-1715Odbrjw outpatient visit 25 minutes Erick TrevizovangieFPG [facility] [place]Start: 58-53-6435Quiktaucy encounterBrymaris DollFPG [facility] [place]Start: 2022 End: 15-86-4871ifxqxxvqopWukvr Kuns Other [employer] Other Start: 94-15-7706Rgouhjnxx encounterBrymaris DollFPG [facility] [place]Start: 06-11-2022 End: 00-44-0179wwaniyxdhoLhpoa Kuns Other [employer] Other Start: 30-33-2809Pgqghnfub encounterBrymaris TrevizosFPG [facility] [place]Start: 06-10-2022 End: 35-70-3486eeyvbkkynzRfaed Kuns Other [employer] Other Start: 44-81-7132Fxaclb outpatient visit 25 minutes Erick DollWANDAAlicia Family Medicine [place]Start: 06-06-2022 End: 00-28-2967Hyythoq encounter procedureDO Erick Doll Work Phone: [facility]-Lab [place]Start: 05-19-2022 End: 14-88-6683xdrwnxdvouUoesh Kuns Other [place] [employer] Other Start: 38-98-8394Iudunfblm encounterErick Choudhary [facility] [place]Start: 04-29-2022 End: 33-81-8470jlxrsdsakmEkjjd Kunvangie Other [place] [employer] Other Start: 19-06-5395Tentwzikt encounterBrymaris CurtisG Family Medicine [place]Start: 04-01-2022 End: 18-93-3579nvrkjguzlhFH ERICK DARRYNVangieFacility:V1Nmgke: 03-17-2022 End: 60-19-7165dboacnjvzwUJ JOSEPHINE LANCASTERFacility:T7Zwnha: 10-22-2021 End: 43-01-0817aobmxrolhdBS ERICK LAVONFacility:H1 Procedures DateProcedureProcedure DetailPerforming ClinicianStart: 80-53-2203Ejjjjeywybs Erick Doll DO Work Phone: Start: 96-27-9425Vjiqucbztgh removal of ureteric stent Jonathon BECERRA Start: 67-15-2420ObrrtotmkfSJ Erick Doll Work Phone: Start: 55-52-6805Xehzrhhgjy radiography of abdomenDO Erick Doll Work Phone: Start: 98-90-8556Hpsgnjzqmvd using laserPatrick HERNAN Start: 48-86-2227TqeofeovjhkGiikgbe BECERRA Start: 36-29-2849QqfctaauagcZibxntq HERNAN Start: 00-49-2254Suqvkjxbchi aspiration of renal cyst Jonathon BECERRA ColonoscopyJonathon BECERRA Plan of Treatment DateCare ActivityDetailAuthorStart: 13-27-9550Wuaxrkznbnxzl metabolic 1999 panel - Serum or PlasmaUniversity Hospitals Health Systemtart: 28-52-9404McvmnbrtnUniversity Hospitals Health Systemtart: 85-02-0272LeabcluexUniversity Hospitals Health Systemtart: 54-81-4534KpdfxqmjrUniversity Hospitals Health Systemtart: 96-64-6601HlaikowbiUniversity Hospitals Health Systemtart: 12-67-8127Izpnnvtiic radiography of abdomenSelect Medical [facility] Rehabilitation HospitalAlbumin/Globulin ratioSelect Medical Trihealth Rehabilitation Hospital Anion gap measurementSelect Medical Trihealth Rehabilitation HospitalBasophils [#/volume] in Blood by Automated [facility] HospitalBasophils/100 leukocytes in Blood by Automated [facility] Comprehensive metabolic 1999 panel - Serum or PlasmaSelect Medical Trihealth Rehabilitation HospitalEosinophils/100 leukocytes in Blood by Automated [facility] HospitalErythrocyte distribution width [Ratio] by Automated [facility] HospitalErythrocytes [#/volume] in BloodSelect Medical Trihealth Rehabilitation HospitalGlobulin [Mass/volume] in SerumSelect Medical Trihealth Rehabilitation Hospital Glomerular filtration rate [Volume Rate/Area] in Serum, Plasma or Blood by CreatinineSelect Medical Trihealth Rehabilitation HospitalGlucose measurement estimated from glycated hemoglobinSelect Medical Trihealth Rehabilitation HospitalHematocrit [Volume Fraction] of BloodSelect Medical Trihealth Rehabilitation HospitalHemoglobin [Mass/volume] in Blood [facility] HospitalHemoglobin A1c/Hemoglobin.total in Blood [facility] HospitalLeukocytes [#/volume] corrected for nucleated erythrocytes in Blood by Automated counSelect Medical Trihealth Rehabilitation Hospital Leukocytes [#/volume] in [facility] HospitalLymphocytes [#/volume] in Blood by Automated countSelect Medical Trihealth Rehabilitation Hospital Lymphocytes/100 leukocytes in Blood by Automated [facility] HospitalMCH [Entitic mass] by Automated [facility] MCHC [Mass/volume] by Automated countSelect Medical Trihealth Rehabilitation HospitalMCV [Entitic volume] by Automated [facility] HospitalMonocytes [#/volume] in Blood by Automated [facility] Monocytes/100 leukocytes in Blood by Automated [facility] HospitalNeutrophils [#/volume] in Blood by Automated [facility] HospitalNeutrophils/100 leukocytes in Blood by Automated [facility] HospitalNucleated erythrocytes [Presence] in Blood by Automated [facility] HospitalPatient EducationAvita Health System Ctr Work Phone: Patient referralAvita Health System Ctr Work Phone: Platelet mean volume [Entitic volume] in Blood by Automated [facility] HospitalPlatelets [#/volume] in Blood [facility] HospitalTestosterone Free [Mass/volume] in Serum or PlasmaSelect Medical Trihealth Rehabilitation HospitalTestosterone Free [Mass/volume] in Serum or PlasmaSelect Medical Trihealth Rehabilitation HospitalTestosterone Free [Mass/volume] in Serum or PlasmaCentury City Hospital Immunizations Immunization DateImmunizationNotesCare ZdszaxzsYouacdmb65-66-6557XVOBY-31 mRNA, Comirnaty (Pfizer)Erick Doll DO Work Phone: [facility]09-08-2021COVID-19 Vaccine Pfizer - Documentation Purposes OnlyErick Doll Other [facility]10-31-2018influenza, injectable, quadrivalent, preservative freeDO Erick Doll Work Phone: [facility]10-31-2018influenza, injectable, quadrivalent, contains preservativeErick Doll Other [facility] HospitalNEGATED: Highlighted row has not occurred!54-43-3184ptntkqwdb, seasonal, injectablePatient Objection Erick Doll Other [facility] Payers DatePayer CategoryPayerPolicy [id number] 2.840.1.172577.3.57[id number] 2..1.366834.3.579.[id number] 2..1.194815.3.579.[id number] 2..1.791128.3.579.[id number] 2..1.932493.3.57[id number] 2..1.081227.3.579.[id number] 2..1.153454.3.579.[id number] xaqq150i-7h72-66m9-361d-[id number] 2..1.7835[id number] 2..1.392484.3.579.2.531 [id number] 2..1.401[id number] 2..1.044763.3.579.2.531 Social History DateTypeDetailFacilityUnknown if ever smokedThe [facility] Work Phone: [facility] Start: 09-37-5909Vkt Assigned At [facility] Start: 04-17-2024 End: 40-33-6134Jrgxhdd smoking status NHISNever smoked tobacco (finding) [facility] Systemtart: 06-22-2024 End: 68-70-7008Nkaekic smoking statusEx-smoker (finding)[facility] SandlindenyTobacco smoking statusNeverExec[facility] SanduskyStart: 39-67-3269Leatbys smoking status NHISCurrent Light tobacco smokerUniversity Hospitals Health Systemtart: 24-28-0355MymBsijkyq sex unknown (finding)[facility] Systemex Male (finding)[facility] Medical Equipment Procedure CodeEquipment CodeEquipment Original TextEquipment IdentifierDates Cystoscopy, with ureteral calculus manipulation and stent placementPolymeric ureteral [id number] FDAStart: 06-23-2024 Start: 49-31-7753NkrnqleXgohu: 24-48-5530Vgyg stripsStart: 10-26-1031Yihhasa Start: 65-13-7726Nxqd stripsStart: 02-24-8342BadwrmkCjjen: 59-36-5588Gahi strips Start: 82-81-7530XxsfysuJuief: 36-09-4745Mzxa stripsStart: 62-77-8045Lnwodso Start: 97-11-7019Vnwr stripsStart: 63-01-9530DsbvbusYohwk: 01-95-4318Opff strips Start: 46-89-6018BmataghFdfdo: 37-61-4314Msor stripsStart: 69-30-0485Jwusoeu Start: 69-88-0373Ddbf stripsStart: 12-10-2023 Goals DatePatient GoalDesired Activity/State Functional Status SmylJqhzulwnkdNshxctKjvsiwdv63-14-0129Dwlgvhdupj StatusN/AExec[facility]09-11-2024Functional StatusN/AExec[facility] Clinical Notes 07-12-2014 to 08-07-2025 Note Date & AkmqYwnvApmaqbgx08-08-9113 Evaluation note* Author Griselda [facility] 2024 9:08amThe above note written by Griselda HENAO acting as human recorder, note dictated by Dr. Erick Doll. [facility] Work Phone: 1(195) 707-774810-27-2025 Evaluation note* Author Griselda [facility]ough[facility] 2024 8:08amThe above note written by Griselda HENAO acting as human recorder, note dictated by Dr. Erick Doll. [facility] Work Phone: 1(135) 184-245809-17-2025 Evaluation note* Diagnosis Onset Date Resolution Status Admit Date Abdominal muscle strain acuteSeptember 2024 10:48amIntolerance to BiPAP/CPAPacuteSeptember 2024 10:48amOSA (obstructive sleep apnea)acuteSeptember 2024 10:48am [facility] Work Phone: 1(450) 141-428001-31-2025 [place] [address] Colonoscopy Procedure Report Signed Patient: Luis A Hi MR#: [id number] : 1975 Acct:[id number] Age/Sex: 49 / M Adm Date: 5 Loc: Room: Type: [facility] Attending Dr: Eliana Vides DO Copies to: DO Eliana oRdas DO~ Colonoscopy Date/Provider 11/11/2024 Eliana Vides DO Narrative Procedure: Colonoscopy with jumbo forceps polypectomy Indication: Personal hx of colon polyps, rectal pain and bleeding. Last colonscopy 7 yrs ago. Pre-operative diagnosis: Personal hx of colon polyps, rectal pain and bleeding Post-operative diagnosis: one polyp removed, scattered diverticulosis, internal hemorrhoids, otherwise normal colon and TI. Sedation: propofol per anesthesia dept O2 oximetry, hemodynamic monitoring was performed pre, during, and post procedure. Patient was identified, H&P completed, patient was given full explanation of the procedure as well as associatedrisks and written consent wasobtained prior to procedure. Patient expressed complete understanding of the procedure as well as alternatives to the procedure and to anesthesia and agreed to proceed with the procedure as indicated. Patient was immediately reassessed prior to IV sedation. Under IV sedation, patient was placed in the left lateral decubitus position. Digital rectal exam was performed and normal. Colonoscope was inserted and passed proximally to the cecum, which was identified by the ileocecal valve, appendiceal orifice and cecal floor. The terminal ileum was intubatedand examined. Colonoscope was slowly withdrawn with the findings as below. [place] bowel prep score was adequate. Findings: Terminal ileum: normal Cecum: Normal. Ascending colon: Normal. Hepatic flexure: Normal. Transverse colon: Normal. Splenic flexure: Normal. Descending colon: scattered diverticulosis Sigmoid colon: 3 mm sessile polyp removed with jumbo forceps and sent to pathology. scattered diverticulosis. Rectum: Normal. Retroflexed views: Rectum did show small internal hemorrhoids. Biopsy taken: Yes Complications: None EBL: Minimal Recommendations: -Repeat colonoscopy in 5 yrs -Follow up pathology -Fiber rich diet -Follow up in the office as needed -Follow up with PCP Following a period of recovery, patient was seen and given full explanation of the procedure. Patient tolerated the procedure well and will be discharged in satisfactory, stable condition. Eliana Vides DO Documented By: Eliana Vides DO 11/11/24 1103 Signed By: 11/11/24 [facility]9 [facility]01-31-2025 [place] [address] Gastroenterology H&P Signed Patient: Luis A Hi MR#: [id number] : 1975 Acct:[id number] Age/Sex: 49 / M Adm Date: 5 Loc: Room: Type: [facility] Attending Dr: Eliana Vides DO Copies to: DO Eliana Rodas DO~ Date of Service: 11/11/2024 HISTORY & PHYSICAL: Patient's history with special attention to the cardiovascular, pulmonary systems and the current problem was reviewed with the patient immediately prior to the procedure. Present medications and doses reviewed in the EMR. Allergies and pertinent laboratory tests were also re viewedat this time in the EMR. The physical examination, as below, was then performed. Indication, assessment and HPI: 49-year-old male who presents for colonoscopy for personal history of colon polyps, rectal pain, rectal bleeding. Last colonoscopy 7 years ago. Family history of Crohn's disease but no family history of GI malignancy. Family history of GI malignancy? No PHYSICAL EXAMINATION General appearance: cooperative, NAD Skin: No jaundice, no rash or lesions Head: NCAT Eyes: Anicteric Neck: Supple Lungs: Normal respiratory effort, no use of accessory muscles Abdomen: Soft, nondistended Neuro: No focal deficits, Ox3. REVIEW OF SYSTEMS Constitutional: Denies malaise, fevers Cardiovascular: Denies chest pain, palpitations Respiratory: Denies shortness of breath, wheezing Gastrointestinal: As per HPI Genitourinary: Denies dysuria, polyuria Musculoskeletal: Denies joint swelling, joint stiffness Neurological: Denies confusion, numbness, tingling Endocrine: Denies fatigue Written informed consent obtained from the patient. Risks (including but not limited to perforation, infection, bloating, bleeding, need for emergent surgeryand loss of life), benefits and alternatives explained and questions answered. The patient verbalized understanding. Based on history patient is an appropriate candidate for the procedure. Eliana Vides DO Present medication and doses reviewed in the EMR Documented By: Eliana Vides DO 11/11/24 1102 Signed By: 11/11/24 1134 [facility]12-09-2024 Evaluation note* Diagnosis Onset Date Resolution Status Admit Date Blood in stool acuteDece2023 9:24amChange in bowel movementacutece2023 9:24amPain with bowel movementsacuteceph[facility] 2023 9:24amBlood in stoolacute October 13, 2024 10:58amHistory of colon polypsacuteOctober 13, 2024 10:58am Rectal painacuteOctober 13, 2024 10:58am [facility] Work Phone: 1(551) 904-513209-17-2024 Hospital Discharge instructions Follow Up Care 06/28/2024 14:53:30 With:HERNAN FARR, Jonathon Loza, URL Address: [facility] [address], [place] [address]- [phone] When: Unknown [facility] 09-17-2024 Hospital Discharge instructions Patient Education 06/28/2024 14:47:57 24-Hour Urine Collection 24-Hour Urine Collection Why am I having this test? A 24-hour urine specimen is a lab test that requires you to collect all of your urine for an entireday. This is sometimes called a timed urine test. It can provide more information than a single urine sample. There are many reasons to have this test. Your health care provider may order the test to check foror monitor the following conditions: High blood pressure. Kidney disease. Kidney stones. Urinary tract infections. . Diabetes. How do I prepare for this test? You may be asked to follow a special diet during or before the collection period. Follow any instructions from your health care provider. If no special instructions are given, you may eat and drink normally. Take hpuo-usm-sdcqczk and prescription medicines only as told by your health care provider. Let your health care provider know about any medicines that you are taking, including jloj-tvb-kaamelq medicines, vitamins, herbs, and supplements. Choose a collection day when you can be at home or when you have a place to store the urine. All urine must be collected during the testing period. How do I do a 24-hour urine collection? When you get up in the morning, urinate in the toilet and flush. Write down the time. This will be your start time on the day of collection and your end time on the next morning. From the start time on, all of your urine should be kept in the collection jug that you received from the lab. If the jug that is given to you already has liquid in it, that is okay. Do not throw out the liquidor rinse out the jug. Urinate into a specimen container, such as a urinal or segura that sits over the toilet. Pour the urine from the container into the collection jug. Be careful not to spill any of the urine. Use the equipment provided by the lab. Do not let any toilet paper or stool (feces) get into the jug. This will contaminate the sample. Stop collecting your urine 24 hours after you started. Collect the last specimen as close as possible to the end of the 24-hour period. Keep the jug cool in an ice chest or keep it in the refrigerator during collection. When the 24-hour collection is complete, take the jug to the lab as soon as possible. Keep the jug cool in an ice chest while you are bringing it to the lab. What do the results mean? Talk with your health care provider about what your results mean. Questions to ask your health care provider Ask your health care provider, or the department that is doing the test: When will my results be ready? How will I get my results? What are my treatment options? What other tests do I need? What are my next steps? Summary A 24-hour urine specimen is a lab test that requires you to collect all of your urine for an entireday. When you get up in the morning, urinate in the toilet and flush. Write down the time. For the next 24 hours, collect all of your urine in the collection jug that you received from the lab. Keep the jug cool while collecting the urine and while bringing it back to the lab. Take the jug of urine back to the lab as soon as possible after the collection period has ended. This information is not intended to replace advice given to you by your health care provider. Make sure you discuss any questions you have with your health care provider. Document Revised: 04/04/2022 Document Reviewed: 04/04/2022 [employer] Patient Education 2023 [employer]. Follow Up Care 06/24/2024 12:34:43 With:HERNAN FARR, Jonathon Loza, URL Address: [facility] [address] , [place] [address]- When: Unknown [facility] 09-17-2024 NotePatient Education Urology 24-Hour Urine Collection Why am I having this test? A 24-hour urine specimen is a lab test that requires you to collect all of your urine for an entireday. This is sometimes called a timed urine test. It can provide more information than a single urine sample. There are many reasons to have this test. Your health care provider may order the test to check foror monitor the following conditions: ? High blood pressure. ? Kidney disease. ? Kidney stones. ? Urinary tract infections. ? . ? Diabetes. How do I prepare for this test? ? You may be asked to follow a special diet during or before the collection period. Follow any instructions from your health care provider. If no special instructions are given, you may eat and drinknormally. ? Take brkx-qdz-uwofqja and prescription medicines only as told by your health care provider. ? Let your health care provider know about any medicines that you are taking, including otrm-qut-bokykit medicines, vitamins, herbs, and supplements. ? Choose a collection day when you can be at home or when you have a place to store the urine. All urine must be collected during the testing period. How do I do a 24-hour urine collection? ? When you get up in the morning, urinate in the toilet and flush. Write down the time. This will be your start time on the day of collection and your end time on the next morning. ? From the start time on, all of your urine should be kept in the collection jug that you received from the lab. ? If the jug that is given to you already has liquid in it, that is okay. Do not throw out the liquid or rinse out the jug. ? Urinate into a specimen container, such as a urinal or segura that sits over the toilet. Pour the urine from the container into the collection jug. Be careful not to spill any of the urine. Use the equipment provided by the lab. ? Do not let any toilet paper or stool (feces) get into the jug. This will contaminate the sample. ? Stop collecting your urine 24 hours after you started. Collect the last specimen as close as possible to the end of the 24-hour period. ? Keep the jug cool in an ice chest or keep it in the refrigerator during collection. ? When the 24-hour collection is complete, take the jug to the lab as soon as possible. Keep the jug cool in an ice chest while you are bringing it to the lab. What do the results mean? Talk with your health care provider about what your results mean. Questions to ask your health care provider Ask your health care provider, or the department that is doing the test: ? When will my results be ready? ? How will I get my results? ? What are my treatment options? ? What other tests do I need? ? What are my next steps? Summary ? A 24-hour urine specimen is a lab test that requires you to collect all of your urine for an entire day. ? When you get up in the morning, urinate in the toilet and flush. Write down the time. For the next 24 hours, collect all of your urine in the collection jug that you received from the lab. ? Keep the jug cool while collecting the urine and while bringing it back to the lab. ? Take the jug of urine back to the lab as soon as possible after the collection period has ended. This information is not intended to replace advice given to you by your health care provider. Make sure you discuss any questions you have with your health care provider. Document Revised: 04/04/2022 Document Reviewed: 04/04/2022 [employer] Patient Education ? 2023 [employer].[facility] 06-22-2024 Hospital Discharge instructions Patient Education 06/22/2024 11:54:51 ESWL for [...] Follow these instructions at home: Medicines Take kqzj-odr-lmydekk and prescription medicines only as told by [...] actions to prevent or treat constipation: ?Take vgmj-jox-ojuzqbe or prescription medicines. ?Eat foods that are [...] provider. Document Revised: 01/29/2023 Document Reviewed: 01/29/2023 [employer] Patient Education 2023 [employer]. 06/22/2024 11:54:50 ESWL for Kidney Stones ESWL [...] including vitamins, herbs, eye drops, creams, and hzod-yhd-dpoaxpf medicines. Any problems you or family members [...] These include any diabetes medicines or blood thinnersyou take. Taking medicines such as aspirin and ibuprofen. These medicines can thin your blood. Do not take them unless your health care provider tells you to. Taking dujv-sln-usntmgr medicines, vitamins, herbs, and supplements. Tests You [...] blood oxygen level will be monitored until youleave the hospital or clinic. You may have an X-ray after the procedure to see how many of the kidney stones were broken up. Thiswill also show how much of the stone [...] provider. Document Revised: 01/29/2023 Document Reviewed: 01/29/2023 [employer] Patient Education 2023 [employer]. Follow Up Care 06/22/2024 09:07:45 With:HERNAN FARR, Jonathon Loza, URL Address: [facility] [address] , [place] [address]- When: Unknown [facility] 09-11-2024 NotePatient Education Nephrology ESWL for Kidney Stones, Care [...] these instructions at home: Medicines ? Take srkd-afl-dtfbmkt and prescription medicines only as told by [...] to prevent or treat constipation: ? Take bhbq-koy-wvisgab or prescription medicines. ? Eat foods that [...] drink. Check ingredients and nutrition facts on packagedfoods and drinks to see how much sodium they contain. ? Reduce how much meat you eat. ? Drink enough fluid to keep your urine pale yellow. This can help you pass any pieces of the stonethat are left. It can also prevent new [...] take short walks every 1?2 hours. This isimportant to improve blood flow and breathing. Ask [...] stones that are found may be sent toa medical lab for examination. The stone may [...] Reviewed: 01/29/2023 Aditya Crook (more content not included)...[facility] 10-08-2023 Evaluation note* Encounter Date Diagnosis Assessment Notes Treatment Notes Treatment Clinical Notes Sep, Lack of concentration (ICD-10 - R41.840) [email or web address] Other 11-08-2023 Evaluation note* Encounter Date Diagnosis Assessment Notes Treatment Notes Treatment Clinical Notes Aug, Diabetes mellitus (ICD-10 - E11. 9) Aug,Hypertension (ICD-10 - I10) Aug,Hyperlipidemia (ICD-10 - E78.5) [email or web address] Other 10-23-2023 Evaluation note* Encounter Date Diagnosis Assessment Notes Treatment Notes Treatment Clinical Notes Jul, Diabetes mellitus (ICD-10 - E11. 9) [email or web address] Other 10-18-2023 Evaluation note* Encounter Date Diagnosis Assessment Notes Treatment Notes Treatment Clinical Notes Jul, Diabetes mellitus (ICD-10 - E11. 9) [email or web address] Other 09-15-2023 Evaluation note* Encounter Date Diagnosis Assessment Notes Treatment Notes Treatment Clinical Notes Jun, Diabetes mellitus (ICD-10 - E11. 9) [email or web address] Other 08-29-2023 Evaluation note* Encounter Date Diagnosis Assessment Notes Treatment Notes Treatment Clinical Notes May, Lack of concentration (ICD-10 - R41.840) [email or web address] Other 08-24-2023 Evaluation note* Encounter Date Diagnosis Assessment Notes Treatment Notes Treatment Clinical Notes May, Insect bite (nonveno mous), left foot, initial encounter (ICD-10 - S90.862A) The above lab ordered to rule out lyme disease. I advised if this is positive, the lyme disease canbe treated. He is to continue using the triamcinilone cream for this. May,itten or stung by nonvenomous insect and other nonvenomous arthropods, initial encounter (ICD-10 -W57.XXXA) May,oison nellie dermatitis (ICD-10 - L23.7) Pt is to continue with the above medications and monitor for s/s of infection. May,iabetes mellitus (ICD-10 - E11.9) Review of pt's labs reveal improved A1C. I advised he does appear to be doing well, and he should continue with the above medications. Encouraged to watch diet and increase exercise regimen; we will continue to monitor. May,Hyperlipidemia (ICD-10 - E78.5) Review of blood work which revealed no signs of anemia, leukemia, or infection. Liver, kidney, and thyroid function is normal, as well as electrolytes and blood sugar. His lipids have improved, and his triglycerides are doing significantly better. Pt is to continue with the above medication and continue watching their diet and increase their exercise regimen. May,Leukocytosis, unspecified type (ICD-10 - D72.829) Review of laboratory results and I advised this is very likely due to his active rashes. We will continue to monitor. May,Fatigue, unspecified type (ICD-10 - R53.83) May,MI 31.0-31.9,adult (ICD-10 - Z68.31) Pt's BMI has improved from before he was on the Ozempic, when it was over 34. Encouraged to watch diet and increase exercise regimen; we will continue to monitor. [email or web address] Other 08-21-2023 Evaluation note* Encounter Date Diagnosis Assessment Notes Treatment Notes Treatment Clinical Notes May, Diabetes mellitus (ICD-10 - E11. 9) [email or web address] Other 03-27-2023 Evaluation note* Encounter Date Diagnosis Assessment Notes Treatment Notes Treatment Clinical Notes Dec, History of kidney stones (ICD-10 - Z87.442) Dec,Lower abdominal pain (ICD-10 - R10.30) Dec,Right flank pain (ICD-10 - R10.9) Dec,Hematuria (ICD-10 - R31.9) [email or web address] Other 03-20-2023 Evaluation note* Encounter Date Diagnosis Assessment Notes Treatment Notes Treatment Clinical Notes Dec, Diabetes mellitus (ICD-10 - E11. 9) Pt's A1C was collected in house and [...] exercise regimen; we will continue to monitor. Dec,Lower abdominal pain (ICD-10 - R10.30) The above lab performed in house and the result was reviewed with him. CT ordered today to further investigate this. I did also provide the above medication. We will continue to monitor. Dec,Right flank pain (ICD-10 - R10.9) CT ordered today to further investigate this. We will continue to monitor. Dec,History of kidney stones (ICD-10 - Z87.442) Pt has had two lithrotripsies with Dr. Becerra and Dr. Zhang. He expresses his displeasure with [facility], therefore I did recommend a referral to Dr. Ashton instead, or ordering an abdominal CT. CT was ordered, and we will discuss a referral at a later date. Dec,Hyperlipidemia (ICD-10 - E78.5) The above blood work ordered today. Encouraged to watch diet and increase exercise regimen; we willcontinue to monitor. Dec,Hypertension (ICD-10 - I10) Dec,Fatigue, unspecified type (ICD-10 - R53.83) Dec,Low libido (ICD-10 - R68.82) The above labs ordered today, and we will continue to monitor. Dec,Obesity, unspecified (ICD-10 - E66.9) I did advise Ozempic will likely help him lose weight. Encouraged to watch diet and increase exercise regimen; we will continue to monitor. Dec,ody mass index [BMI] 34.0-34.9, adult (ICD-10 - Z68.34) Dec,Hematuria (ICD-10 - R31.9) This was noted on pt's UA today. I advised this is likely due to a kidney stone. CT ordered today to further investigate this. We will continue to monitor. Dec,OSA (obstructive sleep apnea) (ICD-10 - G47.33) Patient uses Cpap nightly and benefits from the use of this. [email or web address] Other 12-16-2022 Evaluation note* Encounter Date Diagnosis Assessment Notes Treatment Notes Treatment Clinical Notes Sep, Anxiety with depression (ICD-10 - F41.8) Sep,iabetes mellitus (ICD-10 - E11.9) [email or web address] Other 08-30-2022 Evaluation note* Encounter Date Diagnosis Assessment Notes Treatment Notes Treatment Clinical Notes May, Diabetes mellitus (ICD-10 - E11. 9) Reviewed blood work results with the patient. Fasting glucose was 219 and the A1C was 7.9. An increase from last check at 7.3. The patient does admit he does not take the metformin twice a day. Strongly encouraged the patient to start taking metformin twice a day and monitor diet. We will recheck in 6 months. May,Hyperlipidemia (ICD-10 - E78.5) Cholesterol levels have increased from last check. Advised the patient to monitor diet and increaseexercise. May,leep apnea (ICD-10 - G47.30) The patient continues to benefit from using the cpap at bedtime. I did sign an order for the patient to get a new cpap machine as his did stop working recently. May,Gilberts syndrome (ICD-10 - E80.4) Noted upon review of blood work results. [email or web address] Other 08-08-2022 Evaluation note* Encounter Date Diagnosis Assessment Notes Treatment Notes Treatment Clinical Notes May, Diabetes mellitus (ICD-10 - E11. 9) May,Hyperlipidemia (ICD-10 - E78.5) May,Hypertension (ICD-10 - I10) [email or web address] Other 07-19-2022 Evaluation note* Encounter Date Diagnosis Assessment Notes Treatment Notes Treatment Clinical Notes Apr, Anxiety with depression (ICD-10 - F41.8) Apr,Hyperlipidemia (ICD-10 - E78.5) Apr,2Diabetes mellitus (ICD-10 - E11.9) Apr,creening for prostate cancer (ICD-10 - Z12.5) [email or web address] Other 10-01-2014 History general Narrative - Reported* Type Description Date Medical History sleep apnea Medical HistoryCT abdomen 07/2014Medical HistoryEGD, Colonoscopy 01[facility] [facility] stonesMedical Dxkvygo80/18/18 PSA (0.8)Medical HistoryDMMedical Nzaqayx36/12/19 [place] [facility] [place] PSA ( 0.6) Medical HistoryAnxiety and DepressionMedical Vehnsim7406/06/2022 PSA (0.520) Surgical Ntpxhvwcxwcwaoinu00/2014Surgical Historycyst on left ilzrym26/2014 Surgical Historycolonoscopy/EGD4/2014Surgical Historypilonidal cystSurgical Rnfzboqedctrqnegem79-8790Pajmvlfldzntucm HistorySee AboveHospitalization History Heart Issues/Side Effects of [facility]03/2019 [place] [facility] Other Evaluation + Plan note No data available for this section [facility] Evaluation + Plan note Future Appointments Appointment Date:09/19/2024 02:30:00 PM Scheduled Provider:Jonathon BECERRA MD Location:[facility] Appointment Type:URO Office Visit [facility] Evaluation noteNo InformationNortExcela Health [facility] Other Evaluation noteNo assessment information available [facility] Work Phone: Evaluation note* Diagnosis Onset Date Resolution Status Poison nellie dermatitis acuteConcentration deficitacuteDiabetes mellitusacuteHematuriaacuteLateral epicondylitis of elbowacuteShift work sleep disorderacute [facility] Work Phone: Evaluation note* Diagnosis Onset Date Resolution Status Admit Date Abdominal muscle strain acuteSeptember 2024 10:48am [facility] Work Phone: Evaluation note* Author Griselda Figueredo [facility] HospitalAuthoredOctober 2024 9:08amThe above note written by Griselda Figueredo Karen acting as human recorder, note dictated by Dr. Erick Doll. [facility] Work Phone: History and physical note Author Eliana Vides [facility] HospitalNote Date/TimeJanuary 2024 11:34am [place] [address] Gastroenterology H&P Signed Patient: Luis A Hi MR#: [id number] : 1975 Acct:[id number] Age/Sex: 49 / M Adm Date: 5 Loc: Room: Type: [facility] Attending Dr: Eliana Vides DO Copies to: DO Eliana Rodas DO~ Date of Service: 11/11/2024 HISTORY & PHYSICAL: Patient's history with special attention to the cardiovascular, pulmonary systems and the current problem was reviewed with the patient immediately prior to the procedure. Present medications and doses reviewed in the EMR. Allergies and pertinent laboratory tests were also re viewedat this time in the EMR. The physical examination, as below, was then performed. Indication, assessment and HPI: 49-year-old male who presents for colonoscopy for personal history of colon polyps, rectal pain, rectal bleeding. Last colonoscopy 7 years ago. Family history of Crohn's disease but no family history of GI malignancy. Family history of GI malignancy? No PHYSICAL EXAMINATION General appearance: cooperative, NAD Skin: No jaundice, no rash or lesions Head: NCAT Eyes: Anicteric Neck: Supple Lungs: Normal respiratory effort, no use of accessory muscles Abdomen: Soft, nondistended Neuro: No focal deficits, Ox3. REVIEW OF SYSTEMS Constitutional: Denies malaise, fevers Cardiovascular: Denies chest pain, palpitations Respiratory: Denies shortness of breath, wheezing Gastrointestinal: As per HPI Genitourinary: Denies dysuria, polyuria Musculoskeletal: Denies joint swelling, joint stiffness Neurological: Denies confusion, numbness, tingling Endocrine: Denies fatigue Written informed consent obtained from the patient. Risks (including but not limited to perforation, infection, bloating, bleeding, need for emergent surgeryand loss of life), benefits and alternatives explained and questions answered. The patient verbalized understanding. Based on history patient is an appropriate candidate for the procedure. Eliana Vides DO Present medication and doses reviewed in the EMR Documented By: Eliana Vides DO 11/11/24 1102 Signed By: <Electronically signed by Eliana Vides DO> 11/11/24 1134 [facility] Work Phone: Hospital Discharge instructions Additional Instructions [...] the office to arrange a follow up appointment.[facility] Work Phone: Hospital Discharge instructions No data available for this section [facility] Progress note No data available for this section [facility] Reason for referral (narrative)No reason for referral information availableSelect [facility] Work Phone: Summary Purpose Family History Relationship Condition Age at Onset Recorded Date/T [place] brother Diabetes mellitus Unknown fatherHypertensionUnknown Advance Directives Advance Directive Response Recorded Date/ Time Advance Directives No August 20, 2017 9:58am Advance Directive Response Recorded Date/ Time Advance Directives No November 02, 2023 12:21pm Advance Directive Response Recorded Date/ Time Advance Directives No November 02, 2023 11:21am Chief Complaint and Reason for Visit Chief Complaint e78.5 Chief Complaint e78.5 r68.82 Chief Complaint R68.82 E78.5 D72.829 E11.9 E80.4 Chief Complaint Rash on wrist 3 month follow up A1c N20.0Reason for VisitPoison nellie dermatitis Concentration deficit Diabetes mellitus Hematuria Lateral epicondylitis of elbow Shift work sleep disorder Chief Complaint Rash on wrist 3 month follow up A1c N20.0 Right Kidney StoneReason for VisitPoison nellie dermatitis Concentration deficit Diabetes mellitus Hematuria Lateral epicondylitis of elbow Shift work sleep disorder Chief Complaint Admit Date review testing/stool September 19, 2024 9:24am Refer: abd pain/diarrhea/melena October 13, 2024 10:58am hx of colonpolyps November 11, 2024 1 0:32am hx of colonpolyps November 11, 2024 1 1:03am Reason for Visit Admit Date Blood in stool September 19, 2024 9 :24am Change in bowel movement September 19, 2 024 9:24am Pain with bowel movements September 19, 2024 9:24am Blood in stool October 13, 2024 10 :58am History of colon polyps October 13 10:58am Rectal pain October 13, 2024 10 :58am Chief Complaint Admit Date Muscle pain June 28, 2025 10:48am Reason for Visit Admit Date Abdominal muscle strain June 28, 2025 10:48am Reason for Visit Admit Date Abdominal muscle strain June 28, 2025 10:48am Intolerance to BiPAP/CPAP June 10:48am CURTIS (obstructive sleep apnea) June 28, 2025 10:48am Chief Complaint Admit Date Muscle pain June 28, 2025 10:48am Wellness August 07, 2025 8 :17am Reason for Visit Admit Date Abdominal muscle strain June 28, 2025 10:48am Intolerance to BiPAP/CPAP June 10:48am CURTIS (obstructive sleep apnea) June 28, 2025 10:48am Hyperlipidemia August 07, 2025 8 :17am Sinus congestion August 07, 2025 8 :17am Wellness examination August 07, 2025 8:17am Low libido August 07, 2025 8 :17am Chief Complaint Admit Date Muscle pain June 28, 2025 10:48am E78.5 August 03, 2025 7 :33am Wellness August 07, 2025 8 :17am G47.30 E66.9 G47.33 August 23, 2025 8:24am Additional Source Comments (unrecognized sect ion and content) No Status Records FoundNo Status Records FoundNo Status Records Found INFORMATION SOURCE (unrecogn ized section and content) DATE CREATED AUTHOR 05/02/2022 [facility] DATE CREATED AUTHOR AUTHOR'S ORGANIZ ATION 11/09/2024 [facility] DATE CREATED AUTHOR AUTHOR'S ORGANIZ ATION 08/24/2025 [facility] REASON FOR VISIT (unrecogniz ed section and content) Clinicalmed check-document s leep apnea - rx in upcoming folderRefillsClinicalrefills6 month follow up DMOzempic PACT deniedClinicalClinicalNo InformationRefillsNo Informationclinicaltick biteClinicalRefillsrefillRefillsRefillClinical Acute MedicineclinicalRefillsClinicalrefill Care Teams (unrecognized sec tion and content) Team Status: Active Member Role Status Dates Erick Doll DO Primary Care Provider Active Team Status: Inactive Member Role Status Dates Erick Doll DO Primary Care Provider, Attending Provi shira Active Team Status: Inactive Member Role Status Dates Erick Doll DO Primary Care Provider Active Sta rt: April 17, 2024 End: April 17[place] ProviderActiveStart: April 17, 2024 End: April 17, 2024 Team Status: Inactive Member Role Status Dates Erick Doll DO Primary Care Provide r, Attending Provider Active Start: May 17, 2024 End: May 17, 2024 Team Status: Active Member Role Status Kleber Doll DO Primary Care Provider Active Sta rt: June 20, 2024 Paul Warren ProviderActiveStart: June 20, 2024 Team Status: Inactive Member Role Status Dates Erick Doll DO Primary Care Provider Active Sta rt: June 22, 2024 End: June 22Tania Ricks ProviderActiveStart: June 22, 2024 End: June 22, 2024 Team Status: Inactive Member Role Status Kleber Doll DO Primary Care Provider Active Sta rt: April 17, 2024 End: April 17Brigid Powers ProviderActiveStart: April 17, 2024 End: April 17, 2024 Team Status: Inactive Member Role Status Kleber Doll DO Primary Care Provider Active Sta rt: June 23, 2024 End: June 23pete Becerra , MDAttending ProviderActiveStart: June 23, 2024 End: June 23, 2024 Team Status: Inactive Member Role Status Kleber Doll DO Primary Care Provide r, Attending Provider Active Start: September 19, 2024 End: September 19, 2024 Team Status: Inactive Member Role Status Kleber Doll DO Primary Care Provider Active Sta rt: October 13, 2024 End: October 13atherine L Ly , DOAttending ProviderActiveStart: October 13, 2024 End: October 13, 2024 Team Status: Inactive Member Role Status Kleber Doll DO Primary Care Provider Active Sta rt: November 11, 2024 End: November 11atherine L Ly , DOAttending ProviderActiveStart: November 11, 2024 End: November 11, 2024 Team Status: Active Member Role Status Kleber Doll DO Primary Care Provider Active Sta rt: November 11, 2024 Eliana L Ly , DOAttending Provider, Other ProviderActiveStart: November 11, 2024 Team Status: Inactive Member Role Status Kleber Doll DO Primary Care Provider Active Sta rt: June 28, 2025 End: June 28, 2025Kybenigno Smith DOAttending ProviderActiveStart: June 28, 2025 End: June 28, 2025 Team Status: Active Member Role/Relationship Status Kleber Doll DO Primary Care Provider Active Team Status: Inactive Member Role/Relationship Status Kleber Doll DO Primary Care Provider Active Sta rt: June 28, 2025 End: June 28, 2025Kybenigno Smith DOAttending ProviderActiveStart: June 28, 2025 End: June 28, 2025 Team Status: Inactive Member Role/Relationship Status Kleber Doll DO Primary Care Provider Active Sta rt: August 03, 2025 End: August 03, 2025Kybenigno Smith DOAttending ProviderActiveStart: August 03, 2025 End: August 03, 2025 Team Status: Inactive Member Role/Relationship Status Dates Erick Doll DO Primary Care Provider Active Sta rt: August 07, 2025 End: August 07carol Doll DOAttending ProviderActiveStart: August 07, 2025 End: August 07, 2025 Team Status: Active Member Role/Relationship Status Dates Erick Doll DO Primary Care Provider Active Sta rt: August 07, 2025 Erick Doll DOAttending ProviderActiveStart: August 07, 2025 Team Status: Inactive Member Role/Relationship Status Dates Erick Doll DO Primary Care Provider Active Sta rt: August 07, 2025 End: August 07carol Doll DOAttending ProviderActiveStart: August 07, 2025 End: August 07, 2025 Team Status: Active Member Role/Relationship Status Dates Erick Doll DO Primary Care Provider Active Sta rt: August 07, 2025 Erick Doll DOOther ProviderActiveStart: August 07, 2025 Gregory Cano MDAttending ProviderActiveStart: August 07, 2025 Team Status: Active Member Role/Relationship Status Kleber Doll DO Primary Care Provider Active Sta rt: August 23, 2025 Erick Doll DOAttending ProviderActiveStart: August 23, 2025 Team Status: Inactive Member Role/Relationship Status Kleber Doll DO Primary Care Provider Active Sta rt: August 23, 2025 End: August 23, 2025Miguel Bose MDAttending ProviderActiveStart: August 23, 2025 End: August 23, 2025 Goals (unrecognized section and content) Goals may [...] BE BASED ON THE PRIMARY CLINICAL RECORDS. [employer] [facility]. provides no warranty or guarantee of the accuracy or completeness of information in this document.
[2025-09-07] MEDS: TAMSULOSIN HCL 0.4 MG CAPSULE PO (02:34)
[2025-09-07] MEDS: CEPHALEXIN 500 MG CAPSULE PO (02:34)
== END 2025-09-07 02:49 | disposition home or self-care (01) ==
PROVIDERS: Emergency Provider Student in an Organized Health Care Education/Training Program; PCP Family Medicine
DX: N20.0 Calculus of kidney (principal); E11.9 Type 2 diabetes mellitus without complications; I10 Essential (primary) hypertension; Z87.442 Personal history of urinary calculi; Z79.84 Long term (current) use of oral hypoglycemic drugs; Z79.85 Long-term (current) use of injectable non-insulin antidiabetic drugs
CPT/HCPCS: 36415; 74176; 80048; 81001; 85025; 87086; 96374; 96375; 99284; J1885; J2405